=== PATIENT | female | born 1950 | race Two or more races ===

== ENCOUNTER 2024-07-28 08:17 | Outpatient (RCR) | payer OTHER, MEDICAID, SELFPAY ==
[2024-07-06 11:56] LABS: Basophils % (Auto) 0 % (0-2.5); Eosinophils # (Auto) 0.4 Thou/mm3 (0.0-0.5); Eosinophils % (Auto) 5 % (0-10); Hematocrit 36.3 % (36.0-46.0); Hemoglobin 11.9 g/dL (12.0-16.0); Immature Granulocytes % (Auto) 0 % (0-0); Immature Granulocytes Auto 0.03 Thou/mm3 (0.00-0.00); Lymphocytes % (Auto) 35 % (10-50); Mean Corpuscular HGB Conc 32.8 g/dl (31.0-37.0); Mean Corpuscular Hemoglobin 28.3 pg (25.0-35.0); Mean Corpuscular Volume 86 fL (80-100); Monocytes # (Auto) 0.6 Thou/mm3 (0.0-0.8); Monocytes % (Auto) 7 % (0-12); Neutrophils # (Auto) 4.4 Thou/mm3 (1.8-7.7); Neutrophils % (Auto) 52 % (37-80); Nucleated Red Blood Cell % 0 /100 WBC (0); Platelet Count 355 Thou/mm3 (140-440); RDW Standard Deviation 47.1 fL (36.4-46.3); White Blood Count 8.5 Thou/mm3 (3.6-11.0)
[2024-07-06 12:14] LABS: Alanine Aminotransferase 38 U/L (10-49); Albumin, Serum 3.9 gm/dL (3.4-4.8); Albumin/Globulin Ratio 1.3 (1.2-2.2); Alkaline Phosphatase 106 U/L (46-116); Anion Gap 9 (7-16); Aspartate Amino Transferase 11 U/L (0-34); BUN/Creatinine Ratio 12 Ratio (12-20); Bilirubin,Total 0.4 mg/dL (0.3-1.2); Blood Urea Nitrogen 7 mg/dL (9-23); Calcium (Corrected) 9.1 mg/dL (8.5-10.1); Carbon Dioxide 21.3 mMol/L (20.0-31.0); Chloride 107 mMol/L (98-107); Creatinine (Component) 0.6 mg/dL (0.6-1.3); Globulin 2.9 gm/dL (2.3-3.5); Glucose 188 mg/dL (74-106); Osmolality,Calculated 276 (275-295); Potassium 3.5 mMol/L (3.4-5.1); Sodium 137 mMol/L (136-145); Total Protein 6.8 gm/dL (5.7-8.2); eGFR > 60 See Note
[2024-07-11 09:28] LABS: Basophils # (Auto) 0.1 Thou/mm3 (0.0-0.2); Basophils % (Auto) 1 % (0-2.5); Eosinophils # (Auto) 0.4 Thou/mm3 (0.0-0.5); Eosinophils % (Auto) 4 % (0-10); Hematocrit 36.7 % (36.0-46.0); Hemoglobin 12.3 g/dL (12.0-16.0); Immature Granulocytes % (Auto) 0 % (0-0); Immature Granulocytes Auto 0.04 Thou/mm3 (0.00-0.00); Lymphocytes # (Auto) 2.8 Thou/mm3 (1.0-4.8); Lymphocytes % (Auto) 30 % (10-50); Mean Corpuscular HGB Conc 33.5 g/dl (31.0-37.0); Mean Corpuscular Hemoglobin 29.1 pg (25.0-35.0); Mean Corpuscular Volume 87 fL (80-100); Monocytes # (Auto) 0.7 Thou/mm3 (0.0-0.8); Monocytes % (Auto) 8 % (0-12); Neutrophils # (Auto) 5.4 Thou/mm3 (1.8-7.7); Neutrophils % (Auto) 57 % (37-80); Nucleated Red Blood Cell % 0 /100 WBC (0); Platelet Count 341 Thou/mm3 (140-440); RDW Standard Deviation 46.4 fL (36.4-46.3); Red Blood Count 4.23 Miln/mm3 (4.00-5.20); White Blood Count 9.5 Thou/mm3 (3.6-11.0)
[2024-07-11 09:46] LABS: Alanine Aminotransferase 20 U/L (10-49); Albumin, Serum 3.9 gm/dL (3.4-4.8); Albumin/Globulin Ratio 1.4 (1.2-2.2); Alkaline Phosphatase 113 U/L (46-116); Anion Gap 8 (7-16); Aspartate Amino Transferase 18 U/L (0-34); BUN/Creatinine Ratio 11 Ratio (12-20); Bilirubin,Total 0.4 mg/dL (0.3-1.2); Blood Urea Nitrogen 8 mg/dL (9-23); Calcium (Corrected) 9.1 mg/dL (8.5-10.1); Carbon Dioxide 22.1 mMol/L (20.0-31.0); Chloride 108 mMol/L (98-107); Creatinine (Component) 0.7 mg/dL (0.6-1.3); Globulin 2.8 gm/dL (2.3-3.5); Glucose 112 mg/dL (74-106); Osmolality,Calculated 274 (275-295); Potassium 3.8 mMol/L (3.4-5.1); Sodium 138 mMol/L (136-145); Thyroid Stimulating Hormone 2.33 uIU/mL (0.55-4.78); Total Protein 6.7 gm/dL (5.7-8.2); eGFR > 60 See Note
[2024-07-11 09:58] LABS: Folate > 24.00 ng/mL (>5.38); Vitamin B12 899 pg/mL (211-911)
[2024-07-11 09:59] LABS: Ferritin 92 ng/mL (7.3-270.7); Total Iron Binding Capacity 277 mcg/dL (250-425)
[2024-07-11 10:10] LABS: Iron 40 mcg/dL (50-170); Percent Iron Saturation 14 % (20-55); Unsaturated Iron Binding 237 (225-295)
[2024-07-12 06:44] LABS: CA 19-9 Antigen* 451 U/mL (<34)
[2024-07-18 10:26] LABS: Basophils % (Auto) 0 % (0-2.5); Eosinophils # (Auto) 0.3 Thou/mm3 (0.0-0.5); Eosinophils % (Auto) 3 % (0-10); Hematocrit 34.8 % (36.0-46.0); Hemoglobin 11.5 g/dL (12.0-16.0); Immature Granulocytes % (Auto) 0 % (0-0); Immature Granulocytes Auto 0.03 Thou/mm3 (0.00-0.00); Lymphocytes # (Auto) 2.1 Thou/mm3 (1.0-4.8); Lymphocytes % (Auto) 24 % (10-50); Mean Corpuscular Volume 88 fL (80-100); Monocytes # (Auto) 0.7 Thou/mm3 (0.0-0.8); Monocytes % (Auto) 8 % (0-12); Neutrophils # (Auto) 5.7 Thou/mm3 (1.8-7.7); Neutrophils % (Auto) 65 % (37-80); Nucleated Red Blood Cell % 0 /100 WBC (0); Platelet Count 337 Thou/mm3 (140-440); RDW Standard Deviation 45.6 fL (36.4-46.3); Red Blood Count 3.97 Miln/mm3 (4.00-5.20); White Blood Count 8.8 Thou/mm3 (3.6-11.0)
[2024-07-18 10:58] LABS: Alanine Aminotransferase 24 U/L (10-49); Albumin, Serum 4.1 gm/dL (3.4-4.8); Albumin/Globulin Ratio 1.5 (1.2-2.2); Alkaline Phosphatase 103 U/L (46-116); Anion Gap 8 (7-16); Aspartate Amino Transferase 23 U/L (0-34); BUN/Creatinine Ratio 13 Ratio (12-20); Bilirubin,Total 0.4 mg/dL (0.3-1.2); Blood Urea Nitrogen 8 mg/dL (9-23); Calcium 8.9 mg/dL (8.3-10.6); Calcium (Corrected) 8.9 mg/dL (8.5-10.1); Carbon Dioxide 21.9 mMol/L (20.0-31.0); Chloride 108 mMol/L (98-107); Creatinine (Component) 0.6 mg/dL (0.6-1.3); Globulin 2.8 gm/dL (2.3-3.5); Glucose 96 mg/dL (74-106); Osmolality,Calculated 273 (275-295); Potassium 3.6 mMol/L (3.4-5.1); Sodium 138 mMol/L (136-145); Total Protein 6.9 gm/dL (5.7-8.2); eGFR > 60 See Note
[2024-07-21 06:49] LABS: CA 19-9 Antigen* 397 U/mL (<34)
[2024-07-25 09:17] LABS: Basophils % (Auto) 0 % (0-2.5); Eosinophils # (Auto) 0.4 Thou/mm3 (0.0-0.5); Eosinophils % (Auto) 5 % (0-10); Hemoglobin 11.2 g/dL (12.0-16.0); Immature Granulocytes % (Auto) 0 % (0-0); Immature Granulocytes Auto 0.02 Thou/mm3 (0.00-0.00); Lymphocytes # (Auto) 1.9 Thou/mm3 (1.0-4.8); Lymphocytes % (Auto) 26 % (10-50); Mean Corpuscular HGB Conc 32.9 g/dl (31.0-37.0); Mean Corpuscular Hemoglobin 28.9 pg (25.0-35.0); Mean Corpuscular Volume 88 fL (80-100); Monocytes # (Auto) 0.6 Thou/mm3 (0.0-0.8); Monocytes % (Auto) 8 % (0-12); Neutrophils # (Auto) 4.4 Thou/mm3 (1.8-7.7); Neutrophils % (Auto) 61 % (37-80); Nucleated Red Blood Cell % 0 /100 WBC (0); Platelet Count 361 Thou/mm3 (140-440); RDW Standard Deviation 46.4 fL (36.4-46.3); Red Blood Count 3.88 Miln/mm3 (4.00-5.20); White Blood Count 7.3 Thou/mm3 (3.6-11.0)
[2024-07-25 09:43] LABS: Alanine Aminotransferase 30 U/L (10-49); Albumin/Globulin Ratio 1.3 (1.2-2.2); Alkaline Phosphatase 106 U/L (46-116); Anion Gap 6 (7-16); Aspartate Amino Transferase 29 U/L (0-34); BUN/Creatinine Ratio 13 Ratio (12-20); Bilirubin,Total 0.5 mg/dL (0.3-1.2); Blood Urea Nitrogen 9 mg/dL (9-23); Calcium 9.4 mg/dL (8.3-10.6); Calcium (Corrected) 9.4 mg/dL (8.5-10.1); Carbon Dioxide 19.6 mMol/L (20.0-31.0); Chloride 112 mMol/L (98-107); Creatinine (Component) 0.7 mg/dL (0.6-1.3); Glucose 99 mg/dL (74-106); Osmolality,Calculated 274 (275-295); Potassium 3.6 mMol/L (3.4-5.1); Sodium 138 mMol/L (136-145); eGFR > 60 See Note
[2024-08-03 06:27] LABS: CA 19-9 Antigen* 230 U/mL (<34)
== END 2024-07-28 23:59 | disposition home or self-care (01) ==
LOC: SCTC 08:17
PROVIDERS: PCP Family Medicine; Referring Provider Family Medicine; Visit Provider Internal Medicine Hematology & Oncology
DX: Z51.11 Encounter for antineoplastic chemotherapy (principal); Z51.0 Encounter for antineoplastic radiation therapy; C25.0 Malignant neoplasm of head of pancreas
CPT/HCPCS: 36591; 77300; 77301; 77336; 77338; 77385; 80053; 82607; 82728; 82746; 83540; 83550; 84443; 85025; 86301; 96374; 96416; 96521; 99212; A4216; J1642; J2997; J9190; G0463

== ENCOUNTER 2024-08-22 08:26 | Outpatient (RCR) | payer OTHER, MEDICAID, SELFPAY ==
[2024-08-01 08:54] LABS: Basophils % (Auto) 0 % (0-2.5); Eosinophils # (Auto) 0.2 Thou/mm3 (0.0-0.5); Eosinophils % (Auto) 3 % (0-10); Hematocrit 32.6 % (36.0-46.0); Immature Granulocytes % (Auto) 0 % (0-0); Immature Granulocytes Auto 0.03 Thou/mm3 (0.00-0.00); Lymphocytes # (Auto) 1.7 Thou/mm3 (1.0-4.8); Lymphocytes % (Auto) 22 % (10-50); Mean Corpuscular HGB Conc 33.7 g/dl (31.0-37.0); Mean Corpuscular Hemoglobin 29.7 pg (25.0-35.0); Mean Corpuscular Volume 88 fL (80-100); Monocytes # (Auto) 0.8 Thou/mm3 (0.0-0.8); Monocytes % (Auto) 10 % (0-12); Neutrophils # (Auto) 4.9 Thou/mm3 (1.8-7.7); Neutrophils % (Auto) 65 % (37-80); Nucleated Red Blood Cell % 0 /100 WBC (0); Platelet Count 342 Thou/mm3 (140-440); RDW Standard Deviation 48.8 fL (36.4-46.3); White Blood Count 7.6 Thou/mm3 (3.6-11.0)
[2024-08-01 09:14] LABS: Alanine Aminotransferase 26 U/L (10-49); Albumin, Serum 3.9 gm/dL (3.4-4.8); Albumin/Globulin Ratio 1.4 (1.2-2.2); Alkaline Phosphatase 109 U/L (46-116); Anion Gap 8 (7-16); Aspartate Amino Transferase 23 U/L (0-34); BUN/Creatinine Ratio 15 Ratio (12-20); Bilirubin,Total 0.5 mg/dL (0.3-1.2); Blood Urea Nitrogen 9 mg/dL (9-23); Calcium 9.2 mg/dL (8.3-10.6); Calcium (Corrected) 9.3 mg/dL (8.5-10.1); Carbon Dioxide 22.4 mMol/L (20.0-31.0); Chloride 109 mMol/L (98-107); Creatinine (Component) 0.6 mg/dL (0.6-1.3); Globulin 2.8 gm/dL (2.3-3.5); Glucose 95 mg/dL (74-106); Osmolality,Calculated 276 (275-295); Potassium 3.6 mMol/L (3.4-5.1); Sodium 139 mMol/L (136-145); Total Protein 6.7 gm/dL (5.7-8.2); eGFR > 60 See Note
[2024-08-09 06:32] LABS: CA 19-9 Antigen* 176 U/mL (<34)
[2024-08-09 10:51] LABS: Basophils % (Auto) 1 % (0-2.5); Eosinophils # (Auto) 0.3 Thou/mm3 (0.0-0.5); Eosinophils % (Auto) 4 % (0-10); Hematocrit 31.9 % (36.0-46.0); Hemoglobin 10.9 g/dL (12.0-16.0); Immature Granulocytes % (Auto) 0 % (0-0); Immature Granulocytes Auto 0.02 Thou/mm3 (0.00-0.00); Lymphocytes # (Auto) 1.2 Thou/mm3 (1.0-4.8); Lymphocytes % (Auto) 17 % (10-50); Mean Corpuscular HGB Conc 34.2 g/dl (31.0-37.0); Mean Corpuscular Hemoglobin 30.2 pg (25.0-35.0); Mean Corpuscular Volume 88 fL (80-100); Monocytes # (Auto) 0.7 Thou/mm3 (0.0-0.8); Monocytes % (Auto) 11 % (0-12); Neutrophils # (Auto) 4.5 Thou/mm3 (1.8-7.7); Neutrophils % (Auto) 68 % (37-80); Nucleated Red Blood Cell % 0 /100 WBC (0); Platelet Count 375 Thou/mm3 (140-440); RDW Standard Deviation 52.3 fL (36.4-46.3); Red Blood Count 3.61 Miln/mm3 (4.00-5.20); White Blood Count 6.7 Thou/mm3 (3.6-11.0)
[2024-08-09 11:11] LABS: Alanine Aminotransferase 30 U/L (10-49); Albumin, Serum 3.9 gm/dL (3.4-4.8); Albumin/Globulin Ratio 1.4 (1.2-2.2); Alkaline Phosphatase 125 U/L (46-116); Anion Gap 6 (7-16); Aspartate Amino Transferase 27 U/L (0-34); BUN/Creatinine Ratio 13 Ratio (12-20); Bilirubin,Total 0.4 mg/dL (0.3-1.2); Blood Urea Nitrogen 9 mg/dL (9-23); Calcium (Corrected) 9.1 mg/dL (8.5-10.1); Carbon Dioxide 22.2 mMol/L (20.0-31.0); Chloride 108 mMol/L (98-107); Creatinine (Component) 0.7 mg/dL (0.6-1.3); Globulin 2.7 gm/dL (2.3-3.5); Glucose 176 mg/dL (74-106); Osmolality,Calculated 274 (275-295); Potassium 3.7 mMol/L (3.4-5.1); Sodium 136 mMol/L (136-145); Total Protein 6.6 gm/dL (5.7-8.2); eGFR > 60 See Note
[2024-08-15 06:40] LABS: CA 19-9 Antigen* 192 U/mL (<34)
[2024-08-15 09:06] LABS: Basophils % (Auto) 0 % (0-2.5); Eosinophils # (Auto) 0.3 Thou/mm3 (0.0-0.5); Eosinophils % (Auto) 4 % (0-10); Hematocrit 32.5 % (36.0-46.0); Hemoglobin 10.8 g/dL (12.0-16.0); Immature Granulocytes % (Auto) 0 % (0-0); Immature Granulocytes Auto 0.02 Thou/mm3 (0.00-0.00); Lymphocytes # (Auto) 1.2 Thou/mm3 (1.0-4.8); Lymphocytes % (Auto) 18 % (10-50); Mean Corpuscular HGB Conc 33.2 g/dl (31.0-37.0); Mean Corpuscular Hemoglobin 29.8 pg (25.0-35.0); Mean Corpuscular Volume 90 fL (80-100); Monocytes # (Auto) 0.7 Thou/mm3 (0.0-0.8); Monocytes % (Auto) 10 % (0-12); Neutrophils # (Auto) 4.5 Thou/mm3 (1.8-7.7); Neutrophils % (Auto) 68 % (37-80); Nucleated Red Blood Cell % 0 /100 WBC (0); Platelet Count 381 Thou/mm3 (140-440); Red Blood Count 3.63 Miln/mm3 (4.00-5.20); White Blood Count 6.6 Thou/mm3 (3.6-11.0)
[2024-08-15 09:26] LABS: Alanine Aminotransferase 22 U/L (10-49); Albumin/Globulin Ratio 1.4 (1.2-2.2); Alkaline Phosphatase 135 U/L (46-116); Anion Gap 7 (7-16); Aspartate Amino Transferase 26 U/L (0-34); BUN/Creatinine Ratio 13 Ratio (12-20); Bilirubin,Total 0.5 mg/dL (0.3-1.2); Blood Urea Nitrogen 8 mg/dL (9-23); Calcium 8.9 mg/dL (8.3-10.6); Calcium (Corrected) 8.9 mg/dL (8.5-10.1); Chloride 109 mMol/L (98-107); Creatinine (Component) 0.6 mg/dL (0.6-1.3); Globulin 2.8 gm/dL (2.3-3.5); Glucose 97 mg/dL (74-106); Osmolality,Calculated 272 (275-295); Potassium 3.7 mMol/L (3.4-5.1); Sodium 137 mMol/L (136-145); Total Protein 6.8 gm/dL (5.7-8.2); eGFR > 60 See Note
[2024-08-18 06:43] LABS: CA 19-9 Antigen* 226 U/mL (<34)
== END 2024-08-27 23:59 | disposition home or self-care (01) ==
LOC: SCTC 08:26
PROVIDERS: PCP Family Medicine; Referring Provider Family Medicine; Visit Provider Internal Medicine Hematology & Oncology
DX: Z51.0 Encounter for antineoplastic radiation therapy (principal); Z51.11 Encounter for antineoplastic chemotherapy; C25.0 Malignant neoplasm of head of pancreas; K83.1 Obstruction of bile duct; Z97.8 Presence of other specified devices
CPT/HCPCS: 77336; 77385; 80053; 85025; 86301; 96416; 96521; A4216; J1642; J9190

== ENCOUNTER 2024-09-06 08:54 | Outpatient (RCR) | payer OTHER, MEDICAID, SELFPAY ==
[2024-08-31 14:24] LABS: Basophils % (Auto) 1 % (0-2.5); Eosinophils # (Auto) 0.2 Thou/mm3 (0.0-0.5); Eosinophils % (Auto) 3 % (0-10); Hematocrit 30.9 % (36.0-46.0); Hemoglobin 10.4 g/dL (12.0-16.0); Immature Granulocytes % (Auto) 1 % (0-0); Immature Granulocytes Auto 0.03 Thou/mm3 (0.00-0.00); Lymphocytes # (Auto) 1.2 Thou/mm3 (1.0-4.8); Lymphocytes % (Auto) 19 % (10-50); Mean Corpuscular HGB Conc 33.7 g/dl (31.0-37.0); Mean Corpuscular Hemoglobin 31.3 pg (25.0-35.0); Mean Corpuscular Volume 93 fL (80-100); Monocytes # (Auto) 0.8 Thou/mm3 (0.0-0.8); Monocytes % (Auto) 13 % (0-12); Neutrophils % (Auto) 64 % (37-80); Nucleated Red Blood Cell % 0 /100 WBC (0); Platelet Count 341 Thou/mm3 (140-440); RDW Standard Deviation 58.9 fL (36.4-46.3); Red Blood Count 3.32 Miln/mm3 (4.00-5.20); White Blood Count 6.3 Thou/mm3 (3.6-11.0)
[2024-08-31 14:50] LABS: Alanine Aminotransferase 12 U/L (10-49); Albumin/Globulin Ratio 1.6 (1.2-2.2); Alkaline Phosphatase 147 U/L (46-116); Anion Gap 10 (7-16); Aspartate Amino Transferase 25 U/L (0-34); BUN/Creatinine Ratio 13 Ratio (12-20); Bilirubin,Total 0.4 mg/dL (0.3-1.2); Blood Urea Nitrogen 8 mg/dL (9-23); Calcium 8.7 mg/dL (8.3-10.6); Calcium (Corrected) 8.7 mg/dL (8.5-10.1); Carbon Dioxide 21.1 mMol/L (20.0-31.0); Chloride 105 mMol/L (98-107); Creatinine (Component) 0.6 mg/dL (0.6-1.3); Globulin 2.5 gm/dL (2.3-3.5); Glucose 129 mg/dL (74-106); Osmolality,Calculated 272 (275-295); Potassium 3.4 mMol/L (3.4-5.1); Sodium 136 mMol/L (136-145); Total Protein 6.5 gm/dL (5.7-8.2); eGFR > 60 See Note
[2024-09-06 06:25] LABS: CA 19-9 Antigen* 602 U/mL (<34)
--- NOTE | 2024-09-12 04:54 | CTCFLWUP_ITS ---
Patient: ELIZABETH JUAREZ : 1950 Page 2 of 2 FOLLOW UP NOTE DATE OF SERVICE: 09/01/2024 NAME: ELIZABETH JUAREZ ACCOUNT: [id number] : 1950 AGE: 74 REASON FOR VISIT: Follow-up on pancreatic cancer INTERVAL HISTORY: Have completed chemoradiation and here for follow-up. Patient's CA 19-9 is rising up. Patient for feels fatigued and tired and have poor appetite. Elizabeth Juarez is a 74-year-old SPA speaking female is referred to medical oncology clinic for recently diagnosed pancreatic adenocarcinoma. Ms. Juarez is a poor historian. S he is accompanied by her granddaughter who also does not know the history of Ms. Jaurez's il lness. Early part of June 2023: Ms. Juarez was found to have jaundice. She was admitted to [facility] and subsequently transferred to [facility] in [place]. On sc ans she was found to have a mass in the pancreas. According to the granddaughter patient had CT-guid ed biopsy of the pancreatic mass and external biliary drain was placed. Patient has subsequently imp roved. She stayed at [facility] for about 2 weeks. Discharged on 07 August 2023. I do not have any rec ords from [facility]. According to the granddaughter the pancreatic cancer is localized to the pancreas. 08/24/2023: T. bili 4.8, AST 118, ALT 147, alkaline phosphatase 264, CA 19?9 is 66. 08/31/2023: T. bili 3.3, AST 81, ALT 102, alk phos 297 09/03/2023: PET/CT scan? 10/20/2023 - 12/02/2023: Ms. Juarez received 2 cycles of gemcitabine and Abraxane in the neoadj uvant setting. CA 19?9 trend: 10/19/2023: 59 10/26/2023: 49 11/03/2023: 32 11/17/2023: 39 11/24/2023: 35 12/01/2023: 34. 12/28/2023: PET/CT scan? 01/11/2024: CT scan of the chest without IV contrast done 02/03/2024: CA 19?9 is 107. 02/10/2024: CA 19?9 is 126. 02/11/2024: Ms. Juarez had cycle 3-day 8 of gemcitabine and Abraxane. 04/21/2024: Ms. Juarez had 5 cycles of gemcitabine and Abraxane 05/17/2024: CT scan of the chest abdomen and pelvis with IV contrast 05/23/2024: MRI of the abdomen with and without IV contrast DIAGNOSIS: Localized pancreatic adenocarcinoma. S/p 5 cycles of neoadjuvant gemcitabine and Abraxane (10/20/2023 - 04/21/2024) Repeat MRI (05/23/2024). Showed progression and patient was started on radiation DATE OF DIAGNOSIS: STAGE/TNM: TREATMENT HISTORY: Care?Plan Start?Date Cycle Day Intent GemAbrax 10/20/2023 1 28 Curative?(primary) 5fu?chemoradiation 07/11/2024 1 7 Definitive OTHER MEDICAL HISTORY/CONDITIONS: PANCRATIC CA ASTHMA HIGH BLOOD PRESSURE BILAT?TUBAL?LIGATION FAMILY HISTORY: Children:?BREAST??DAUGHTER Cancer History:?UNCLE PROSATE/ UNCLE STOMACH SOCIAL HISTORY: Occupational?History:?RETIRED Education?Level:?Completed something less than 8th grade Marital?Status:? 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 Centrum Silver Women - 8 mg iron-400 mcg-50 mcg 30 tab Daily 2. cephALEXin - 500 mg Capsule As directed 3. K-Tab - 20 mEq 1 tab Daily 4. eecnkh-nftekluy-rtcwcjx - 60,000-189,600- 252,600 unit 1 Capsule 1 capsule three times daily with food 5. megestrol - 40 mg 1 tab Daily 6. methimazole - 5 mg Daily 7. ondansetron - 8 mg 1 tab Daily 8. pantoprazole - 40 mg Twice a Day 9. Protonix - 20 mg 1 tab Daily 10. traMADol - 50 mg 1 tab three times a day Medications Last Reconciled by Nkechi Lutz MA on 09/01/2024 ALLERGIES: hydrocodone-acetaminophen; hydrocodone-acetaminophen REVIEW OF SYSTEMS: A complete 14-point review of systems was performed and is negative except as noted in interval histo ry. PHYSICAL EXAMINATION: VITAL SIGNS: Temperature?97.8, B/P?134/76, Oxygen?Saturation?100% Weight?95?lbs (Change?since?08/31/24 :?-1?lbs) PAIN: 5 - Between moderate and severe pain ECOG Performance Status: 2 - Symptomatic; ambulatory; capable of self-care; >50% of waking hrs. not i n bed EYE: Conjunctivae is white MOUTH: Oral cavity is dry. CHEST: Clear to auscultation. No wheezes or rales audible. CARDIAC: Rhythm regular, no murmurs or gallops present. ABDOMEN: Soft. No hepatomegaly. No splenomegaly. Ms. Juarez has external biliary drain whic h seems to be functioning well. EXTREMITIES: No pedal edema or cyanosis. LABORATORY DATA: I have personally reviewed and interpreted each of the patient?s relevant lab tests, abnormal finding s are below: Date 08/31/24 ??WHITE?BLOOD?COUNT?(Thou/mm3) 6.3 ??RED?BLOOD?COUNT?(Miln/mm3) 3.32?L ??HEMOGLOBIN?(gm/dl) 10.4?L ??HEMATOCRIT?(%) 30.9?L ??PLATELET?COUNT?(Thou/mm3) 341 ??NEUTROPHILS?%,?AUTO?(%) 64 ??LYMPH?%,?AUTO?(%) 19 ??NEUTROPHILS,?AUTO?(Thou/mm3) 4.0 IMPRESSION/PLAN: Adenocarcinoma pancreas Initially treated with 5 cycles of neoadjuvant Abraxane gem Cytovene with a plan to do surgery Patient was found to have progression and no surgery was offered and radiation was started Patient started on 5-FU plus radiation and complete last treatment was given on 08/17/2024 Patient's CA 19 9 is now more than 600 Patient is likely progressing I will get CT scan to evaluate the disease Advised to follow-up with surgeon as patient have appointment Patient likely have very poor prognosis at this time I will treat with FOLFIRI if patient have progression CBC CMP ca19-[address] scan chest abdomen pelvis ordered with IV contrast RETURN TO CLINIC: 4 weeks BILLING AND COMPLIANCE: I reviewed external records from providers outside my specialty as summarized above. I spent a total of 50 minutes on this patient?s care on the day of their visit excluding time spent related to any bi lled procedures. This time includes time spent with the patient as well as time spent documenting in the medical record, reviewing patients records and tests, obtaining history, placing orders, communi cating with other healthcare professionals, counseling the patient, family or caregiver, and/or care coordination for the diagnoses above. Electronically Signed by: Desmond Odell MD T: 4:52 AM CC: PCP: Neena Bermeo Referring: Neena Bermeo This document was completed utilizing speech recognition software. Grammatical errors, random word in sertions, pronoun errors, and incomplete sentences are an occasional consequence of this system due t o software limitations, ambient noise, and hardware issues. Any formal questions or concerns about th e content, text or information contained within the body of this dictation should be directly address ed to the provider for clarification.
== END 2024-09-27 23:59 | disposition home or self-care (01) ==
LOC: SCTC 08:54
PROVIDERS: Internal Medicine Hematology & Oncology; PCP Family Medicine; Referring Provider Family Medicine; Visit Provider Radiology Therapeutic Radiology
DX: C25.0 Malignant neoplasm of head of pancreas (principal)
CPT/HCPCS: 36591; 80053; 85025; 86301; 96374; 96376; 99212; A4216; J1642; J2997; G0463

== ENCOUNTER → 2024-09-29 | Outpatient (CLI) | payer MEDICARE, MEDICAID, SELFPAY ==
--- NOTE | 2024-09-29 13:00 | XR_ITS ---
Examination: CT chest with intravenous contrast CT chest without intravenous contrast 2-D reconstructions Date and time of exam:September 29, 2024 1420 hours Comparison May 17, 2024 INDICATIONS: Diagnosis malignant neoplasm head of the pancreas CTDI:vol (mGy) : 8 DLP: (mGycm) 417.32 Technique: Multiple axial sections of the thorax have been obtained. 3 mm slice thickness, from the hemidiaphragms to above the apices of the lungs. Mediastinal and lung density settings have been obtained. Intravenous contrast administered 60 cc Isovue-370. Noncontrast images have also been obtained. 2-D sagittal coronal images obtained. Low dose protocols were performed. One or more of the following dose reduction techniques were used; automated exposure control, adjustment of the mA and/or KV according to patient size, use of iterative reconstruction technique. Findings: Mildly prominent right thyroid lobe with 11 mm right thyroid nodule Thoracic aorta calcification no aneurysmal dilatation AP dimension ascending thoracic aorta 3 cm No paratracheal tracheobronchial or bronchopulmonary adenopathy Interval 5 mm pleural-based pulmonary nodule right lower lobe axial image 188 No pneumonia or pulmonary edema Pneumobilia Extrahepatic biliary drainage tube extends partly visualized into the common bile duct Mass in the pancreatic head exhibits AP dimension 33 mm now compared to 29 mm on May 17, 2024 IMPRESSION: Interval 5 mm pleural-based pulmonary nodule right lower lobe Enlarging mass pancreatic head
== END | disposition home or self-care (01) ==
PROVIDERS: PCP Family Medicine; Referring Provider Internal Medicine Hematology & Oncology; Visit Provider Internal Medicine Hematology & Oncology
DX: R91.1 Solitary pulmonary nodule (principal); K86.89 Other specified diseases of pancreas; C25.0 Malignant neoplasm of head of pancreas
CPT/HCPCS: 71270; A4649; Q9967

== ENCOUNTER 2024-10-14 08:29 | Outpatient (RCR) | payer MEDICARE, MEDICAID, SELFPAY ==
[2024-10-14 09:53] LABS: Basophils # (Auto) 0.1 Thou/mm3 (0.0-0.2); Basophils % (Auto) 1 % (0-2.5); Eosinophils # (Auto) 0.4 Thou/mm3 (0.0-0.5); Eosinophils % (Auto) 7 % (0-10); Hematocrit 33.9 % (36.0-46.0); Hemoglobin 11.5 g/dL (12.0-16.0); Immature Granulocytes % (Auto) 0 % (0-0); Immature Granulocytes Auto 0.02 Thou/mm3 (0.00-0.00); Lymphocytes # (Auto) 1.8 Thou/mm3 (1.0-4.8); Lymphocytes % (Auto) 28 % (10-50); Mean Corpuscular HGB Conc 33.9 g/dl (31.0-37.0); Mean Corpuscular Hemoglobin 30.6 pg (25.0-35.0); Mean Corpuscular Volume 90 fL (80-100); Monocytes # (Auto) 0.6 Thou/mm3 (0.0-0.8); Monocytes % (Auto) 10 % (0-12); Neutrophils # (Auto) 3.7 Thou/mm3 (1.8-7.7); Neutrophils % (Auto) 55 % (37-80); Nucleated Red Blood Cell % 0 /100 WBC (0); Platelet Count 363 Thou/mm3 (140-440); RDW Standard Deviation 44.7 fL (36.4-46.3); Red Blood Count 3.76 Miln/mm3 (4.00-5.20); White Blood Count 6.6 Thou/mm3 (3.6-11.0)
[2024-10-14 10:11] LABS: Alanine Aminotransferase 16 U/L (10-49); Albumin, Serum 4.1 gm/dL (3.4-4.8); Albumin/Globulin Ratio 1.6 (1.2-2.2); Alkaline Phosphatase 135 U/L (46-116); Anion Gap 11 (7-16); Aspartate Amino Transferase 24 U/L (0-34); BUN/Creatinine Ratio 22 Ratio (12-20); Bilirubin,Total 0.5 mg/dL (0.3-1.2); Blood Urea Nitrogen 13 mg/dL (9-23); Carbon Dioxide 24.3 mMol/L (20.0-31.0); Chloride 107 mMol/L (98-107); Creatinine (Component) 0.6 mg/dL (0.6-1.3); Globulin 2.5 gm/dL (2.3-3.5); Glucose 85 mg/dL (74-106); Osmolality,Calculated 282 (275-295); Sodium 142 mMol/L (136-145); Total Protein 6.6 gm/dL (5.7-8.2); eGFR > 60 See Note
--- NOTE | 2024-10-17 23:28 | CTCFLWUP_ITS ---
Patient: BANDAR JUAREZ : 1950 Page 5 of 6 FOLLOW UP NOTE DATE OF SERVICE: 10/13/2024 NAME: BANDAR JUAREZ ACCOUNT: [id number] : 1950 AGE: 74 INTERVAL HISTORY: Have completed chemoradiation and here for follow-up. Patient's CA 19-9 was 602 . no new labs . Patient have gained 5 pounds since last visit . Bandar Juarez is a 74-year-old SPA speaking for female with diagnosed pancreatic a denocarcinoma. Ms. Juarez is a poor historian. She is accompanied by her granddaughter who also does not know the history of Ms. Juarez's illness. Early part of June 2023: Ms. Juarez was found to have jaundice. She was admitted to [facility] and subsequently transferred to [facility] in [place]. On sc ans she was found to have a mass in the pancreas. According to the granddaughter patient had CT-guid ed biopsy of the pancreatic mass and external biliary drain was placed. Patient has subsequently imp roved. She stayed at [facility] for about 2 weeks. Discharged on 07 August 2023. I do not have any rec ords from [facility]. According to the granddaughter the pancreatic cancer is localized to the pancreas. 08/24/2023: T. bili 4.8, AST 118, ALT 147, alkaline phosphatase 264, CA 19?9 is 66. 08/31/2023: T. bili 3.3, AST 81, ALT 102, alk phos 297 09/03/2023: PET/CT scan? 10/20/2023 - 12/02/2023: Ms. Juarez received 2 cycles of gemcitabine and Abraxane in the neoadj uvant setting. CA 19?9 trend: 10/19/2023: 59 10/26/2023: 49 11/03/2023: 32 11/17/2023: 39 11/24/2023: 35 12/01/2023: 34. 12/28/2023: PET/CT scan? 01/11/2024: CT scan of the chest without IV contrast done 02/03/2024: CA 19?9 is 107. 02/10/2024: CA 19?9 is 126. 02/11/2024: Ms. Juarez had cycle 3-day 8 of gemcitabine and Abraxane. 04/21/2024: Ms. Juarez had 5 cycles of gemcitabine and Abraxane 05/17/2024: CT scan of the chest abdomen and pelvis with IV contrast 05/23/2024: MRI of the abdomen with and without IV contrast ONCOLOGY HISTORY: DIAGNOSIS: Malignant neoplasm of head of pancreas [ICD10] C25.0 DATE OF DIAGNOSIS: STAGE/TNM: TREATMENT HISTORY: Care?Plan Start?Date Cycle Day Intent GemAbrax 10/20/2023 1 28 Curative?(primary) 5fu?chemoradiation 07/11/2024 1 7 Definitive HISTORY OF PRESENT ILLNESS: OTHER MEDICAL HISTORY/CONDITIONS: PANCRATIC CA ASTHMA HIGH BLOOD PRESSURE BILAT?TUBAL?LIGATION FAMILY HISTORY: Children:?BREAST??DAUGHTER Cancer History:?UNCLE PROSATE/ UNCLE STOMACH SOCIAL HISTORY: Occupational?History:?RETIRED Education?Level:?Completed something less than 8th grade Marital?Status:? 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 Centrum Silver Women - 8 mg iron-400 mcg-50 mcg 30 tab Daily 2. cephALEXin - 500 mg Capsule As directed 3. K-Tab - 20 mEq 1 tab Daily 4. waljme-erqdubvf-tnkrktm - 60,000-189,600- 252,600 unit 1 Capsule 1 capsule three times daily with food 5. megestrol - 40 mg 1 tab Daily 6. methimazole - 5 mg Daily 7. mirtazapine - 15 mg 1 tab Daily 8. ondansetron - 8 mg 1 tab Daily 9. pantoprazole - 40 mg Twice a Day 10. Protonix - 20 mg 1 tab Daily 11. traMADol - 50 mg 1 tab three times a day 12. Zenpep - 60,000-189,600- 252,600 unit 1 Capsule Three times a day Medications Last Reconciled by Nkechi Lutz MA on 10/13/2024 ALLERGIES: hydrocodone-acetaminophen; hydrocodone-acetaminophen REVIEW OF SYSTEMS: A complete 14-point review of systems was performed and is negative except as noted in interval histo ry. PHYSICAL EXAMINATION: VITAL SIGNS: PAIN: 2 - Mild pain ECOG Performance Status: 2 - Symptomatic; ambulatory; capable of self-care; >50% of waking hrs. not i n bed EYE: Conjunctivae is white MOUTH: Oral cavity is dry. CHEST: Clear to auscultation. No wheezes or rales audible. CARDIAC: Rhythm regular, no murmurs or gallops present. ABDOMEN: Soft. No hepatomegaly. No splenomegaly. Ms. Juarez has external biliary drain whic h seems to be functioning well. EXTREMITIES: No pedal edema or cyanosis. LABORATORY DATA: I have personally reviewed and interpreted each of the patient?s relevant lab tests, abnormal finding s are below: Date 08/31/24 ??WHITE?BLOOD?COUNT?(Thou/mm3) 6.3 ??RED?BLOOD?COUNT?(Miln/mm3) 3.32?L ??HEMOGLOBIN?(gm/dl) 10.4?L ??HEMATOCRIT?(%) 30.9?L ??PLATELET?COUNT?(Thou/mm3) 341 ??NEUTROPHILS?%,?AUTO?(%) 64 ??LYMPH?%,?AUTO?(%) 19 ??NEUTROPHILS,?AUTO?(Thou/mm3) 4.0 ASSESSMENT/PLAN: Adenocarcinoma pancreas Initially treated with 5 cycles of neoadjuvant Abraxane gem Cytovene with a plan to do surgery Patient was found to have progression and no surgery was offered and radiation was started Patient started on 5-FU plus radiation and complete last treatment was given on 08/17/2024 Patient's CA 19 9 is now more than 602 Ct chest shows lung nodule Patient is likely progressing I will get CT scan to evaluate the disease Advised to follow-up with surgeon as patient have appointment Patient likely have very poor prognosis at this time I will treat with FOLFIRI if patient have progression CBC CMP ca19-[address] scan chest abdomen pelvis ordered with IV contrast ORDERS: I will see her back in the clinic in 3 weeks. Tumor markers RETURN TO CLINIC: BILLING AND COMPLIANCE: I reviewed external records from providers outside my specialty as summarized above. I spent a total of 50 minutes on this patient?s care on the day of their visit excluding time spent related to any bi lled procedures. This time includes time spent with the patient as well as time spent documenting in the medical record, reviewing patients records and tests, obtaining history, placing orders, communi cating with other healthcare professionals, counseling the patient, family or caregiver, and/or care coordination for the diagnoses above. Electronically Signed by: {Object.Sanct_ID*[email or web address]@M}, {Object.Sanct_ID*PnP.Suffix@U} D: {Object.Sanct_Date} T: {Object.Sanct_Time} CC: PCP: Neena Bermeo Referring: Neena Bermeo This document was completed utilizing speech recognition software. Grammatical errors, random word in sertions, pronoun errors, and incomplete sentences are an occasional consequence of this system due t o software limitations, ambient noise, and hardware issues. Any formal questions or concerns about th e content, text or information contained within the body of this dictation should be directly address ed to the provider for clarification.
[2024-10-19 06:26] LABS: CA 19-9 Antigen* 442 U/mL (<34)
== END 2024-10-28 23:59 | disposition home or self-care (01) ==
LOC: SCTC 08:29
PROVIDERS: PCP Family Medicine; Referring Provider Family Medicine; Visit Provider Internal Medicine Hematology & Oncology
DX: C25.0 Malignant neoplasm of head of pancreas (principal); R91.1 Solitary pulmonary nodule
CPT/HCPCS: 36591; 80053; 85025; 86301; 99212; A4216; J1642; G0463

== ENCOUNTER → 2024-10-31 | Outpatient (CLI) | payer OTHER, MEDICAID, SELFPAY ==
[2024-10-31 10:33] LABS: Basophils # (Auto) 0.1 Thou/mm3 (0.0-0.2); Basophils % (Auto) 1 % (0-2.5); Eosinophils # (Auto) 0.4 Thou/mm3 (0.0-0.5); Eosinophils % (Auto) 6 % (0-10); Hematocrit 37.1 % (36.0-46.0); Hemoglobin 12.2 g/dL (12.0-16.0); Immature Granulocytes % (Auto) 0 % (0-0); Immature Granulocytes Auto 0.03 Thou/mm3 (0.00-0.00); Lymphocytes # (Auto) 1.7 Thou/mm3 (1.0-4.8); Lymphocytes % (Auto) 24 % (10-50); Mean Corpuscular HGB Conc 32.9 g/dl (31.0-37.0); Mean Corpuscular Hemoglobin 29.8 pg (25.0-35.0); Mean Corpuscular Volume 91 fL (80-100); Monocytes # (Auto) 0.8 Thou/mm3 (0.0-0.8); Monocytes % (Auto) 11 % (0-12); Neutrophils # (Auto) 4.2 Thou/mm3 (1.8-7.7); Neutrophils % (Auto) 58 % (37-80); Nucleated Red Blood Cell % 0 /100 WBC (0); Platelet Count 366 Thou/mm3 (140-440); RDW Standard Deviation 45.7 fL (36.4-46.3); White Blood Count 7.2 Thou/mm3 (3.6-11.0)
[2024-10-31 11:05] LABS: Alanine Aminotransferase 21 U/L (10-49); Albumin, Serum 4.1 gm/dL (3.4-4.8); Albumin/Globulin Ratio 1.4 (1.2-2.2); Alkaline Phosphatase 163 U/L (46-116); Anion Gap 10 (7-16); Aspartate Amino Transferase 29 U/L (0-34); BUN/Creatinine Ratio 22 Ratio (12-20); Bilirubin,Total 0.5 mg/dL (0.3-1.2); Blood Urea Nitrogen 13 mg/dL (9-23); Calcium 9.2 mg/dL (8.3-10.6); Calcium (Corrected) 9.2 mg/dL (8.5-10.1); Chloride 109 mMol/L (98-107); Creatinine (Component) 0.6 mg/dL (0.6-1.3); Globulin 2.9 gm/dL (2.3-3.5); Glucose 92 mg/dL (74-106); Osmolality,Calculated 286 (275-295); Potassium 4.9 mMol/L (3.4-5.1); Sodium 144 mMol/L (136-145); eGFR > 60 See Note
== END | disposition home or self-care (01) ==
LOC: COPL 09:33
PROVIDERS: PCP Family Medicine; Referring Provider Family Medicine; Visit Provider Family Medicine
DX: C25.9 Malignant neoplasm of pancreas, unspecified (principal); E05.80 Other thyrotoxicosis without thyrotoxic crisis or storm
CPT/HCPCS: 36415; 80053; 84439; 84443; 85025

== ENCOUNTER → 2024-11-03 | Outpatient (CLI) | payer OTHER, MEDICAID, SELFPAY ==
--- NOTE | 2024-11-03 13:15 | XR_ITS ---
EXAMINATION: PET/CT FUSION SKULL TO THIGH EXAM DATE AND TIME: November 03, [address] chest abdomen pelvis May 17, 2024 INDICATIONS: Diagnosis pancreatic cancer, post treatment restaging CTDI:vol (mGy) 2.39 DLP: (mGycm) 188.99 PROCEDURE: 16.14 mCi FDG was administered intravenously To allow for distribution and uptake of radiotracer, the patient was allowed to rest quietly in a shielded room. Imaging was performed on an integrated 16-slice PET/CT scanner, with scanning from the skull base to the mid thigh. Serum blood glucose at the time of the injection was measured 70 mg/dL. CT scanning was performed without oral or intravenous contrast material. FINDINGS: Head and Neck: There is no checo hypermetabolism in the neck. The visualized portions of the brain are normal in appearance on CT. Chest: There is no checo hypermetabolism in the chest. There are no pulmonary nodules. Abdomen and Pelvis: 21 mm hypermetabolic mass in the ary hepatis region Weakly hypermetabolic pancreatic head mass, at least 4.6 x 3.6 cm with biliary stent Musculoskeletal: Hypermetabolic L4, L5, S1 ary hepatis hypermetabolic left iliac bone 10 mm image 166 IMPRESSION: Hypermetabolic mass in the ary hepatis, likely metastatic lymphadenopathy, 21 mm Hypermetabolic pancreatic head mass 4.6 x 3.6 cm Osseous metastatic disease, recommend nuclear medicine whole body bone scan follow-up Please see the CT chest report September 29, 2024
== END | disposition home or self-care (01) ==
PROVIDERS: PCP Internal Medicine Hematology & Oncology; Referring Provider Internal Medicine Hematology & Oncology; Visit Provider Internal Medicine Hematology & Oncology
DX: K86.89 Other specified diseases of pancreas (principal); K76.89 Other specified diseases of liver; R93.7 Abnormal findings on diagnostic imaging of other parts of musculoskeletal system; C25.0 Malignant neoplasm of head of pancreas
CPT/HCPCS: 78815; A9552

== ENCOUNTER 2024-12-16 07:59 | Outpatient (RCR) | payer OTHER, MEDICAID, SELFPAY ==
[2024-11-28 09:42] LABS: Basophils % (Auto) 1 % (0-2.5); Eosinophils # (Auto) 0.7 Thou/mm3 (0.0-0.5); Eosinophils % (Auto) 8 % (0-10); Hematocrit 32.1 % (36.0-46.0); Hemoglobin 10.5 g/dL (12.0-16.0); Immature Granulocytes % (Auto) 1 % (0-0); Immature Granulocytes Auto 0.04 Thou/mm3 (0.00-0.00); Lymphocytes # (Auto) 1.6 Thou/mm3 (1.0-4.8); Lymphocytes % (Auto) 20 % (10-50); Mean Corpuscular HGB Conc 32.7 g/dl (31.0-37.0); Mean Corpuscular Hemoglobin 29.2 pg (25.0-35.0); Mean Corpuscular Volume 89 fL (80-100); Monocytes # (Auto) 0.8 Thou/mm3 (0.0-0.8); Monocytes % (Auto) 10 % (0-12); Neutrophils % (Auto) 61 % (37-80); Nucleated Red Blood Cell % 0 /100 WBC (0); Platelet Count 342 Thou/mm3 (140-440); RDW Standard Deviation 48.1 fL (36.4-46.3); White Blood Count 8.1 Thou/mm3 (3.6-11.0)
[2024-11-28 10:10] LABS: Alanine Aminotransferase 25 U/L (10-49); Albumin, Serum 4.4 gm/dL (3.4-4.8); Albumin/Globulin Ratio 1.4 (1.2-2.2); Alkaline Phosphatase 186 U/L (46-116); Anion Gap 12 (7-16); Aspartate Amino Transferase 40 U/L (0-34); BUN/Creatinine Ratio 18 Ratio (12-20); Bilirubin,Total 0.9 mg/dL (0.3-1.2); Blood Urea Nitrogen 11 mg/dL (9-23); Calcium 9.3 mg/dL (8.3-10.6); Calcium (Corrected) 9.3 mg/dL (8.5-10.1); Carbon Dioxide 21.1 mMol/L (20.0-31.0); Chloride 110 mMol/L (98-107); Creatinine (Component) 0.6 mg/dL (0.6-1.3); Globulin 3.1 gm/dL (2.3-3.5); Glucose 96 mg/dL (74-106); Osmolality,Calculated 284 (275-295); Potassium 3.5 mMol/L (3.4-5.1); Sodium 143 mMol/L (136-145); Total Protein 7.5 gm/dL (5.7-8.2); eGFR > 60 See Note
--- NOTE | 2024-11-30 04:42 | CTCFLWUP_ITS ---
Patient: ELIZABETH JUAREZ : 1950 Page 5 of 6 FOLLOW UP NOTE DATE OF SERVICE: 11/29/2024 NAME: ELIZABETH JUAREZ ACCOUNT: [id number] : 1950 AGE: 74 INTERVAL HISTORY: Patient is 74-year-old woman who was diagnosed with a localized pancreatic cancer initially in July 2023. Patient received neoadjuvant gemcitabine and Abraxane and after 5 cycles imaging showed progression and was followed by concurrent chemoradiation. Patient was not offered surgery. Since then patient's tumor marker have been uptrending. Patient wanted to follow-up with surgery and did not wanted to start Of chemotherapy. Also patient requested PET CT scan which was completed and showed progression of disease. Symptomatically patient is doing better and do not have any pain per her. She also not losing any weight and have good appetite. Patient have a port catheter. Patient is upset and asking why she cannot have surgery which can cure her. She is very reluctant to have further chemotherapy. She wants to have chemotherapy if it is the only kind of therapy case she can receive. ONCOLOGY HISTORY: DIAGNOSIS: Malignant neoplasm of head of pancreas [ICD10] C25.0 DATE OF DIAGNOSIS: July 2023 STAGE/TNM: Pancreatic adenocarcinoma advanced TREATMENT HISTORY: Care?Plan Start?Date Cycle Day Intent GemAbrax 10/20/2023 1 28 Curative?(primary) 5fu?chemoradiation 07/11/2024 1 7 Definitive modified?FOLFIRINOX?manjit?3?pancreas 11/29/2024 1 14 Palliative HISTORY OF PRESENT ILLNESS: Elizabeth Juarez is a 74-year-old SPA speaking for female with diagnosed pancreatic adenocarcinoma. Ms. Juarez is a poor historian. She is accompanied by her granddaughter who also does not know the history of Ms. Juarez's illness. Early part of June 2023: Ms. Juarez was found to have jaundice. She was admitted to [facility] and subsequently transferred to [facility] in [place]. On scans she was found to have a mass in the pancreas. According to the granddaughter patient had CT-guided biopsy of the pancreatic mass and external biliary drain was placed. Patient has subsequently improved. She stayed at [facility] for about 2 weeks. Discharged on 07 August 2023. I do not have any records from [facility]. According to the granddaughter the pancreatic cancer is localized to the pancreas. 08/24/2023: T. bili 4.8, AST 118, ALT 147, alkaline phosphatase 264, CA 19?9 is 66. 08/31/2023: T. bili 3.3, AST 81, ALT 102, alk phos 297 09/03/2023: PET/CT scan? 10/20/2023 - 12/02/2023: Ms. Juarez received 2 cycles of gemcitabine and Abraxane in the neoadjuvant setting. CA 19?9 trend: 10/19/2023: 59 10/26/2023: 49 11/03/2023: 32 11/17/2023: 39 11/24/2023: 35 12/01/2023: 34. 12/28/2023: PET/CT scan? 01/11/2024: CT scan of the chest without IV contrast done 02/03/2024: CA 19?9 is 107. 02/10/2024: CA 19?9 is 126. 02/11/2024: Ms. Juarez had cycle 3-day 8 of gemcitabine and Abraxane. 04/21/2024: Ms. Juarez had 5 cycles of gemcitabine and Abraxane 05/17/2024: CT scan of the chest abdomen and pelvis with IV contrast 05/23/2024: MRI of the abdomen with and without IV contrast OTHER MEDICAL HISTORY/CONDITIONS: PANCRATIC CA ASTHMA HIGH BLOOD PRESSURE BILAT?TUBAL?LIGATION FAMILY HISTORY: Children:?BREAST??DAUGHTER Cancer History:?UNCLE PROSATE/ UNCLE STOMACH SOCIAL HISTORY: Occupational?History:?RETIRED Education?Level:?Completed something less than 8th grade Marital?Status:? 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 Centrum Silver Women - 8 mg iron-400 mcg-50 mcg 30 tab Daily 2. cephALEXin - 500 mg Capsule As directed 3. Compazine - 10 mg 10 mg three times a day prn nausea 4. K-Tab - 20 mEq 1 tab Daily 5. oqjwfw-rsroiuyi-lpjovqb - 60,000-189,600- 252,600 unit 1 Capsule 1 capsule three times daily with food 6. megestrol - 40 mg 1 tab Daily 7. methimazole - 5 mg Daily 8. mirtazapine - 15 mg 1 tab Daily 9. ondansetron - 8 mg 1 tab Daily 10. pantoprazole - 40 mg Twice a Day 11. Protonix - 20 mg 1 tab Daily 12. traMADol - 50 mg 1 tab three times a day 13. Zenpep - 60,000-189,600- 252,600 unit 1 Capsule Three times a day 14. Zenpep - 60,000-189,600- 252,600 unit 1 Capsule three times daily with meals 15. Zofran - 8 mg 8 mg three times a day prn nausea Medications Last Reconciled by Nkechi Lutz MA on 11/29/2024 ALLERGIES: hydrocodone-acetaminophen; hydrocodone-acetaminophen REVIEW OF SYSTEMS: A complete 14-point review of systems was performed and is negative except as noted in interval history. PHYSICAL EXAMINATION: VITAL SIGNS: Temperature?99, B/P?153/86, Oxygen?Saturation?86% Weight?102?lbs (Change?since?11/28/24:?1.8?lbs) PAIN: 2 - Mild pain ECOG Performance Status: 0 - Asymptomatic and fully active EYE: Conjunctivae is white MOUTH: Oral cavity is dry. CHEST: Clear to auscultation. No wheezes or rales audible. CARDIAC: Rhythm regular, no murmurs or gallops present. ABDOMEN: Soft. No hepatomegaly. No splenomegaly. Ms. Juarez has external biliary drain which seems to be functioning well. EXTREMITIES: No pedal edema or cyanosis. LABORATORY DATA: I have personally reviewed and interpreted each of the patient?s relevant lab tests, abnormal findings are below: Date 11/28/24 ??WHITE?BLOOD?COUNT?(Thou/mm3) 8.1 ??RED?BLOOD?COUNT?(Miln/mm3) 3.60?L ??HEMOGLOBIN?(gm/dl) 10.5?L ??HEMATOCRIT?(%) 32.1?L ??PLATELET?COUNT?(Thou/mm3) 342 ??NEUTROPHILS?%,?AUTO?(%) 61 ??LYMPH?%,?AUTO?(%) 20 ??NEUTROPHILS,?AUTO?(Thou/mm3) 5.0 ASSESSMENT/PLAN: Adenocarcinoma pancreas Initially treated with 5 cycles of neoadjuvant Abraxane gem Cytovene with a plan to do surgery Patient was found to have progression and no surgery was offered and radiation was started Patient started on 5-FU plus radiation and complete last treatment was given on 08/17/2024 Patient's CA 19 9 is now more than 400 Ct chest shows lung nodule Patient is likely progressing PET CT scan reviewed with them and shows progression Discussed with Ms. 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 I spent a total of 50 minutes on this patient?s care on the day of their visit excluding time spent related to any billed procedures. This time includes time spent with the patient as well as time spent documenting in the medical record, reviewing patients records and tests, obtaining history, placing orders, communicating with other healthcare professionals, counseling the patient, family or caregiver, and/or care coordination for the diagnoses above. Electronically Signed by: Desmond Odell MD T: 4:40 AM CC: PCP: Neena Bermeo Referring: Neena Bermeo This document was completed utilizing speech recognition software. Grammatical errors, random word insertions, pronoun errors, and incomplete sentences are an occasional consequence of this system due to software limitations, ambient noise, and hardware issues. Any formal questions or concerns about the content, text or information contained within the body of this dictation should be directly addressed to the provider for clarification.
[2024-12-01 07:08] LABS: CA 19-9 Antigen* 10598 U/mL (<34)
--- NOTE | 2024-12-13 23:38 | CTCFLWUP_ITS ---
Patient: ELIZABETH JUAREZ : 1950 Page 5 of 7 FOLLOW UP NOTE DATE OF SERVICE: 12/13/2024 NAME: ELIZABETH JUAREZ ACCOUNT: [id number] : 1950 AGE: 74 INTERVAL HISTORY: Patient is 74-year-old woman who was diagnosed with a localized pancreatic cancer initially in July 2023. Patient received neoadjuvant gemcitabine and Abraxane and after 5 cycles imaging showed progression and was followed by concurrent chemoradiation. Patient was not offered surgery. Since then patient's tumor marker have been uptrending. Patient wanted to follow-up with surgery and did not wanted to start Of chemotherapy. Also patient requested PET CT scan which was completed and showed progression of disease. Patient was advised to start on FOLFIRINOX. Patient was admitted to the [facility] and found to have disease involving spinal cord with edema. Patient was started on steroids and was advised to follow-up with radiation outpatient. ONCOLOGY HISTORY: DIAGNOSIS: Malignant neoplasm of head of pancreas [ICD10] C25.0 DATE OF DIAGNOSIS: July 2023 STAGE/TNM: Pancreatic adenocarcinoma advanced TREATMENT HISTORY: Care?Plan Start?Date Cycle Day Intent GemAbrax 10/20/2023 1 28 Curative?(primary) 5fu?chemoradiation 07/11/2024 1 7 Definitive modified?FOLFIRINOX?manjit?3?pancreas 12/14/2024 1 14 Palliative HISTORY OF PRESENT ILLNESS: Elizabeth Juarez is a 74-year-old SPA speaking for female with diagnosed pancreatic adenocarcinoma. Ms. Juarez is a poor historian. She is accompanied by her granddaughter who also does not know the history of Ms. Juarez's illness. Early part of June 2023: Ms. Juarez was found to have jaundice. She was admitted to [facility] and subsequently transferred to [facility] in [place]. On scans she was found to have a mass in the pancreas. According to the granddaughter patient had CT-guided biopsy of the pancreatic mass and external biliary drain was placed. Patient has subsequently improved. She stayed at [facility] for about 2 weeks. Discharged on 07 August 2023. I do not have any records from [facility]. According to the granddaughter the pancreatic cancer is localized to the pancreas. 08/24/2023: T. bili 4.8, AST 118, ALT 147, alkaline phosphatase 264, CA 19?9 is 66. 08/31/2023: T. bili 3.3, AST 81, ALT 102, alk phos 297 09/03/2023: PET/CT scan? 10/20/2023 - 12/02/2023: Ms. Juarez received 2 cycles of gemcitabine and Abraxane in the neoadjuvant setting. CA 19?9 trend: 10/19/2023: 59 10/26/2023: 49 11/03/2023: 32 11/17/2023: 39 11/24/2023: 35 12/01/2023: 34. 12/28/2023: PET/CT scan? 01/11/2024: CT scan of the chest without IV contrast done 02/03/2024: CA 19?9 is 107. 02/10/2024: CA 19?9 is 126. 02/11/2024: Ms. Juarez had cycle 3-day 8 of gemcitabine and Abraxane. 04/21/2024: Ms. Juarez had 5 cycles of gemcitabine and Abraxane 05/17/2024: CT scan of the chest abdomen and pelvis with IV contrast 05/23/2024: MRI of the abdomen with and without IV contrast OTHER MEDICAL HISTORY/CONDITIONS: PANCRATIC CA ASTHMA HIGH BLOOD PRESSURE BILAT?TUBAL?LIGATION FAMILY HISTORY: Children:?BREAST??DAUGHTER Cancer History:?UNCLE PROSATE/ UNCLE STOMACH SOCIAL HISTORY: Occupational?History:?RETIRED Education?Level:?Completed something less than 8th grade Marital?Status:? 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 Centrum Silver Women - 8 mg iron-400 mcg-50 mcg 30 tab Daily 2. Compazine - 10 mg 10 mg three times a day prn nausea 3. dexamethasone - 4 mg 1 tab twice Daily 4. dexamethasone - 4 mg 1 tab Twice a Day 5. K-Tab - 20 mEq 1 tab Daily 6. megestrol - 40 mg 1 tab Daily 7. methimazole - 5 mg Daily 8. pantoprazole - 40 mg Twice a Day 9. propranolol - 20 mg 1 tab Twice a Day 10. Zofran - 8 mg 8 mg three times a day prn nausea Medications Last Reconciled by Neena Clemente MA on 12/13/2024 ALLERGIES: hydrocodone-acetaminophen; hydrocodone-acetaminophen REVIEW OF SYSTEMS: A complete 14-point review of systems was performed and is negative except as noted in interval history. PHYSICAL EXAMINATION: VITAL SIGNS: Temperature?99, B/P?131/65, Oxygen?Saturation?99% Weight?97?lbs (Change?since?11/29/24:?-5?lbs) PAIN: 4 - Moderate pain ECOG Performance Status: 1 - Symptomatic; ambulatory; restricted in strenuous activity EYE: Conjunctivae is white MOUTH: Oral cavity is dry. CHEST: Clear to auscultation. No wheezes or rales audible. CARDIAC: Rhythm regular, no murmurs or gallops present. ABDOMEN: Soft. No hepatomegaly. No splenomegaly. Ms. Juarez has external biliary drain which seems to be functioning well. EXTREMITIES: No pedal edema or cyanosis. LABORATORY DATA: I have personally reviewed and interpreted each of the patient?s relevant lab tests, abnormal findings are below: Date 10/31/24 11/28/24 ??WHITE?BLOOD?COUNT?(Thou/mm3) 7.2 8.1 ??RED?BLOOD?COUNT?(Miln/mm3) 4.10 3.60?L ??HEMOGLOBIN?(gm/dl) 12.2 10.5?L ??HEMATOCRIT?(%) 37.1 32.1?L ??PLATELET?COUNT?(Thou/mm3) 366 342 ??NEUTROPHILS?%,?AUTO?(%) 58 61 ??LYMPH?%,?AUTO?(%) 24 20 ??NEUTROPHILS,?AUTO?(Thou/mm3) 4.2 5.0 ??GLUCOSE,RANDOM?(mg/dL) ? 96 ??BLOOD?UREA?NITROGEN?(mg/dL) ? 11 ??CREATININE?(mg/dL) ? 0.60 ??SODIUM?(mmol/L) ? 143 ??POTASSIUM?(mmol/L) ? 3.5 ??CHLORIDE?(mmol/L) ? 110?H ??CrCl?(CandG)?(ml/min) ? 57.23 ??AST/SGOT?(Unit/L) ? 40?H ??ALT/SGPT?(Unit/L) ? 25 ??ALKALINE?PHOSPHATASE?(Unit/L) ? 186?H ??BILIRUBIN,?TOTAL?(mg/dL) ? 0.9 ??PROTEIN?TOTAL?(gm/dl) ? 7.5 ??ALBUMIN,?SERUM?(gm/dl) ? 4.4 ??GLOBULIN?(gm/dl) ? 3.1 ??ALBUMIN/GLOBULIN?RATIO ? 1.4 ??CALCIUM,?SERUM?(mg/dL) ? 9.3 ??CALCIUM?SERUM?(CORRECTED)?(mg/dL) ? 9.3 ??CA?19-9?(Unit/mL) ? 10,598.00?A ASSESSMENT/PLAN: Adenocarcinoma pancreas Initially treated with 5 cycles of neoadjuvant Abraxane gem Cytovene with a plan to do surgery Patient was found to have progression and no surgery was offered and radiation was started Patient started on 5-FU plus radiation and complete last treatment was given on 08/17/2024 Patient's CA 19 9 is now is about 10,000 Patient has been very reluctant to do chemotherapy I will dose dose reduction by 20 to make it more tolerable for patient Patient and son had discussion about chemotherapy discussed benefits and adverse effects Will support with Neulasta for anticipated neutropenia Will start chemotherapy tomorrow continue dexamethasone Discussed with Dr. Sotelo and advised to the spinal area only CBC CMP CA 19-9 and chemotherapy orders ORDERS: Order # Description [id number] CBC with Auto Diff + Comprehensive Metabolic Panel + CA 19-9 [id number] CBC with Auto Diff + Comprehensive Metabolic Panel + CA 19-9 [id number] CBC with Auto Diff + Comprehensive Metabolic Panel + CA 19-9 [id number] CBC with Auto Diff + Comprehensive Metabolic Panel + CA 19-9 [id number] CBC with Auto Diff + Comprehensive Metabolic Panel + CA 19-9 [id number] CBC with Auto Diff + Comprehensive Metabolic Panel + CA 19-9 [id number] CBC with Auto Diff + Comprehensive Metabolic Panel + CA 19-9 [id number] CBC with Auto Diff + Comprehensive Metabolic Panel + CA 19-9 [id number] CBC with Auto Diff + Comprehensive Metabolic Panel + CA 19-9 [id number] CBC with Auto Diff + Comprehensive Metabolic Panel + CA 19-9 [id number] CBC with Auto Diff + Comprehensive Metabolic Panel + CA 19-9 [id number] CBC with Auto Diff + Comprehensive Metabolic Panel + CA 19-9 RETURN TO CLINIC: 3 weeks BILLING AND COMPLIANCE: I reviewed external records from providers outside my specialty as summarized above. I spent a total of 50 minutes on this patient?s care on the day of their visit excluding time spent related to any billed procedures. This time includes time spent with the patient as well as time spent documenting in the medical record, reviewing patients records and tests, obtaining history, placing orders, communicating with other healthcare professionals, counseling the patient, family or caregiver, and/or care coordination for the diagnoses above. Electronically Signed by: Desmond Odell MD T: 11:35 PM CC: PCP: Neena Bermeo Referring: Neena Bermeo This document was completed utilizing speech recognition software. Grammatical errors, random word insertions, pronoun errors, and incomplete sentences are an occasional consequence of this system due to software limitations, ambient noise, and hardware issues. Any formal questions or concerns about the content, text or information contained within the body of this dictation should be directly addressed to the provider for clarification.
[2024-12-14 08:43] LABS: Basophils % (Auto) 0 % (0-2.5); Eosinophils % (Auto) 0 % (0-10); Hematocrit 31.6 % (36.0-46.0); Hemoglobin 10.7 g/dL (12.0-16.0); Immature Granulocytes % (Auto) 2 % (0-0); Immature Granulocytes Auto 0.24 Thou/mm3 (0.00-0.00); Lymphocytes # (Auto) 0.8 Thou/mm3 (1.0-4.8); Lymphocytes % (Auto) 5 % (10-50); Mean Corpuscular HGB Conc 33.9 g/dl (31.0-37.0); Mean Corpuscular Hemoglobin 31.1 pg (25.0-35.0); Mean Corpuscular Volume 92 fL (80-100); Monocytes # (Auto) 1.4 Thou/mm3 (0.0-0.8); Monocytes % (Auto) 9 % (0-12); Neutrophils # (Auto) 13.3 Thou/mm3 (1.8-7.7); Neutrophils % (Auto) 85 % (37-80); Nucleated Red Blood Cell % 0 /100 WBC (0); Platelet Count 347 Thou/mm3 (140-440); RDW Standard Deviation 54.8 fL (36.4-46.3); Red Blood Count 3.44 Miln/mm3 (4.00-5.20); White Blood Count 15.7 Thou/mm3 (3.6-11.0)
[2024-12-14 09:00] LABS: Alanine Aminotransferase 140 U/L (10-49); Albumin, Serum 3.7 gm/dL (3.4-4.8); Albumin/Globulin Ratio 1.3 (1.2-2.2); Alkaline Phosphatase 598 U/L (46-116); Anion Gap 10 (7-16); Aspartate Amino Transferase 62 U/L (0-34); BUN/Creatinine Ratio 26 Ratio (12-20); Bilirubin,Total 2.1 mg/dL (0.3-1.2); Blood Urea Nitrogen 18 mg/dL (9-23); Calcium 8.8 mg/dL (8.3-10.6); Carbon Dioxide 25.8 mMol/L (20.0-31.0); Chloride 103 mMol/L (98-107); Creatinine (Component) 0.7 mg/dL (0.6-1.3); Globulin 2.9 gm/dL (2.3-3.5); Glucose 128 mg/dL (74-106); Osmolality,Calculated 281 (275-295); Sodium 139 mMol/L (136-145); Total Protein 6.6 gm/dL (5.7-8.2); eGFR > 60 See Note
[2024-12-19 06:56] LABS: CA 19-9 Antigen* 30937 U/mL (<34)
== END 2024-12-26 23:59 | disposition home or self-care (01) ==
LOC: SCTC 07:59
PROVIDERS: PCP Family Medicine; Referring Provider Family Medicine; Visit Provider Internal Medicine Hematology & Oncology
DX: Z51.11 Encounter for antineoplastic chemotherapy (principal); C25.0 Malignant neoplasm of head of pancreas
CPT/HCPCS: 36591; 80053; 85025; 86301; 96360; 96361; 96366; 96367; 96368; 96372; 96375; 96413; 96415; 96416; 96417; 99213; A4216; J0461; J0640; J1100; J1200; J1453; J1642; J2405; J7030; J7050; J7060; J9190; J9206; J9263; Q5101; G0463

== ENCOUNTER 2025-01-20 08:02 | Outpatient (RCR) | payer OTHER, MEDICAID, SELFPAY ==
[2024-12-29 10:22] LABS: Basophils % (Auto) 0 % (0-2.5); Eosinophils % (Auto) 0 % (0-10); Hematocrit 27.2 % (36.0-46.0); Hemoglobin 9.1 g/dL (12.0-16.0); Immature Granulocytes % (Auto) 6 % (0-0); Immature Granulocytes Auto 0.23 Thou/mm3 (0.00-0.00); Lymphocytes # (Auto) 1.2 Thou/mm3 (1.0-4.8); Lymphocytes % (Auto) 31 % (10-50); Mean Corpuscular HGB Conc 33.5 g/dl (31.0-37.0); Mean Corpuscular Volume 93 fL (80-100); Monocytes # (Auto) 1.1 Thou/mm3 (0.0-0.8); Monocytes % (Auto) 26 % (0-12); Neutrophils # (Auto) 1.5 Thou/mm3 (1.8-7.7); Neutrophils % (Auto) 37 % (37-80); Nucleated Red Blood Cell # 0.04 Thou/mm3 (0.00-0.00); Nucleated Red Blood Cell % 1 /100 WBC (0); Platelet Count 506 Thou/mm3 (140-440); RDW Standard Deviation 54.1 fL (36.4-46.3); Red Blood Count 2.94 Miln/mm3 (4.00-5.20)
[2024-12-29 10:42] LABS: Alanine Aminotransferase 136 U/L (10-49); Albumin, Serum 3.4 gm/dL (3.4-4.8); Albumin/Globulin Ratio 1.5 (1.2-2.2); Alkaline Phosphatase 462 U/L (46-116); Anion Gap 9 (7-16); Aspartate Amino Transferase 53 U/L (0-34); BUN/Creatinine Ratio 18 Ratio (12-20); Bilirubin,Total 0.5 mg/dL (0.3-1.2); Blood Urea Nitrogen 9 mg/dL (9-23); Calcium 8.4 mg/dL (8.3-10.6); Calcium (Corrected) 8.9 mg/dL (8.5-10.1); Carbon Dioxide 25.9 mMol/L (20.0-31.0); Chloride 108 mMol/L (98-107); Creatinine (Component) 0.5 mg/dL (0.6-1.3); Globulin 2.2 gm/dL (2.3-3.5); Glucose 110 mg/dL (74-106); Osmolality,Calculated 284 (275-295); Potassium 4.1 mMol/L (3.4-5.1); Sodium 143 mMol/L (136-145); Total Protein 5.6 gm/dL (5.7-8.2); eGFR > 60 See Note
[2025-01-03 06:46] LABS: CA 19-9 Antigen* 7450 U/mL (<34)
[2025-01-09 12:09] LABS: Basophils # (Auto) 0.1 Thou/mm3 (0.0-0.2); Basophils % (Auto) 1 % (0-2.5); Eosinophils % (Auto) 0 % (0-10); Hematocrit 34.7 % (36.0-46.0); Hemoglobin 11.1 g/dL (12.0-16.0); Immature Granulocytes % (Auto) 7 % (0-0); Immature Granulocytes Auto 1.29 Thou/mm3 (0.00-0.00); Lymphocytes # (Auto) 1.5 Thou/mm3 (1.0-4.8); Lymphocytes % (Auto) 8 % (10-50); Mean Corpuscular Hemoglobin 31.4 pg (25.0-35.0); Mean Corpuscular Volume 98 fL (80-100); Monocytes # (Auto) 2.4 Thou/mm3 (0.0-0.8); Monocytes % (Auto) 12 % (0-12); Neutrophils # (Auto) 14.5 Thou/mm3 (1.8-7.7); Neutrophils % (Auto) 74 % (37-80); Nucleated Red Blood Cell % 0 /100 WBC (0); Platelet Count 376 Thou/mm3 (140-440); RDW Standard Deviation 58.9 fL (36.4-46.3); Red Blood Count 3.54 Miln/mm3 (4.00-5.20); White Blood Count 19.7 Thou/mm3 (3.6-11.0)
[2025-01-09 12:22] LABS: Alanine Aminotransferase 35 U/L (10-49); Albumin, Serum 3.4 gm/dL (3.4-4.8); Albumin/Globulin Ratio 1.7 (1.2-2.2); Alkaline Phosphatase 634 U/L (46-116); Anion Gap 9 (7-16); Aspartate Amino Transferase 25 U/L (0-34); BUN/Creatinine Ratio 27 Ratio (12-20); Bilirubin,Total 0.5 mg/dL (0.3-1.2); Blood Urea Nitrogen 19 mg/dL (9-23); Calcium 8.2 mg/dL (8.3-10.6); Calcium (Corrected) 8.7 mg/dL (8.5-10.1); Carbon Dioxide 23.6 mMol/L (20.0-31.0); Chloride 107 mMol/L (98-107); Creatinine (Component) 0.7 mg/dL (0.6-1.3); Glucose 325 mg/dL (74-106); Osmolality,Calculated 294 (275-295); Potassium 3.8 mMol/L (3.4-5.1); Sodium 140 mMol/L (136-145); Total Protein 5.4 gm/dL (5.7-8.2); eGFR > 60 See Note
[2025-01-12 07:27] LABS: CA 19-9 Antigen* 11731 U/mL (<34)
[2025-01-17 14:27] LABS: Basophils # (Auto) 0.1 Thou/mm3 (0.0-0.2); Basophils % (Auto) 1 % (0-2.5); Eosinophils # (Auto) 0.2 Thou/mm3 (0.0-0.5); Eosinophils % (Auto) 1 % (0-10); Hematocrit 31.5 % (36.0-46.0); Hemoglobin 10.7 g/dL (12.0-16.0); Immature Granulocytes % (Auto) 7 % (0-0); Immature Granulocytes Auto 1.05 Thou/mm3 (0.00-0.00); Lymphocytes # (Auto) 0.5 Thou/mm3 (1.0-4.8); Lymphocytes % (Auto) 3 % (10-50); Mean Corpuscular Hemoglobin 31.4 pg (25.0-35.0); Mean Corpuscular Volume 92 fL (80-100); Monocytes # (Auto) 0.3 Thou/mm3 (0.0-0.8); Monocytes % (Auto) 2 % (0-12); Neutrophils # (Auto) 13.1 Thou/mm3 (1.8-7.7); Neutrophils % (Auto) 87 % (37-80); Nucleated Red Blood Cell % 0 /100 WBC (0); Platelet Count 152 Thou/mm3 (140-440); RDW Standard Deviation 52.2 fL (36.4-46.3); Red Blood Count 3.41 Miln/mm3 (4.00-5.20); White Blood Count 15.1 Thou/mm3 (3.6-11.0)
[2025-01-17 14:45] LABS: Anion Gap 8 (7-16); BUN/Creatinine Ratio 27 Ratio (12-20); Blood Urea Nitrogen 16 mg/dL (9-23); Carbon Dioxide 20.3 mMol/L (20.0-31.0); Chloride 108 mMol/L (98-107); Creatinine (Component) 0.6 mg/dL (0.6-1.3); Glucose 317 mg/dL (74-106); Potassium 4.6 mMol/L (3.4-5.1); Sodium 136 mMol/L (136-145); eGFR > 60 See Note
[2025-01-17 14:46] LABS: Alanine Aminotransferase 48 U/L (10-49); Albumin, Serum 3.5 gm/dL (3.4-4.8); Albumin/Globulin Ratio 1.8 (1.2-2.2); Alkaline Phosphatase 337 U/L (46-116); Aspartate Amino Transferase 25 U/L (0-34); Bilirubin,Total 0.4 mg/dL (0.3-1.2); Calcium (Corrected) 8.4 mg/dL (8.5-10.1); Globulin 1.9 gm/dL (2.3-3.5); Osmolality,Calculated 285 (275-295); Total Protein 5.4 gm/dL (5.7-8.2)
--- NOTE | 2025-01-18 23:40 | CTCFLWUP_ITS ---
Patient: ELIZABETH JUAREZ : 1950 Page 6 of 9 FOLLOW UP NOTE DATE OF SERVICE: 01/18/2025 NAME: ELIZABETH JUAREZ ACCOUNT: [id number] : 1950 AGE: 75 INTERVAL HISTORY: Chief Complaint Sadness, fatigue, shakiness, swelling and pain in right leg History of Present Illness The patient is a female with pancreatic cancer who presents for follow-up after a recent hospitalization for a blood infection. She restarted chemotherapy last week following a break due to the infection. The patient reports feeling sad, tired, and a little bit shaky. She denies significant pain, except for discomfort in her right leg, which is slightly swollen. There is concern about a possible blood clot in the leg. The patient has experienced weight fluctuations, with her weight ranging between 93-95 pounds, down from nearly 100 pounds previously. The weight loss is attributed to poor nutritional intake during her recent hospitalization and the effects of cancer. The patient's daughter reports that her mother feels miserable and scared about receiving chemotherapy. The patient has been receiving radiation therapy, though it was noted that radiation is not particularly effective for this type of cancer. She completed intravenous antibiotics on Thursday for the blood infection. Regarding treatment adherence, the patient had a significant break in her chemotherapy regimen due to the infection, which may have impacted the effectiveness of her cancer treatment. The oncologist emphasized the importance of avoiding such long breaks in chemotherapy to maintain its efficacy. Medical History - Pancreatic cancer - Blood infection requiring hospitalization and IV antibiotics - Possible blood clot in right leg (unconfirmed) Medications and Supplements - Chemotherapy - Restarted last week after a break due to blood infection - Administered every 2 weeks - Antibiotics - Finished on Thursday for blood infection - Radiation therapy - Received today - Previously received Social History - Living Situation: Lives with family (daughter mentioned) - Social Support: Has family support (daughter involved in care) Review of Systems General: Positive for fatigue, weakness, and weight loss. Musculoskeletal: Positive for right leg pain and swelling. Neurological: Positive for feeling shaky. Psychiatric: Positive for feeling sad.Of chemotherapy. Also patient requested PET CT scan which was completed and showed progression of disease. Patient was advised to start on FOLFIRINOX. Patient was admitted to the [facility] and found to have disease involving spinal cord with edema. Patient was started on steroids and was advised to follow-up with radiation outpatient. ONCOLOGY HISTORY:?[facility] Hx? DIAGNOSIS: Malignant neoplasm of head of pancreas [ICD10] C25.0 DATE OF DIAGNOSIS: July 2023 STAGE/TNM: Pancreatic adenocarcinoma advanced TREATMENT HISTORY: Care?Plan Start?Date Cycle Day Intent GemAbrax 10/20/2023 1 28 Curative?(primary) 5fu?chemoradiation 07/11/2024 1 7 Definitive modified?FOLFIRINOX?manjit?3?pancreas 12/14/2024 1 14 Palliative HISTORY OF PRESENT ILLNESS: Elizabeth Juarez is a 75-year-old SPA speaking for female with diagnosed pancreatic adenocarcinoma. Ms. Juarez is a poor historian. She is accompanied by her granddaughter who also does not know the history of Ms. Juarez's illness. Early part of June 2023: Ms. Juarez was found to have jaundice. She was admitted to [facility] and subsequently transferred to [facility] in [place]. On scans she was found to have a mass in the pancreas. According to the granddaughter patient had CT-guided biopsy of the pancreatic mass and external biliary drain was placed. Patient has subsequently improved. She stayed at [facility] for about 2 weeks. Discharged on 07 August 2023. I do not have any records from [facility]. According to the granddaughter the pancreatic cancer is localized to the pancreas. 08/24/2023: T. bili 4.8, AST 118, ALT 147, alkaline phosphatase 264, CA 19?9 is 66. 08/31/2023: T. bili 3.3, AST 81, ALT 102, alk phos 297 09/03/2023: PET/CT scan? 10/20/2023 - 12/02/2023: Ms. Juarez received 2 cycles of gemcitabine and Abraxane in the neoadjuvant setting. CA 19?9 trend: 10/19/2023: 59 10/26/2023: 49 11/03/2023: 32 11/17/2023: 39 11/24/2023: 35 12/01/2023: 34. 12/28/2023: PET/CT scan? 01/11/2024: CT scan of the chest without IV contrast done 02/03/2024: CA 19?9 is 107. 02/10/2024: CA 19?9 is 126. 02/11/2024: Ms. Juarez had cycle 3-day 8 of gemcitabine and Abraxane. 04/21/2024: Ms. Juarez had 5 cycles of gemcitabine and Abraxane 05/17/2024: CT scan of the chest abdomen and pelvis with IV contrast 05/23/2024: MRI of the abdomen with and without IV contrast OTHER MEDICAL HISTORY/CONDITIONS: PANCRATIC CA ASTHMA HIGH BLOOD PRESSURE BILAT?TUBAL?LIGATION FAMILY HISTORY: Children:?BREAST??DAUGHTER Cancer History:?UNCLE PROSATE/ UNCLE STOMACH SOCIAL HISTORY: Occupational?History:?RETIRED Education?Level:?Completed something less than 8th grade Marital?Status:? 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 ampicillin sodium/sulbactam sodium - 3 gm As directed 2. Centrum Silver Women - 8 mg iron-400 mcg-50 mcg 30 tab Daily 3. Compazine - 10 mg 10 mg three times a day prn nausea 4. dexamethasone - 4 mg 1 tab twice Daily 5. dexamethasone - 4 mg 1 tab Twice a Day 6. K-Tab - 20 mEq 1 tab Daily 7. megestrol - 40 mg 1 tab Daily 8. methimazole - 5 mg Daily 9. pantoprazole - 40 mg Twice a Day 10. propranolol - 20 mg 1 tab Twice a Day 11. Zofran - 8 mg 8 mg three times a day prn nausea?Palabra Meds? Medications Last Reconciled by Nkechi Lutz MA on 01/18/2025 ALLERGIES: hydrocodone-acetaminophen; hydrocodone-acetaminophen REVIEW OF SYSTEMS: A complete 14-point review of systems was performed and is negative except as noted in interval history. PHYSICAL EXAMINATION:?CloneBlock PE? VITAL SIGNS: Temperature?98.2, B/P?125/82, Oxygen?Saturation?98% PAIN: 3 - Between mild and moderate pain ECOG Performance Status: 0 - Asymptomatic and fully active EYE: Conjunctivae is white MOUTH: Oral cavity is dry. CHEST: Clear to auscultation. No wheezes or rales audible. CARDIAC: Rhythm regular, no murmurs or gallops present. ABDOMEN: Soft. No hepatomegaly. No splenomegaly. Ms. Juarez has external biliary drain which seems to be functioning well. EXTREMITIES: No pedal edema or cyanosis. LABORATORY DATA: I have personally reviewed and interpreted each of the patient?s relevant lab tests, abnormal findings are below: Date 01/09/25 01/17/25 ??WHITE?BLOOD?COUNT?(Thou/mm3) 19.7?H 15.1?H ??RED?BLOOD?COUNT?(Miln/mm3) 3.54?L 3.41?L ??HEMOGLOBIN?(gm/dl) 11.1?L 10.7?L ??HEMATOCRIT?(%) 34.7?L 31.5?L ??PLATELET?COUNT?(Thou/mm3) 376 152 ??NEUTROPHILS?%,?AUTO?(%) 74 87?H ??LYMPH?%,?AUTO?(%) 8?L 3?L ??NEUTROPHILS,?AUTO?(Thou/mm3) 14.5?H 13.1?H ??GLUCOSE,RANDOM?(mg/dL) 325?H 317?H ??BLOOD?UREA?NITROGEN?(mg/dL) 19 16 ??CREATININE?(mg/dL) 0.70 0.60 ??SODIUM?(mmol/L) 140 136 ??POTASSIUM?(mmol/L) 3.8 4.6 ??CHLORIDE?(mmol/L) 107 108?H ??CrCl?(CandG)?(ml/min) 45.01 53.64 ??AST/SGOT?(Unit/L) 25 25 ??ALT/SGPT?(Unit/L) 35 48 ??ALKALINE?PHOSPHATASE?(Unit/L) 634?H 337?H ??BILIRUBIN,?TOTAL?(mg/dL) 0.5 0.4 ??PROTEIN?TOTAL?(gm/dl) 5.4?L 5.4?L ??ALBUMIN,?SERUM?(gm/dl) 3.4 3.5 ??GLOBULIN?(gm/dl) 2.0?L 1.9?L ??ALBUMIN/GLOBULIN?RATIO 1.7 1.8 ??CALCIUM,?SERUM?(mg/dL) 8.2?L 8.0?L ??CALCIUM?SERUM?(CORRECTED)?(mg/dL) 8.7 8.4?L Physical Examination Musculoskeletal: Right leg is swollen. Laboratory, Imaging, and Diagnostic Test Results - CA 19-9: - 01/18/2025: 11,730 - 01/09/2025: 7,400 - 11/2024: 451,397 - 09/2024: 440 - CBC: - 01/18/2025: WBC recovering, Hemoglobin okay - LFTs: - 01/18/2025: Improved ASSESSMENT/PLAN:?Isabel Odell Assessment/Plan? Adenocarcinoma pancreas Initially treated with 5 cycles of neoadjuvant Abraxane gem Cytovene with a plan to do surgery Patient was found to have progression and no surgery was offered and radiation was started Patient started on 5-FU plus radiation and complete last treatment was given on 08/17/2024 Patient's CA 19 9 is now is about 10,000 Patient has been very reluctant to do chemotherapy I will dose dose reduction by 20 to make it more tolerable for patient Pancreatic cancer patient with recent hospitalization for blood infection, currently undergoing chemotherapy and radiation therapy, presenting with fatigue, sadness, and right leg swelling. Pancreatic Cancer Assessment: Patient has pancreatic cancer and is currently undergoing chemotherapy. Recent chemotherapy was interrupted due to a blood infection requiring hospitalization. The patient restarted chemotherapy last week. CA 19-9 levels have been fluctuatin in September, 7400 in December, and most recently 86892. The increase in CA 19-9 levels suggests disease progression during the treatment break. The current chemotherapy regimen is described as very strong and was showing efficacy before the interruption, with the potential to achieve remission if continued. Radiation therapy has been administered, but its efficacy in this type of cancer is limited. Plan: - Resume chemotherapy treatment - Schedule chemotherapy sessions every 2 weeks - Monitor CA 19-9 levels closely - Avoid prolonged breaks in chemotherapy treatment - Consider hospice care if patient's condition deteriorates - Educate patient and family about the importance of consistent chemotherapy for disease control Right Leg Swelling Assessment: Patient reports swelling in the right leg with associated pain. Given the patient's pancreatic cancer diagnosis, there is a high risk of deep vein thrombosis (DVT). Previous examinations in the hospital did not provide conclusive results regarding the presence of a blood clot. Plan: - Urgent ultrasound of the right leg to rule out DVT - Advise against massaging the affected leg until DVT is ruled out - If ultrasound is negative for DVT, can consider gentle massage for symptom relief - Recommend elevation of the affected leg as tolerated Fatigue and Weakness Assessment: Patient reports feeling tired and shaky, which may be attributed to the recent blood infection, ongoing cancer treatments, and the disease process itself. Recent laboratory results show improving white blood cell count and liver function tests (LFTs). Plan: - Continue to monitor complete blood count and LFTs - Assess nutritional status and encourage adequate intake as tolerated - Consider referral to supportive care services for management of cancer-related fatigue Weight Loss Assessment: Patient has experienced significant weight loss, with recent weight fluctuating between 93-100 pounds. Weight loss is likely multifactorial, related to cancer cachexia, treatment side effects, and reduced oral intake during hospitalization. Plan: - Monitor weight at each visit - Consider referral to a registered dietitian for nutritional assessment and recommendations - Discuss appetite stimulants if clinically appropriate CBC CMP CA 19-9 and chemotherapy orders ORDERS: Order # Description [id number] Comprehensive Metabolic Panel - 12 + CBC with Auto Diff [id number] CA 19-9 [id number] CBC with Auto Diff + Comprehensive Metabolic Panel + CA 19-9 [id number] CBC with Auto Diff + Comprehensive Metabolic Panel + CA 19-9 [id number] CBC with Auto Diff + Comprehensive Metabolic Panel + CA 19-9 [id number] CBC with Auto Diff + Comprehensive Metabolic Panel + CA 19-9 [id number] CBC with Auto Diff + Comprehensive Metabolic Panel + CA 19-9 [id number] CBC with Auto Diff + Comprehensive Metabolic Panel + CA 19-9 [id number] CBC with Auto Diff + Comprehensive Metabolic Panel + CA 19-9 [id number] CBC with Auto Diff + Comprehensive Metabolic Panel + CA 19-9 [id number] CBC with Auto Diff + Comprehensive Metabolic Panel + CA 19-9 [id number] CBC with Auto Diff + Comprehensive Metabolic Panel + CA 19-9 RETURN TO CLINIC: BILLING AND COMPLIANCE: I reviewed external records from providers outside my specialty as summarized above. I spent a total of 50 minutes on this patient?s care on the day of their visit excluding time spent related to any billed procedures. This time includes time spent with the patient as well as time spent documenting in the medical record, reviewing patients records and tests, obtaining history, placing orders, communicating with other healthcare professionals, counseling the patient, family or caregiver, and/or care coordination for the diagnoses above. Electronically Signed by: Desmond Odell MD T: 11:37 PM CC: PCP: Neena Bermeo Referring: Neena Bermeo This document was completed utilizing speech recognition software. Grammatical errors, random word insertions, pronoun errors, and incomplete sentences are an occasional consequence of this system due to software limitations, ambient noise, and hardware issues. Any formal questions or concerns about the content, text or information contained within the body of this dictation should be directly addressed to the provider for clarification.
== END 2025-01-25 23:59 | disposition home or self-care (01) ==
LOC: SCTC 08:02
PROVIDERS: PCP Family Medicine; Referring Provider Family Medicine; Visit Provider Internal Medicine Hematology & Oncology
DX: Z51.11 Encounter for antineoplastic chemotherapy (principal); Z51.0 Encounter for antineoplastic radiation therapy; C25.0 Malignant neoplasm of head of pancreas; R60.0 Localized edema; M79.604 Pain in right leg; R53.83 Other fatigue; R53.1 Weakness; R63.4 Abnormal weight loss; Z68.1 Body mass index [BMI] 19.9 or less, adult
CPT/HCPCS: 36591; 77014; 77290; 77300; 77301; 77334; 77338; 77385; 80053; 85025; 86301; 96360; 96367; 96368; 96372; 96375; 96413; 96415; 96416; 96417; 99213; A4216; J0461; J0640; J1100; J1200; J1453; J1642; J2405; J7030; J7050; J7060; J9190; J9206; J9263; Q5101; G0463

== ENCOUNTER 2025-01-20 13:09 | Emergency (ER) | payer OTHER, MEDICAID, SELFPAY ==
[2025-01-20 13:11] VITALS: BMI 18.5
[2025-01-20 13:41] VITALS: BP 122/78; PULSE 107; RESP 18; TEMP 37.2; O2SAT 99
--- NOTE | 2025-01-20 13:43 | PD.EDRME ---
Rapid Medical Screening Exam RME Arrival date/time: 01/20/25 13:09 75-year-old female presents emergency dept today for complaints of right lower extremity swelling and pain Chief Complaint: Recheck/Abnormal Lab/Rx
[2025-01-20 14:33] LABS: INR 1.1 (0.9-1.3); Partial Thromboplastin Time 21.9 Seconds (22.0-36.0); Prothrombin Time 11.9 Seconds (9.0-12.2)
--- NOTE | 2025-01-20 14:46 | XR_ITS ---
Examination: Foot, right, 3 views Technique: AP, oblique, lateral views foot, 3 views Date and time of exam: January 20, 2025 at 1356 hours INDICATIONS: Right foot swelling beginning one month ago. FINDINGS: Severe osteopenia Advanced osteoarthritis first metatarsophalangeal joint No fracture 5 mm plantar 5 mm posterior bony calcaneal spurs Soft tissue swelling dorsum of the foot IMPRESSION: Advanced osteoarthritis first metatarsophalangeal joint 5 mm plantar 5 mm posterior bony calcaneal spurs No fractures No joy cortical bone destruction
--- NOTE | 2025-01-20 15:01 | EDNOTE_ITS ---
<Statement entered by Rachana Yen MD - 01/21/25 14:28> As co-signing physician, I was present and available for consult prn. I concur with the plan and care as documented by the midlevel provider. ED Recheck Abnl Lab Rx-RME/HPI General Chief Complaint: Recheck/Abnormal Lab/Rx Stated Complaint: SENT BY CLIN FOR US OF R FOOT Time Seen by Provider: 01/20/25 14:49 Arrival date/time: 01/20/25 13:09 RME / HPI RME / HPI narrative: 75-year-old female presents emergency dept today for complaints of right lower extremity swelling and pain. This been ongoing for several days. Patient was seen by cancer center and was referred to us for ultrasound. Denies any fever denies any other complaints . Patient has significant history of pancreatic cancer. Patient is not taking any blood thinner. Related Data Previous Rx's ?Medication ?Instructions ?Recorded lorazepam 1 mg tablet 1 mg PO BID Anxiety #12 tabs 11/02/15 acetaminophen 500 mg capsule 500 mg PO Q6H PRN pain (s adry 08/11/19 score 4-6) #30 caps ibuprofen 600 mg tablet 600 mg PO Q6H #30 tabs 08/11 apixaban 5 mg (74 tabs) tablets in 5 mg PO BID #74 tab s 01/20/25 a dose pack (Eliquis DVT-PE Treat 30D Start) Allergies Allergy/AdvReac Type Severity Reaction Status Date / Time acetaminophen (From [place]) Allergy Severe Abdominal Verified 01/20/25 13:20 Pain hydrocodone (From [place]) Allergy Severe Abdominal Verified 01/20/25 13:20 Pain Review of Systems Review of Systems Narrative Review of Systems: Review of system reviewed and within normal limits except mentioned in HPI ED Exam Narrative Physical exam: VITAL SIGNS: Reviewed. GENERAL APPEARANCE: Alert and interactive, follows commands, no acute distress, HEAD AND FACE: Non-traumatic. ENT: PERRL, pink conjunctivitis, eyelid no trauma, Mucous membrane moist. NECK: Supple, nontender, no nuchal rigidity. CHEST: No tenderness, no crepitus, no paradoxical movement, no retractions. LUNGS: Clear, well ventilated, symmetric, no rales, no wheezing, no ronchi, no stridor, good breath sounds bilaterally. HEART: Regular rate, regular rhythm, no murmur, no gallops. ABDOMEN: Soft, positive bowel sounds, nondistended, no guarding, nontender, no rebound, no masses, RECTAL: Deferred. GENITAL: Deferred. NEUROLOGICAL: Gross motor function intact sensory function intact, Appropriate for age. MUSCULOSKELETAL: low back nontender, full range of motion. EXTREMITIES: Right lower leg swelling, no cyanosis noted warm to touch nontender, full range of motion. Distal neurovascular status intact bilateral lower extremity SKIN: Color pink, dry, no rash, no lacerations, no abrasions, no contusions. LYMPHATICS: Deferred. Course Quality Measures none Orders Category Date Time Status XR foot comp RT min 3V Stat Exams 01/20/25 14:46 Completed PT [Prothrombin Time with INR] Stat Lab 01/20/25 13:53 Completed PTT [Partial Thromboplastin Time] Stat Lab 01/20/25 13:53 Completed Vital Signs Vital signs: Vital Signs Temperature 98.9 F 01/20/25 13:41 Pulse Rate 107 H 01/20/25 13:41 Respiratory Rate 18 01/20/25 13:41 Blood Pressure 122/78 01/20/25 13:41 Pulse Oximetry (%) 99 01/20/25 13:41 Oxygen Delivery Method Room Air 01/20/25 13:41 Recheck / Abnormal Lab / Rx MDM Narrative MDM Narrative:: 75-year-old female presents emergency dept today for complaints of right lower extremity swelling and pain. This been ongoing for several days. Patient was seen by cancer center and was referred to us for ultrasound. Denies any fever denies any other complaints . Patient has significant history of pancreatic cancer. Patient is not taking any blood thinner. I reviewed patient's ultrasound that was done outpatient, and showed Positive for occlusive acute deep vein thrombus right popliteal right peroneal veins X-ray of the foot came back unremarkable. She will be sent home on [place] Patient data External records reviewed:: None Clinical information provided by:: patient Social determinants that could affect healthcare access:: none Patient has the following chronic illnesses:: History of pancreatic cancer, hypertension How is presenting disease/condition affected by chronic disease/condition?: exa cerbated by Evaluation data The following diagnostics were reviewed and interpreted by me:: lab results and radiology exam(s) Lab and/or radiology exams considered but not ordered:: None Interpretation Summary: See results in MDM Medications / Prescriptions Medications or Prescriptions considered but not ordered:: None Medication administrations:: None Consultations Consultation(s) initiated? (list below): No Diagnosis Recheck Differential Diagnosis: other (Leg swelling cellulitis DVT) Most likely diagnosis given after review of the tests above:: DVT Admission Indicated Admission indicated?: not indicated Admission Request Was there a request for admission?: No Disposition Plan Disposition Plan: Discharge Discharge Attestation Discharge Attestation: The patient and all family members were given an opportunity to ask questions and understood the discharge instructions. Discharge instructions specifically effects, indications for sooner follow up or return to the emergency department, and the expected course of current diagnosis. Patient condition: Stable Discharge Plan Plan Patient Disposition: HOME (Self Care) Disposition Comment: Stable Prescriptions/Referrals Prescriptions/Med Rec: [place] DVT-PE Treat 30D Start 5 mg (74 tabs) tablets,dose pack 5 mg PO BID Qty: 74 0RF No Action lorazepam 1 MG tablet 1 mg PO BID Qty: 12 0RF ibuprofen 600 mg tablet 600 mg PO Q6H Qty: 30 0RF acetaminophen 500 mg capsule 500 mg PO Q6H PRN (Reason: pain (scale score 4-6)) Qty: 30 0RF Referrals: Neena Reilly MD [Primary Care Provider] - In 1 week Problem List Clinical Impression: DVT (deep venous thrombosis) Patient/Caregiver Discharge Instructions Discharge Activity: activity as tolerated Education Materials: DVT Dc Additional Instructions: Thank you for the opportunity for serving you today. You are stable for discharged . You are advised to: Follow-up with your PCP in 1 to 2 days Return to ED for worsening of symptoms Increase oral fluids Take medication as prescribed Do not massage your leg elevate your leg as needed .Wear compression stocking as needed Print Language: Beninese Stand Alone Forms: Lakeisha Award Info., Patient Portal Info Letter RAFAEL/VERNON Supervising Physician RAFAEL/VERNON Supervising Physician: MD Yovana
== END 2025-01-20 16:22 | disposition home or self-care (01) ==
PROVIDERS: Nurse Practitioner Primary Care; Emergency Provider Emergency Medicine; PCP Family Medicine
DX: I82.401 Acute embolism and thrombosis of unspecified deep veins of right lower extremity (principal)
CPT/HCPCS: 36415; 73630; 85610; 85730; 99283

== ENCOUNTER → 2025-01-20 | Outpatient (CLI) | payer OTHER, MEDICAID, SELFPAY ==
--- NOTE | 2025-01-20 | XR_ITS ---
Examination: Duplex scan of the lower extremity, unilateral right Date and time of exam: January 20, 2025 1207 hours INDICATIONS: Right lower leg filling and pain beginning one month ago Technique: Duplex scan of the extremity veins using B-mode/grayscale imaging and Doppler spectral analysis and color flow Attention is directed to internal echogenicity, compression and augmentation involving these veins, color flow assessment, spectral analysis Findings: Positive for occlusive acute deep vein thrombus right popliteal right peroneal veins IMPRESSION: Positive for occlusive acute deep vein thrombus right popliteal right peroneal veins
== END | disposition home or self-care (01) ==
PROVIDERS: PCP Family Medicine; Referring Provider Internal Medicine Hematology & Oncology; Visit Provider Internal Medicine Hematology & Oncology
DX: I82.431 Acute embolism and thrombosis of right popliteal vein (principal); I82.890 Acute embolism and thrombosis of other specified veins; C79.51 Secondary malignant neoplasm of bone; C25.0 Malignant neoplasm of head of pancreas
CPT/HCPCS: 93971

== ENCOUNTER 2025-01-22 06:40 | Inpatient (IN) | payer OTHER, MEDICAID, MEDICARE, SELFPAY ==
[2025-01-22] VITALS (14 sets, daily range): BP systolic 91–124; BP diastolic 46–81; PULSE 90–150; RESP 15–24; TEMP 36.3–38.2; O2SAT 90–100; BMI 20.2
--- NOTE | 2025-01-22 06:52 | EKG_ITS ---
[facility] Test Date: 2025-01-22 Pat Name: BANDAR JUAREZ Department: Room: - Gender: Female Change Number Operator: : [id number] Requested By: Rachana Dumont Order Number: [id number] Reading MD: Rachana Dumont Measurements Intervals [place] Rate: 138 P: 68 WY: 119 QRS: 5 QRSD: 69 T: 37 QT: 275 QTc: 417 Interpretive Statements SINUS TACHYCARDIA WITH SHORT WY INTERVAL ABNORMAL RHYTHM ECG Compared to ECG 09/12/2023 02:55:42 Short WY interval now present /store/S0/[id number]/ecg/[id number].pdf
--- NOTE | 2025-01-22 06:53 | EDNOTE_ITS ---
ED SOB =RME/HPI General Chief Complaint: Shortness of Breath/Dyspnea Stated Complaint: DIFFICULTY BREATHING Time Seen by Provider: 01/22/25 07:03 Arrival date/time: 01/22/25 06:40 RME / HPI RME / HPI Narrative: 75 year old female with history of pancreatic cancer is presented to the ER accompanied by a family member with a chief complaint of SOB. Per patient, she started to experience SOB at 2100 last night on 01/21/25. Patient also states she has a ileostomy due to the ongoing pancreatic cancer. Patient states no other complaints. Related Data Previous Rx's ?Medication ?Instructions ?Recorded lorazepam 1 mg tablet 1 mg PO BID Anxiety #12 tabs 11/02/15 acetaminophen 500 mg capsule 500 mg PO Q6H PRN pain (s adry 08/11/19 score 4-6) #30 caps ibuprofen 600 mg tablet 600 mg PO Q6H #30 tabs 08/11 apixaban 5 mg (74 tabs) tablets in 5 mg PO BID #74 tab s 01/20/25 a dose pack ([employer] DVT-PE Treat 30D Start) Allergies Allergy/AdvReac Type Severity Reaction Status Date / Time acetaminophen (From [place]) Allergy Severe Abdominal Verified 01/22/25 06:44 Pain hydrocodone (From [place]) Allergy Severe Abdominal Verified 01/22/25 06:44 Pain Review of Systems Review of Systems Systems Reviewed: All systems reviewed, normal except as documented Narrative Review of Systems: Gen: No fever, no chills, no weight loss EYES: No discharge, no visual changes, no pain HEENT: No ear pain, no congestion, no sore throat PULM: +shortness of breath, no cough, no congestion CV: No chest pain, no dyspnea on exertion, no palpitations GI: No nausea, no vomiting, no diarrhea, no pain, no constipation : No frequency, no urgency, no dysuria Musc/skel: No joint pain, no back pain Skin: No rash Psyc: No hallucinations, no depression Heme/Lymph: No easy bleeding or bruising tendencies Neuro: No weakness, no headache Past Medical History Past Medical History CARDIAC: Positive Hypertension OTHER HISTORY: Positive Cancer (PANCREATIC) Social History SMOKING STATUS: Never smoker ED Exam Narrative Physical exam: GENERAL APPEARANCE: alert and oriented x 4, weak, frail, no acute distress HEENT: Normocephalic, atraumatic; pupils equal, round, reactive to light; EOMI; mucous membranes pink, moist; oropharynx clear NECK: Supple LUNGS: CTABL; no wheezes, no rales, no rhonchi. typenic HEART: Regular rate, regular rhythm; normal S1, S2; no murmurs ABDOMEN: non distended; normal BS; soft, no tenderness, no guarding, no rebound; no masses, no organomegaly, no hernia BACK: no CVA tenderness EXTREMITIES: atraumatic; no edema NEUROLOGIC: awake; alert and oriented x4; cranial nerves II-XII grossly intact; no focal sensory or motor deficits PSYCHIATRIC: appropriate mood and affect SKIN: warm, dry, pale; no rashes Course Course Course Narrative: Chest x-ray has been ordered due to determining etiology of shortness of breath. Quality Measures none Orders Category Date Time Status Bedside COVID-19 Antigen Test NOW Care 01/22/25 07:04 Active Bedside Influenza A&B Antigen Test NOW Care 01/22/25 07:[address] Screening NOW Care 01/22/25 06:[address] Screening NOW Care 01/22/25 07:05 Active Web Developer NOW Care 01/22/25 06:52 Active EKG (ED ONLY) *Do not use* NOW Care 01/22/25 06:52 Completed Miscellaneous Nursing Order NOW Care 01/22/25 09:[address] abd pel w con SEPSIS ASMITA Stat Exams 01/22/25 07:[address] angio chest Stat Exams 01/22/25 06:52 Completed EKG (ED Only) Stat Exams 01/22/25 06:52 Draft XR chest 1V portable Stat Exams 01/22/25 06:52 Completed B-Type Natriuretic Peptide Stat Lab 01/22/25 07:25 Completed Blood Culture (Lab) Stat Lab 01/22/25 07:10 Received CBC Stat Lab 01/22/25 07:25 Completed CBC Stat Lab 01/22/25 11:53 Completed CMP [Comprehensive Metabolic Panel] Stat Lab 01/22/25 11:53 Completed Comprehensive Metabolic Panel Stat Lab 01/22/25 07:25 Completed Lactate (Lactic Acid) Stat Lab 01/22/25 07:25 Completed Lactic Acid [Lactate (Lactic Acid)] Stat Lab 01/22/25 11:53 Results Lipase Stat Lab 01/22/25 07:25 Completed Magnesium Stat Lab 01/22/25 07:25 Completed Partial Thromboplastin Time Stat Lab 01/22/25 07:25 Completed Path Review Blood Smear Stat Lab 01/22/25 07:25 Completed Procalcitonin Stat Lab 01/22/25 07:25 Completed Prothrombin Time with INR Stat Lab 01/22/25 07:25 Completed Troponin I Stat Lab 01/22/25 07:25 Completed Urinalysis Stat Lab 01/22/25 11:00 Completed Urine Culture Stat Lab 01/22/25 11:00 Received Acetaminophen Tab [Tylenol Tab] Med 01/22/25 07:06 Discontinued 650 mg PO X1 ONE Piper/Tazo 3.375 gm Premix [Zosyn] Med 01/22/25 08:25 Discontinued 3.375 gm in 50 ml IV X1 Ringers Lactated 1000 ml [Lactated Ringers] 1,000 ml Med 01/22/25 09:54 Discontinued IV 999 mls/hr Sodium Chloride 0.9% 1000 ml [Ns] 1,000 ml Med 01/22/25 07:05 Discontinued IV 999 mls/hr Vancomycin Inj 1,000 mg Med 01/22/25 08:25 Discontinued Sodium Chloride 0.9% 250 ml [Ns] 250 ml IV X1 Vancomycin/Ns 1 gm Ivpb 200 ml Med 01/22/25 08:30 Discontinued IV X1 Vital Signs Vital signs: Vital Signs Temperature 100.7 F H 01/22/25 06:59 Pulse Rate 150 H 01/22/25 06:59 Respiratory Rate 24 H 01/22/25 06:59 Blood Pressure 105/60 01/22/25 06:59 Pulse Oximetry (%) 90 L 01/22/25 06:59 Oxygen Delivery Method Room Air 01/22/25 06:59 Shortness of Breath / Dyspnea MDM Narrative MDM Narrative:: Shante Perry am scribing for and in the presence of Dr. Yen. Patient data External records reviewed:: [facility] previous records Clinical information provided by:: patient Social determinants that could affect healthcare access:: none Patient has the following chronic illnesses:: pancreatic cancer How is presenting disease/condition affected by chronic disease/condition?: exacerbated by Evaluation data The following diagnostics were reviewed and interpreted by me:: lab results, radiology exam(s) and EKG tracing(s) (EKG#1: EKG at 0731 hours. Interpreted by me: sinus tachycardia, rate 138, Q wave in lead 3, slight depression in V4-V5) Lab and/or radiology exams considered but not ordered:: nonE Interpretation Summary: Ordering Physician: Rachana Yen MD Date of Service: 01/22/25 Procedure(s): CT abd pel w con SEPSIS ASMITA Accession Number(s): [id number] cc: Samir Brown MD; Neena Prieto MD; Rachana Yen MD~ Examination: CT abdomen with intravenous contrast CT pelvis with intravenous contrast 2-D coronal reconstructions 2-D sagittal reconstructions Date and time of exam:January 22, 2025 0821 hours Comparison May 17, 2024 INDICATIONS: Sepsis alert, hypotension, shortness of breath, abdominal pain today, diagnosis pancreatic cancer undergoing chemotherapy. CTDI: vol (mGy) 4.92 DLP: (mGycm) 224 Technique: Multiple axial sections of the abdomen and pelvis have been obtained. 64 slice high-resolution scanner used. 3 mm axial sections have been obtained, post intravenous injection of 85 cc [id number] 2-D sagittal, coronal reconstructions obtained. Low dose protocols were performed. One or more of the following dose reduction techniques were used; automated exposure control, adjustment of the mA and/or KV according to patient size, use of iterative reconstruction technique. Findings: Pneumobilia Biliary stent satisfactory position Mass in the pancreatic head currently measures 4.2 x 3.1 cm compared to 4.0 x 2.9 cm on May 17, 2024 No bowel obstruction Liver is mildly irregular in contour Gallbladder is contracted, gallbladder wall appears thickened No hydronephrosis No abdominal or pelvic mass Small bowel loops show thickened saunders No bowel obstruction Normal appendix Atrophic uterus Interval osseous metastatic disease involving T9, T11, L4, L5, first second and third sacral segments There is protrusion of the posterior margin L4 into the spinal canal IMPRESSION: Biliary stent satisfactory position Mass pancreatic head measures 4.2 x 3.1 cm compared to 4.0 x 2.9 cm on May 17, 2024 Contracted gallbladder, gallbladder wall is thickened, recommend hepatobiliary sonography follow-up No abdominal or pelvic lymphadenopathy Abnormal small bowel loops thickened saunders, consider enteritis No bowel obstruction. Interval significant osseous metastatic disease, as clinically warranted, consider MRI thoracic lumbar spine post contrast follow-up to exclude epidural tumor impinging upon the thoracic cord or cauda equina Dictated By: Samir Brown MD Signed By: <Electronically signed by Saimr Brown MD in [place]> 01/22/25 0852 Ordering Physician: Rachana Yen MD Date of Service: 01/22/25 Procedure(s): XR chest 1V portable Accession Number(s): [id number] cc: Samir Brown MD; Neena Prieto MD; Rachana Yen MD~ Examination: AP chest single view TECHNIQUE: AP portable upright chest single view. Examination time: January 22, 2025 0708 hours Comparison September 11, 2023 INDICATIONS: Shortness of breath today. FINDINGS: Significant pneumonia left mid and lower lung zone Blunting of left lateral costophrenic angle Right internal jugular Port-A-Cath tip SVC No significant cardiac enlargement IMPRESSION: Significant pneumonia left mid and lower lung zone, consider aspiration pneumonia Dictated By: Samir Brown MD Signed By: <Electronically signed by Samir Brown MD in [place]> 01/22/25 0926 Ordering Physician: Rachana Yen MD Date of Service: 01/22/25 Procedure(s): CT angio chest Accession Number(s): [id number] cc: Samir Brown MD; Neena Prieto MD; Rachana Yen MD~ Examination: CTA chest with intravenous contrast 2-D reconstructions 3-D reconstructions, vascular Date and time of exam: January 22, 2025 at 0821 hours INDICATIONS: Onset shortness of breath chest pain today, diagnosis pancreatic carcinoma undergoing chemotherapy , Enlarging mass pancreatic head, 5 mm pleural-based pulmonary nodule right lower lobe on CT abdomen chest September 29, 2024 CTDI: vol (mGy) 7.78 DLP: (mGycm) 240 Technique: Multiple axial sections of the thorax have been obtained. 3 mm slice thickness, from below the hemidiaphragms to above the apices of the lungs. Mediastinal and lung density settings have been obtained. 2-D sagittal and coronal reconstructions. 3-D angiographic renderings, 3-D volume renderings, 3D post processing, vascular maximum intensity projections obtained. Contrast administered is 85 cc Isovue 370. Low dose protocols were performed. One or more of the following dose reduction techniques were used; automated exposure control, adjustment of the mA and/or KV according to patient size, use of iterative reconstruction technique. Findings: 18 mm right thyroid nodule No thoracic aortic aneurysm dilatation or dissection Pulmonary artery segments are not enlarged. No pulmonary artery filling defects Significant pneumonia diffusely in the left lung, severe in the lingular segment Multiple pulmonary nodules, 6 mm left upper lobe image 124, 4 mm right midlung image 126, 6 mm left upper lobe image 132, 18 mm left lower lobe image 159, 10 mm right lower lobe image 172, 16 mm spiculated margins right lower lobe image 183, 8 mm right lower lobe image 196 Liver is irregular in contour Biliary stent is noted with partial visualization mass head of the pancreas at least 28 mm No hydronephrosis Severe osteopenia IMPRESSION: Negative for pulmonary artery emboli 18 mm right thyroid nodule Significant pneumonia diffusely in the left lung, severe in the lingular segment left upper lobe Multiple metastatic pulmonary nodules. Primary hepatocellular disease Biliary stent satisfactory position Dictated By: Samir Brown MD Signed By: <Electronically signed by Samir Brown MD in [place]> 01/22/25 0847 Medications / Prescriptions Medications or Prescriptions considered but not ordered:: none Medication administrations:: Medication Administration History Apixaban (Apixaban 2.5 Mg Tablet) 5 mg PO BID CAROL Stop: 02/12/25 14:29 Piperacillin/Tazobactam/Dextrose (Zosyn) 3.375 gm in 50 mls @ 12.5 mls/hr IV Q8HR CAROL Stop: 01/29/25 21:59 Albumin Human (Albuminar-25 Ivpb) 12.5 gm in 50 mls @ 50 mls/hr IV X1 ONE Stop: 01/22/25 15:20 Piperacillin/Tazobactam/Dextrose (Zosyn) 3.375 gm in 50 mls @ 100 mls/hr IV X1 ONE Stop: 01/22/25 14:59 Pharmacy Consult (Vancomycin Pharmacy To Dose 1 Each Each) 1 each IV QDAY CAROL Stop: 02/22/25 08:59 Discontinued Medications Acetaminophen (Acetaminophen 325 Mg Tablet) 650 mg PO X1 ONE Stop: 01/22/25 07:07 Last Admin: 01/22/25 07:42 Dose: 650 mg Documented By: LUISA Sodium Chloride (Ns) 1,000 mls @ 999 mls/hr IV .Q1H1M ONE Stop: 01/22/25 08:05 Last Infusion: 01/22/25 08:46 Dose: Infused Documented By: Admin: 01/22/25 07:45 Dose: 999 mls/hr Documented By: LUISA Vancomycin HCl 1,000 mg/ (Sodium Chloride) 250 mls @ 150 mls/hr IV X1 ONE Stop: 01/22/25 10:04 Last Admin: 01/22/25 09:26 Dose: Not Given Documented By: LUISA Non-Admin Reason: Discontinued Piperacillin/Tazobactam/Dextrose (Zosyn) 3.375 gm in 50 mls @ 100 mls/hr IV X1 ONE Stop: 01/22/25 08:54 Last Infusion: 01/22/25 09:41 Dose: Infused Documented By: Admin: 01/22/25 09:11 Dose: 100 mls/hr Documented By: TM Vancomycin/Sodium Chloride (Vancomycin/Ns 1 Gm Ivpb) 200 mls @ 120 mls/hr IV X1 ONE Stop: 01/22/25 10:09 Last Infusion: 01/22/25 10:55 Dose: Infused Documented By: Admin: 01/22/25 09:14 Dose: 120 mls/hr Documented By: LUISA Lactated Ringer's (Lactated Ringers) 1,000 mls @ 999 mls/hr IV .Q1H1M ONE Stop: 01/22/25 10:54 Last Infusion: 01/22/25 11:26 Dose: Infused Documented By: Admin: 01/22/25 10:25 Dose: 999 mls/hr Documented By: TM Midodrine (Midodrine 5 Mg Tablet) 5 mg PO X1 ONE Stop: 01/22/25 14:22 Potassium Chloride (Potassium Chloride 10% 20 Meq/15 Ml Udc) 40 meq PO X1 ONE Stop: 01/22/25 12:27 Potassium Chloride (Potassium Chloride 10% 20 Meq/15 Ml Udc) 40 meq PO X1 ONE Stop: 01/22/25 14:18 Sodium Chloride (Sodium Chloride Rt 10% 15 Ml Nebu) 5 ml INH X1 ONE Stop: 01/22/25 12:23 see abover. Consultations Consultation(s) initiated? (list below): Yes Consultation #1 (Physician, Specialty, Details): I spoke with Dr. Kim, Promotions Coordinator from ICU made aware of the patient?s HPI, PMHx, lab and/or radiology results. Dr. Kim to see patient at bed-side and will determine if ICU admission is needed. Time: 11:02 Consultation #2 (Physician, Specialty, Details): Dr. Kim, Promotions Coordinator from ICU discussed treatment plan and decided ICU admission was not needed. Time: 11:10 Consultation #3 (Physician, Specialty, Details): I spoke with Admission Resident working with Dr. Barney and was made aware of the patient?s HPI, PMHx, lab and/or radiology results. Treatment plan was discussed. Will admit for further evaluation and management. Accepts patient for admission. Time: 12:20 Diagnosis Shortness of Breath Differential Diagnosis: acute exacerbation of chronic obstructive airways disease, community acquired pneumonia and asthma with exacerbation Most likely diagnosis given after review of the tests above:: pneumonia, neutropenic fever, sepsis Admission Indicated Admission indicated?: indicated Admission Request Was there a request for admission?: Yes Admission Attestation Admission request attestation: Discussed case with [] from Hospitalist service regarding admission. Discussed patients ED course, exam findings, labs, and radiology results. The Hospitalist [agrees,declines] to accept the patient for admission. Disposition Plan Disposition Plan: Admit Discharge Plan Plan Patient Disposition: Admit Acute Care w/in Hospital Problem List Clinical Impression: Pneumonia, Sepsis, Neutropenic fever
--- NOTE | 2025-01-22 07:05 | XR_ITS ---
Examination: CT abdomen with intravenous contrast CT pelvis with intravenous contrast 2-D coronal reconstructions 2-D sagittal reconstructions Date and time of exam:January 22, 2025 0821 hours Comparison May 17, 2024 INDICATIONS: Sepsis alert, hypotension, shortness of breath, abdominal pain today, diagnosis pancreatic cancer undergoing chemotherapy. CTDI: vol (mGy) 4.92 DLP: (mGycm) 224 Technique: Multiple axial sections of the abdomen and pelvis have been obtained. 64 slice high-resolution scanner used. 3 mm axial sections have been obtained, post intravenous injection of 85 cc [id number] 2-D sagittal, coronal reconstructions obtained. Low dose protocols were performed. One or more of the following dose reduction techniques were used; automated exposure control, adjustment of the mA and/or KV according to patient size, use of iterative reconstruction technique. Findings: Pneumobilia Biliary stent satisfactory position Mass in the pancreatic head currently measures 4.2 x 3.1 cm compared to 4.0 x 2.9 cm on May 17, 2024 No bowel obstruction Liver is mildly irregular in contour Gallbladder is contracted, gallbladder wall appears thickened No hydronephrosis No abdominal or pelvic mass Small bowel loops show thickened saunders No bowel obstruction Normal appendix Atrophic uterus Interval osseous metastatic disease involving T9, T11, L4, L5, first second and third sacral segments There is protrusion of the posterior margin L4 into the spinal canal IMPRESSION: Biliary stent satisfactory position Mass pancreatic head measures 4.2 x 3.1 cm compared to 4.0 x 2.9 cm on May 17, 2024 Contracted gallbladder, gallbladder wall is thickened, recommend hepatobiliary sonography follow-up No abdominal or pelvic lymphadenopathy Abnormal small bowel loops thickened saunders, consider enteritis No bowel obstruction. Interval significant osseous metastatic disease, as clinically warranted, consider MRI thoracic lumbar spine post contrast follow-up to exclude epidural tumor impinging upon the thoracic cord or cauda equina
[2025-01-22 07:34] LABS: Lactate (Lactic Acid) 2.4 mMol/L (0.4-2.0)
[2025-01-22 07:41] LABS: Basophils % (Auto) 1 % (0-2.5); Eosinophils % (Auto) 1 % (0-10); Hematocrit 31.6 % (36.0-46.0); Hemoglobin 10.9 g/dL (12.0-16.0); Immature Granulocytes % (Auto) 2 % (0-0); Immature Granulocytes Auto 0.04 Thou/mm3 (0.00-0.00); Lymphocytes # (Auto) 0.7 Thou/mm3 (1.0-4.8); Lymphocytes % (Auto) 39 % (10-50); Mean Corpuscular HGB Conc 34.5 g/dl (31.0-37.0); Mean Corpuscular Hemoglobin 31.7 pg (25.0-35.0); Mean Corpuscular Volume 92 fL (80-100); Monocytes # (Auto) 0.1 Thou/mm3 (0.0-0.8); Monocytes % (Auto) 7 % (0-12); Neutrophils # (Auto) 0.9 Thou/mm3 (1.8-7.7); Neutrophils % (Auto) 50 % (37-80); Nucleated Red Blood Cell # 0.04 Thou/mm3 (0.00-0.00); Nucleated Red Blood Cell % 2 /100 WBC (0); Platelet Count 188 Thou/mm3 (140-440); RDW Standard Deviation 53.1 fL (36.4-46.3); Red Blood Count 3.44 Miln/mm3 (4.00-5.20)
[2025-01-22] MEDS: ACETAMINOPHEN 325 MG TABLET 650 MG PO ×2 (07:42→21:05)
[2025-01-22] MEDS: SODIUM CHLORIDE 0.9% 1000 ML 1,000 ML 999 ML IV (07:45)
[2025-01-22 07:50] LABS: INR 1.2 (0.9-1.3); Partial Thromboplastin Time 23.1 Seconds (22.0-36.0); Prothrombin Time 13.4 Seconds (9.0-12.2)
[2025-01-22 07:51] LABS: White Blood Count 1.8 Thou/mm3 (3.6-11.0)
[2025-01-22 08:01] LABS: Alanine Aminotransferase 43 U/L (10-49); Albumin, Serum 3.6 gm/dL (3.4-4.8); Albumin/Globulin Ratio 1.7 (1.2-2.2); Alkaline Phosphatase 317 U/L (46-116); Anion Gap 12 (7-16); Aspartate Amino Transferase 27 U/L (0-34); BUN/Creatinine Ratio 26 Ratio (12-20); Bilirubin,Total 0.9 mg/dL (0.3-1.2); Blood Urea Nitrogen 13 mg/dL (9-23); Calcium 8.5 mg/dL (8.3-10.6); Calcium (Corrected) 8.8 mg/dL (8.5-10.1); Carbon Dioxide 21.5 mMol/L (20.0-31.0); Chloride 105 mMol/L (98-107); Creatinine (Component) 0.5 mg/dL (0.6-1.3); Globulin 2.1 gm/dL (2.3-3.5); Glucose 156 mg/dL (74-106); Lipase 19 U/L (12-53); Magnesium 1.6 mg/dL (1.6-2.6); Osmolality,Calculated 278 (275-295); Potassium 3.1 mMol/L (3.4-5.1); Procalcitonin 2.36 ng/ml (0.0-0.49); Sodium 138 mMol/L (136-145); Total Protein 5.7 gm/dL (5.7-8.2); Troponin I < 0.020 ng/mL (0.0-0.045); eGFR > 60 See Note
[2025-01-22 08:25] LABS: B-Type Natriuretic Peptide 119 pg/mL (0-100)
[2025-01-22] MEDS: PIPER/TAZO 3.375 GM PREMIX 3.375 GM/50 ML BAG IV ×3 (09:11→22:27)
[2025-01-22] MEDS: VANCOMYCIN/NS 1 GM IVPB 200 ML IV (09:14)
--- NOTE | 2025-01-22 10:16 | PC.NURSE ---
DAUGHTER AT BEDSIDE, THIS RN PROVIDED HER W/BLANKET FOR COMFORT. PT REMAINS RESTING W/EYES CLOSED, EVEN RISE AND FALL OF CHEST. VSS AT THIS TIME ON TELE. CALL [facility] REMAINS IN REACH.
[2025-01-22] MEDS: RINGERS LACTATED 1000 ML 1,000 ML 999 ML IV (10:25)
[2025-01-22 10:31] LABS: Reflex Lactate? Y
[2025-01-22 11:14] LABS: Collection Type, Urine Clean Catch; Squamous Epithelial Cell,Urine 0 /hpf (0-5)
[2025-01-22 11:20] LABS: Bilirubin,Urine Negative (Negative); Blood,Urine Negative (Negative); Clarity,Urine Clear (Clear/Hazy); Color,Urine Lt-Yellow (Lt Yel-Yel); Glucose, Urine Trace (Negative); Ketones,Urine Negative (Negative); Leukocyte Esterase,Urine Negative (Negative); Nitrite,Urine Negative (Negative); PH,Urine 6.5 (5.0-7.0); Protein,Urine Negative (Neg - Trace); RBC,Urine < 1 /hpf (0-3); Specific Gravity,Urine 1.031 (1.001-1.035); Urobilinogen,Urine Negative mg/dL (0.0-1.0); WBC,Urine 1 /hpf (0-5)
--- NOTE | 2025-01-22 11:32 | PC.NURSE ---
UPDATED PROVIDER CHE ON PTS BP POST LR BOLUS
--- NOTE | 2025-01-22 11:43 | PC.CC ---
Patient is a 75 year-old female who presents to the hospital for difficulty breathing. Shasta FIELDS made [id number] contact with patient. ASW introduced self, role, and reason for visit. Patient appeared alert and oriented to self, location, and situation. At bedside was patient's daughter, Marlen Fields whom patient provided consent to remain in the room during assessment. Patient and daughter completed initial assessment with this editorial writer. Patient lives at home with her , Von Fields . Patient stated that her medical decision maker in the event that something happen to her is her Von. Patient reports she has a lot of children and they would all help make the decision with her . Patient lives at home with her but her children come over every day to assist with their care. At home patient has not been able to ambulate for the past 3 weeks as she has had generalized weakness. Prior to this the patient was using a rollator walker for ambulation. Patient is max assist with her ADLs. Patient does not use Oxygen at home. Patient receives primary care with Neena Reilly and uses [facility] pharmacy for prescription medications. Upon discharge patient plans on going home with the support of all of her children. The family is not open to a SNF placement. emergency services dispatcher to follow up with any discharge needs.
[2025-01-22 11:58] LABS: Lactate (Lactic Acid) 2.8 mMol/L (0.4-2.0)
[2025-01-22 12:04] LABS: Basophils % (Auto) 1 % (0-2.5); Eosinophils % (Auto) 0 % (0-10); Hemoglobin 10.6 g/dL (12.0-16.0); Immature Granulocytes % (Auto) 2 % (0-0); Immature Granulocytes Auto 0.04 Thou/mm3 (0.00-0.00); Lymphocytes # (Auto) 0.9 Thou/mm3 (1.0-4.8); Lymphocytes % (Auto) 38 % (10-50); Mean Corpuscular HGB Conc 34.2 g/dl (31.0-37.0); Mean Corpuscular Hemoglobin 31.7 pg (25.0-35.0); Mean Corpuscular Volume 93 fL (80-100); Monocytes # (Auto) 0.2 Thou/mm3 (0.0-0.8); Monocytes % (Auto) 7 % (0-12); Neutrophils # (Auto) 1.2 Thou/mm3 (1.8-7.7); Neutrophils % (Auto) 52 % (37-80); Nucleated Red Blood Cell % 0 /100 WBC (0); Platelet Count 136 Thou/mm3 (140-440); RDW Standard Deviation 53.1 fL (36.4-46.3); Red Blood Count 3.34 Miln/mm3 (4.00-5.20)
[2025-01-22 12:05] LABS: White Blood Count 2.4 Thou/mm3 (3.6-11.0)
[2025-01-22 12:26] LABS: Alanine Aminotransferase 34 U/L (10-49); Albumin/Globulin Ratio 1.8 (1.2-2.2); Alkaline Phosphatase 262 U/L (46-116); Anion Gap 12 (7-16); Aspartate Amino Transferase 24 U/L (0-34); BUN/Creatinine Ratio 20 Ratio (12-20); Bilirubin,Total 0.8 mg/dL (0.3-1.2); Blood Urea Nitrogen 10 mg/dL (9-23); Calcium 7.8 mg/dL (8.3-10.6); Calcium (Corrected) 8.6 mg/dL (8.5-10.1); Carbon Dioxide 19.5 mMol/L (20.0-31.0); Chloride 112 mMol/L (98-107); Creatinine (Component) 0.5 mg/dL (0.6-1.3); Globulin 1.7 gm/dL (2.3-3.5); Glucose 110 mg/dL (74-106); Osmolality,Calculated 284 (275-295); Potassium 2.8 mMol/L (3.4-5.1); Sodium 143 mMol/L (136-145); Total Protein 4.7 gm/dL (5.7-8.2); eGFR > 60 See Note
--- NOTE | 2025-01-22 13:08 | PC.NURSE ---
DAUGHTER AT BEDSIDE FEEDING PT HER LUNCH.
[2025-01-22 14:03] LABS: Path Review Blood Smear Sent to Pathologist
--- NOTE | 2025-01-22 14:37 | ESCONSULT_ITS ---
<Statement entered by Jaya Kim MD - 01/23/25 09:16> TOTAL CC TIME: 45 MIN I saw and evaluated the patient. I reviewed the resident?s note and agree with findings and plan as documented in the resident?s note. Upon my evaluation, this patient had a high probability of imminent or life- threatening deterioration due to severe sepsis due to pna, which required my direct attention, intervention, and personal management. This time is exclusive of time spent on procedures, which are documented separately if performed. LA 2.4 hypotensive but fluid responsive Seen at bedside after 2l ivf bolus and IVC US exam CI of 27% - therefore, appropriately fluid resuscitated if hypotensive again - recheck IVC and consider additional IVF if CI > 40% Pancreatic drain was changed out 1mo ago - daughter at bedside says the color and consistency of output is no different than baseline no erythema or abd pain f/u LA agree w/ IV abx reconsult ICU if she is not responding favorably HPI Data of Consult Requesting Physician: Anabella Rey MD Admitting Provider: Anabella Rey MD Attending Provider: Anabella Rey MD Primary Care Provider: Neena Reilly MD Consult Narrative History of present illness: Patient is a 75-year-old Sami-speaking female with past medical history of metastatic pancreatic adenocarcinoma on chemotherapy s/p external biliary drain, history of DVT, asthma, and anxiety who presented to the ED on 01/22/2025 with worsening shortness of breath since yesterday. Patient also had cough and chills. Patient denied nausea, vomiting, abdominal pain, urinary symptoms, or change in bowel output. Patient has an extrabiliary drain which was recently replaced 1 month ago. Daughter at bedside reported that drain has green-brown drainage and the output has not changed. There was no notable redness or purulent drainage at the output site. Last chemotherapy was 1 week ago. Patient underwent radiation therapy completed 07/2024. Chart review reveals metastatic disease into the L4-S1 area and throughout the pelvic bones. ED Course: -Initial vitals were HR 150, RR 24, Temp 100.7, O2 90% on room air -Labs significant for neutropenia with WBC 1.8, Hgb 10.9, platelet 188k, potassium 3.1, BUN 13, creatinine 0.5, lactic acid 2.4, BNP 119, troponin negative, procalcitonin 2.36. -UA was negative -EKG showed sinus tachycardia with rate 138 -CTA chest was negative for PE but showed significant pneumonia diffusely in the left lung with multiple metastatic pulmonary nodules -CT abd/pelv with contrast showed biliary stent in proper positioning, pancreatic head mass 4.2 x 3.1, contracted gallbladder with wall thickening, thickened small bowel loops, and significant osseous metastatic disease -In the ED, patient was given acetaminophen 650 mg PO x1, 1L NS IV fluid, Zosyn 3.375 g x1, vancomycin 200 ml x1 -Patient was admitted for community acquired pneumonia. Due to hypotension to MAP of low 60s ICU was consulted for possible need of pressor support should patient not be fluid responsive. Review of Systems Review of systems otherwise negative except what is mentioned above. cc:: cc: Anabella Rey MD Past Medical History Past Medical History Comments PMH COMMENT: Past Medical History: As above Family History: Unknown Surgical History: Tubal ligation, biliary drain Social History: Denies history of smoking, denies current alcohol use, denies recreational drug use Current Medications: See med rec Allergies: [place] - abdominal pain Exam Vital Signs Temp Pulse Resp BP Pulse Ox O2 Del Method O2 Flow Rate 97.4 F 111 H 18 96/46 L 96 Room Air 1 01/22/25 12:08 01/22/25 13:34 01/22/25 13:34 01/22/25 12:08 01/22/25 13:34 01/22/25 12:08 01/22/25 13:34 Narrative Exam Physical Exam General: Thin, frail, elderly woman chronically ill-appearing. Sami-speaking. Awake and in no acute distress. HEENT: Normocephalic, atraumatic, mucous membranes dry. Heart: Regular rate and rhythm, normal S1 and S2, no murmurs. Lungs: Left-sided lower lobe rhonchi. Abdomen: Soft, nondistended, nontender, positive bowel sounds. ?No guarding or rebound tenderness. Biliary drain bag on right side of abdomen draining liquid brown-green output. Neurologic: Alert and oriented x3, no gross neurological deficit, and patient able to move all 4 extremities. Extremities: Trace bilateral lower extremity edema. Skin: No rash or ecchymoses. Results Labs 01/23/25 02:15 01/23/25 02:15 Labs: Short CBC 01/22/25 01/22/25 Range/Units 07:25 11:53 WBC 1.8 L D 2.4 L (3.6-11.0) Thou/mm3 Hgb 10.9 L 10.6 L (12.0-16.0) g/dL Hct 31.6 L 31.0 L (36.0-46.0) % Plt Count 188 D 136 L D (140-440) Thou/mm3 BMP 01/22/25 01/22/25 07:25 11:53 Sodium 138 143 Potassium 3.1 L 2.8 L Chloride 105 112 H Carbon Dioxide 21.5 19.5 L BUN 13 10 Creatinine 0.5 L 0.5 L Glucose 156 H 110 H Calcium 8.5 7.8 L Cardiac Enzymes 01/22/25 Range/Units 07:25 Troponin I < 0.020 (0.0-0.045) ng/mL Liver Function 01/22/25 01/22/25 Range/Units 07:25 11:53 Total Bilirubin 0.9 0.8 (0.3-1.2) mg/dL AST 27 24 (0-34) U/L ALT 43 34 (10-49) U/L Alkaline Phosphatase 317 H 262 H D (46-116) U/L Albumin 3.6 3.0 L D (3.4-4.8) gm/dL Urine 01/22/25 Range/Units 11:00 Urine Color Lt-Yellow (Lt Yel-Yel) Urine Clarity Clear (Clear/Hazy) Urine pH 6.5 (5.0-7.0) Ur Specific [place] 1.031 (1.001-1.035) Urine Protein Negative (Neg - Trace) Urine Glucose (UA) Trace (Negative) Quality Measures Quality Measures none Advance care planning discussed with:: patient and child Medications Home Medications and Allergies Home Medications ?Medication ?Instructions ?Recorded ?Confirmed ?Type apixaban 5 mg (74 tabs) tablets in 10 mg PO BID 01/22/25 History a dose pack (Eliquis DVT-PE Treat 30D Start) lipase 60,000-protease 1 cap PO TIDWM 01/22/2512/28 History 189,600-amylase 252,600 unit capsule, delay rel (Zenpep) megestrol 40 mg tablet 40 mg PO DAILY 01/22/2512/28 History methimazole 5 mg tablet 5 mg PO DAILY 01/22/2501/22 History mirtazapine 15 mg tablet 15 mg PO .QHS 01/22/2501/22 History ekmxewph-bynm-iqis 8 mg-folic 400 1 tab PO QDAY 01/22/25 History mcg-K 50 mcg-lutein 300 mcg tablet ([facility] Women 50 Plus) omeprazole 20 mg capsule,delayed 20 mg PO DAILY 01/22/25 History release ondansetron HCl 8 mg tablet 8 mg PO TID PRN nausea and vomiting 01/22/25 01/22/25 History pantoprazole 20 mg tablet,delayed 20 mg PO DAILY 01/2201/22/25 History release potassium chloride 20 mEq 20 meq PO DAILY 01/22/25 History tablet,extended release prednisone 10 mg tablet 10 mg PO DAILY 01/22/2512/28 History propranolol 20 mg tablet 20 mg PO BID 01/22/25 History Allergies Allergy/AdvReac Type Severity Reaction Status Date / Time acetaminophen (From [facility]) Allergy Severe Abdominal Verified 01/22/25 06:44 Pain hydrocodone (From [place]) Allergy Severe Abdominal Verified 01/22/25 06:44 Pain Visit Medications Apixaban (Apixaban 2.5 Mg Tablet) 5 mg PO BID CAROL Stop: 02/12/25 14:29 Piperacillin/Tazobactam/Dextrose (Zosyn) 3.375 gm in 50 mls @ 12.5 mls/hr IV Q8HR CAROL Stop: 01/29/25 21:59 Albumin Human (Albuminar-25 Ivpb) 12.5 gm in 50 mls @ 50 mls/hr IV X1 ONE Stop: 01/22/25 15:20 Piperacillin/Tazobactam/Dextrose (Zosyn) 3.375 gm in 50 mls @ 100 mls/hr IV X1 ONE Stop: 01/22/25 14:59 Pharmacy Consult (Vancomycin Pharmacy To Dose 1 Each Each) 1 each IV QDAY CAROL Stop: 02/22/25 08:59 Discontinued Medications Acetaminophen (Acetaminophen 325 Mg Tablet) 650 mg PO X1 ONE Stop: 01/22/25 07:07 Last Admin: 01/22/25 07:42 Dose: 650 mg Sodium Chloride (Ns) 1,000 mls @ 999 mls/hr IV .Q1H1M ONE Stop: 01/22/25 08:05 Last Infusion: 01/22/25 08:46 Dose: Infused Vancomycin HCl 1,000 mg/ (Sodium Chloride) 250 mls @ 150 mls/hr IV X1 ONE Stop: 01/22/25 10:04 Last Admin: 01/22/25 09:26 Dose: Not Given Piperacillin/Tazobactam/Dextrose (Zosyn) 3.375 gm in 50 mls @ 100 mls/hr IV X1 ONE Stop: 01/22/25 08:54 Last Infusion: 01/22/25 09:41 Dose: Infused Vancomycin/Sodium Chloride (Vancomycin/Ns 1 Gm Ivpb) 200 mls @ 120 mls/hr IV X1 ONE Stop: 01/22/25 10:09 Last Infusion: 01/22/25 10:55 Dose: Infused Lactated Ringer's (Lactated Ringers) 1,000 mls @ 999 mls/hr IV .Q1H1M ONE Stop: 01/22/25 10:54 Last Infusion: 01/22/25 11:26 Dose: Infused Midodrine (Midodrine 5 Mg Tablet) 5 mg PO X1 ONE Stop: 01/22/25 14:22 Potassium Chloride (Potassium Chloride 10% 20 Meq/15 Ml Udc) 40 meq PO X1 ONE Stop: 01/22/25 12:27 Potassium Chloride (Potassium Chloride 10% 20 Meq/15 Ml Udc) 40 meq PO X1 ONE Stop: 01/22/25 14:18 Sodium Chloride (Sodium Chloride Rt 10% 15 Ml Nebu) 5 ml INH X1 ONE Stop: 01/22/25 12:23 Assessment & Plan Plan 75-year-old Sami-speaking female with past medical history of metastatic pancreatic adenocarcinoma on chemotherapy s/p external biliary drain, history of DVT, asthma, and anxiety who presented to the ED on 01/22/2025 with 1 day of shortness of breath, cough, and chills. She was evaluated for admission and ICU was consulted for possible need of pressor support in the setting of sepsis. #Sepsis, secondary to #Community acquired pneumonia #Hypotension Bedside US around approximately 11:30 am showed compressible IVC measuring 1.13 cm inspiratory on 0.83 cm expiratory, a 27% change indicating the patient is volume responsive and adequately resuscitated. Distensibility index is calculated as ((IVC max - IVC min)/IVC min) x 100 = 36% Collapsibility index is calculated as ((IVC max - IVC min)/IVC max) x 100 = 27% Higher index (>18% for DI or >38.5% for CI) suggests the patient may be fluid responsive. At this time patient has received an additional 1L LR for a total of 2L IV fluids and MAP has improved to >65. -IVC measurements indicate that patient is fluid responsive per DI -Recommend continuing to monitor MAP, if decreases again can try additional fluid bolus -Can try midodrine for additional BP support -Continue broad spectrum antibiotics for sepsis Will be more than happy to re-evaluate the patient at any time, please do not hesitate to call ICU team for further management. Patient plan of care was discussed with the attending physician, Dr. Kim. Anjelica Magaña, PGY-2
[2025-01-22] MEDS: POTASSIUM CHLORIDE 10% 20 MEQ/15 ML UDC 40 MEQ PO ×3 (14:42→18:27)
[2025-01-22] MEDS: MIDODRINE 5 MG TABLET PO (14:46)
[2025-01-22] MEDS: ALBUMIN HUMAN 25% IVPB 12.5 GM/50 ML BTL IV (14:47)
[2025-01-22 14:56] LABS: Reflex Lactate? Y
[2025-01-22] MEDS: APIXABAN 2.5 MG TABLET 5 MG PO (15:03)
[2025-01-22 15:37] LABS: Lactic Acid, 3 HR 4.2 mMol/L (0.4-2.0)
[2025-01-22 16:40] LABS: Phosphorous 3.2 mg/dL (2.4-5.1); Potassium 3.3 mMol/L (3.4-5.1)
[2025-01-22] MEDS: RINGERS LACTATED 1000 ML 1,000 ML 100 ML IV (16:56)
[2025-01-22] MEDS: Magnesium Sulfate 4 GM Ivpb 4 GM/50 ML BAG IV (16:57)
--- NOTE | 2025-01-22 17:00 | ESHP_ITS ---
<Statement entered by Anabella Rey MD - 01/25/25 14:54> I reviewed above note and agree with findings and plans. I have also personally examined the patient with medicine team and went over assessment and plan with medical team including winter intern and resident physician. Documentation for date of: 01/22/25 HPI History of Present Illness Chief complaint: SOB History of present illness: Patient is 75 years old female with past medical history of pancreatic cancer on chemotherapy, history of DVT, anxiety presented to the ED due to worsening shortness of breath since yesterday. Daughter is at the bedside. She reported that patient was at her baseline until yesterday evening when she started developing nonproductive cough and shortness of breath. Patient also reported chills. Patient denied nausea, vomiting, chest pain, abdominal pain. Patient has drain in her right side which was placed more than 1 year ago due to pancreatic cancer, never been replaced, draining dark brown/green fluid. Patient underwent chemotherapy last week after the break for a week. On arrival her blood pressure 105/60, pulse 150, respirations 24, temperature 100.7 ?F, oxygen saturation 90% on room air. Labs showed WBCs 1.8, neutrophil count 0.9, potassium 2.8, lactic acid 2.4, BNP 119, alk phos 317, procalcitonin 2.36. Urinalysis was unremarkable. Chest x-ray showed pneumonia over left lower and middle lobes. Chest CTA did not show PE but showed pneumonia over the left lung and metastatic disease. CTAP showed biliary stent satisfactory position, mass pancreatic head measures 4.2 x 3.1 cm compared to 4.0 x 2.9 cm on May 17, 2024, contracted gallbladder, gallbladder wall is thickened, abnormal small bowel loops thickened saunders, consider enteritis, interval significant osseous metastatic disease. Sepsis alert was called in the ED, patient received 1 L of IVF bolus, IV vancomycin and Zosyn. During evaluation patient's blood pressure was noticed to be 80/50 and ICU team was consulted. Patient was admitted for further management. PMH: pancreatic cancer on chemotherapy, history of DVT, anxiety. PSH: None. SH: Denies smoking tobacco, drinking alcohol or using illicit drugs. FH: None. Allergies: [place]. Medications: Eliquis, lorazepam, ibuprofen, acetaminophen. Med rec is pending. Review of Systems Review of Systems Systems Reviewed: All systems reviewed, normal except as documented Exam Vital Signs Temp Pulse Resp BP Pulse Ox O2 Del Method O2 Flow Rate 98.3 F 110 H 18 124/58 L 97 Nasal Cannula 1 01/22/25 16:12 01/22/25 16:12 01/22/25 16:12 01/22/25 16:12 01/22/25 16:12 01/22/25 16:12 01/22/25 16:12 Narrative Exam Gen: Well-developed and well-nourished elderly female, not in distress. HEENT: NCAT, PERRLA, EOMI, MMM, anicteric conjunctivae. CVS: normal S1 and S2. Regular tachycardia. No M/R/G. Resp: Decreased breath sounds B/L bases and rhonchi over left lung. No rales, crackles or wheezing. Abd: soft, non-tender, non-distended. BS+ in all 4 quadrants. Drain is noticed in her right side right below ribs with active leakage of yellowish fluid, draining dark brown/green fluid to the bag, area around it is tender to palpation. MSK: Good ROM in BUE & BLE. No rash. 1+ edema BLE. Neuro: CN II-XII grossly intact. Strength 5/5 in BUE & BLE. Alert and oriented x3. Psych: appropriate mood and affect. Results: Labs 01/22/25 11:53 01/22/25 15:14 Labs: Short CBC 01/22/25 01/22/25 Range/Units 07:25 11:53 WBC 1.8 L D 2.4 L (3.6-11.0) Thou/mm3 Hgb 10.9 L 10.6 L (12.0-16.0) g/dL Hct 31.6 L 31.0 L (36.0-46.0) % Plt Count 188 D 136 L D (140-440) Thou/mm3 BMP 01/22/25 01/22/25 01/22/25 07:25 11:53 15:14 Sodium 138 143 Potassium 3.1 L 2.8 L 3.3 L D Chloride 105 112 H Carbon Dioxide 21.5 19.5 L BUN 13 10 Creatinine 0.5 L 0.5 L Glucose 156 H 110 H Calcium 8.5 7.8 L Cardiac Enzymes 01/22/25 Range/Units 07:25 Troponin I < 0.020 (0.0-0.045) ng/mL Liver Function 01/22/25 01/22/25 Range/Units 07:25 11:53 Total Bilirubin 0.9 0.8 (0.3-1.2) mg/dL AST 27 24 (0-34) U/L ALT 43 34 (10-49) U/L Alkaline Phosphatase 317 H 262 H D (46-116) U/L Albumin 3.6 3.0 L D (3.4-4.8) gm/dL Urine 01/22/25 Range/Units 11:00 Urine Color Lt-Yellow (Lt Yel-Yel) Urine Clarity Clear (Clear/Hazy) Urine pH 6.5 (5.0-7.0) Ur Specific [place] 1.031 (1.001-1.035) Urine Protein Negative (Neg - Trace) Urine Glucose (UA) Trace (Negative) Quality Measures Quality Measures VTE prophylaxis Advance care planning discussed with:: patient and child Medications Home Medications and Allergies Allergies Allergy/AdvReac Type Severity Reaction Status Date / Time acetaminophen (From [facility]) Allergy Severe Abdominal Verified 01/22/25 06:44 Pain hydrocodone (From [place]) Allergy Severe Abdominal Verified 01/22/25 06:44 Pain Visit Medications Acetaminophen (Acetaminophen 325 Mg Tablet) 650 mg PO Q6HR PRN; Protocol PRN Reason: Fever >101, or pain 1-3 Stop: 02/21/25 16:00 Apixaban (Apixaban 2.5 Mg Tablet) 5 mg PO BID CAROL Stop: 02/12/25 14:29 Last Admin: 01/22/25 15:03 Dose: 5 mg Piperacillin/Tazobactam/Dextrose (Zosyn) 3.375 gm in 50 mls @ 12.5 mls/hr IV Q8HR CAROL Stop: 01/29/25 21:59 Lactated Ringer's (Lactated Ringers) 1,000 mls @ 100 mls/hr IV .Q10H ONE Stop: 01/23/25 02:02 Last Admin: 01/22/25 16:56 Dose: 100 mls/hr Magnesium Sulfate (Magnesium Sulfate Ivpb) 4 gm in 50 mls @ 12.5 mls/hr IV X1 ONE Stop: 01/22/25 20:04 Last Admin: 01/22/25 16:57 Dose: 12.5 mls/hr Vancomycin/Sodium Chloride (Vancomycin/Ns 750 Mg Ivpb) 750 mg in 150 mls @ 120 mls/hr IV BID@1000,2200 CAROL Stop: 01/29/25 21:59 Ondansetron HCl (Ondansetron Inj 2 Mg/Ml Inj 2 Ml) 4 mg IV Q6HR PRN; Protocol PRN Reason: NAUSEA OR VOMITING Stop: 02/21/25 16:00 Pharmacy Consult (Vancomycin Pharmacy To Dose 1 Each Each) 1 each IV QDAY PRN PRN Reason: PROTOCOL Stop: 02/22/25 08:59 Discontinued Medications Acetaminophen (Acetaminophen 325 Mg Tablet) 650 mg PO X1 ONE Stop: 01/22/25 07:07 Last Admin: 01/22/25 07:42 Dose: 650 mg Sodium Chloride (Ns) 1,000 mls @ 999 mls/hr IV .Q1H1M ONE Stop: 01/22/25 08:05 Last Infusion: 01/22/25 08:46 Dose: Infused Vancomycin HCl 1,000 mg/ (Sodium Chloride) 250 mls @ 150 mls/hr IV X1 ONE Stop: 01/22/25 10:04 Last Admin: 01/22/25 09:26 Dose: Not Given Piperacillin/Tazobactam/Dextrose (Zosyn) 3.375 gm in 50 mls @ 100 mls/hr IV X1 ONE Stop: 01/22/25 08:54 Last Infusion: 01/22/25 09:41 Dose: Infused Vancomycin/Sodium Chloride (Vancomycin/Ns 1 Gm Ivpb) 200 mls @ 120 mls/hr IV X1 ONE Stop: 01/22/25 10:09 Last Infusion: 01/22/25 10:55 Dose: Infused Lactated Ringer's (Lactated Ringers) 1,000 mls @ 999 mls/hr IV .Q1H1M ONE Stop: 01/22/25 10:54 Last Infusion: 01/22/25 11:26 Dose: Infused Albumin Human (Albuminar-25 Ivpb) 12.5 gm in 50 mls @ 50 mls/hr IV X1 ONE Stop: 01/22/25 15:20 Last Infusion: 01/22/25 15:47 Dose: Infused Piperacillin/Tazobactam/Dextrose (Zosyn) 3.375 gm in 50 mls @ 100 mls/hr IV X1 ONE Stop: 01/22/25 14:59 Last Infusion: 01/22/25 15:27 Dose: Infused Midodrine (Midodrine 5 Mg Tablet) 5 mg PO X1 ONE Stop: 01/22/25 14:22 Last Admin: 01/22/25 14:46 Dose: 5 mg Potassium Chloride (Potassium Chloride 10% 20 Meq/15 Ml Udc) 40 meq PO X1 ONE Stop: 01/22/25 12:27 Last Admin: 01/22/25 14:42 Dose: 40 meq Potassium Chloride (Potassium Chloride 10% 20 Meq/15 Ml Udc) 40 meq PO X1 ONE Stop: 01/22/25 14:18 Last Admin: 01/22/25 14:42 Dose: 40 meq Sodium Chloride (Sodium Chloride Rt 10% 15 Ml Nebu) 5 ml INH X1 ONE Stop: 01/22/25 12:23 Assessment & Plan Plan Patient is 75 years old female with past medical history of pancreatic cancer on chemotherapy, history of DVT, anxiety presented to the ED due to worsening shortness of breath and chills since yesterday and was admitted for further management of sepsis secondary to pneumonia. #Sepsis. #Community-acquired pneumonia. #Neutropenia. #Hypotension. #Lactic acidosis. - qSOFA 2 points, high risk. Mental status is intact. Respiratory rate 24, temperature 100.7 ?F, tachycardia at 150, blood pressure 105/60 which later decreased to 80/50. Procalcitonin 2.36. Lactic acid is uptrending, 2.4-4.2. - Chest x-ray and CTA showed pneumonia over the left lung. - Patient is on chemotherapy, last treatment last week, presented with WBCs 1.8, neutrophil count 0.9. - In the ED, patient received 1 L of IVF bolus, IV vancomycin and Zosyn. - During evaluation patient's blood pressure was noticed to be 80/50 and ICU team was consulted. Plan: - Given 1 L of LR bolus, albumin and midodrine 5 mg x 1 due to hypotension. - Cultures were taken. - Started on IV Zosyn and vancomycin pharmacy to dose. - Oxygen as needed. - Reverse isolation. #History of pancreatic cancer on chemotherapy. - Diagnosed with pancreatic cancer approximately 2 years ago and was on multiple chemotherapy regimens, drain was placed in the right side more than 1 year ago, unknown reason. - Chest CTA did not show PE but showed pneumonia over the left lung and metastatic disease. CTAP showed biliary stent satisfactory position, mass pancreatic head measures 4.2 x 3.1 cm compared to 4.0 x 2.9 cm on May 17, 2024. Plan: - Med rec is pending. - Continue management as per oncology outpatient. #History of DVT. - US Doppler was positive for occlusive acute deep vein thrombus right popliteal right peroneal veins on 01/20/2025. - Patient was started on Eliquis starter pack on 01/20/2025. Plan: - Patient was started on Eliquis 10 mg twice daily to complete for 7 days dosage and will transition to 5 mg twice daily. #Hypokalemia. - On admission potassium 2.8, given 40 mEq, repeat potassium 3.3, given another 40 mEq of potassium. #Normocytic anemia. #Thrombocytopenia. - Hgb 10.9, PLT 136, likely chronic in setting of cancer and chemotherapy. - will monitor with daily labs. FEN: Regular diet. DVT prophylaxis: Eliquis for DVT treatment. GI prophylaxis: None. Dispo: Telemetry. CODE STATUS: full code. Plan of care discussed with attending Dr. Rey. Oumar Rivas MD, PGY 2. Disclaimer: This note was dictated by speech recognition. Minor errors in social science teacher may be present due to voice recognition software.
--- NOTE | 2025-01-22 18:09 | PC.NURSE ---
PT TAKEN UPSTAIRS CONNECTED TO TELE, W/O INCIDENT. STAFF AT BEDSIDE TO ASSUME CARE
[2025-01-22] MEDS: LOPERAMIDE 2 MG CAPSULE 4 MG PO (18:43)
[2025-01-22 19:12] LABS: Lactate (Lactic Acid) 7.1 mMol/L (0.4-2.0)
[2025-01-22] MEDS: RINGERS LACTATED 500 ML 500 ML 999 ML IV (20:54)
--- NOTE | 2025-01-22 21:00 | PC.NURSE ---
+GREEN DRAINAGE TO ILEOSTOMY TUBE SITE. MOISTURE DERMATITIS NOTICED WHEN DRESSING REMOVED TO SKIN AROUND INSERTION SITE. SITE CLEANSED WITH WOUND CLEANSER. PATTED DRY. SPLIT FOAM DRESSING AND SPLIT GAUZE PLACED TO SITE. COVERED WITH ABD PAD AND SECURED WITH TAPE.
[2025-01-22] MEDS: VANCOMYCIN/NS 750 MG IVPB 750 MG/150 ML BAG 120 MG IV (21:04)
[2025-01-22] MEDS: APIXABAN 2.5 MG TABLET 10 MG PO (21:04)
[2025-01-22] MEDS: LOPERAMIDE 2 MG CAPSULE PO (21:05)
[2025-01-22 22:05] LABS: Reflex Lactate? Y
--- NOTE | 2025-01-22 23:30 | PC.NURSE ---
ELECTRICAL ENGINEERING INTERN NOTIFIED THAT PT HAS ORDERS FOR LACTIC ACID AND K LEVEL THAT WERE DUE AT 2300. TECH STATES THAT TUBE WINDER HAND SHOULD BE THERE SOON.
[2025-01-22 23:51] LABS: Lactate (Lactic Acid) 4.3 mMol/L (0.4-2.0)
[2025-01-23] VITALS (13 sets, daily range): BP systolic 96–114; BP diastolic 49–66; PULSE 92–159; RESP 14–99; TEMP 36.1–37.5; O2SAT 94–100
[2025-01-23 00:10] LABS: Potassium 4.8 mMol/L (3.4-5.1)
[2025-01-23] MEDS: LOPERAMIDE 2 MG CAPSULE PO ×2 (01:32→05:56)
[2025-01-23 02:22] LABS: Lactate (Lactic Acid) 3.3 mMol/L (0.4-2.0)
[2025-01-23 02:46] LABS: Reflex Lactate? Y
[2025-01-23 02:56] LABS: Basophils # (Auto) 0.1 Thou/mm3 (0.0-0.2); Basophils % (Auto) 2 % (0-2.5); Eosinophils % (Auto) 1 % (0-10); Hematocrit 23.7 % (36.0-46.0); Immature Granulocytes % (Auto) 2 % (0-0); Immature Granulocytes Auto 0.04 Thou/mm3 (0.00-0.00); Lymphocytes # (Auto) 0.5 Thou/mm3 (1.0-4.8); Lymphocytes % (Auto) 21 % (10-50); Mean Corpuscular HGB Conc 33.8 g/dl (31.0-37.0); Mean Corpuscular Hemoglobin 31.4 pg (25.0-35.0); Mean Corpuscular Volume 93 fL (80-100); Monocytes # (Auto) 0.2 Thou/mm3 (0.0-0.8); Monocytes % (Auto) 7 % (0-12); Neutrophils # (Auto) 1.6 Thou/mm3 (1.8-7.7); Neutrophils % (Auto) 67 % (37-80); Nucleated Red Blood Cell # 0.03 Thou/mm3 (0.00-0.00); Nucleated Red Blood Cell % 1 /100 WBC (0); Platelet Count 159 Thou/mm3 (140-440); RDW Standard Deviation 54.3 fL (36.4-46.3); Red Blood Count 2.55 Miln/mm3 (4.00-5.20)
[2025-01-23 02:58] LABS: White Blood Count 2.4 Thou/mm3 (3.6-11.0)
[2025-01-23 03:20] LABS: Alanine Aminotransferase 26 U/L (10-49); Albumin, Serum 2.8 gm/dL (3.4-4.8); Albumin/Globulin Ratio 1.9 (1.2-2.2); Alkaline Phosphatase 194 U/L (46-116); Anion Gap 7 (7-16); Aspartate Amino Transferase 16 U/L (0-34); BUN/Creatinine Ratio 14 Ratio (12-20); Bilirubin,Total 0.5 mg/dL (0.3-1.2); Blood Urea Nitrogen 7 mg/dL (9-23); Calcium 8.1 mg/dL (8.3-10.6); Calcium (Corrected) 9.1 mg/dL (8.5-10.1); Carbon Dioxide 22.4 mMol/L (20.0-31.0); Cardiac Risk Estimate 2.2 RATIO (3.7-5.6); Chloride 114 mMol/L (98-107); Cholesterol 83 mg/dL (132-200); Creatinine (Component) 0.5 mg/dL (0.6-1.3); Estimated Creatinine Clearance 60.8 mL/min (>60); Globulin 1.5 gm/dL (2.3-3.5); Glucose 175 mg/dL (74-106); HDL Cholesterol 38 mg/dL (40-60); LDL Cholesterol,Calculated 29 mg/dL (0-130); Magnesium 2.1 mg/dL (1.6-2.6); Osmolality,Calculated 286 (275-295); Phosphorous 1.5 mg/dL (2.4-5.1); Potassium 4.4 mMol/L (3.4-5.1); Sodium 143 mMol/L (136-145); Thyroid Stimulating Hormone 0.26 uIU/mL (0.55-4.78); Total Protein 4.3 gm/dL (5.7-8.2); Triglycerides 81 mg/dL (30-150); eGFR > 60 See Note
[2025-01-23 05:21] LABS: Reflex Lactate? Y
[2025-01-23] MEDS: PIPER/TAZO 3.375 GM PREMIX 3.375 GM/50 ML BAG IV ×3 (05:56→21:07)
[2025-01-23 08:32] LABS: Lactic Acid, 3 HR 2.6 mMol/L (0.4-2.0)
[2025-01-23 09:04] LABS: Free T4 (Free Thyroxine) 1.44 ng/dL (0.89-1.76)
[2025-01-23] MEDS: VANCOMYCIN/NS 750 MG IVPB 750 MG/150 ML BAG 120 MG IV ×2 (09:47→21:07)
[2025-01-23] MEDS: APIXABAN 2.5 MG TABLET 10 MG PO (09:47)
--- NOTE | 2025-01-23 12:27 | ECHO_ITS ---
Transthoracic Echo Report Ht (in): 58 Wt (lb): 99 Exam Location: Echo Lab Status: Inpatient Diploma Pharmacy Technician: ELEONORA Disla^^^^ Indications: Procedure Performed: BP: / HR: 112 Technical Quality: Fair MEASUREMENTS (Male / Female) Normal Values 2D ECHO LV Diastolic Diameter PLAX 3.3 cm 4.2 - 5.9 / 3.9 - 5.3 cm LV Systolic Diameter PLAX 2.2 cm IVS Diastolic Thickness 0.9 cm 0.6 - 1.0 / 0.6 - 0.9 cm LVPW Diastolic Thickness 0.7 cm 0.6 - 1.0 / 0.6 - 0.9 cm LV Relative Wall Thickness 0.5 LVOT Diameter 1.2 cm Aortic Root Diameter 2.8 cm LA Systolic Diameter LX 3.1 cm 3.0 - 4.0 / 2.7 - 3.8 cm LA Volume Index 33.9 cm?/m? 16 - 28 cm?/m? Ascending Aorta Diameter 2.5 cm DOPPLER AV Peak Velocity 184.3 cm/s AV Peak Gradient 13.6 mmHg AV Mean Gradient 7.0 mmHg AV Velocity Time Integral 28.0 cm AI Peak Velocity 402.5 cm/s AI Peak Gradient 64.8 mmHg AI Pressure Half Time 415.0 ms LVOT Peak Velocity 141.0 cm/s LVOT Peak Gradient 8.0 mmHg LVOT Velocity Time Integral 27.7 cm LVOT Cardiac Index 2582.7 cm?/min?m? AV Area Cont Eq vti 1.1 cm? AV Area Cont Eq pk 0.9 cm? MV Area PHT 4.3 cm? MR Peak Velocity 467.0 cm/s MR Peak Gradient 87.2 mmHg Mitral E Point Velocity 65.6 cm/s Mitral A Point Velocity 108.0 cm/s Mitral E to A Ratio 0.6 LV E' Lateral Velocity 10.2 cm/s Mitral E to LV E' Lateral Ratio 6.4 LV E' Septal Velocity 7.1 cm/s Mitral E to LV E' Septal Ratio 9.2 TR Peak Velocity 300.3 cm/s TR Peak Gradient 36.1 mmHg PV Peak Velocity 118.0 cm/s PV Peak Gradient 5.6 mmHg RVOT Peak Velocity 88.7 cm/s FINDINGS Left Ventricle Normal left ventricular size, wall thickness, systolic function with no obvious regional wall motion abnormalities. There is grade I diastolic dysfunction of the left ventricle (impaired relaxation pattern). The left ventricular ejection fraction is normal, estimated at 55-60%. Right Ventricle The right ventricle is normal in size and systolic function. The estimated right ventricular systolic pressure, 50 mmHg. Left Atrium The left atrium is normal by two-dimensional, color flow and Doppler imaging with no structural abnormalities, no thrombus formation present. Right Atrium The right atrium is normal by two-dimensional imaging, color flow and Doppler imaging with no structural abnormalities, no thrombus formation present. Atrial Septum The interatrial septum appears normal with no evidence of a shunt. Aorta The aorta is normal by two-dimensional, color flow and Doppler interrogation. Mitral Valve [id number] mitral regurgitation. Mild mitral annular calcification. Aortic Valve Aortic valve sclerosis. Diffuse calcification of the aortic valve. Mild aortic valve regurgitation. Tricuspid Valve There is mild to moderate tricuspid valve regurgitation. Pulmonic Valve Trivial pulmonic valve regurgitation. Vessels The pulmonary artery appears normal. The inferior vena cava pulmonary and hepatic veins appear normal. Pericardium The pericardium is normal by two-dimensional imaging. There is no significant pericardial effusion. CONCLUSIONS indication: Swelling LV appears normal with EF 55-60%. Diastolic Dysfunction I. RV appears normal with RVSP moderately elevated 50 mmHg. Mild-Moderate MR & MAC AOV sclerosis Mild AI Mild-Moderate TR Castillo Rosenthal (Electronically Signed) Final Date: 23 January 2025 09:43
--- NOTE | 2025-01-23 15:11 | PC.SS ---
Rounding: on IV ABX, dc plan home
--- NOTE | 2025-01-23 16:12 | ESPR_ITS ---
<Statement entered by Anabella Rey MD - 01/27/25 08:12> I reviewed above note and agree with findings and plans. I have also personally examined the patient with medicine team and went over assessment and plan with medical team including kinesiology internship and resident physician. <Statement entered by Jonathan Blackburn MD - 01/24/25 09:48> Patient seen and assessed at bedside. Patient slightly improving but complaining of cough. Will continue with antibiotics. Pending blood cultures. Case discussed with team. Jonathan Blackburn MD PGY3. Documentation for date of: 01/23/25 Subjective Subjective Interval history: Patient is seen and examined at bedside No acute overnight events. Complaining of mild pain at the site of draining catheter in the abdomen No further febrile episodes or diarrheal episode noted Vitals are stable. On physical examination, noted pain at the site of draining catheter in the abdomen Labs show WBC 2.4, Hb 8. Blood cultures showed no growth after 24 hours Resume her home medications. Will continue vancomycin and Zosyn for now Exam Vital Signs Temp Pulse Resp BP Pulse Ox O2 Del Method O2 Flow Rate 97.3 F 112 H 17 101/54 L 97 Nasal Cannula 2 01/23/25 15:58 01/23/25 15:58 01/23/25 15:58 01/23/25 15:58 01/23/25 15:58 01/23/25 15:58 01/23/25 15:58 Narrative Exam General: Awake. appears fragile HEENT: Normocephalic, atraumatic, mucous membranes moist. Heart: Regular rate and rhythm, no murmurs. Lungs: Clear to auscultation with no wheezing or crackles. Abdomen: Soft, nondistended, nontender, positive bowel sounds. ?No guarding or rebound tenderness. tenderness noted at the site of drain Neurologic: Alert and oriented x3, no gross neurological deficit, and patient able to move all 4 extremities. Extremities: No edema. Skin: No rash or ecchymoses. Objective Labs 01/23/25 02:15 01/23/25 02:15 Labs: Laboratory Results - last 24 hr 01/22/25 01/22/25 01/22/25 15:14 19:00 23:24 WBC RBC Hgb Hct MCV MCH MCHC RDW Std Deviation Plt Count Neut % (Auto) Lymph % (Auto) [place] % (Auto) Eos % (Auto) Baso % (Auto) Neut # (Auto) Lymph # (Auto) [place] # (Auto) Eos # (Auto) Baso # (Auto) Immature Gran # (Auto) Absolute Nucleated RBC Immature Gran % Nucleated RBC % Sodium Potassium 3.3 L D 4.8 D Chloride Carbon Dioxide Anion Gap BUN Creatinine Estim Creat Clear Calc eGFR BUN/Creatinine Ratio Glucose Calculated Osmolality Lactic Acid 7.1 H* 4.3 H* Calcium Corrected Calcium Phosphorus 3.2 Magnesium Total Bilirubin AST ALT Alkaline Phosphatase Total Protein Albumin Globulin Albumin/Globulin Ratio Triglycerides Cholesterol LDL Cholesterol, Calc HDL Cholesterol Cholesterol/HDL Ratio TSH Free T4 01/23/25 01/23/25 02:15 08:14 WBC 2.4 L RBC 2.55 L Hgb 8.0 L D Hct 23.7 L MCV 93 MCH 31.4 MCHC 33.8 RDW Std Deviation 54.3 H Plt Count 159 Neut % (Auto) 67 Lymph % (Auto) 21 [place] % (Auto) 7 Eos % (Auto) 1 Baso % (Auto) 2 Neut # (Auto) 1.6 L Lymph # (Auto) 0.5 L [place] # (Auto) 0.2 Eos # (Auto) 0.0 Baso # (Auto) 0.1 Immature Gran # (Auto) 0.04 H Absolute Nucleated RBC 0.03 H Immature Gran % 2 H Nucleated RBC % 1 H Sodium 143 Potassium 4.4 Chloride 114 H Carbon Dioxide 22.4 Anion Gap 7 BUN 7 L Creatinine 0.5 L Estim Creat Clear Calc 60.8 L eGFR > 60 BUN/Creatinine Ratio 14 Glucose 175 H D Calculated Osmolality 286 Lactic Acid 3.3 H 2.6 H Calcium 8.1 L Corrected Calcium 9.1 Phosphorus 1.5 L Magnesium 2.1 Total Bilirubin 0.5 AST 16 ALT 26 Alkaline Phosphatase 194 H D Total Protein 4.3 L Albumin 2.8 L Globulin 1.5 L Albumin/Globulin Ratio 1.9 Triglycerides 81 Cholesterol 83 L LDL Cholesterol, Calc 29 HDL Cholesterol 38 L Cholesterol/HDL Ratio 2.2 L TSH 0.26 L Free T4 1.44 Quality Measures Quality Measures VTE prophylaxis Advance care planning discussed with:: patient Assessment & Plan Assessment Current Active Medications: Generic Name Dose Route Start Last Admin Trade Name Freq PRN Reason Stop Dose Admin Acetaminophen 650 mg 01/22/25 16:01 01/22/25 21:05 Acetaminophen 325 Mg Tablet PO 02/21/25 16:00 650 mg Q6HR PRN Administration Fever >101, or pain 1-3 Protocol Enoxaparin Sodium 40 mg 01/23/25 21:00 Enoxaparin Sod Inj 40 Mg/0.4 Ml Syringe SC 02/06/25 20:59 BID CAROL Piperacillin/Tazobactam/Dextrose 3.375 gm in 50 mls @ 12.5 mls/hr 01/22/25 22:00 01/23/25 13:04 Zosyn IV 01/29/25 21:59 12.5 mls/hr Q8HR CAROL Administration Vancomycin/Sodium Chloride 750 mg in 150 mls @ 120 mls/hr 01/22/25 22:00 01/23/25 09:47 Vancomycin/Ns 750 Mg Ivpb IV 01/29/25 21:59 120 mls/hr BID@1000,2200 CAROL Administration Ondansetron HCl 4 mg 01/22/25 16:01 Ondansetron Inj 2 Mg/Ml Inj 2 Ml IV 02/21/25 16:00 Q6HR PRN NAUSEA OR VOMITING Protocol Pharmacy Consult 1 each 01/23/25 09:00 Vancomycin Pharmacy To Dose 1 Each Each IV 02/22/25 08:59 QDAY PRN PROTOCOL Plan Patient is 75 years old female with past medical history of pancreatic cancer on chemotherapy, history of DVT, anxiety presented to the ED due to worsening shortness of breath and chills since yesterday and was admitted for further management of sepsis secondary to pneumonia. #Sepsis. #Community-acquired pneumonia. #Neutropenia. #Hypotension. #Lactic acidosis. - qSOFA 2 points, high risk. Mental status is intact. Respiratory rate 24, temperature 100.7 ?F, tachycardia at 150, blood pressure 105/60 which later decreased to 80/50. Procalcitonin 2.36. Lactic acid is uptrending, 2.4-4.2. - Chest x-ray and CTA showed pneumonia over the left lung. - Patient is on chemotherapy, last treatment last week, presented with WBCs 1.8, neutrophil count 0.9. - In the ED, patient received 1 L of IVF bolus, IV vancomycin and Zosyn. - During evaluation patient's blood pressure was noticed to be 80/50 and ICU team was consulted. Later blood pressures improved after bolus and midodrine - Blood cultures came back negative after 24 hours Plan: - Started on IV Zosyn and vancomycin pharmacy to dose. - Oxygen as needed. - Reverse isolation. #History of pancreatic cancer on chemotherapy. - Diagnosed with pancreatic cancer approximately 2 years ago and was on multiple chemotherapy regimens, drain was placed in the right side more than 1 year ago, unknown reason. - Chest CTA did not show PE but showed pneumonia over the left lung and metastatic disease. CTAP showed biliary stent satisfactory position, mass pancreatic head measures 4.2 x 3.1 cm compared to 4.0 x 2.9 cm on May 17, 2024. Plan: - Continue management as per oncology outpatient. #History of DVT. - US Doppler was positive for occlusive acute deep vein thrombus right popliteal right peroneal veins on 01/20/2025. - Patient was started on Eliquis starter pack on 01/20/2025. Plan: - Patient was started on Lovenox 40 Mg subcutaneous twice daily and will change to Eliquis 5 Mg twice daily on discharge #Hypokalemia, Resolved - On admission potassium 2.8, given 40 mEq, repeat potassium 3.3, given another 40 mEq of potassium. - Repeat potassium done on 01/23/2025 is within normal limits #Normocytic anemia. #Thrombocytopenia. - Hgb 10.9, PLT 136, likely chronic in setting of cancer and chemotherapy. - will monitor with daily labs. FEN: Regular diet. DVT prophylaxis: Lovenox GI prophylaxis: None. Dispo: Telemetry. CODE STATUS: full code. Patient plan of care was discussed with the attending physician, Dr. Rey and senior resident Dr. Dr. Alexey Carrera, PGY1
--- NOTE | 2025-01-23 16:34 | EKG_ITS ---
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
[2025-01-23] MEDS: RINGERS LACTATED 1000 ML 1,000 ML 999 ML IV (16:36)
[2025-01-23] MEDS: PROPRANOLOL 10 MG TABLET 20 MG PO (16:44)
--- NOTE | 2025-01-23 17:07 | PD.RESEVENT ---
Documentation for date of: 01/23/25 Event Note Event Note: Rapid response was called around 4:30 PM in view of tachycardia with heart rate around 200 Patient is seen and examined at bedside. Denies chest pain, palpitations, shortness of breath, abdominal pain Vital signs showed heart rate of 150 to 160 bpm with MAP 69 mmHg Physical examination remains unchanged 1 L LR bolus and propranolol 20 Mg x 1 is given EKG is ordered. Will follow-up with the results Patient plan of care was discussed with the attending physician, Dr. Candido Carrera, PGY1
[2025-01-23 19:23] LABS: Basophils % (Auto) 1 % (0-2.5); Eosinophils % (Auto) 1 % (0-10); Hematocrit 24.8 % (36.0-46.0); Immature Granulocytes % (Auto) 2 % (0-0); Immature Granulocytes Auto 0.08 Thou/mm3 (0.00-0.00); Lymphocytes # (Auto) 0.6 Thou/mm3 (1.0-4.8); Lymphocytes % (Auto) 15 % (10-50); Mean Corpuscular HGB Conc 33.9 g/dl (31.0-37.0); Mean Corpuscular Hemoglobin 31.9 pg (25.0-35.0); Mean Corpuscular Volume 94 fL (80-100); Monocytes # (Auto) 0.2 Thou/mm3 (0.0-0.8); Monocytes % (Auto) 4 % (0-12); Neutrophils # (Auto) 2.8 Thou/mm3 (1.8-7.7); Neutrophils % (Auto) 76 % (37-80); Nucleated Red Blood Cell % 0 /100 WBC (0); Platelet Count 236 Thou/mm3 (140-440); RDW Standard Deviation 54.5 fL (36.4-46.3); Red Blood Count 2.63 Miln/mm3 (4.00-5.20); White Blood Count 3.6 Thou/mm3 (3.6-11.0)
[2025-01-23 19:35] LABS: Hemoglobin 8.4 g/dL (12.0-16.0)
[2025-01-23 19:43] LABS: Alanine Aminotransferase 31 U/L (10-49); Albumin, Serum 2.9 gm/dL (3.4-4.8); Albumin/Globulin Ratio 1.6 (1.2-2.2); Alkaline Phosphatase 208 U/L (46-116); Anion Gap 6 (7-16); Aspartate Amino Transferase 23 U/L (0-34); BUN/Creatinine Ratio 15 Ratio (12-20); Bilirubin,Total 0.4 mg/dL (0.3-1.2); Blood Urea Nitrogen 6 mg/dL (9-23); Calcium (Corrected) 8.9 mg/dL (8.5-10.1); Carbon Dioxide 24.7 mMol/L (20.0-31.0); Chloride 105 mMol/L (98-107); Creatinine (Component) 0.4 mg/dL (0.6-1.3); Globulin 1.8 gm/dL (2.3-3.5); Glucose 163 mg/dL (74-106); Osmolality,Calculated 273 (275-295); Potassium 3.4 mMol/L (3.4-5.1); Sodium 136 mMol/L (136-145); Total Protein 4.7 gm/dL (5.7-8.2); eGFR > 60 See Note
[2025-01-23] MEDS: MIRTAZAPINE 15 MG TABLET PO (21:06)
[2025-01-23] MEDS: PANCRELIPASE PO (21:06)
[2025-01-23] MEDS: ENOXAPARIN SOD INJ 40 MG/0.4 ML SYRINGE SC (21:07)
[2025-01-23 21:44] LABS: Vancomycin,Trough 11.3 mcg/mL (5.0-10.0)
[2025-01-24] VITALS (15 sets, daily range): BP systolic 80–117; BP diastolic 46–56; PULSE 86–157; RESP 16–99; TEMP 36.1–37.5; O2SAT 96–98; BMI 20.2
--- NOTE | 2025-01-24 03:45 | PC.NURSE ---
pt's HR elevated >150bpm md crawford in room assessing pt will put in orders as needed BP 96/58 temp 98 O2 Sat 95% room air RR18 denies anxiety, pain, or discomfort
[2025-01-24] MEDS: AMIODARONE 150 MG IVPB 150 MG/100 ML BAG 600 MG IV (04:14)
[2025-01-24] MEDS: RINGERS LACTATED 500 ML 500 ML 999 ML IV (04:30)
[2025-01-24] MEDS: AMIODARONE 360 MG IVPB 360 MG/200 ML BAG 33.333 MG IV (04:44)
[2025-01-24] MEDS: MIDODRINE 5 MG TABLET 10 MG PO ×4 (05:11→21:13)
[2025-01-24] MEDS: PIPER/TAZO 3.375 GM PREMIX 3.375 GM/50 ML BAG IV ×3 (05:22→21:13)
[2025-01-24 05:50] LABS: Basophils % (Auto) 1 % (0-2.5); Eosinophils % (Auto) 1 % (0-10); Hematocrit 24.5 % (36.0-46.0); Immature Granulocytes % (Auto) 3 % (0-0); Immature Granulocytes Auto 0.12 Thou/mm3 (0.00-0.00); Lymphocytes # (Auto) 0.7 Thou/mm3 (1.0-4.8); Lymphocytes % (Auto) 19 % (10-50); Mean Corpuscular HGB Conc 33.5 g/dl (31.0-37.0); Mean Corpuscular Hemoglobin 31.5 pg (25.0-35.0); Mean Corpuscular Volume 94 fL (80-100); Monocytes # (Auto) 0.2 Thou/mm3 (0.0-0.8); Monocytes % (Auto) 7 % (0-12); Neutrophils # (Auto) 2.5 Thou/mm3 (1.8-7.7); Neutrophils % (Auto) 70 % (37-80); Nucleated Red Blood Cell % 0 /100 WBC (0); Platelet Count 185 Thou/mm3 (140-440); RDW Standard Deviation 53.7 fL (36.4-46.3); White Blood Count 3.6 Thou/mm3 (3.6-11.0)
[2025-01-24 05:53] LABS: Hemoglobin 8.2 g/dL (12.0-16.0)
[2025-01-24 06:25] LABS: Alanine Aminotransferase 24 U/L (10-49); Albumin, Serum 2.6 gm/dL (3.4-4.8); Albumin/Globulin Ratio 1.6 (1.2-2.2); Alkaline Phosphatase 195 U/L (46-116); Anion Gap 11 (7-16); Aspartate Amino Transferase 22 U/L (0-34); BUN/Creatinine Ratio 20 Ratio (12-20); Bilirubin,Total 0.5 mg/dL (0.3-1.2); Blood Urea Nitrogen 8 mg/dL (9-23); Calcium 7.6 mg/dL (8.3-10.6); Calcium (Corrected) 8.7 mg/dL (8.5-10.1); Carbon Dioxide 24.3 mMol/L (20.0-31.0); Chloride 105 mMol/L (98-107); Creatinine (Component) 0.4 mg/dL (0.6-1.3); Globulin 1.6 gm/dL (2.3-3.5); Glucose 156 mg/dL (74-106); Magnesium 1.4 mg/dL (1.6-2.6); Osmolality,Calculated 280 (275-295); Phosphorous 2.3 mg/dL (2.4-5.1); Potassium 2.9 mMol/L (3.4-5.1); Sodium 140 mMol/L (136-145); Total Protein 4.2 gm/dL (5.7-8.2); eGFR > 60 See Note
--- NOTE | 2025-01-24 06:31 | PC.NURSE ---
MD Coyne updated on pt's BP MAP >60, HR 92, O2 Sats 95% room air, temp 98.3 L arm 92/47 MAP 62 R Arm 100/51 MAP 67 ok with vitals, no new orders at this time, will continue POC
[2025-01-24] MEDS: METHIMAZOLE 5 MG TABLET PO (08:50)
[2025-01-24] MEDS: PANCRELIPASE PO ×3 (08:50→18:04)
[2025-01-24] MEDS: ENOXAPARIN SOD INJ 40 MG/0.4 ML SYRINGE SC ×2 (08:50→20:44)
[2025-01-24] MEDS: MEGESTROL ACET 20 MG TABLET 40 MG PO (08:50)
[2025-01-24] MEDS: POTASSIUM CHLORIDE 20 mEq TABCR 40 MEQ PO (08:52)
[2025-01-24] MEDS: POT PHOS 15 mMol in NS 250 ML 15 MMOL/250 ML BAG 62.5 MMOL IV ×2 (09:12→13:09)
[2025-01-24] MEDS: Magnesium Sulfate 4 GM Ivpb 4 GM/50 ML BAG IV (09:13)
[2025-01-24] MEDS: ALBUMIN HUMAN 25% IVPB 12.5 GM/50 ML BTL IV (09:27)
[2025-01-24] MEDS: VANCOMYCIN/NS 750 MG IVPB 750 MG/150 ML BAG 120 MG IV ×2 (10:09→21:13)
--- NOTE | 2025-01-24 14:49 | ESPR_ITS ---
<Statement entered by Anabella Rey MD - 01/27/25 08:13> I reviewed above note and agree with findings and plans. I have also personally examined the patient with medicine team and went over assessment and plan with medical team including creative intern and resident physician. <Statement entered by Oumar Rivas MD - 01/24/25 17:21> Senior Resident Attestation: I supervised/discussed management plan with creative intern physician Dr. Carrera, and was involved in the care of this patient. I personally saw and examined the patient and discussed the assessment and plan with the entire medicine team, including my attending. I agree with the assessment and plan as documented. Patient's care was discussed with attending physician, Dr. Rey. Oumar Rivas MD PGY-2. Documentation for date of: 01/24/25 Subjective Subjective Interval history: Patient is seen and examined at bedside Overnight patient received 1 L of LR bolus and was started on amiodarone drip Patient denies any other complaints Vitals are stable except for mild hypotension On physical examination, noted tenderness in the lower extremity Amiodarone drip is stopped. Will continue to monitor blood pressures and heart rate for today Repleted potassium, magnesium and phosphorus in view of low values on the labs Patient was given one-time dose of hydrocortisone 100 Mg IV, in view of suspected adrenal insufficiency Will continue to monitor electrolytes, replete them accordingly and planning to discharge tomorrow if patient vitals are stable Exam Vital Signs Temp Pulse Resp BP Pulse Ox O2 Del Method O2 Flow Rate 97.6 F 87 20 90/48 L 97 Room Air 2 01/24/25 12:00 01/24/25 13:18 01/24/25 12:00 01/24/25 13:18 01/24/25 12:00 01/24/25 12:00 01/23/25 15:58 Narrative Exam General: Awake. appears fragile HEENT: Normocephalic, atraumatic, mucous membranes moist. Heart: Regular rate and rhythm, no murmurs. Lungs: Clear to auscultation with no wheezing or crackles. Abdomen: Soft, nondistended, nontender, positive bowel sounds. ?No guarding or rebound tenderness. tenderness noted at the site of drain Neurologic: Alert and oriented x3, no gross neurological deficit, and patient able to move all 4 extremities. Extremities: No edema. Skin: No rash or ecchymoses. Objective Labs 01/24/25 04:20 01/24/25 04:20 Labs: Laboratory Results - last 24 hr 01/23/25 01/23/25 01/24/25 19:05 20:55 04:20 WBC 3.6 D 3.6 RBC 2.63 L 2.60 L Hgb 8.4 L 8.2 L Hct 24.8 L 24.5 L MCV 94 94 MCH 31.9 31.5 MCHC 33.9 33.5 RDW Std Deviation 54.5 H 53.7 H Plt Count 236 D 185 D Neut % (Auto) 76 70 Lymph % (Auto) 15 19 [place] % (Auto) 4 7 Eos % (Auto) 1 1 Baso % (Auto) 1 1 Neut # (Auto) 2.8 2.5 Lymph # (Auto) 0.6 L 0.7 L [place] # (Auto) 0.2 0.2 Eos # (Auto) 0.0 0.0 Baso # (Auto) 0.0 0.0 Immature Gran # (Auto) 0.08 H 0.12 H Absolute Nucleated RBC 0.00 0.00 Immature Gran % 2 H 3 H Nucleated RBC % 0 0 Sodium 136 140 Potassium 3.4 D 2.9 L D Chloride 105 105 Carbon Dioxide 24.7 24.3 Anion Gap 6 L 11 BUN 6 L 8 L Creatinine 0.4 L 0.4 L Estim Creat Clear Calc 76.0 76.0 eGFR > 60 > 60 BUN/Creatinine Ratio 15 20 Glucose 163 H 156 H Calculated Osmolality 273 L 280 Calcium 8.0 L 7.6 L Corrected Calcium 8.9 8.7 Phosphorus 2.3 L Magnesium 1.4 L Total Bilirubin 0.4 0.5 AST 23 22 ALT 31 24 Alkaline Phosphatase 208 H 195 H Total Protein 4.7 L 4.2 L Albumin 2.9 L 2.6 L Globulin 1.8 L 1.6 L Albumin/Globulin Ratio 1.6 1.6 Vancomycin Trough 11.3 H Quality Measures Quality Measures VTE prophylaxis Advance care planning discussed with:: patient Assessment & Plan Assessment Current Active Medications: Generic Name Dose Route Start Last Admin Trade Name Freq PRN Reason Stop Dose Admin Acetaminophen 650 mg 01/22/25 16:01 01/22/25 21:05 Acetaminophen 325 Mg Tablet PO 02/21/25 16:00 650 mg Q6HR PRN Administration Fever >101, or pain 1-3 Protocol Zenpep [id number] Unit 0 ea 01/23/25 18:45 01/24/25 11:58 Capsules PO 02/22/25 18:44 1 capsule TIDWM CAROL Administration Enoxaparin Sodium 40 mg 01/23/25 21:00 01/24/25 08:50 Enoxaparin Sod Inj 40 Mg/0.4 Ml Syringe SC 02/06/25 20:59 40 mg BID CAROL Administration Piperacillin/Tazobactam/Dextrose 3.375 gm in 50 mls @ 12.5 mls/hr 01/22/25 22:00 01/24/25 13:15 Zosyn IV 01/29/25 21:59 12.5 mls/hr Q8HR CAROL Administration Vancomycin/Sodium Chloride 750 mg in 150 mls @ 120 mls/hr 01/22/25 22:00 01/24/25 10:09 Vancomycin/Ns 750 Mg Ivpb IV 01/29/25 21:59 120 mls/hr BID@1000,2200 CAROL Administration Potassium Phosphate 15 mmol in 250 mls @ 62.5 mls/hr 01/24/25 08:07 01/24/25 13:09 Pot Phos 15 Mmol In Ns 250 Ml IV 01/24/25 16:06 62.5 mls/hr Q4H CAROL Administration Megestrol Acetate 40 mg 01/24/25 09:00 01/24/25 08:50 Megestrol Acet 20 Mg Tablet PO 02/23/25 08:59 40 mg DAILY CAROL Administration Methimazole 5 mg 01/24/25 09:00 01/24/25 08:50 Methimazole 5 Mg Tablet PO 02/23/25 08:59 5 mg DAILY CAROL Administration Midodrine 10 mg 01/24/25 04:55 01/24/25 13:18 Midodrine 5 Mg Tablet PO 02/23/25 04:54 10 mg TID CAROL Administration Mirtazapine 15 mg 01/23/25 21:00 01/23/25 21:06 Mirtazapine 15 Mg Tablet PO 02/22/25 20:59 15 mg HS CAROL Administration Ondansetron HCl 4 mg 01/22/25 16:01 Ondansetron Inj 2 Mg/Ml Inj 2 Ml IV 02/21/25 16:00 Q6HR PRN NAUSEA OR VOMITING Protocol Pharmacy Consult 1 each 01/23/25 09:00 Vancomycin Pharmacy To Dose 1 Each Each IV 02/22/25 08:59 QDAY PRN PROTOCOL Plan Patient is 75 years old female with past medical history of pancreatic cancer on chemotherapy, history of DVT, anxiety presented to the ED due to worsening shortness of breath and chills since yesterday and was admitted for further management of sepsis secondary to pneumonia. # Hypotension # Likely from adrenal insufficiency in the setting of long-term steroid usage and sepsis - Patient is found to be hypotensive since the day of admission - Initial hypotension could be due to sepsis from pneumonia but even after receiving the antibiotics patient still remained hypotensive - Patient is using prednisone 10 Mg every day at home which was stopped during the hospitalization Plan - Despite resuscitating with adequate amounts of fluids and antibiotics, patient still remained hypotensive - Patient was given hydrocortisone 100 Mg IV X1 and if patient is responsive to steroids, will start hydrocortisone 50 Mg IV 3 times daily - Will continue to monitor blood pressures #Sepsis, resolved #Community-acquired pneumonia, resolving #Neutropenia, resolved #Lactic acidosis, Resolved - qSOFA 2 points, high risk. Mental status is intact. Respiratory rate 24, temperature 100.7 ?F, tachycardia at 150, blood pressure 105/60 which later decreased to 80/50. Procalcitonin 2.36. Lactic acid is uptrending, 2.4-4.2. - Chest x-ray and CTA showed pneumonia over the left lung. - In the ED, patient received 1 L of IVF bolus, IV vancomycin and Zosyn. - During evaluation patient's blood pressure was noticed to be 80/50 and ICU team was consulted. Later blood pressures improved after bolus and midodrine - Patient is on chemotherapy, last treatment last week, presented with WBCs 1.8, neutrophil count 0.9 ---> 01/24/2025, WBC 3.6 - Blood cultures came back negative after 48 hours Plan: - Started on IV Zosyn and vancomycin pharmacy to dose. - Oxygen as needed. #History of DVT. - US Doppler was positive for occlusive acute deep vein thrombus right popliteal right peroneal veins on 01/20/2025. - Patient was started on Eliquis starter pack on 01/20/2025. Plan: - Patient was started on Lovenox 40 Mg subcutaneous twice daily and will change to Eliquis 5 Mg twice daily on discharge #Hypokalemia #Hypomagnesemia - On admission potassium 2.8, given 40 mEq, repeat potassium 3.3, given another 40 mEq of potassium. - Repeat potassium done on 01/23/2025 is within normal limits - Routine labs done on 01/24/2025, potassium is 2.9, magnesium is 1.4 Plan - 40 mEq of oral potassium and 30 mEq of potassium phosphate is given - 4 g of magnesium sulfate IV is given - Will continue to monitor electrolytes and replete accordingly. #History of pancreatic cancer on chemotherapy. - Diagnosed with pancreatic cancer approximately 2 years ago and was on multiple chemotherapy regimens, drain was placed in the right side more than 1 year ago, unknown reason. - Chest CTA did not show PE but showed pneumonia over the left lung and metastatic disease. CTAP showed biliary stent satisfactory position, mass pancreatic head measures 4.2 x 3.1 cm compared to 4.0 x 2.9 cm on May 17, 2024. Plan: - Continue management as per oncology outpatient. #Normocytic anemia. #Thrombocytopenia. - Hgb 10.9, PLT 136, likely chronic in setting of cancer and chemotherapy. - will monitor with daily labs. FEN: Regular diet. DVT prophylaxis: Lovenox GI prophylaxis: None. Dispo: Telemetry. CODE STATUS: full code. Patient plan of care was discussed with the attending physician, Dr. Rey and senior resident Dr. Evelyn Carrera, PGY1
--- NOTE | 2025-01-24 15:06 | PC.SS ---
Rounding Note: Patient still possessing hypotension. Plan is to d/c patient home tomorrow.
[2025-01-24] MEDS: HYDROCORTISONE SOD SUCC INJ 100 MG VIAL IV (16:08)
[2025-01-24] MEDS: MIRTAZAPINE 15 MG TABLET PO (20:45)
[2025-01-25] VITALS (15 sets, daily range): BP systolic 95–130; BP diastolic 44–74; PULSE 63–115; RESP 1–98; TEMP 35.9–36.6; O2SAT 97–98
[2025-01-25] MEDS: PIPER/TAZO 3.375 GM PREMIX 3.375 GM/50 ML BAG IV (05:07)
[2025-01-25] MEDS: MIDODRINE 5 MG TABLET 10 MG PO (05:07)
[2025-01-25 05:40] LABS: Basophils % (Auto) 1 % (0-2.5); Eosinophils % (Auto) 0 % (0-10); Hematocrit 25.1 % (36.0-46.0); Immature Granulocytes % (Auto) 4 % (0-0); Immature Granulocytes Auto 0.12 Thou/mm3 (0.00-0.00); Lymphocytes # (Auto) 0.5 Thou/mm3 (1.0-4.8); Lymphocytes % (Auto) 18 % (10-50); Mean Corpuscular HGB Conc 33.1 g/dl (31.0-37.0); Mean Corpuscular Hemoglobin 30.9 pg (25.0-35.0); Mean Corpuscular Volume 93 fL (80-100); Monocytes # (Auto) 0.4 Thou/mm3 (0.0-0.8); Monocytes % (Auto) 14 % (0-12); Neutrophils # (Auto) 1.9 Thou/mm3 (1.8-7.7); Neutrophils % (Auto) 63 % (37-80); Nucleated Red Blood Cell % 0 /100 WBC (0); Platelet Count 247 Thou/mm3 (140-440); RDW Standard Deviation 53.7 fL (36.4-46.3); Red Blood Count 2.69 Miln/mm3 (4.00-5.20)
[2025-01-25 05:51] LABS: Hemoglobin 8.3 g/dL (12.0-16.0)
[2025-01-25 05:52] LABS: Alanine Aminotransferase 25 U/L (10-49); Albumin, Serum 2.9 gm/dL (3.4-4.8); Albumin/Globulin Ratio 1.7 (1.2-2.2); Alkaline Phosphatase 192 U/L (46-116); Anion Gap 8 (7-16); Aspartate Amino Transferase 19 U/L (0-34); BUN/Creatinine Ratio 23 Ratio (12-20); Bilirubin,Total 0.3 mg/dL (0.3-1.2); Blood Urea Nitrogen 9 mg/dL (9-23); Calcium 7.3 mg/dL (8.3-10.6); Calcium (Corrected) 8.2 mg/dL (8.5-10.1); Carbon Dioxide 25.8 mMol/L (20.0-31.0); Chloride 111 mMol/L (98-107); Creatinine (Component) 0.4 mg/dL (0.6-1.3); Globulin 1.7 gm/dL (2.3-3.5); Glucose 177 mg/dL (74-106); Osmolality,Calculated 291 (275-295); Phosphorous 2.6 mg/dL (2.4-5.1); Sodium 145 mMol/L (136-145); Total Protein 4.6 gm/dL (5.7-8.2); eGFR > 60 See Note
[2025-01-25] MEDS: PANCRELIPASE PO ×3 (07:44→17:37)
--- NOTE | 2025-01-25 07:53 | CHAP ---
Patient was visited by a Spiritual Care Volunteer on 01/24/2025 between 0900 and 1100 and received comfort, encouragement and/or prayer.
[2025-01-25] MEDS: POTASSIUM CHLORIDE 20 mEq TABCR 40 MEQ PO (08:32)
[2025-01-25] MEDS: MEGESTROL ACET 20 MG TABLET 40 MG PO (08:32)
[2025-01-25] MEDS: ENOXAPARIN SOD INJ 40 MG/0.4 ML SYRINGE SC ×2 (08:32→21:16)
[2025-01-25] MEDS: METHIMAZOLE 5 MG TABLET PO (08:32)
[2025-01-25] MEDS: VANCOMYCIN/NS 750 MG IVPB 750 MG/150 ML BAG 120 MG IV (11:12)
[2025-01-25] MEDS: MEROPENEM INJ 1,000 MG in SODIUM CHLORIDE 0.9% (Popper) 50 ML 100 MG IV (13:27)
--- NOTE | 2025-01-25 14:29 | PC.SS ---
Rounding note: pending Dr. Castaneda consult.
--- NOTE | 2025-01-25 14:37 | ESPR_ITS ---
Subjective Subjective Interval history: ok to use levaquin in this setting. it has some anaerobic activity too, so likely a good choice over bactrim. suggest rx thru thursday pm. repeat cxr in 4-6 weeks sooner if worse clinically Exam Vital Signs Temp Pulse Resp BP Pulse Ox O2 Del Method O2 Flow Rate 97.1 F 97 1 L 130/68 98 Room Air 2 01/25/25 12:00 01/25/25 13:26 01/25/25 12:46 01/25/25 13:26 01/25/25 12:00 01/25/25 12:00 01/23/25 15:58 Narrative Exam no distress. takes po meds ok. has lived for 2 yrs from dx. so has exceeded expectations. Objective - Internal Medicine Labs 01/25/25 04:37 01/25/25 04:37 Labs: Laboratory Results - last 24 hr 01/25/25 04:37 WBC 3.0 L RBC 2.69 L Hgb 8.3 L Hct 25.1 L MCV 93 MCH 30.9 MCHC 33.1 RDW Std Deviation 53.7 H Plt Count 247 D Neut % (Auto) 63 Lymph % (Auto) 18 [place] % (Auto) 14 H Eos % (Auto) 0 Baso % (Auto) 1 Neut # (Auto) 1.9 Lymph # (Auto) 0.5 L [place] # (Auto) 0.4 Eos # (Auto) 0.0 Baso # (Auto) 0.0 Immature Gran # (Auto) 0.12 H Absolute Nucleated RBC 0.00 Immature Gran % 4 H Nucleated RBC % 0 Sodium 145 Potassium 3.0 L Chloride 111 H Carbon Dioxide 25.8 Anion Gap 8 BUN 9 Creatinine 0.4 L Estim Creat Clear Calc 76.0 eGFR > 60 BUN/Creatinine Ratio 23 H Glucose 177 H Calculated Osmolality 291 Calcium 7.3 L Corrected Calcium 8.2 L Phosphorus 2.6 Magnesium 2.0 Total Bilirubin 0.3 AST 19 ALT 25 Alkaline Phosphatase 192 H Total Protein 4.6 L Albumin 2.9 L Globulin 1.7 L Albumin/Globulin Ratio 1.7 Assessment & Plan A&P Narrative pneumonia cancer asthenia R organism from sputum on admit with neg bc and some low grade temp noted. po levaquin ok. can use 500/day with her size but see that primary team likes the 750. its only for a few more days so may be ok. seemed to respond to prior gauravsyn, ok to give rx for total of 7d including the merrem time. a goals of care discussion would be prudent for her as she is a full code . Time Spent With Patient Time: Total time spent is greater than 50% in coordination of care (as documented) at patient's floor/unit and/or counseling patient:
--- NOTE | 2025-01-25 14:45 | ESPR_ITS ---
<Statement entered by Anabella Rey MD - 01/27/25 08:14> I reviewed above note and agree with findings and plans. I have also personally examined the patient with medicine team and went over assessment and plan with medical team including financial internship and resident physician. <Statement entered by Jonathan Blackburn MD - 01/25/25 15:44> Patient improving, blood cultures show ESBL sensitive to levofloxacin. Per ID we started levo and stopped faina. If patient stable tomorrow ok to dc on levoquin. Case discussed with team. Jonathan Blackburn MD PGY3. Documentation for date of: 01/25/25 Subjective Subjective Interval history: Patient is seen and examined at bedside No acute overnight events. Reported that she is doing good and no other complaints. On physical examination, sutures came off the skin spontaneously for both general surgery is consulted. Still noted good drainage in the bag. Consulted Dr. Agudelo and recommended to place the suture Labs showed potassium 3 and supplemented with 40+20meq of potassium chloride Started on levofloxacin as recommended by Dr Castaneda Exam Vital Signs Temp Pulse Resp BP Pulse Ox O2 Del Method O2 Flow Rate 97.1 F 97 1 L 130/68 98 Room Air 2 01/25/25 12:00 01/25/25 13:26 01/25/25 12:46 01/25/25 13:26 01/25/25 12:00 01/25/25 12:00 01/23/25 15:58 Narrative Exam General: Awake. appears fragile HEENT: Normocephalic, atraumatic, mucous membranes moist. Heart: Regular rate and rhythm, no murmurs. Lungs: Clear to auscultation with no wheezing or crackles. Abdomen: Soft, nondistended, nontender, positive bowel sounds. ?No guarding or rebound tenderness. tenderness noted at the site of drain Neurologic: Alert and oriented x3, no gross neurological deficit, and patient able to move all 4 extremities. Extremities: No edema. Skin: No rash or ecchymoses. Objective Labs 01/25/25 04:37 01/25/25 04:37 Labs: Laboratory Results - last 24 hr 01/25/25 04:37 WBC 3.0 L RBC 2.69 L Hgb 8.3 L Hct 25.1 L MCV 93 MCH 30.9 MCHC 33.1 RDW Std Deviation 53.7 H Plt Count 247 D Neut % (Auto) 63 Lymph % (Auto) 18 [place] % (Auto) 14 H Eos % (Auto) 0 Baso % (Auto) 1 Neut # (Auto) 1.9 Lymph # (Auto) 0.5 L [place] # (Auto) 0.4 Eos # (Auto) 0.0 Baso # (Auto) 0.0 Immature Gran # (Auto) 0.12 H Absolute Nucleated RBC 0.00 Immature Gran % 4 H Nucleated RBC % 0 Sodium 145 Potassium 3.0 L Chloride 111 H Carbon Dioxide 25.8 Anion Gap 8 BUN 9 Creatinine 0.4 L Estim Creat Clear Calc 76.0 eGFR > 60 BUN/Creatinine Ratio 23 H Glucose 177 H Calculated Osmolality 291 Calcium 7.3 L Corrected Calcium 8.2 L Phosphorus 2.6 Magnesium 2.0 Total Bilirubin 0.3 AST 19 ALT 25 Alkaline Phosphatase 192 H Total Protein 4.6 L Albumin 2.9 L Globulin 1.7 L Albumin/Globulin Ratio 1.7 Quality Measures Quality Measures VTE prophylaxis Advance care planning discussed with:: patient and child Assessment & Plan Assessment Current Active Medications: Generic Name Dose Route Start Last Admin Trade Name Freq PRN Reason Stop Dose Admin Acetaminophen 650 mg 01/22/25 16:01 01/22/25 21:05 Acetaminophen 325 Mg Tablet PO 02/21/25 16:00 650 mg Q6HR PRN Administration Fever >101, or pain 1-3 Protocol Zenpep 21759 Unit 0 ea 01/23/25 18:45 01/25/25 12:34 Capsules PO 02/22/25 18:44 1 capsule TIDWM CAROL Administration Enoxaparin Sodium 40 mg 01/23/25 21:00 01/25/25 08:32 Enoxaparin Sod Inj 40 Mg/0.4 Ml Syringe SC 02/06/25 20:59 40 mg BID CRAOL Administration Vancomycin/Sodium Chloride 750 mg in 150 mls @ 120 mls/hr 01/22/25 22:00 01/25/25 11:12 Vancomycin/Ns 750 Mg Ivpb IV 01/29/25 21:59 120 mls/hr BID@1000,2200 CAROL Administration Protocol Meropenem 1,000 mg/ Sodium 50 mls @ 100 mls/hr 01/25/25 14:00 01/25/25 13:27 Chloride IV 02/01/25 13:59 100 mls/hr Q8HR CAROL Administration Megestrol Acetate 40 mg 01/24/25 09:00 01/25/25 08:32 Megestrol Acet 20 Mg Tablet PO 02/23/25 08:59 40 mg DAILY CAROL Administration Methimazole 5 mg 01/24/25 09:00 01/25/25 08:32 Methimazole 5 Mg Tablet PO 02/23/25 08:59 5 mg DAILY CAROL Administration Midodrine 10 mg 01/24/25 22:00 01/25/25 13:26 Midodrine 5 Mg Tablet PO 02/23/25 21:59 Not Given TID CAROL Mirtazapine 15 mg 01/23/25 21:00 01/24/25 20:45 Mirtazapine 15 Mg Tablet PO 02/22/25 20:59 15 mg HS CAROL Administration Ondansetron HCl 4 mg 01/22/25 16:01 Ondansetron Inj 2 Mg/Ml Inj 2 Ml IV 02/21/25 16:00 Q6HR PRN NAUSEA OR VOMITING Protocol Pharmacy Consult 1 each 01/23/25 09:00 Vancomycin Pharmacy To Dose 1 Each Each IV 02/22/25 08:59 QDAY PRN PROTOCOL Plan Patient is 75 years old female with past medical history of pancreatic cancer on chemotherapy, history of DVT, anxiety presented to the ED due to worsening shortness of breath and chills since yesterday and was admitted for further management of sepsis secondary to pneumonia. 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 Mental status is intact. Respiratory rate 24, temperature 100.7 ?F, tachycardia at 150, blood pressure 105/60 which later decreased to 80/50. Procalcitonin 2.36. Lactic acid is uptrending, 2.4-4.2. - Chest x-ray and CTA showed pneumonia over the left lung. - In the ED, patient received 1 L of IVF bolus, IV vancomycin and Zosyn. - During evaluation patient's blood pressure was noticed to be 80/50 and ICU team was consulted. Later blood pressures improved after bolus and midodrine - Patient is on chemotherapy, last treatment last week, presented with WBCs 1.8, neutrophil count 0.9 ---> 01/24/2025, WBC 3.6 - Blood cultures came back negative after 48 hours - Sputum cultures came back positive for Klebsiella oxytoca resistant for Zosyn Plan: - Started on levofloxacin 750 Mg IV qday [01/25-01/27] as recommended by Dr Castaneda - Dr Castaneda recommended to repeat chest x-ray in 4 to 6 weeks - Oxygen as needed. #History of DVT. - US Doppler was positive for occlusive acute deep vein thrombus right popliteal right peroneal veins on 01/20/2025. - Patient was started on Eliquis starter pack on 01/20/2025. Plan: - Patient was started on Lovenox 40 Mg subcutaneous twice daily and will change to Eliquis 5 Mg twice daily on discharge #Hypokalemia #Hypomagnesemia, resolved - On admission potassium 2.8, given 40 mEq, repeat potassium 3.3, given another 40 mEq of potassium. - Repeat potassium done on 01/23/2025 is within normal limits - Routine labs done on 01/25/2025, potassium is 3, magnesium is 2 Plan - 40 mEq and 20 meq of oral potassium is given - Will continue to monitor electrolytes and replete accordingly. #History of pancreatic cancer on chemotherapy. - Diagnosed with pancreatic cancer approximately 2 years ago and was on multiple chemotherapy regimens, drain was placed in the right side more than 1 year ago, unknown reason. - Chest CTA did not show PE but showed pneumonia over the left lung and metastatic disease. CTAP showed biliary stent satisfactory position, mass pancreatic head measures 4.2 x 3.1 cm compared to 4.0 x 2.9 cm on May 17, 2024. Plan: - Continue management as per oncology outpatient. #Normocytic anemia. #Thrombocytopenia. - Hgb 10.9, PLT 136, likely chronic in setting of cancer and chemotherapy. - will monitor with daily labs. FEN: Regular diet. DVT prophylaxis: Lovenox GI prophylaxis: None. Dispo: Telemetry. CODE STATUS: full code. Patient plan of care was discussed with the attending physician, Dr. Rey and senior resident Dr. Alexey Carrera, PGY1
[2025-01-25] MEDS: POTASSIUM CHLORIDE 20 mEq TABCR PO (15:48)
--- NOTE | 2025-01-25 18:38 | ESCONSULT_ITS ---
RE: BANDAR JUAREZ : 1950 DATE OF CONSULTATION: 01/25/2025 REFERRING PHYSICIAN: Dr. Dupree. REASON FOR CONSULTATION: ESBL E. coli in sputum in a patient who has survived 2 years after initial diagnosis of pancreatic cancer. She now has metastatic disease and seems like she is not destined to live much longer but we want to go ahead treat her for the respiratory infection with p.o. Levaquin 500 mg daily which should be fine and if you prefer 750 mg that is fine too. You should probably reevaluate her in a couple of weeks with chest x-ray. There is usually no reason to repeat x-ray before 4-6 weeks as a precaution but if you wish her to see us sooner if she is worse, that is fine. DT: 16:37:24 TT: 17:44:00 Ref: [id number] - TID: [id number] MTDD
[2025-01-25] MEDS: MIRTAZAPINE 15 MG TABLET PO (21:16)
[2025-01-25] MEDS: BALSAM PERU/CASTOR OIL (Venelex) 60 GM TUBE TOP (21:16)
--- NOTE | 2025-01-25 21:24 | ESCONSULT_ITS ---
<Statement entered by Ba Castaneda MD - 01/27/25 09:24> pt seen with resident. all findings confirmed HPI Data of Consult Patient: new to practice Consult date: 01/25/25 Requesting Physician: Anabella Rey MD Admitting Provider: Anabella Rey MD Attending Provider: Anabella Rey MD Primary Care Provider: Neena Reilly MD Consult Narrative Reason for consult: Klebsiella pneumonia History of present illness: Patient is a 75-year-old female with past medical history of pancreatic cancer diagnosed 2 years prior, past medical history of DVT, anxiety who came to [facility] with a chief complaint of shortness of breath. Patient was experiencing a nonproductive cough associated with shortness of breath and chills but denied any nausea, vomiting, chest pain, or abdominal pain. Patient had a drain placed in her right side more than 1 year prior due to the pancreatic cancer draining dark brown/green fluid. Upon initial presentation patient did not meet criteria for sepsis and she was started on vancomycin and Zosyn. Infectious disease was consulted due to patient growing Klebsiella in her sputum secretions. PMH: pancreatic cancer on chemotherapy, history of DVT, anxiety. PSH: None. SH: Denies smoking tobacco, drinking alcohol or using illicit drugs. FH: None. Allergies: [place]. Medications: Eliquis, lorazepam, ibuprofen, acetaminophen. cc:: cc: Anabella Rey MD Review of Systems Review of Systems Systems Reviewed: All systems reviewed, normal except as documented Exam Vital Signs Temp Pulse Resp BP Pulse Ox O2 Del Method O2 Flow Rate 96.9 F 110 H 19 118/74 98 Room Air 2 01/25/25 20:00 01/25/25 21:09 01/25/25 20:26 01/25/25 21:09 01/25/25 20:00 01/25/25 20:00 01/23/25 15:58 Narrative Exam General: Awake. appears fragile HEENT: Normocephalic, atraumatic, mucous membranes moist. Heart: Regular rate and rhythm, no murmurs. Lungs: Clear to auscultation with no wheezing or crackles. Abdomen: Soft, nondistended, nontender, positive bowel sounds. ?No guarding or rebound tenderness. tenderness noted at the site of drain Neurologic: Alert and oriented x3, no gross neurological deficit, and patient able to move all 4 extremities. Extremities: No edema. Skin: No rash or ecchymoses. Results Labs 01/25/25 04:37 01/25/25 04:37 Labs: Short CBC 01/25/25 Range/Units 04:37 WBC 3.0 L (3.6-11.0) Thou/mm3 Hgb 8.3 L (12.0-16.0) g/dL Hct 25.1 L (36.0-46.0) % Plt Count 247 D (140-440) Thou/mm3 BMP 01/25/25 04:37 Sodium 145 Potassium 3.0 L Chloride 111 H Carbon Dioxide 25.8 BUN 9 Creatinine 0.4 L Glucose 177 H Calcium 7.3 L Liver Function 01/25/25 Range/Units 04:37 Total Bilirubin 0.3 (0.3-1.2) mg/dL AST 19 (0-34) U/L ALT 25 (10-49) U/L Alkaline Phosphatase 192 H (46-116) U/L Albumin 2.9 L (3.4-4.8) gm/dL Quality Measures Quality Measures VTE prophylaxis Advance care planning discussed with:: other Medications Home Medications and Allergies Home Medications ?Medication ?Instructions ?Recorded ?Confirmed ?Type apixaban 5 mg (74 tabs) tablets in 10 mg PO BID 01/22/25 History a dose pack (AmulytequKwikpik DVT-PE Treat 30D Start) lipase 60,000-protease 1 cap PO TIDWM 01/22/2512/28 History 189,600-amylase 252,600 unit capsule, delay rel (Zenpep) megestrol 40 mg tablet 40 mg PO DAILY 01/22/2512/28 History methimazole 5 mg tablet 5 mg PO DAILY 01/22/2501/22 History mirtazapine 15 mg tablet 15 mg PO .QHS 01/22/2501/22 History mygeevaq-wclu-wdof 8 mg-folic 400 1 tab PO QDAY 01/22/25 History mcg-K 50 mcg-lutein 300 mcg tablet ([place] Women 50 Plus) omeprazole 20 mg capsule,delayed 20 mg PO DAILY 01/22/25 History release ondansetron HCl 8 mg tablet 8 mg PO TID PRN nausea and vomiting 01/22/25 01/22/25 History pantoprazole 20 mg tablet,delayed 20 mg PO DAILY 01/2201/22/25 History release potassium chloride 20 mEq 20 meq PO DAILY 01/22/25 History tablet,extended release prednisone 10 mg tablet 10 mg PO DAILY 01/22/25/04/21 History propranolol 20 mg tablet 20 mg PO BID 01/22/25 History Allergies Allergy/AdvReac Type Severity Reaction Status Date / Time acetaminophen (From [facility]) Allergy Severe Abdominal Verified 01/22/25 06:44 Pain hydrocodone (From [facility]) Allergy Severe Abdominal Verified 01/22/25 06:44 Pain Visit Medications Acetaminophen (Acetaminophen 325 Mg Tablet) 650 mg PO Q6HR PRN; Protocol PRN Reason: Fever >101, or pain 1-3 Stop: 02/21/25 16:00 Last Admin: 01/22/25 21:05 Dose: 650 mg Balsam Marta/[place] Oil (Balsam [place] Oil (Venelex) 60 Gm Tube) 0 gm TOP BID [facility] Stop: 02/24/25 20:59 Last Admin: 01/25/25 21:16 Dose: 1 appln Zenpep 87835 Unit (Capsules) 0 ea PO TIDWM [facility] Stop: 02/22/25 18:44 Last Admin: 01/25/25 17:37 Dose: 1 capsule Enoxaparin Sodium (Enoxaparin Sod Inj 40 Mg/0.4 Ml Syringe) 40 mg SC BID [facility] Stop: 02/06/25 20:59 Last Admin: 01/25/25 21:16 Dose: 40 mg Levofloxacin/Dextrose (Levaquin Ivpb) 750 mg in 150 mls @ 100 mls/hr IV QDAY [facility] Stop: 02/02/25 08:59 Megestrol Acetate (Megestrol Acet 20 Mg Tablet) 40 mg PO DAILY [facility] Stop: 02/23/25 08:59 Last Admin: 01/25/25 08:32 Dose: 40 mg Methimazole (Methimazole 5 Mg Tablet) 5 mg PO DAILY CAROL Stop: 02/23/25 08:59 Last Admin: 01/25/25 08:32 Dose: 5 mg Midodrine (Midodrine 5 Mg Tablet) 10 mg PO TID CAROL Stop: 02/23/25 21:59 Last Admin: 01/25/25 21:09 Dose: Not Given Mirtazapine (Mirtazapine 15 Mg Tablet) 15 mg PO HS CRAOL Stop: 02/22/25 20:59 Last Admin: 01/25/25 21:16 Dose: 15 mg Ondansetron HCl (Ondansetron Inj 2 Mg/Ml Inj 2 Ml) 4 mg IV Q6HR PRN; Protocol PRN Reason: NAUSEA OR VOMITING Stop: 02/21/25 16:00 Discontinued Medications Acetaminophen (Acetaminophen 325 Mg Tablet) 650 mg PO X1 ONE Stop: 01/22/25 07:07 Last Admin: 01/22/25 07:42 Dose: 650 mg Apixaban (Apixaban 2.5 Mg Tablet) 5 mg PO BID CAROL Stop: 02/12/25 14:29 Last Admin: 01/22/25 15:03 Dose: 5 mg Apixaban (Apixaban 2.5 Mg Tablet) 10 mg PO BID CAROL Stop: 01/29/25 09:01 Last Admin: 01/23/25 09:47 Dose: 10 mg Hydrocortisone Sodium Succinate (Hydrocortisone Sod Succ Inj 100 Mg Vial) 100 mg IV X1 ONE Stop: 01/24/25 14:59 Last Admin: 01/24/25 16:08 Dose: 100 mg Sodium Chloride (Ns) 1,000 mls @ 999 mls/hr IV .Q1H1M ONE Stop: 01/22/25 08:05 Last Infusion: 01/22/25 08:46 Dose: Infused Vancomycin HCl 1,000 mg/ (Sodium Chloride) 250 mls @ 150 mls/hr IV X1 ONE Stop: 01/22/25 10:04 Last Admin: 01/22/25 09:26 Dose: Not Given Piperacillin/Tazobactam/Dextrose (Zosyn) 3.375 gm in 50 mls @ 100 mls/hr IV X1 ONE Stop: 01/22/25 08:54 Last Infusion: 01/22/25 09:41 Dose: Infused Vancomycin/Sodium Chloride (Vancomycin/Ns 1 Gm Ivpb) 200 mls @ 120 mls/hr IV X1 ONE Stop: 01/22/25 10:09 Last Infusion: 01/22/25 10:55 Dose: Infused Lactated Ringer's (Lactated Ringers) 1,000 mls @ 999 mls/hr IV .Q1H1M ONE Stop: 01/22/25 10:54 Last Infusion: 01/22/25 11:26 Dose: Infused Piperacillin/Tazobactam/Dextrose (Zosyn) 3.375 gm in 50 mls @ 12.5 mls/hr IV Q8HR CAROL Stop: 01/29/25 21:59 Last Admin: 01/25/25 05:07 Dose: 12.5 mls/hr Albumin Human (Albuminar-25 Ivpb) 12.5 gm in 50 mls @ 50 mls/hr IV X1 ONE Stop: 01/22/25 15:20 Last Infusion: 01/22/25 15:47 Dose: Infused Piperacillin/Tazobactam/Dextrose (Zosyn) 3.375 gm in 50 mls @ 100 mls/hr IV X1 ONE Stop: 01/22/25 14:59 Last Infusion: 01/22/25 15:27 Dose: Infused Lactated Ringer's (Lactated Ringers) 1,000 mls @ 100 mls/hr IV .Q10H ONE Stop: 01/23/25 02:02 Last Admin: 01/22/25 16:56 Dose: 100 mls/hr Magnesium Sulfate (Magnesium Sulfate Ivpb) 4 gm in 50 mls @ 12.5 mls/hr IV X1 ONE Stop: 01/22/25 20:04 Last Admin: 01/22/25 16:57 Dose: 12.5 mls/hr Vancomycin/Sodium Chloride (Vancomycin/Ns 750 Mg Ivpb) 750 mg in 150 mls @ 120 mls/hr IV BID@1000,2200 CAROL; Protocol Stop: 01/29/25 21:59 Last Admin: 01/25/25 11:12 Dose: 120 mls/hr Lactated Ringer's (Lactated Ringers) 500 mls @ 999 mls/hr IV .Q31M ONE Stop: 01/22/25 19:55 Last Admin: 01/22/25 20:54 Dose: 999 mls/hr Lactated Ringer's (Lactated Ringers) 1,000 mls @ 999 mls/hr IV .Q1H1M CAROL Stop: 01/22/25 20:31 Last Admin: 01/22/25 20:56 Dose: Not Given Lactated Ringer's (Lactated Ringers) 1,000 mls @ 999 mls/hr IV .Q1H1M ONE Stop: 01/23/25 17:34 Last Admin: 01/23/25 16:36 Dose: 999 mls/hr Amiodarone HCl/Dextrose (Nexterone Ivpb) 150 mg in 100 mls @ 600 mls/hr IV .Q10M ONE Stop: 01/24/25 04:00 Last Admin: 01/24/25 04:14 Dose: 600 mls/hr Amiodarone HCl/Dextrose (Nexterone Ivpb) 360 mg in 200 mls @ 33.333 mls/hr IV .Q6H ONE Stop: 01/24/25 09:50 Last Admin: 01/24/25 04:44 Dose: 33.333 mls/hr Amiodarone HCl/Dextrose (Nexterone Ivpb) 360 mg in 200 mls @ 16.667 mls/hr IV .Q12H CAROL Stop: 01/25/25 03:50 Lactated Ringer's (Lactated Ringers) 500 mls @ 999 mls/hr IV .Q31M ONE Stop: 01/24/25 04:47 Last Admin: 01/24/25 04:30 Dose: 999 mls/hr Potassium Phosphate (Pot Phos 15 Mmol In Ns 250 Ml) 15 mmol in 250 mls @ 62.5 mls/hr IV Q4H CAROL Stop: 01/24/25 16:06 Last Admin: 01/24/25 13:09 Dose: 62.5 mls/hr Magnesium Sulfate (Magnesium Sulfate Ivpb) 4 gm in 50 mls @ 12.5 mls/hr IV X1 ONE Stop: 01/24/25 12:06 Magnesium Sulfate (Magnesium Sulfate Ivpb) 4 gm in 50 mls @ 12.5 mls/hr IV X1 ONE Stop: 01/24/25 12:06 Last Admin: 01/24/25 09:13 Dose: 12.5 mls/hr Albumin Human (Albuminar-25 Ivpb) 12.5 gm in 50 mls @ 50 mls/hr IV X1 ONE Stop: 01/24/25 09:09 Last Admin: 01/24/25 09:27 Dose: 50 mls/hr Meropenem 1,000 mg/ Sodium (Chloride) 50 mls @ 100 mls/hr IV Q8HR [facility] Stop: 02/01/25 13:59 Last Admin: 01/25/25 13:27 Dose: 100 mls/hr Lidocaine HCl (Lidocaine Hcl 1% 20 Ml Vial) 20 ml INFL X1 ONE Stop: 01/25/25 19:01 Loperamide HCl (Loperamide 2 Mg Capsule) 4 mg PO X1 ONE Stop: 01/22/25 18:33 Last Admin: 01/22/25 18:43 Dose: 4 mg Loperamide HCl (Loperamide 2 Mg Capsule) 2 mg PO Q4HR [facility] Stop: 01/24/25 21:59 Last Admin: 01/23/25 05:56 Dose: 2 mg Midodrine (Midodrine 5 Mg Tablet) 5 mg PO X1 ONE Stop: 01/22/25 14:22 Last Admin: 01/22/25 14:46 Dose: 5 mg Midodrine (Midodrine 5 Mg Tablet) 10 mg PO TID [facility] Stop: 02/23/25 05:59 Midodrine (Midodrine 5 Mg Tablet) 10 mg PO TID [facility] Stop: 02/23/25 04:54 Last Admin: 01/24/25 13:18 Dose: 10 mg Midodrine (Midodrine 5 Mg Tablet) 10 mg PO X1 ONE Stop: 01/24/25 11:48 Last Admin: 01/24/25 11:56 Dose: 10 mg Home Medication- Please Speak With Patient Caregiver To Have Rx Brought To [facility] 1 cap PO TIDWM [facility] Stop: 02/22/25 17:29 Last Admin: 01/23/25 17:36 Dose: Not Given Pharmacy Consult (Vancomycin Pharmacy To Dose 1 Each Each) 1 each IV QDAY PRN PRN Reason: PROTOCOL Stop: 02/22/25 08:59 Potassium Chloride (Potassium Chloride 10% 20 Meq/15 Ml Udc) 40 meq PO X1 ONE Stop: 01/22/25 12:27 Last Admin: 01/22/25 14:42 Dose: 40 meq Potassium Chloride (Potassium Chloride 10% 20 Meq/15 Ml Udc) 40 meq PO X1 ONE Stop: 01/22/25 14:18 Last Admin: 01/22/25 14:42 Dose: 40 meq Potassium Chloride (Potassium Chloride 10% 20 Meq/15 Ml Udc) 40 meq PO X1 ONE Stop: 01/22/25 18:16 Last Admin: 01/22/25 18:27 Dose: 40 meq Potassium Chloride (Potassium Chloride 20 Meq Tabcr) 40 meq PO X1 ONE Stop: 01/24/25 08:07 Last Admin: 01/24/25 08:52 Dose: 40 meq Potassium Chloride (Potassium Chloride 20 Meq Tabcr) 40 meq PO X1 ONE Stop: 01/25/25 07:37 Last Admin: 01/25/25 08:32 Dose: 40 meq Potassium Chloride (Potassium Chloride 20 Meq Tabcr) 20 meq PO X1 ONE Stop: 01/25/25 15:16 Last Admin: 01/25/25 15:48 Dose: 20 meq Propranolol HCl (Propranolol 10 Mg Tablet) 20 mg PO X1 ONE Stop: 01/23/25 16:39 Last Admin: 01/23/25 16:44 Dose: 20 mg Sodium Chloride (Sodium Chloride Rt 10% 15 Ml Nebu) 5 ml INH X1 ONE Stop: 01/22/25 12:23 Last Admin: 01/22/25 22:28 Dose: Not Given Assessment & Plan Plan #Community-acquired pneumonia #Klebsiella Oxyctica pneumonia #ESBL pneumonia Patient has improved even though she was initially resistant to Zosyn Hypoxia has improved Can continue with Levaquin 500 mg p.o. daily to complete antibiotic therapy #History of DVT #Hypokalemia #Hypomagnesemia #History of pancreatic cancer on chemotherapy #Normocytic anemia #Thrombocytopenia - Rest of management as per primary team Plan of care discussed with supervising attending Dr Tonya Cedillo M.D. PGY-3
[2025-01-26] VITALS (10 sets, daily range): BP systolic 108–139; BP diastolic 55–87; PULSE 83–119; RESP 16–23; TEMP 36.3–36.9; O2SAT 93–98; BMI 19.9
[2025-01-26 05:57] LABS: Basophils % (Auto) 1 % (0-2.5); Eosinophils % (Auto) 1 % (0-10); Hematocrit 25.9 % (36.0-46.0); Immature Granulocytes % (Auto) 8 % (0-0); Immature Granulocytes Auto 0.26 Thou/mm3 (0.00-0.00); Lymphocytes # (Auto) 0.9 Thou/mm3 (1.0-4.8); Lymphocytes % (Auto) 26 % (10-50); Mean Corpuscular HGB Conc 32.8 g/dl (31.0-37.0); Mean Corpuscular Hemoglobin 30.8 pg (25.0-35.0); Mean Corpuscular Volume 94 fL (80-100); Monocytes # (Auto) 0.5 Thou/mm3 (0.0-0.8); Monocytes % (Auto) 14 % (0-12); Neutrophils # (Auto) 1.7 Thou/mm3 (1.8-7.7); Neutrophils % (Auto) 51 % (37-80); Nucleated Red Blood Cell % 0 /100 WBC (0); Platelet Count 269 Thou/mm3 (140-440); Red Blood Count 2.76 Miln/mm3 (4.00-5.20); White Blood Count 3.4 Thou/mm3 (3.6-11.0)
[2025-01-26 06:04] LABS: Hemoglobin 8.5 g/dL (12.0-16.0)
[2025-01-26 06:24] LABS: Alanine Aminotransferase 25 U/L (10-49); Albumin, Serum 2.9 gm/dL (3.4-4.8); Albumin/Globulin Ratio 1.5 (1.2-2.2); Alkaline Phosphatase 215 U/L (46-116); Anion Gap 9 (7-16); Aspartate Amino Transferase 24 U/L (0-34); BUN/Creatinine Ratio 18 Ratio (12-20); Bilirubin,Total 0.3 mg/dL (0.3-1.2); Blood Urea Nitrogen 7 mg/dL (9-23); Calcium 7.8 mg/dL (8.3-10.6); Calcium (Corrected) 8.7 mg/dL (8.5-10.1); Carbon Dioxide 25.6 mMol/L (20.0-31.0); Chloride 109 mMol/L (98-107); Creatinine (Component) 0.4 mg/dL (0.6-1.3); Globulin 1.9 gm/dL (2.3-3.5); Glucose 76 mg/dL (74-106); Magnesium 1.8 mg/dL (1.6-2.6); Osmolality,Calculated 283 (275-295); Phosphorous 1.7 mg/dL (2.4-5.1); Potassium 3.5 mMol/L (3.4-5.1); Sodium 144 mMol/L (136-145); Total Protein 4.8 gm/dL (5.7-8.2); eGFR > 60 See Note
--- NOTE | 2025-01-26 06:40 | ESCONSULT_ITS ---
Meds Home Medications and Allergies Home Medications ?Medication ?Instructions ?Recorded ?Confirmed ?Type apixaban 5 mg (74 tabs) tablets in 10 mg PO BID 01/22/25 History a dose pack (Eliquis DVT-PE Treat 30D Start) lipase 60,000-protease 1 cap PO TIDWM 01/22/2512/28 History 189,600-amylase 252,600 unit capsule, delay rel (Zenpep) megestrol 40 mg tablet 40 mg PO DAILY 01/22/2512/28 History methimazole 5 mg tablet 5 mg PO DAILY 01/22/2501/22 History mirtazapine 15 mg tablet 15 mg PO .QHS 01/22/2501/22 History ekhgxhkt-meni-rakd 8 mg-folic 400 1 tab PO QDAY 01/22/25 History mcg-K 50 mcg-lutein 300 mcg tablet ([facility] 50 Plus) omeprazole 20 mg capsule,delayed 20 mg PO DAILY 01/22/25 History release ondansetron HCl 8 mg tablet 8 mg PO TID PRN nausea and vomiting 01/22/25 01/22/25 History pantoprazole 20 mg tablet,delayed 20 mg PO DAILY 01/2201/22/25 History release potassium chloride 20 mEq 20 meq PO DAILY 01/22/25 History tablet,extended release prednisone 10 mg tablet 10 mg PO DAILY 01/22/2512/28 History propranolol 20 mg tablet 20 mg PO BID 01/22/25 History Allergies Allergy/AdvReac Type Severity Reaction Status Date / Time acetaminophen (From [place]) Allergy Severe Abdominal Verified 01/22/25 06:44 Pain hydrocodone (From [place]) Allergy Severe Abdominal Verified 01/22/25 06:44 Pain Exam Vital Signs Temp Pulse Resp BP Pulse Ox O2 Del Method O2 Flow Rate 98.1 F 106 H 17 108/55 L 97 Room Air 2 01/26/25 04:00 01/26/25 05:36 01/26/25 04:00 01/26/25 05:36 01/26/25 04:00 01/26/25 04:00 01/23/25 15:58 Assessment & Plan Additional Assessment Additional comments: Impression: Patient was seen for anchoring drain to the skin Plan Plan: The drain has been anchored to the skin satisfactorily.
--- NOTE | 2025-01-26 06:40 | PD.SURCONS ---
Meds Home Medications and Allergies Home Medications ?Medication ?Instructions ?Recorded ?Confirmed ?Type apixaban 5 mg (74 tabs) tablets in 10 mg PO BID 01/22/25 01/22/25 History a dose pack (Eliquis DVT-PE Treat 30D Start) lipase 60,000-protease 1 cap PO TIDWM 01/22/25 01/22/25 History 189,600-amylase 252,600 unit capsule, delay rel (Zenpep) megestrol 40 mg tablet 40 mg PO DAILY 01/22/25 01/22/25 History methimazole 5 mg tablet 5 mg PO DAILY 01/22/25 01/22/25 History mirtazapine 15 mg tablet 15 mg PO .QHS 01/22/25 01/22/25 History xbykgxwy-bxep-rdxc 8 mg-folic 400 1 tab PO QDAY 01/22/25 01/22/25 History mcg-K 50 mcg-lutein 300 mcg tablet ([facility] 50 Plus) omeprazole 20 mg capsule,delayed 20 mg PO DAILY 01/22/25 01/22/25 History release ondansetron HCl 8 mg tablet 8 mg PO TID PRN nausea and vomiting 01/22/25 01/22/25 History pantoprazole 20 mg tablet,delayed 20 mg PO DAILY 01/22/25 01/22/25 History release potassium chloride 20 mEq 20 meq PO DAILY 01/22/25 01/22/25 History tablet,extended release prednisone 10 mg tablet 10 mg PO DAILY 01/22/25 01/22/25 History propranolol 20 mg tablet 20 mg PO BID 01/22/25 01/22/25 History Allergies Allergy/AdvReac Type Severity Reaction Status Date / Time acetaminophen (From [place]) Allergy Severe Abdominal Verified 01/22/25 06:44 Pain hydrocodone (From [place]) Allergy Severe Abdominal Verified 01/22/25 06:44 Pain Exam Vital Signs Temp Pulse Resp BP Pulse Ox O2 Del Method O2 Flow Rate 98.1 F 106 H 17 108/55 L 97 Room Air 2 01/26/25 04:00 01/26/25 05:36 01/26/25 04:00 01/26/25 05:36 01/26/25 04:00 01/26/25 04:00 01/23/25 15:58 Assessment & Plan Additional Assessment Additional comments: Impression: Patient was seen for anchoring drain to the skin Plan Plan: The drain has been anchored to the skin satisfactorily.
--- NOTE | 2025-01-26 06:46 | PC.NURSE ---
Dr. Barnes at bedside and removed drsg on right lateral biliary drain, assessed suture site. With small amount of greenish drain. rn cleansed site with ns, pat dry, covered with several 2x2 gauzes, 2 large tegaderm. secured drain tube with tape.
[2025-01-26] MEDS: LEVOFLOXACIN/D5W 750MG IVPB 750 MG/150 ML BAG 100 MG IV (08:58)
[2025-01-26] MEDS: MEGESTROL ACET 20 MG TABLET 40 MG PO (08:58)
[2025-01-26] MEDS: ENOXAPARIN SOD INJ 40 MG/0.4 ML SYRINGE SC ×2 (08:58→20:42)
[2025-01-26] MEDS: Magnesium Sulfate 2 GM Ivpb 2 GM/50 ML BAG IV (08:58)
[2025-01-26] MEDS: POTASSIUM PHOS 22.5 MMOL in SODIUM CHLORIDE 0.9% 500 ML 500 ML 82.778 MMOL IV (08:58)
[2025-01-26] MEDS: BALSAM PERU/CASTOR OIL (Venelex) 60 GM TUBE TOP ×2 (08:59→20:44)
[2025-01-26] MEDS: PANCRELIPASE PO ×3 (08:59→17:41)
[2025-01-26] MEDS: METHIMAZOLE 5 MG TABLET PO (08:59)
--- NOTE | 2025-01-26 11:41 | ESPR_ITS ---
Documentation for date of: 01/26/25 Subjective Subjective Interval history: No acute overnight events noted. Seen and examined at bedside and patient states that she is overall doing well, denies shortness of breath, chest pain, fever, chills but does endorse palpitations. Heart rate noted to be in the 130s and to the box at bedside appeared to show sinus tachycardia. Will give 1 L IVF at 50 cc/h given weight/cachexia and monitor for improvement/changes in heart rate. Phosphorus low at 1.7, mag 1.8, K 3.5 and all repleted. Pending ID recs, anticipate discharge within next 24 to 48 hours. Exam Vital Signs Temp Pulse Resp BP Pulse Ox O2 Del Method O2 Flow Rate 97.8 F 114 H 16 123/72 93 L Room Air 2 01/26/25 08:00 01/26/25 08:00 01/26/25 08:00 01/26/25 08:00 01/26/25 08:00 01/26/25 08:00 01/23/25 15:58 Narrative Exam General: AOx3, no acute distress, able to speak full sentences HEENT: NC/AT, mucous membranes moist Cardiovascular: tachycardic, regular rhythm, S1/S2 present, no murmurs appreciated Pulmonary: clear to auscultation bilaterally, no rales/rhonchi/wheezes Abdominal: drain noted on right-side of abdomen, soft, non-tender, non- distended, no rebound/guarding, normal bowel sounds present Musculoskeletal: normal ROM, no peripheral edema Skin: warm and dry, intact, no rashes Neuro: CN II-XII intact, no focal deficits Objective Labs 01/27/25 05:36 01/27/25 05:36 Labs: Laboratory Results - last 24 hr 01/25/25 01/26/25 21:18 04:25 WBC 3.4 L RBC 2.76 L Hgb 8.5 L Hct 25.9 L MCV 94 MCH 30.8 MCHC 32.8 RDW Std Deviation 55.0 H Plt Count 269 Neut % (Auto) 51 Lymph % (Auto) 26 [place] % (Auto) 14 H Eos % (Auto) 1 Baso % (Auto) 1 Neut # (Auto) 1.7 L Lymph # (Auto) 0.9 L [place] # (Auto) 0.5 Eos # (Auto) 0.0 Baso # (Auto) 0.0 Immature Gran # (Auto) 0.26 H Absolute Nucleated RBC 0.00 Immature Gran % 8 H Nucleated RBC % 0 Sodium 144 Potassium 3.5 D Chloride 109 H Carbon Dioxide 25.6 Anion Gap 9 BUN 7 L Creatinine 0.4 L Estim Creat Clear Calc 76.0 eGFR > 60 BUN/Creatinine Ratio 18 Glucose 76 D Calculated Osmolality 283 Calcium 7.8 L Corrected Calcium 8.7 Phosphorus 1.7 L Magnesium 1.8 Total Bilirubin 0.3 AST 24 ALT 25 Alkaline Phosphatase 215 H D Total Protein 4.8 L Albumin 2.9 L Globulin 1.9 L Albumin/Globulin Ratio 1.5 Vancomycin Trough 16.0 H Quality Measures Quality Measures VTE prophylaxis Advance care planning discussed with:: patient Assessment & Plan Assessment Current Active Medications: Generic Name Dose Route Start Last Admin Trade Name Freq PRN Reason Stop Dose Admin Acetaminophen 650 mg 01/22/25 16:01 01/22/25 21:05 Acetaminophen 325 Mg Tablet PO 02/21/25 16:00 650 mg Q6HR PRN Administration Fever >101, or pain 1-3 Protocol Balsam [place] Oil 0 gm 01/25/25 21:00 01/26/25 08:59 Balsam [place] Oil (Venelex) 60 Gm Tube TOP 02/24/25 20:59 1 appln BID CAROL Administration Zenpep [id number] Unit 0 ea 01/23/25 18:45 01/26/25 08:59 Capsules PO 02/22/25 18:44 1 capsule TIDWM CAROL Administration Enoxaparin Sodium 40 mg 01/23/25 21:00 01/26/25 08:58 Enoxaparin Sod Inj 40 Mg/0.4 Ml Syringe SC 02/06/25 20:59 40 mg BID CAROL Administration Levofloxacin/Dextrose 750 mg in 150 mls @ 100 mls/hr 01/26/25 09:00 01/26/25 08:58 Levaquin Ivpb IV 02/02/25 08:59 100 mls/hr QDAY CAROL Administration Potassium Phosphate 22.5 mmol/ 507.5 mls @ 82.778 mls/hr 01/26/25 08:00 01/26/25 08:58 Sodium Chloride IV 01/26/25 14:07 82.778 mls/hr X1 ONE Administration Lactated Ringer's 1,000 mls @ 50 mls/hr 01/26/25 10:48 Lactated Ringers IV 01/27/25 06:47 .Q20H ONE Megestrol Acetate 40 mg 01/24/25 09:00 01/26/25 08:58 Megestrol Acet 20 Mg Tablet PO 02/23/25 08:59 40 mg DAILY CAROL Administration Methimazole 5 mg 01/24/25 09:00 01/26/25 08:59 Methimazole 5 Mg Tablet PO 02/23/25 08:59 5 mg DAILY CAROL Administration Midodrine 10 mg 01/24/25 22:00 01/26/25 05:36 Midodrine 5 Mg Tablet PO 02/23/25 21:59 Not Given TID CAROL Mirtazapine 15 mg 01/23/25 21:00 01/25/25 21:16 Mirtazapine 15 Mg Tablet PO 02/22/25 20:59 15 mg HS CAROL Administration Ondansetron HCl 4 mg 01/22/25 16:01 Ondansetron Inj 2 Mg/Ml Inj 2 Ml IV 02/21/25 16:00 Q6HR PRN NAUSEA OR VOMITING Protocol Plan Elizabeth Ch is a 75-year-old female with a past medical history of pancreatic cancer on chemotherapy, history of DVT, and anxiety who presented to the ED due to worsening shortness of breath and chills x1 day prior to presentation and was admitted for further management of sepsis secondary to pneumonia. #Community-acquired pneumonia secondary to Klebsiella oxytoca #Sepsis secondary to Klebsiella oxytoca pneumonia, resolved #Lactic acidosis, resolved qSOFA score of 2, high risk. Presented with temp of 100.7 ?F, HR 150, RR 24, BP 105/60 -> 80/50. Pro-[place] 2.36, lactate peaked at 7.1. CXR and CTA chest showed pneumonia of left lung. ? ID following, recommended treatment through and reevaluate on Thursday with repeat CXR within 2 weeks ? Levofloxacin 750 mg IV daily (01/25-01/27) ? Blood cultures 01/22: Negative after 48 hours ? Sputum cultures 01/22: Positive for Klebsiella oxytoca #Sinus tachycardia At bedside, heart rate up to 130s and appears to be sinus tachycardia on telemetry box. Suspect to be due to pneumonia versus pancreatic cancer versus chemotherapy. Will give IVF and monitor to see if heart rate improves. ? 1 L IVF at 50 cc/h ? If heart rate does not improve can give propranolol given patient has history of hyperthyroidism as she is on methimazole at home #Hypotension, resolved Likely secondary to sepsis cachexia secondary to pancreatic cancer. ? Midodrine 10 mg p.o. TID #History of DVT Doppler ultrasound on 01/20 positive for acute, occlusive DVT of right popliteal peroneal veins ? Lovenox 40 mg SC twice daily and will discharge on Eliquis 5 mg twice daily #Hypokalemia, resolved #Hypomagnesemia, resolved #Hypophosphatemia ? 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 Drain placed in the right side more than 1 year ago, unknown reason. Chest CTA did not show PE but showed pneumonia over the left lung and metastatic disease. CTAP showed biliary stent in satisfactory position, mass in pancreatic head measures 4.2 x 3.1 cm compared to 4.0 x 2.9 cm on May 17, 2024. ? Zenpep 60,000 units 3 times daily with meals ? Megestrol acetate 40 mg daily ? Mirtazapine 50 mg p.o. at bedtime ? Continue management as per oncology outpatient #Hyperthyroidism ? Methimazole 5 mg p.o. daily Hospital management: Disposition: Med telemetry, receiving IVF for sinus tachycardia Fluids: 1 L IVF at 50 cc/h Diet: Regular with Ensure plus protein Lines: PIV, drainage catheter DVT prophylaxis: Enoxaparin 40 mg SC BID GI prophylaxis: Not indicated CODE STATUS: full code ----- Plan discussed with attending physician Dr. Lynne Antony MD PGY-1 Internal Medicine Attending Provider Attestation/Addendum I reviewed labs, imaging, EKG, home medications and prior available records. Face to face evaluation was performed by me. I have personally examined the patient and discussed assessment and plan with the IM team. I reviewed the resident note and agree with the plan with exceptions as below. Pancreatic cancer on chemotherapy Sepsis secondary to pneumonia, Klebsiella pneumonia Sinus tachycardia Hypokalemia Gave IV fluids. Monitor HR Repeat potassium as needed and monitor BMP Continue levofloxacin Outpatient follow-up with oncology
[2025-01-26] MEDS: RINGERS LACTATED 1000 ML 1,000 ML 50 ML IV (11:50)
--- NOTE | 2025-01-26 15:14 | PC.SS ---
Rounding note: patient on IV abx, patient receiving fluids.
[2025-01-26] MEDS: MIRTAZAPINE 15 MG TABLET PO (20:42)
[2025-01-27] VITALS (11 sets, daily range): BP systolic 121–134; BP diastolic 63–73; PULSE 105–133; RESP 19–25; TEMP 36.3–37.2; O2SAT 9–98; BMI 18.8
[2025-01-27 05:57] LABS: Basophils % (Auto) 0 % (0-2.5); Eosinophils % (Auto) 0 % (0-10); Hematocrit 24.3 % (36.0-46.0); Immature Granulocytes % (Auto) 13 % (0-0); Immature Granulocytes Auto 0.63 Thou/mm3 (0.00-0.00); Lymphocytes # (Auto) 1.2 Thou/mm3 (1.0-4.8); Lymphocytes % (Auto) 24 % (10-50); Mean Corpuscular HGB Conc 33.7 g/dl (31.0-37.0); Mean Corpuscular Hemoglobin 31.3 pg (25.0-35.0); Mean Corpuscular Volume 93 fL (80-100); Monocytes # (Auto) 0.4 Thou/mm3 (0.0-0.8); Monocytes % (Auto) 8 % (0-12); Neutrophils # (Auto) 2.7 Thou/mm3 (1.8-7.7); Neutrophils % (Auto) 55 % (37-80); Nucleated Red Blood Cell # 0.03 Thou/mm3 (0.00-0.00); Nucleated Red Blood Cell % 1 /100 WBC (0); Platelet Count 253 Thou/mm3 (140-440); RDW Standard Deviation 55.2 fL (36.4-46.3); Red Blood Count 2.62 Miln/mm3 (4.00-5.20)
[2025-01-27 06:05] LABS: Hemoglobin 8.2 g/dL (12.0-16.0)
[2025-01-27 06:17] LABS: Path Review Blood Smear Sent to Pathologist
[2025-01-27 06:39] LABS: Alanine Aminotransferase 25 U/L (10-49); Albumin, Serum 2.9 gm/dL (3.4-4.8); Albumin/Globulin Ratio 1.5 (1.2-2.2); Alkaline Phosphatase 238 U/L (46-116); Anion Gap 10 (7-16); Aspartate Amino Transferase 28 U/L (0-34); BUN/Creatinine Ratio 20 Ratio (12-20); Bilirubin,Total 0.2 mg/dL (0.3-1.2); Blood Urea Nitrogen 6 mg/dL (9-23); Calcium 7.6 mg/dL (8.3-10.6); Calcium (Corrected) 8.5 mg/dL (8.5-10.1); Carbon Dioxide 26.2 mMol/L (20.0-31.0); Chloride 106 mMol/L (98-107); Creatinine (Component) 0.3 mg/dL (0.6-1.3); Estimated Creatinine Clearance 95.7 mL/min (>60); Globulin 1.9 gm/dL (2.3-3.5); Glucose 99 mg/dL (74-106); Magnesium 1.8 mg/dL (1.6-2.6); Osmolality,Calculated 280 (275-295); Potassium 3.4 mMol/L (3.4-5.1); Sodium 142 mMol/L (136-145); Total Protein 4.8 gm/dL (5.7-8.2); eGFR > 60 See Note
[2025-01-27] MEDS: METHIMAZOLE 5 MG TABLET PO (08:12)
[2025-01-27] MEDS: MEGESTROL ACET 20 MG TABLET 40 MG PO (08:12)
[2025-01-27] MEDS: ENOXAPARIN SOD INJ 40 MG/0.4 ML SYRINGE SC ×2 (08:13→21:14)
[2025-01-27] MEDS: PANCRELIPASE PO ×3 (08:13→18:11)
[2025-01-27] MEDS: BALSAM PERU/CASTOR OIL (Venelex) 60 GM TUBE TOP ×2 (08:13→21:18)
[2025-01-27] MEDS: LEVOFLOXACIN/D5W 750MG IVPB 750 MG/150 ML BAG 100 MG IV (08:14)
[2025-01-27] MEDS: POTASSIUM CHLORIDE 20 mEq TABCR 40 MEQ PO (09:21)
[2025-01-27] MEDS: Magnesium Sulfate 1 gm Ivpb 1 GM/100 ML BAG IV (09:21)
--- NOTE | 2025-01-27 09:56 | PC.SS ---
Update: Possible d/c home today. Monitoring heart rate.
--- NOTE | 2025-01-27 09:59 | PD.IDPROG ---
Subjective Subjective Interval history: continues on high dose levaquin despite her small size. no change in recs Exam Vital Signs Temp Pulse Resp BP Pulse Ox O2 Del Method O2 Flow Rate 98.0 F 114 H 22 H 122/63 94 L Room Air 2 01/27/25 08:00 01/27/25 08:00 01/27/25 08:00 01/27/25 08:00 01/27/25 08:00 01/27/25 08:00 01/23/25 15:58 Narrative Exam limited eval Objective - Internal Medicine Labs 01/27/25 05:36 01/27/25 05:36 Labs: Laboratory Results - last 24 hr 01/27/25 05:36 WBC 5.0 D RBC 2.62 L Hgb 8.2 L Hct 24.3 L MCV 93 MCH 31.3 MCHC 33.7 RDW Std Deviation 55.2 H Plt Count 253 Neut % (Auto) 55 Lymph % (Auto) 24 [place] % (Auto) 8 Eos % (Auto) 0 Baso % (Auto) 0 Neut # (Auto) 2.7 Lymph # (Auto) 1.2 [place] # (Auto) 0.4 Eos # (Auto) 0.0 Baso # (Auto) 0.0 Immature Gran # (Auto) 0.63 H Absolute Nucleated RBC 0.03 H Immature Gran % 13 H Nucleated RBC % 1 H Smear Path Review Sent to Pathologist Sodium 142 Potassium 3.4 Chloride 106 Carbon Dioxide 26.2 Anion Gap 10 BUN 6 L Creatinine 0.3 L Estim Creat Clear Calc 95.7 eGFR > 60 BUN/Creatinine Ratio 20 Glucose 99 Calculated Osmolality 280 Calcium 7.6 L Corrected Calcium 8.5 Phosphorus 3.0 Magnesium 1.8 Total Bilirubin 0.2 L AST 28 ALT 25 Alkaline Phosphatase 238 H D Total Protein 4.8 L Albumin 2.9 L Globulin 1.9 L Albumin/Globulin Ratio 1.5 Assessment & Plan A&P Narrative pneumonia cancer asthenia R organism from sputum on admit with neg bc and some low grade temp noted. po levaquin ok. can use 500/day with her size but see that primary team likes the 750. its only for a few more days so may be ok. seemed to respond to prior zosyn, ok to give rx for total of 7d including the merrem time. a goals of care discussion would be prudent for her as she is a full code . will see again prn Time Spent With Patient Time: Total time spent is greater than 50% in coordination of care (as documented) at patient's floor/unit and/or counseling patient:
[2025-01-27] MEDS: Magnesium Sulfate 2 GM Ivpb 2 GM/50 ML BAG IV (10:37)
--- NOTE | 2025-01-27 11:13 | PD.RESPRO ---
Documentation for date of: 01/27/25 Subjective Subjective Interval history: No acute overnight events noted. Seen and examined at bedside in telemetry and patient continues to endorse some anxiety, lightheadedness, but no palpitations today. Noted that she is on propranolol 20 mg p.o. twice daily at home, likely for her hyperthyroidism, so we will restart at 10 mg p.o. TID here in house as her heart remains elevated and 130s. Today is her last day of antibiotics. Endorses some neuropathic pain so will give 1x dose of gabapentin 300 mg and see how she responds. Exam Vital Signs Temp Pulse Resp BP Pulse Ox O2 Del Method O2 Flow Rate 98.0 F 114 H 22 H 122/63 94 L Room Air 2 01/27/25 08:00 01/27/25 08:00 01/27/25 08:00 01/27/25 08:00 01/27/25 08:00 01/27/25 08:00 01/23/25 15:58 Narrative Exam General: cachectic, AOx3, no acute distress, able to speak full sentences HEENT: NC/AT, mucous membranes moist Cardiovascular: tachycardic, regular rhythm, S1/S2 present, no murmurs appreciated Pulmonary: clear to auscultation bilaterally, no rales/rhonchi/wheezes Abdominal: drain noted on right-side of abdomen, soft, non-tender, non-distended, no rebound/guarding, normal bowel sounds present Musculoskeletal: normal ROM, no peripheral edema Skin: warm and dry, intact, no rashes Neuro: CN II-XII intact, no focal deficits Objective Labs 01/28/25 05:36 01/28/25 05:36 Labs: Laboratory Results - last 24 hr 01/27/25 05:36 WBC 5.0 D RBC 2.62 L Hgb 8.2 L Hct 24.3 L MCV 93 MCH 31.3 MCHC 33.7 RDW Std Deviation 55.2 H Plt Count 253 Neut % (Auto) 55 Lymph % (Auto) 24 [place] % (Auto) 8 Eos % (Auto) 0 Baso % (Auto) 0 Neut # (Auto) 2.7 Lymph # (Auto) 1.2 [place] # (Auto) 0.4 Eos # (Auto) 0.0 Baso # (Auto) 0.0 Immature Gran # (Auto) 0.63 H Absolute Nucleated RBC 0.03 H Immature Gran % 13 H Nucleated RBC % 1 H Smear Path Review Sent to Pathologist Sodium 142 Potassium 3.4 Chloride 106 Carbon Dioxide 26.2 Anion Gap 10 BUN 6 L Creatinine 0.3 L Estim Creat Clear Calc 95.7 eGFR > 60 BUN/Creatinine Ratio 20 Glucose 99 Calculated Osmolality 280 Calcium 7.6 L Corrected Calcium 8.5 Phosphorus 3.0 Magnesium 1.8 Total Bilirubin 0.2 L AST 28 ALT 25 Alkaline Phosphatase 238 H D Total Protein 4.8 L Albumin 2.9 L Globulin 1.9 L Albumin/Globulin Ratio 1.5 Quality Measures Quality Measures VTE prophylaxis Advance care planning discussed with:: patient Assessment & Plan Assessment Current Active Medications: Generic Name Dose Route Start Last Admin Trade Name Freq PRN Reason Stop Dose Admin Acetaminophen 650 mg 01/22/25 16:01 01/22/25 21:05 Acetaminophen 325 Mg Tablet PO 02/21/25 16:00 650 mg Q6HR PRN Administration Fever >101, or pain 1-3 Protocol Balsam [place] Oil 0 gm 01/25/25 21:00 01/27/25 08:13 Balsam [place] Oil (Venelex) 60 Gm Tube TOP 02/24/25 20:59 1 appln BID CAROL Administration Zenpep [id number] Unit 0 ea 01/23/25 18:45 01/27/25 08:13 Capsules PO 02/22/25 18:44 1 capsule TIDWM CAROL Administration Enoxaparin Sodium 40 mg 01/23/25 21:00 01/27/25 08:13 Enoxaparin Sod Inj 40 Mg/0.4 Ml Syringe SC 02/06/25 20:59 40 mg BID CAROL Administration Levofloxacin/Dextrose 750 mg in 150 mls @ 100 mls/hr 01/26/25 09:00 01/27/25 08:14 Levaquin Ivpb IV 02/02/25 08:59 100 mls/hr QDAY CAROL Administration Magnesium Sulfate 2 gm in 50 mls @ 25 mls/hr 01/27/25 10:00 01/27/25 10:37 Magnesium Sulfate Ivpb IV 01/27/25 11:59 25 mls/hr X1 ONE Administration Megestrol Acetate 40 mg 01/24/25 09:00 01/27/25 08:12 Megestrol Acet 20 Mg Tablet PO 02/23/25 08:59 40 mg DAILY CAROL Administration Methimazole 5 mg 01/24/25 09:00 01/27/25 08:12 Methimazole 5 Mg Tablet PO 02/23/25 08:59 5 mg DAILY CAROL Administration Midodrine 10 mg 01/24/25 22:00 01/27/25 05:02 Midodrine 5 Mg Tablet PO 02/23/25 21:59 Not Given TID CAROL Mirtazapine 15 mg 01/23/25 21:00 01/26/25 20:42 Mirtazapine 15 Mg Tablet PO 02/22/25 20:59 15 mg HS CAROL Administration Ondansetron HCl 4 mg 01/22/25 16:01 Ondansetron Inj 2 Mg/Ml Inj 2 Ml IV 02/21/25 16:00 Q6HR PRN NAUSEA OR VOMITING Protocol Propranolol HCl 10 mg 01/27/25 14:00 Propranolol 10 Mg Tablet PO 02/26/25 13:59 TID CAROL Plan Elizabeth Ch is a 75-year-old female with a past medical history of pancreatic cancer on chemotherapy, history of DVT, and anxiety who presented to the ED due to worsening shortness of breath and chills x1 day prior to presentation and was admitted for further management of sepsis secondary to pneumonia. #Community-acquired pneumonia secondary to Klebsiella oxytoca #Sepsis secondary to Klebsiella oxytoca pneumonia, resolved #Lactic acidosis, resolved qSOFA score of 2, high risk. Presented with temp of 100.7 ?F, HR 150, RR 24, BP 105/60 -> 80/50. Pro-[place] 2.36, lactate peaked at 7.1. CXR and CTA chest showed pneumonia of left lung. ? ID following, recommended treatment through and reevaluate on Thursday with repeat CXR within 2 weeks ? Levofloxacin 750 mg IV daily (01/25-01/27) ? Blood cultures 01/22: Negative after 48 hours ? Sputum cultures 01/22: Positive for Klebsiella oxytoca #Sinus tachycardia At bedside, heart rate up to 130s and appears to be sinus tachycardia on telemetry box. Suspect to be due to pneumonia versus pancreatic cancer versus chemotherapy. Will give IVF and monitor to see if heart rate improves. ? Propranolol 10 mg PO TID #Hypotension, resolved Likely secondary to sepsis cachexia secondary to pancreatic cancer. ? Midodrine 10 mg p.o. TID #History of DVT Doppler ultrasound on 01/20 positive for acute, occlusive DVT of right popliteal peroneal veins ? Lovenox 40 mg SC twice daily and will discharge on Eliquis 5 mg twice daily #Hypokalemia, resolved #Hypomagnesemia, resolved #Hypophosphatemia ? 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 Drain placed in the right side more than 1 year ago, unknown reason. Chest CTA did not show PE but showed pneumonia over the left lung and metastatic disease. CTAP showed biliary stent in satisfactory position, mass in pancreatic head measures 4.2 x 3.1 cm compared to 4.0 x 2.9 cm on May 17, 2024. ? Zenpep 60,000 units 3 times daily with meals ? Megestrol acetate 40 mg daily ? Mirtazapine 50 mg p.o. at bedtime ? Continue management as per oncology outpatient #Hyperthyroidism ? Methimazole 5 mg p.o. daily ? Propranolol as above Hospital management: Disposition: Med telemetry, receiving IVF for sinus tachycardia Fluids: 1 L IVF at 50 cc/h Diet: Regular with Ensure plus protein Lines: PIV, drainage catheter DVT prophylaxis: Enoxaparin 40 mg SC BID GI prophylaxis: Not indicated CODE STATUS: full code ----- Plan discussed with attending physician Dr. Lynne Antony MD PGY-1 Internal Medicine Attending Provider Attestation/Addendum I reviewed labs, imaging, EKG, home medications and prior available records. Face to face evaluation was performed by me. I have personally examined the patient and discussed assessment and plan with the IM team. I reviewed the resident note and agree with the plan with exceptions as below. Pancreatic cancer on chemotherapy Sepsis secondary to pneumonia, Klebsiella pneumonia Sinus tachycardia Hypokalemia Gave IV fluids. Monitor HR. Remained tachycardic. Started propranolol Repeat potassium as needed and monitor BMP Continue levofloxacin for ESBL Klebsiella Outpatient follow-up with oncology PT evaluation
[2025-01-27] MEDS: PROPRANOLOL 10 MG TABLET PO ×2 (14:11→21:14)
[2025-01-27] MEDS: GABAPENTIN 300 MG CAPSULE PO (16:11)
--- NOTE | 2025-01-27 16:48 | PC.SS ---
Rounding Note: Heart rate elevated. PT evaluation is pending. Plan is to d/c patient tomorrow.
--- NOTE | 2025-01-27 16:58 | PC.SS ---
PT recommending home health. Family at bedside in favor of home health. Could not recall home health agency that patient was previously aligned with.
[2025-01-27] MEDS: ACETAMINOPHEN 325 MG TABLET 650 MG PO (21:14)
[2025-01-27] MEDS: MIRTAZAPINE 15 MG TABLET PO (21:14)
[2025-01-28] VITALS (10 sets, daily range): BP systolic 109–124; BP diastolic 56–67; PULSE 83–105; RESP 17–22; TEMP 36.1–36.7; O2SAT 96–97; BMI 18.8
[2025-01-28] MEDS: PROPRANOLOL 10 MG TABLET PO ×2 (05:18→13:39)
[2025-01-28 05:57] LABS: Basophils # (Auto) 0.1 Thou/mm3 (0.0-0.2); Basophils % (Auto) 1 % (0-2.5); Eosinophils % (Auto) 0 % (0-10); Hematocrit 27.9 % (36.0-46.0); Hemoglobin 9.1 g/dL (12.0-16.0); Immature Granulocytes % (Auto) 21 % (0-0); Immature Granulocytes Auto 1.43 Thou/mm3 (0.00-0.00); Lymphocytes # (Auto) 1.7 Thou/mm3 (1.0-4.8); Lymphocytes % (Auto) 25 % (10-50); Mean Corpuscular HGB Conc 32.6 g/dl (31.0-37.0); Mean Corpuscular Hemoglobin 31.2 pg (25.0-35.0); Mean Corpuscular Volume 96 fL (80-100); Monocytes # (Auto) 0.4 Thou/mm3 (0.0-0.8); Monocytes % (Auto) 7 % (0-12); Neutrophils # (Auto) 3.1 Thou/mm3 (1.8-7.7); Neutrophils % (Auto) 46 % (37-80); Nucleated Red Blood Cell # 0.02 Thou/mm3 (0.00-0.00); Nucleated Red Blood Cell % 0 /100 WBC (0); Platelet Count 311 Thou/mm3 (140-440); RDW Standard Deviation 57.7 fL (36.4-46.3); Red Blood Count 2.92 Miln/mm3 (4.00-5.20); White Blood Count 6.7 Thou/mm3 (3.6-11.0)
[2025-01-28 06:43] LABS: Alanine Aminotransferase 25 U/L (10-49); Albumin, Serum 3.1 gm/dL (3.4-4.8); Albumin/Globulin Ratio 1.5 (1.2-2.2); Alkaline Phosphatase 265 U/L (46-116); Anion Gap 9 (7-16); Aspartate Amino Transferase 28 U/L (0-34); BUN/Creatinine Ratio 20 Ratio (12-20); Bilirubin,Total 0.2 mg/dL (0.3-1.2); Blood Urea Nitrogen 8 mg/dL (9-23); Calcium 7.7 mg/dL (8.3-10.6); Calcium (Corrected) 8.4 mg/dL (8.5-10.1); Carbon Dioxide 22.9 mMol/L (20.0-31.0); Chloride 109 mMol/L (98-107); Creatinine (Component) 0.4 mg/dL (0.6-1.3); Estimated Creatinine Clearance 71.8 mL/min (>60); Globulin 2.1 gm/dL (2.3-3.5); Glucose 93 mg/dL (74-106); Magnesium 1.9 mg/dL (1.6-2.6); Osmolality,Calculated 279 (275-295); Potassium 3.8 mMol/L (3.4-5.1); Sodium 141 mMol/L (136-145); Total Protein 5.2 gm/dL (5.7-8.2); eGFR > 60 See Note
[2025-01-28] MEDS: PANCRELIPASE PO ×2 (07:49→13:30)
[2025-01-28] MEDS: ENOXAPARIN SOD INJ 40 MG/0.4 ML SYRINGE SC (08:55)
[2025-01-28] MEDS: MEGESTROL ACET 20 MG TABLET 40 MG PO (08:56)
[2025-01-28] MEDS: METHIMAZOLE 5 MG TABLET PO (08:56)
[2025-01-28] MEDS: BALSAM PERU/CASTOR OIL (Venelex) 60 GM TUBE TOP (08:58)
[2025-01-28] MEDS: LEVOFLOXACIN/D5W 750MG IVPB 750 MG/150 ML BAG 100 MG IV (08:58)
--- NOTE | 2025-01-28 11:37 | PD.RESDS ---
Planned Discharge Date 01/28/25 DS: Providers Provider Date of admission: 01/22/25 12:22 Primary care physician: Neena Reilly MD Admitting Provider: Anabella Rey MD Attending Provider on Admission: Cordell Batista MD Consults: 01/23/25 10:36 Consult to Hematology Stat Comment: pancreatic cancer Consulting Provider: Desmond Odell 01/25/25 11:11 Consult to General Surgery Routine Comment: For suture dislodgement at External biliary drain Consulting Provider: Awais Barnes 01/25/25 14:06 Consult to Infectious Diseases Stat Comment: Consulting Provider: Ba Castaneda 01/27/25 10:33 Referral Physical Therapy Routine Comment: Physician Instructions: Instructions: History of pancreatic cancer, cachectic Attending Provider on DC: Jorge Antony MD Discharging Provider: Jorge Antony MD DS: Diagnosis Problem List Completed Was Problem List Reviewed/Reconciled?: Yes Hospital Course Hospital Course Hospital course: Elizabeth Ch is a 75-year-old female with a past medical history of pancreatic cancer on chemotherapy, history of DVT, and anxiety who presented to the ED due to worsening shortness of breath and chills x1 day prior to presentation and was admitted for further management of sepsis secondary to pneumonia. Sputum cultures grew positive for ESBL Klebsiella oxytoca sensitive to levofloxacin for which patient finished her course of antibiotics while in the hospital. She remained on room air and did not spike any fevers since admission. 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 Blood pressure was stable with MAP 69 and given 1 L LR and propranolol 20 mg IV. Following days her heart rate remained elevated from 110s-130s and she is noted to have hyperthyroidism for which methimazole was already on but also started on propranolol 10 mg TID (home dose of 20 mg BID) and heart rate improved. Thus, given her pneumonia was treated, heart rate now improved, vitals and labs were stable then patient was deemed stable for discharge home. 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 Your eliquis dosage has been decreased from 10 mg twice daily to 5 mg twice daily for your DVT ? You were started on gabapentin 100 mg and you can take up to three pills per day as needed for neuropathic pain ? Continue taking all other home medications as prescribed ? Follow-up with PCP within 1-2 weeks of discharge ? Return to ED if symptoms worsen or recur ----- Plan discussed with attending physician Dr. Lynne Antony MD PGY-1 Internal Medicine Time Spent with Patient Time attestation: Total time spent providing and/or coordinating discharge services: Time spent: Greater than 30 minutes Home Health Home Health Referral Orders: 01/28/25 10:15 Home Health Referral Routine Reason For Exam: Home PT Home-Bound The patient must either because of illness or injury, need the aid of supportive devices such as crutches, canes, wheelchairs, and walkers; the use of special transportation; or the assistance of another person in order to leave their place of residence; OR have a condition such that leaving his or her home is medically contraindicated. In addition, the patient also meets the following criteria: patient is normally unable to leave the home and leaving home requires considerable taxing effort. Addendum to Home Health Certification Practitioner's Certification: I certify that the patient has been under my care in the hospital and the care of attending physician (see below). We had a hmuw-uq-ozyu encounter on (see date below). My clinical findings indicate that the patient is home bound per the above criteria and the Home Health Services noted in these orders are medically necessary. The primary reason for the judm-gw-mvoy encounter is related to the fact that the patient requires home health services. 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 Wound Care: No IV Therapy: No RN Safety Evaluation: Yes RN to evaluate and create a plan of care that will produce positive outcomes. Palliative Treatment: No Palliative treatment and evaluate the need for hospice. Home Health Aide - Personal Care: Yes Home Health Aide to assist with any ADL's. Exam Vital Signs Temp Pulse Resp BP Pulse Ox O2 Del Method O2 Flow Rate 97.8 F 103 H 20 112/67 97 Room Air 2 01/28/25 08:00 01/28/25 08:00 01/28/25 08:00 01/28/25 08:00 01/28/25 08:00 01/28/25 08:00 01/23/25 15:58 Narrative Exam General: cachectic, AOx3, no acute distress, able to speak full sentences HEENT: NC/AT, mucous membranes moist Cardiovascular: tachycardic, regular rhythm, S1/S2 present, no murmurs appreciated Pulmonary: clear to auscultation bilaterally, no rales/rhonchi/wheezes Abdominal: drain noted on right-side of abdomen, soft, non-tender, non-distended, no rebound/guarding, normal bowel sounds present Musculoskeletal: normal ROM, no peripheral edema Skin: warm and dry, intact, no rashes Neuro: CN II-XII intact, no focal deficits Discharge Plan Plan Patient Disposition: Home w/HOME HEALTH Care Plan Goals: ? Your eliquis dosage has been decreased from 10 mg twice daily to 5 mg twice daily for your DVT ? You were started on gabapentin 100 mg and you can take up to three pills per day as needed for neuropathic pain ? Continue taking all other home medications as prescribed ? Follow-up with PCP within 1-2 weeks of discharge ? Return to ED if symptoms worsen or recur Prescriptions/Referrals Prescriptions/Med Rec: New Eliquis 5 mg tablet 5 mg PO BID 30 Days Qty: 60 0RF gabapentin 100 mg capsule 100 mg PO TID PRN (Reason: Neuropathic pain) 5 Days Qty: 15 0RF Continued acetaminophen 500 mg capsule 500 mg PO Q6H PRN (Reason: pain (scale score 4-6)) Qty: 30 0RF megestrol 40 mg tablet 40 mg PO DAILY potassium chloride 20 mEq tablet extended release 20 meq PO DAILY Patient Comments: TAKE 2 TABLETS BY MOUTH TWICE DAILY FOR 2 DAYS THEN 1 ONCE DAILY AFTER Century Women 50 Plus 8 mg iron-400 mcg-50 mcg tablet 1 tab PO QDAY mirtazapine 15 mg tablet 15 mg PO .QHS prednisone 10 mg tablet 10 mg PO DAILY omeprazole 20 mg capsule,delayed release(DR/EC) 20 mg PO DAILY methimazole 5 mg tablet 5 mg PO DAILY Patient Comments: TAKE 1 TABLET BY MOUTH ONCE DAILY ondansetron HCl 8 mg tablet 8 mg PO TID PRN (Reason: nausea and vomiting) Patient Comments: TAKE 1 TABLET BY MOUTH THREE TIMES DAILY NEEDED FOR NAUSEA propranolol 20 mg tablet 20 mg PO BID Zenpep 60,000-189,600- 252,600 unit capsule,delayed release(DR/EC) 1 cap PO TIDWM Discontinued lorazepam 1 MG tablet 1 mg PO BID Qty: 12 0RF ibuprofen 600 mg tablet 600 mg PO Q6H Qty: 30 0RF pantoprazole 20 mg tablet,delayed release (DR/EC) 20 mg PO DAILY Patient Comments: TAKE 1 TABLET BY MOUTH ONCE DAILY Eliqudestiny DVT-PE Treat 30D Start 5 mg (74 tabs) tablets,dose pack 10 mg PO BID Patient Comments: STARTED 01/20/25 Rx Instructions: TAKE 2 TABLETS BY MOUTH FOR 7 DAYS THEN 1 TABLET TWICE DAILY Referrals: Neena Reilly MD [Primary Care Provider] - Patient/Caregiver Discharge Instructions Education Materials: What Is Pneumonia?, Sepsis, Understanding Sepsis Print Language: Nigerian Stand Alone Forms: Lakeisha Award Info., Patient Portal Info Letter Discharge Order Discharge Orders: Discharge (Routine); Ordered 01/28/25 Ordered By: Jroge Antony Quality Discharge Quality Measures VTE prophylaxis Attestestation Attestation I reviewed labs, imaging, EKG, home medications and prior available records. Face to face evaluation was performed by me. I have personally examined the patient and discussed assessment and plan with the IM team. I reviewed the resident note and agree with the plan with exceptions as below. Pancreatic cancer on chemotherapy Sepsis secondary to pneumonia, Klebsiella pneumonia Sinus tachycardia Hypokalemia Heart rate is now WNL. Continue metoprolol and methimazole Finished a course of levofloxacin for ESBL Klebsiella Outpatient follow-up with oncology PT evaluation: Ordered home health and wheelchair Time spent is 40 minutes. More than 50% of the time was spent on patient education and coordination of care.
--- NOTE | 2025-01-29 08:02 | PC.CC ---
pt [facility] [employer] [facility] [employer] [facility]. HH referral sent on [employer]. Awaiting responses. Pending start of care date.
--- NOTE | 2025-01-30 18:41 | PC.CM ---
Patient accepted by [facility], pending start of care date.
--- NOTE | 2025-01-31 08:58 | PC.CC ---
[facility] provided SOC date 02/01/25.
== END 2025-01-28 14:50 | disposition home health service (06) | DRG 871 ==
LOC: SERX 07:39 → SERHOLD 12:36 → S2NX 17:29 → S3NX 01-25 23:01 → S2NX 01-26 18:34
PROVIDERS: Student in an Organized Health Care Education/Training Program; Admitting Provider Internal Medicine; Emergency Provider Emergency Medicine; PCP Family Medicine; Visit Provider Student in an Organized Health Care Education/Training Program
DX: A41.59 Other Gram-negative sepsis (principal); J15.0 Pneumonia due to Klebsiella pneumoniae; C25.9 Malignant neoplasm of pancreas, unspecified; C79.51 Secondary malignant neoplasm of bone; C78.00 Secondary malignant neoplasm of unspecified lung; E87.20 Acidosis, unspecified; I82.451 Acute embolism and thrombosis of right peroneal vein; I82.431 Acute embolism and thrombosis of right popliteal vein; E27.40 Unspecified adrenocortical insufficiency; D70.9 Neutropenia, unspecified; I95.9 Hypotension, unspecified; E87.6 Hypokalemia; D69.6 Thrombocytopenia, unspecified; E83.39 Other disorders of phosphorus metabolism; E83.42 Hypomagnesemia; F41.9 Anxiety disorder, unspecified; J45.909 Unspecified asthma, uncomplicated; E05.90 Thyrotoxicosis, unspecified without thyrotoxic crisis or storm; D63.0 Anemia in neoplastic disease; Z86.718 Personal history of other venous thrombosis and embolism; Z93.2 Ileostomy status; Z79.01 Long term (current) use of anticoagulants; Z79.52 Long term (current) use of systemic steroids; Z79.899 Other long term (current) drug therapy
CPT/HCPCS: 36415; 71045; 71275; 74177; 80053; 80061; 80202; 81001; 83605; 83690; 83735; 83880; 84100; 84132; 84145; 84439; 84443; 84484; 85025; 85610; 85730; 87040; 87077; 87081; 87086; 87186; 87205; 87400; 87811; 93005; 93306; 96361; 96365; 96366; 96367; 96368; 97161; 99285; A4649; J0283; J1650; J1720; J1956; J2185; J2543; J3370; J3475; J7030; J7040; J7120; J7999; P9047; Q9967; A9270

== ENCOUNTER 2025-02-23 14:26 | Outpatient (RCR) | payer OTHER, MEDICAID, SELFPAY ==
--- NOTE | 2025-01-26 12:20 | CHAP ---
Patient was visited by the Spiritual Care Volunteer from whom they also received communion. (Volunteer was in the hospital from 09:55-12:20).
--- NOTE | 2025-01-26 12:20 | CHAP ---
Addendum entered by Sim Austin 01/27/25 10:21: I forgot to include that the patient was prayed for and also received communion from the Spiritual care Voluinteer. Original Note: Patient was visited by the Spiritual Care Volunteer who prayed silently for them. (Volunteer was in the hospital from 09:55-12:20).
--- NOTE | 2025-01-31 15:15 | CTCTRTNOTE_ITS ---
[facility] [address] [place], [place] [address] Weekly Management Date: 01/31/2025 ?? Name: BANDAR GARCIADULCE PepperB.: 1950 A. Patient is currently at 1200 cGy. Labs 6.7 WBC hemoglobin 9.1 platelets 311 B. Patient is tolerating treatment well. C. Resume radiation therapy. Completes XRT next week. Electronically signed by: Vic Sotelo M.D. 01/31/2025 3:12 PM
[2025-01-31 15:27] LABS: Basophils # (Auto) 0.1 Thou/mm3 (0.0-0.2); Basophils % (Auto) 1 % (0-2.5); Eosinophils % (Auto) 0 % (0-10); Hematocrit 24.5 % (36.0-46.0); Immature Granulocytes % (Auto) 7 % (0-0); Immature Granulocytes Auto 0.67 Thou/mm3 (0.00-0.00); Lymphocytes # (Auto) 2.4 Thou/mm3 (1.0-4.8); Lymphocytes % (Auto) 24 % (10-50); Mean Corpuscular HGB Conc 32.7 g/dl (31.0-37.0); Mean Corpuscular Hemoglobin 30.7 pg (25.0-35.0); Mean Corpuscular Volume 94 fL (80-100); Monocytes # (Auto) 0.9 Thou/mm3 (0.0-0.8); Monocytes % (Auto) 9 % (0-12); Neutrophils % (Auto) 60 % (37-80); Nucleated Red Blood Cell # 0.04 Thou/mm3 (0.00-0.00); Nucleated Red Blood Cell % 0 /100 WBC (0); Platelet Count 435 Thou/mm3 (140-440); RDW Standard Deviation 57.5 fL (36.4-46.3); Red Blood Count 2.61 Miln/mm3 (4.00-5.20); White Blood Count 10.1 Thou/mm3 (3.6-11.0)
[2025-01-31 15:57] LABS: Alanine Aminotransferase 36 U/L (10-49); Albumin, Serum 3.5 gm/dL (3.4-4.8); Albumin/Globulin Ratio 1.5 (1.2-2.2); Alkaline Phosphatase 486 U/L (46-116); Anion Gap 8 (7-16); Aspartate Amino Transferase 41 U/L (0-34); BUN/Creatinine Ratio 18 Ratio (12-20); Bilirubin,Total 0.3 mg/dL (0.3-1.2); Blood Urea Nitrogen 7 mg/dL (9-23); Calcium 8.1 mg/dL (8.3-10.6); Calcium (Corrected) 8.5 mg/dL (8.5-10.1); Carbon Dioxide 22.5 mMol/L (20.0-31.0); Chloride 105 mMol/L (98-107); Creatinine (Component) 0.4 mg/dL (0.6-1.3); Globulin 2.3 gm/dL (2.3-3.5); Glucose 182 mg/dL (74-106); Osmolality,Calculated 273 (275-295); Potassium 3.6 mMol/L (3.4-5.1); Sodium 135 mMol/L (136-145); Total Protein 5.8 gm/dL (5.7-8.2); eGFR > 60 See Note
[2025-02-06 07:03] LABS: CA 19-9 Antigen* 5549 U/mL (<34)
[2025-02-06 11:37] LABS: Hematocrit 23.5 % (36.0-46.0)
[2025-02-06 11:49] LABS: Free T4 (Free Thyroxine) 1.31 ng/dL (0.89-1.76); Thyroid Stimulating Hormone 0.89 uIU/mL (0.55-4.78)
[2025-02-06 12:29] LABS: Hemoglobin 8.1 g/dL (12.0-16.0)
[2025-02-14 11:17] LABS: Basophils % (Auto) 1 % (0-2.5); Eosinophils # (Auto) 0.1 Thou/mm3 (0.0-0.5); Eosinophils % (Auto) 2 % (0-10); Hematocrit 26.2 % (36.0-46.0); Immature Granulocytes % (Auto) 3 % (0-0); Immature Granulocytes Auto 0.08 Thou/mm3 (0.00-0.00); Lymphocytes % (Auto) 39 % (10-50); Mean Corpuscular HGB Conc 33.2 g/dl (31.0-37.0); Mean Corpuscular Hemoglobin 30.7 pg (25.0-35.0); Mean Corpuscular Volume 93 fL (80-100); Monocytes # (Auto) 0.4 Thou/mm3 (0.0-0.8); Monocytes % (Auto) 15 % (0-12); Neutrophils # (Auto) 1.1 Thou/mm3 (1.8-7.7); Neutrophils % (Auto) 40 % (37-80); Nucleated Red Blood Cell % 0 /100 WBC (0); Platelet Count 331 Thou/mm3 (140-440); RDW Standard Deviation 62.3 fL (36.4-46.3); Red Blood Count 2.83 Miln/mm3 (4.00-5.20)
[2025-02-14 11:23] LABS: Alanine Aminotransferase 28 U/L (10-49); Albumin, Serum 3.7 gm/dL (3.4-4.8); Albumin/Globulin Ratio 1.8 (1.2-2.2); Alkaline Phosphatase 570 U/L (46-116); Anion Gap 6 (7-16); Aspartate Amino Transferase 31 U/L (0-34); BUN/Creatinine Ratio 20 Ratio (12-20); Bilirubin,Total 0.4 mg/dL (0.3-1.2); Blood Urea Nitrogen 8 mg/dL (9-23); Calcium (Corrected) 8.2 mg/dL (8.5-10.1); Carbon Dioxide 25.9 mMol/L (20.0-31.0); Chloride 109 mMol/L (98-107); Creatinine (Component) 0.4 mg/dL (0.6-1.3); Globulin 2.1 gm/dL (2.3-3.5); Glucose 192 mg/dL (74-106); Osmolality,Calculated 284 (275-295); Potassium 3.4 mMol/L (3.4-5.1); Sodium 141 mMol/L (136-145); Total Protein 5.8 gm/dL (5.7-8.2); eGFR > 60 See Note
[2025-02-14 11:37] LABS: Hemoglobin 8.7 g/dL (12.0-16.0); White Blood Count 2.7 Thou/mm3 (3.6-11.0)
[2025-02-15 09:41] LABS: Basophils # (Auto) 0.2 Thou/mm3 (0.0-0.2); Basophils % (Auto) 1 % (0-2.5); Eosinophils # (Auto) 0.1 Thou/mm3 (0.0-0.5); Eosinophils % (Auto) 0 % (0-10); Hematocrit 27.3 % (36.0-46.0); Immature Granulocytes % (Auto) 4 % (0-0); Immature Granulocytes Auto 0.75 Thou/mm3 (0.00-0.00); Lymphocytes # (Auto) 1.7 Thou/mm3 (1.0-4.8); Lymphocytes % (Auto) 8 % (10-50); Mean Corpuscular HGB Conc 32.2 g/dl (31.0-37.0); Mean Corpuscular Hemoglobin 30.7 pg (25.0-35.0); Mean Corpuscular Volume 95 fL (80-100); Monocytes # (Auto) 1.1 Thou/mm3 (0.0-0.8); Monocytes % (Auto) 5 % (0-12); Neutrophils # (Auto) 17.2 Thou/mm3 (1.8-7.7); Neutrophils % (Auto) 82 % (37-80); Nucleated Red Blood Cell % 0 /100 WBC (0); Platelet Count 386 Thou/mm3 (140-440); Red Blood Count 2.87 Miln/mm3 (4.00-5.20)
[2025-02-15 09:43] LABS: Hemoglobin 8.9 g/dL (12.0-16.0)
[2025-02-15 10:01] LABS: Alanine Aminotransferase 34 U/L (10-49); Albumin, Serum 3.7 gm/dL (3.4-4.8); Albumin/Globulin Ratio 1.7 (1.2-2.2); Alkaline Phosphatase 581 U/L (46-116); Anion Gap 10 (7-16); Aspartate Amino Transferase 40 U/L (0-34); BUN/Creatinine Ratio 15 Ratio (12-20); Bilirubin,Total 0.3 mg/dL (0.3-1.2); Blood Urea Nitrogen 6 mg/dL (9-23); Calcium 8.2 mg/dL (8.3-10.6); Calcium (Corrected) 8.4 mg/dL (8.5-10.1); Carbon Dioxide 23.3 mMol/L (20.0-31.0); Chloride 108 mMol/L (98-107); Creatinine (Component) 0.4 mg/dL (0.6-1.3); Globulin 2.2 gm/dL (2.3-3.5); Glucose 153 mg/dL (74-106); Osmolality,Calculated 281 (275-295); Potassium 4.1 mMol/L (3.4-5.1); Sodium 141 mMol/L (136-145); Total Protein 5.9 gm/dL (5.7-8.2); eGFR > 60 See Note
--- NOTE | 2025-02-16 14:18 | CTCFLWUP_ITS ---
Patient: ELIZABETH JUAREZ : 1950 Page 2 of 2 FOLLOW UP NOTE DATE OF SERVICE: 02/13/2025 NAME: ELIZABETH JURAEZ ACCOUNT: [id number] : 1950 AGE: 75 INTERVAL HISTORY: Subjective: Chief Complaint Pain in feet due to neuropathy, weakness, vision problems, abdominal pain, loss of appetite History of Present Illness Elizabeth is a female patient with pancreatic cancer presenting for follow-up. She reports feeling generally weak with pain in her feet, decreased appetite, and vision changes. The patient describes feeling weak overall. She is experiencing pain in her feet, which is attributed to neuropathy from chemotherapy. The pain is characterized as a constant burning sensation. Elizabeth also reports a decrease in appetite and is not feeling hungry. She mentions changes in her vision, stating it is not that good. Elizabeth notes some improvement in her abdominal pain, which is likely related to her pancreatic cancer. She previously experienced severe pain in this area, but it has improved, possibly due to the cancer responding to treatment. The patient also mentions having very bad spinal stenosis, which causes pain in her leg. Regarding treatment adherence, Elizabeth continues to take her prescribed blood thinner, Eliquis, twice daily. She is currently undergoing chemotherapy and reports feeling weak as a side effect. The patient denies receiving radiation therapy. The patient's weight changes are unclear, as she is unsure if she has gained or lost weight. Her sister assists with medication management. Elizabeth's overall functioning appears to be limited due to weakness and pain, but specific impacts on daily activities are not detailed. Medications and Supplements - Eliquis (blood thinner) - 10 mg twice daily for first 20 days - 5 mg twice daily after 20 days - Administered by patient's sister - Chemotherapy - Causing neuropathy, numbness, tingling, and burning sensation in feet - Causing weakness - Affecting vision Review of Systems General: Positive for weakness and decreased appetite. HEENT: Positive for vision changes. Gastrointestinal: Positive for abdominal pain and feeling of emptiness in stomach. Musculoskeletal: Positive for foot pain. Neurological: Positive for neuropathy with numbness, tingling, and burning sensation in feet. Objective: Laboratory, Imaging, and Diagnostic Test Results - Date: November 2024 (treatment start) - Tumor marker (CA 19-9): 30,000 - Date: January 2025 (current) - Tumor marker (CA 19-9): 5,000 ONCOLOGY HISTORY: DIAGNOSIS: Malignant neoplasm of head of pancreas [ICD10] C25.0 DATE OF DIAGNOSIS: July 2023 STAGE/TNM: Pancreatic adenocarcinoma advanced TREATMENT HISTORY: Care?Plan Start?Date Cycle Day Intent GemAbrax 10/20/2023 1 28 Curative?(primary) 5fu?chemoradiation 07/11/2024 1 7 Definitive modified?FOLFIRINOX?manjit?3?pancreas 12/14/2024 1 14 Palliative HISTORY OF PRESENT ILLNESS: Elizabeth Juarez is a 75-year-old SPA speaking for female with diagnosed pancreatic adenocarcinoma. Ms. Juarez is a poor historian. She is accompanied by her granddaughter who also does not know the history of Ms. Juarez's illness. Early part of June 2023: Ms. Juarez was found to have jaundice. She was admitted to [facility] and subsequently transferred to [facility] in [place]. On scans she was found to have a mass in the pancreas. According to the granddaughter patient had CT-guided biopsy of the pancreatic mass and external biliary drain was placed. Patient has subsequently improved. She stayed at [facility] for about 2 weeks. Discharged on 07 August 2023. I do not have any records from [facility]. According to the granddaughter the pancreatic cancer is localized to the pancreas. 08/24/2023: T. bili 4.8, AST 118, ALT 147, alkaline phosphatase 264, CA 19?9 is 66. 08/31/2023: T. bili 3.3, AST 81, ALT 102, alk phos 297 09/03/2023: PET/CT scan? 10/20/2023 - 12/02/2023: Ms. Juarez received 2 cycles of gemcitabine and Abraxane in the neoadjuvant setting. CA 19?9 trend: 10/19/2023: 59 10/26/2023: 49 11/03/2023: 32 11/17/2023: 39 11/24/2023: 35 12/01/2023: 34. 12/28/2023: PET/CT scan? 01/11/2024: CT scan of the chest without IV contrast done 02/03/2024: CA 19?9 is 107. 02/10/2024: CA 19?9 is 126. 02/11/2024: Ms. Juarez had cycle 3-day 8 of gemcitabine and Abraxane. 04/21/2024: Ms. Juarez had 5 cycles of gemcitabine and Abraxane 05/17/2024: CT scan of the chest abdomen and pelvis with IV contrast 05/23/2024: MRI of the abdomen with and without IV contrast OTHER MEDICAL HISTORY/CONDITIONS: PANCRATIC CA ASTHMA HIGH BLOOD PRESSURE BILAT?TUBAL?LIGATION FAMILY HISTORY: Children:?BREAST??DAUGHTER Cancer History:?UNCLE PROSATE/ UNCLE STOMACH SOCIAL HISTORY: Occupational?History:?RETIRED Education?Level:?Completed something less than 8th grade Marital?Status:? Tobacco?Pack?per?Day:?0 Social History Note:?LIVES WITH AND SON BRAZER CONTROLLED ATMOSPHERIC FURNACE HISTORY: Menarche?-?Age:?13 Menopause:?43 Hormone?Use:?DENIES :?9 Live?Births:?6 Age?1st?:?20 Gynecological?Note?2:?MISCARRIAGE MEDICATIONS: 1. Centrum Silver Women - 8 mg iron-400 mcg-50 mcg 30 tab Daily 2. Compazine - 10 mg 10 mg three times a day prn nausea 3. dexamethasone - 4 mg 1 tab twice Daily 4. dexamethasone - 4 mg 1 tab Twice a Day 5. Imodium A-D - 2 mg 1 tab as needed 6. K-Tab - 20 mEq 1 tab Daily 7. megestrol - 40 mg 1 tab Daily 8. methimazole - 5 mg Daily 9. pantoprazole - 40 mg Twice a Day 10. prednisone - 10 mg 1 tab Daily 11. propranolol - 20 mg 1 tab Twice a Day 12. Protonix - 20 mg 1 tab Daily 13. Remeron - 15 mg 1 tab Daily 14. Zofran - 8 mg 8 mg three times a day prn nausea Medications Last Reconciled by Nkechi Lutz MA on 02/13/2025 ALLERGIES: hydrocodone-acetaminophen; hydrocodone-acetaminophen REVIEW OF SYSTEMS: A complete 14-point review of systems was performed and is negative except as noted in interval history. PHYSICAL EXAMINATION: VITAL SIGNS: Temperature?99.9, B/P?110/65, Oxygen?Saturation?99% PAIN: 2 - Mild pain ECOG Performance Status: 0 - Asymptomatic and fully active EYE: Conjunctivae is white MOUTH: Oral cavity is dry. CHEST: Clear to auscultation. No wheezes or rales audible. CARDIAC: Rhythm regular, no murmurs or gallops present. ABDOMEN: Soft. No hepatomegaly. No splenomegaly. Ms. Juarez has external biliary drain which seems to be functioning well. EXTREMITIES: No pedal edema or cyanosis. LABORATORY DATA: I have personally reviewed and interpreted each of the patient?s relevant lab tests, abnormal findings are below: Date 02/14/25 02/15/25 ??WHITE?BLOOD?COUNT?(Thou/mm3) 2.7?L 21.0?H ??RED?BLOOD?COUNT?(Miln/mm3) 2.83?L 2.87?L ??HEMOGLOBIN?(gm/dl) 8.7?L 8.9?L ??HEMATOCRIT?(%) 26.2?L 27.3?L ??PLATELET?COUNT?(Thou/mm3) 331 386 ??NEUTROPHILS?%,?AUTO?(%) 40 82?H ??LYMPH?%,?AUTO?(%) 39 8?L ??NEUTROPHILS,?AUTO?(Thou/mm3) 1.1?L 17.2?H ??GLUCOSE,RANDOM?(mg/dL) 192?H 153?H ??BLOOD?UREA?NITROGEN?(mg/dL) 8?L 6?L ??CREATININE?(mg/dL) 0.40?L 0.40?L ??SODIUM?(mmol/L) 141 141 ??POTASSIUM?(mmol/L) 3.4 4.1 ??CHLORIDE?(mmol/L) 109?H 108?H ??CrCl?(CandG)?(ml/min) 78.10 77.09 ??AST/SGOT?(Unit/L) 31 40?H ??ALT/SGPT?(Unit/L) 28 34 ??ALKALINE?PHOSPHATASE?(Unit/L) 570?H 581?H ??BILIRUBIN,?TOTAL?(mg/dL) 0.4 0.3 ??PROTEIN?TOTAL?(gm/dl) 5.8 5.9 ??ALBUMIN,?SERUM?(gm/dl) 3.7 3.7 ??GLOBULIN?(gm/dl) 2.1?L 2.2?L ??ALBUMIN/GLOBULIN?RATIO 1.8 1.7 ??CALCIUM,?SERUM?(mg/dL) 8.0?L 8.2?L ??CALCIUM?SERUM?(CORRECTED)?(mg/dL) 8.2?L 8.4?L ASSESSMENT/PLAN: Adenocarcinoma pancreas Initially treated with 5 cycles of neoadjuvant Abraxane gem Cytovene with a plan to do surgery Patient was found to have progression and no surgery was offered and radiation was started Patient started on 5-FU plus radiation and complete last treatment was given on 08/17/2024 Patient's CA 19 9 is now is about 10,000 Patient has been very reluctant to do chemotherapy I will dose dose reduction by 20 to make it more tolerable for patient Pancreatic cancer patient with recent hospitalization for blood infection, currently undergoing chemotherapy and radiation therapy, presenting with fatigue, sadness, and right leg swelling. Pancreatic Cancer Assessment: Patient has pancreatic cancer and is currently undergoing chemotherapy. Recent chemotherapy was interrupted due to a blood infection requiring hospitalization. The patient restarted chemotherapy last week. CA 19-9 levels have been fluctuatin in September, 7400 in December, and most recently 10158. The increase in CA 19-9 levels suggests disease progression during the treatment break. The current chemotherapy regimen is described as very strong and was showing efficacy before the interruption, with the potential to achieve remission if continued. Radiation therapy has been administered, but its efficacy in this type of cancer is limited. Plan: - Resume chemotherapy treatment - Schedule chemotherapy sessions every 2 weeks - Monitor CA 19-9 levels closely - Avoid prolonged breaks in chemotherapy treatment - Consider hospice care if patient's condition deteriorates - Educate patient and family about the importance of consistent chemotherapy for disease control Right Leg Swelling Assessment: Patient reports swelling in the right leg with associated pain. Given the patient's pancreatic cancer diagnosis, there is a high risk of deep vein thrombosis (DVT). Previous examinations in the hospital did not provide conclusive results regarding the presence of a blood clot. Plan: - Urgent ultrasound of the right leg to rule out DVT - Advise against massaging the affected leg until DVT is ruled out - If ultrasound is negative for DVT, can consider gentle massage for symptom relief - Recommend elevation of the affected leg as tolerated Assessment and Plan: Elizabeth, a female patient with pancreatic cancer, presents with neuropathy, weakness, and decreased appetite while undergoing chemotherapy treatment. Pancreatic Cancer Assessment: Patient is currently undergoing chemotherapy for pancreatic cancer. Treatment initiated in November with initial tumor marker (CA 19-9) of 30,000, which has now decreased to 5,000 after 3 treatments. This significant reduction indicates a positive response to the current chemotherapy regimen. The patient reports feeling weak, experiencing vision changes, and having decreased appetite. Pain levels have improved, likely due to tumor shrinkage. Plan: - Continue current chemotherapy regimen - Monitor CA 19-9 levels - Once CA 19-9 reaches 0, perform imaging studies to assess for residual cancer - Consider referral to Dr. Peng for further management if imaging shows no evidence of disease - Encourage small, frequent meals (6-7 times per day) to combat weakness and maintain nutrition - Reassess at next chemotherapy session Chemotherapy-induced Peripheral Neuropathy Assessment: Patient is experiencing neuropathy as a side effect of chemotherapy, manifesting as numbness, tingling, and burning sensation in the feet. This is consistent with chemotherapy-induced peripheral neuropathy, a common adverse effect of certain chemotherapeutic agents. Plan: - Continue to monitor neuropathy symptoms - Educate patient on neuropathy management strategies Venous Thromboembolism Prophylaxis Assessment: Patient is currently on anticoagulation therapy with Eliquis (apixaban) for thromboembolism prophylaxis, which is common in cancer patients due to their increased risk of venous thromboembolism. Plan: - Continue Eliquis (apixaban) 10 mg PO BID for the first 20 days, then 5 mg PO BID thereafter - Ensure patient's sister continues to assist with medication administration Spinal Stenosis Assessment: Patient has a history of severe spinal stenosis, contributing to leg pain. This condition is separate from the cancer-related symptoms but may compound overall discomfort. Plan: - Continue current management for spinal stenosis (specific interventions not discussed) - Monitor for changes in leg pain and functionality ORDERS: Order # Description [id number] CBC with Auto Diff + Comprehensive Metabolic Panel + CA 19-9 [id number] CBC with Auto Diff + Comprehensive Metabolic Panel + CA 19-9 [id number] CBC with Auto Diff + Comprehensive Metabolic Panel + CA 19-9 [id number] CBC with Auto Diff + Comprehensive Metabolic Panel + CA 19-9 [id number] CBC with Auto Diff + Comprehensive Metabolic Panel + CA 19-9 [id number] CBC with Auto Diff + Comprehensive Metabolic Panel + CA 19-9 [id number] CBC with Auto Diff + Comprehensive Metabolic Panel + CA 19-9 [id number] CBC with Auto Diff + Comprehensive Metabolic Panel + CA 19-9 [id number] CBC with Auto Diff + Comprehensive Metabolic Panel + CA 19-9 RETURN TO CLINIC: BILLING AND COMPLIANCE: I reviewed external records from providers outside my specialty as summarized above. I spent a total of 50 minutes on this patient?s care on the day of their visit excluding time spent related to any billed procedures. This time includes time spent with the patient as well as time spent documenting in the medical record, reviewing patients records and tests, obtaining history, placing orders, communicating with other healthcare professionals, counseling the patient, family or caregiver, and/or care coordination for the diagnoses above. Electronically Signed by: Desmond Odell MD T: 1:08 PM CC: PCP: Neena Bermeo Referring: Neena Bermeo This document was completed utilizing speech recognition software. Grammatical errors, random word insertions, pronoun errors, and incomplete sentences are an occasional consequence of this system due to software limitations, ambient noise, and hardware issues. Any formal questions or concerns about the content, text or information contained within the body of this dictation should be directly addressed to the provider for clarification.
[2025-02-21 06:58] LABS: CA 19-9 Antigen* 5190 U/mL (<34)
[2025-02-21 13:39] LABS: Hematocrit 27.7 % (36.0-46.0); Hemoglobin 9.2 g/dL (12.0-16.0)
== END 2025-02-25 23:59 | disposition home or self-care (01) ==
LOC: SCTC 14:26
PROVIDERS: PCP Family Medicine; Referring Provider Family Medicine; Visit Provider Internal Medicine Hematology & Oncology
DX: Z51.0 Encounter for antineoplastic radiation therapy (principal); Z51.11 Encounter for antineoplastic chemotherapy; C25.0 Malignant neoplasm of head of pancreas; R22.41 Localized swelling, mass and lump, right lower limb; G62.0 Drug-induced polyneuropathy; T45.1X5D Adverse effect of antineoplastic and immunosuppressive drugs, subsequent encounter; M48.00 Spinal stenosis, site unspecified; R53.1 Weakness
CPT/HCPCS: 36591; 77336; 77385; 80053; 84439; 84443; 85014; 85018; 85025; 86301; 96360; 96367; 96368; 96372; 96375; 96413; 96415; 96416; 96417; 99213; A4216; J0461; J0640; J1100; J1453; J1642; J2405; J2997; J7030; J7040; J7050; J7060; J9190; J9206; J9263; Q5101; A9270; G0463

== ENCOUNTER 2025-03-05 11:37 | Emergency (ER) | payer OTHER, MEDICAID, SELFPAY ==
[2025-03-05 11:37] VITALS: BMI 20.4
[2025-03-05 11:48] VITALS: BP 108/66; PULSE 108; RESP 16; TEMP 37.1; O2SAT 99
--- NOTE | 2025-03-05 12:13 | PD.EDABDPN ---
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 Currently with external biliary drain, normal output at this time. Only taking tramadol 50 for pain. States is afraid to take stronger medication. Has nausea medicine at home. No fever no shortness of breath. Family worries about placement of drain or worsening progression of the cancer to the abdomen. Patient complains of back pain and abdominal pain along where the drain is. Of note patient is aware of metastasis to L-spine. Related Data Home Medications ?Medication ?Instructions ?Recorded ?Confirmed lipase 60,000-protease 1 cap PO TIDWM 01/22/25 01/22/25 189,600-amylase 252,600 unit capsule, delay rel (Zenpep) megestrol 40 mg tablet 40 mg PO DAILY 01/22/25 01/22/25 methimazole 5 mg tablet 5 mg PO DAILY 01/22/25 01/22/25 mirtazapine 15 mg tablet 15 mg PO .QHS 01/22/25 01/22/25 todhhtys-fict-zbjf 8 mg-folic 400 1 tab PO QDAY 01/22/25 01/22/25 mcg-K 50 mcg-lutein 300 mcg tablet ([facility] 50 Plus) omeprazole 20 mg capsule,delayed 20 mg PO DAILY 01/22/25 01/22/25 release ondansetron HCl 8 mg tablet 8 mg PO TID PRN nausea and vomiting 01/22/25 01/22/25 potassium chloride 20 mEq 20 meq PO DAILY 01/22/25 01/22/25 tablet,extended release prednisone 10 mg tablet 10 mg PO DAILY 01/22/25 01/22/25 propranolol 20 mg tablet 20 mg PO BID 01/22/25 01/22/25 Previous Rx's ?Medication ?Instructions ?Recorded acetaminophen 500 mg capsule 500 mg PO Q6H PRN pain (scale 08/11/19 score 4-6) #30 caps docusate sodium 100 mg capsule 100 mg PO BID #30 caps 03/05/25 (Colace) morphine 15 mg tablet,extended 15 mg PO .24h #10 tabs 03/05/25 release (MS Contin) morphine 30 mg capsule,extended 30 mg PO Q24H pain #7 caps 03/05/25 release 24 hr multiphase Allergies Allergy/AdvReac Type Severity Reaction Status Date / Time acetaminophen (From [place]) Allergy Severe Abdominal Verified 03/05/25 11:40 Pain hydrocodone (From [place]) Allergy Severe Abdominal Verified 03/05/25 11:40 Pain Review of Systems Review of Systems Systems Reviewed: All systems reviewed, normal except as documented Gastrointestinal Gastrointestinal: Reports abdominal pain Genitourinary Genitourinary: Denies urinary frequency Musculoskeletal Musculoskeletal: Denies atrophy ED Exam General Limitations: Present no limitations General appearance: Present alert and in no apparent distress Eye Eye exam: Present normal appearance, PERRL and EOMI Respiratory Respiratory exam: Present normal lung sounds bilaterally Cardiovascular Cardiovascular exam: Present regular rate, normal rhythm and normal heart sounds Abdominal Exam Abdominal exam: Present tenderness (Right upper quadrant tenderness along where extrabiliary drain is. With adequate output. Also right CVAT.) and normal bowel sounds Extremities Exam Extremities exam: Present normal inspection and full ROM Back Exam Back exam: Present normal inspection, full ROM and tenderness (Lumbar TTP slow range of motion) Psychiatric Psychiatric exam: Present normal affect and normal mood Skin Skin exam: Present warm, dry, intact and normal color Course Quality Measures none Orders Category Date Time Status CT Screening NOW Care 03/05/25 12:26 Completed IV [Insert IV] NOW Care 03/05/25 12:[address] abdomen pelvis w con Stat Exams 03/05/25 12:24 Completed CBC Stat Lab 03/05/25 12:38 Completed CMP [Comprehensive Metabolic Panel] Stat Lab 03/05/25 12:38 Completed Lipase Stat Lab 03/05/25 12:38 Completed Morphine Inj Med 03/05/25 12:31 Discontinued 4 mg IVP Q1H PRN Morphine Inj Med 03/05/25 15:54 Discontinued 5 mg IVP X1 ONE Ringers Lactated 1000 ml [Lactated Ringers] 1,000 ml Med 03/05/25 13:18 Discontinued IV 999 mls/hr Ringers Lactated 500 ml [Lactated Ringers] 500 ml Med 03/05/25 12:24 Discontinued IV 999 mls/hr Reevaluation(s) Reevaluation #1: 1553, bedside evaluation patient is having some breakthrough pain requesting another dose of medication prior to discharge. Long conversation with patient, and 2 family members at bedside regarding increasing the medication for metastatic pancreatic cancer. Agrees to home morphine along with tramadol for breakthrough pain. Gave copy of CT scan for her to show PCP and oncologist. Reevaluation #2: . Vital Signs Vital signs: Vital Signs Temperature 98.8 F 03/05/25 11:48 Pulse Rate 108 H 03/05/25 11:48 Respiratory Rate 16 03/05/25 11:48 Blood Pressure 108/66 03/05/25 11:48 Pulse Oximetry (%) 99 03/05/25 11:48 Oxygen Delivery Method Room Air 03/05/25 11:48 Abdominal Pain MDM MDM Narrative MDM Narrative:: 75-year-old female evaluated for worsening prognosis of her metastatic pancreatic cancer. Labs are stable given her diagnosis. No new findings of concern. Discussed with family and patient should increase pain control given metastatic cancer. Shared decision with family and patient to increase to morphine sulfate. Along with tramadol for home. Advised follow-up with oncologist and PCP return to ER if symptoms worsen. Patient data External records reviewed:: [facility] previous records Clinical information provided by:: patient and family Social determinants that could affect healthcare access:: other (specify) ([place] speaker encounter performed in [place], poor comprehension of prognosis with pancreatic cancer making it difficult for her to make decisions. ) Patient has the following chronic illnesses:: Pancreatic cancer with mets How is presenting disease/condition affected by chronic disease/condition?: caused by Evaluation data The following diagnostics were reviewed and interpreted by me:: lab results and radiology exam(s) Lab and/or radiology exams considered but not ordered:: Chest x-ray unlikely to change the prognosis or course of treatment today Interpretation Summary: No new findings other than small ileus but no bowel obstruction or appearance of surgical abdomen Medications / Prescriptions Medications or Prescriptions considered but not ordered:: Antibiotics were initially considered however no infectious process at this time noted Medication administrations:: Medication Administration History Discontinued Medications Lactated Ringer's (Lactated Ringers) 500 mls @ 999 mls/hr IV .Q31M ONE Stop: 03/05/25 12:54 Last Admin: 03/05/25 13:19 Dose: Not Given Documented By: SAMANTHA Non-Admin Reason: Discontinued Lactated Ringer's (Lactated Ringers) 1,000 mls @ 999 mls/hr IV .Q1H1M ONE Stop: 03/05/25 14:18 Last Infusion: 03/05/25 14:45 Dose: Infused Documented By: Admin: 03/05/25 13:20 Dose: 999 mls/hr Documented By: SAMANTHA Morphine Sulfate (Morphine Sulf Inj 10 Mg/Ml Vial) 4 mg IVP Q1H PRN PRN Reason: cancer related pain Stop: 03/06/25 12:30 Last Admin: 03/05/25 13:19 Dose: 4 mg Documented By: SAMANTHA Morphine Sulfate (Morphine Sulf Inj 10 Mg/Ml Vial) 5 mg IVP X1 ONE Stop: 03/05/25 15:55 Last Admin: 03/05/25 16:22 Dose: 5 mg Documented By: SAMANTHA Patient tolerated 2 rounds of morphine and discussed morphine oral for home for breakthrough pain along with her tramadol. Consultations Consultation(s) initiated? (list below): Yes Consultation #1 (Physician, Specialty, Details): Case was discussed with supervising physician Dr. Higgins, agrees with plan for disposition reviewed CT findings none of which are acute or require admission today Diagnosis Differential diagnosis abdominal pain: abdominal pain, acute appendicitis, calculus of kidney, constipation, diverticulitis, gastroenteritis, pancreatitis and other (No metastasis of abdomen, small bowel obstruction) Most likely diagnosis given after review of the tests above:: Acute on chronic cancer related pain Admission Indicated Admission indicated?: not indicated Admission Request Was there a request for admission?: No Disposition Plan Disposition Plan: Discharge Discharge Attestation Discharge Attestation: The patient and all family members were given an opportunity to ask questions and understood the discharge instructions. Discharge instructions specifically effects, indications for sooner follow up or return to the emergency department, and the expected course of current diagnosis. Patient condition: Stable Discharge Plan Plan Patient Disposition: HOME (Self Care) Discharge Disposition comment: f.u with pcp in 2-3days Prescriptions/Referrals Prescriptions/Med Rec: New morphine 30 mg capsule, ER multiphase 24 hr 30 mg PO Q24H MDD 1 Qty: 7 0RF Rx Instructions: already tolerated morphine while in ER 03/05/25 morphine [MS Contin] 15 mg tablet extended release 15 mg PO .24h MDD 1 Qty: 10 0RF docusate sodium [Colace] 100 mg capsule 100 mg PO BID Qty: 30 0RF No Action acetaminophen 500 mg capsule 500 mg PO Q6H PRN (Reason: pain (scale score 4-6)) Qty: 30 0RF megestrol 40 mg tablet 40 mg PO DAILY potassium chloride 20 mEq tablet extended release 20 meq PO DAILY Patient Comments: TAKE 2 TABLETS BY MOUTH TWICE DAILY FOR 2 DAYS THEN 1 ONCE DAILY AFTER [facility] Plus 8 mg iron-400 mcg-50 mcg tablet 1 tab PO QDAY mirtazapine 15 mg tablet 15 mg PO .QHS prednisone 10 mg tablet 10 mg PO DAILY omeprazole 20 mg capsule,delayed release(DR/EC) 20 mg PO DAILY methimazole 5 mg tablet 5 mg PO DAILY Patient Comments: TAKE 1 TABLET BY MOUTH ONCE DAILY ondansetron HCl 8 mg tablet 8 mg PO TID PRN (Reason: nausea and vomiting) Patient Comments: TAKE 1 TABLET BY MOUTH THREE TIMES DAILY NEEDED FOR NAUSEA propranolol 20 mg tablet 20 mg PO BID Zenpep 60,000-189,600- 252,600 unit capsule,delayed release(DR/EC) 1 cap PO TIDWM Problem List Clinical Impression: Primary pancreatic cancer with metastasis to other site, Abdominal pain, Metastatic cancer Patient/Caregiver Discharge Instructions Education Materials: Pancreatic Cancer Tx Dc, ED Pain, Acute, Uncertain Cause, ED Tumor, Uncertain Cause Print Language: [place] Stand Alone Forms: [place] Award Info., Patient Portal Info Letter PA/[employer] Supervising Physician PA/[employer] Supervising Physician: dr. Higgins
--- NOTE | 2025-03-05 12:24 | XR_ITS ---
Examination: CT abdomen with intravenous contrast CT pelvis with intravenous contrast 2-D coronal reconstructions 2-D sagittal reconstructions Date and time of exam:March 05, 2025 1356 hrs. Indications: Onset right-sided flank pain today, history pancreatic cancer, mass pancreatic head 4.[address] abdomen January 22, 2025. CTDI: vol (mGy) 4.99 DLP: (mGycm) 208 Technique: Multiple axial sections of the abdomen and pelvis have been obtained. 64 slice high-resolution scanner used. 3 mm axial sections have been obtained, post intravenous injection 60 cc [id number] 2-D sagittal, coronal reconstructions obtained. Low dose protocols were performed. One or more of the following dose reduction techniques were used; automated exposure control, adjustment of the mA and/or KV according to patient size, use of iterative reconstruction technique. Findings: Pneumobilia Transhepatic drainage tube No extrahepatic biliary tract dilatation The previous pancreatic head mass is not clearly depicted on the current exam Aorta is not enlarged The entire colon is diffusely abnormal, wall thickening and edema There are dilated small bowel loops in the lower abdomen Urinary bladder intact Atrophic uterus Widespread osseous metastatic disease with pathologic compression L4 with retropulsion of this vertebral body Impression: Transhepatic biliary drainage tube is in satisfactory position, the tip of the tube in small bowel No current extrahepatic biliary tract dilatation Severe nonspecific colitis pattern Small bowel ileus No definite bowel obstruction Widespread osseous metastatic disease including again retropulsion of the L4 vertebral body into the spinal canal
[2025-03-05 13:01] LABS: Basophils % (Auto) 0 % (0-2.5); Eosinophils % (Auto) 0 % (0-10); Hematocrit 31.7 % (36.0-46.0); Hemoglobin 10.4 g/dL (12.0-16.0); Immature Granulocytes % (Auto) 1 % (0-0); Immature Granulocytes Auto 0.09 Thou/mm3 (0.00-0.00); Lymphocytes # (Auto) 1.1 Thou/mm3 (1.0-4.8); Lymphocytes % (Auto) 11 % (10-50); Mean Corpuscular HGB Conc 32.8 g/dl (31.0-37.0); Mean Corpuscular Hemoglobin 30.4 pg (25.0-35.0); Mean Corpuscular Volume 93 fL (80-100); Monocytes # (Auto) 0.1 Thou/mm3 (0.0-0.8); Monocytes % (Auto) 1 % (0-12); Neutrophils # (Auto) 8.9 Thou/mm3 (1.8-7.7); Neutrophils % (Auto) 87 % (37-80); Nucleated Red Blood Cell % 0 /100 WBC (0); Platelet Count 366 Thou/mm3 (140-440); RDW Standard Deviation 57.3 fL (36.4-46.3); Red Blood Count 3.42 Miln/mm3 (4.00-5.20); White Blood Count 10.2 Thou/mm3 (3.6-11.0)
[2025-03-05 13:19] LABS: Alanine Aminotransferase 30 U/L (10-49); Albumin, Serum 3.8 gm/dL (3.4-4.8); Albumin/Globulin Ratio 2.2 (1.2-2.2); Alkaline Phosphatase 276 U/L (46-116); Anion Gap 9 (7-16); BUN/Creatinine Ratio 30 Ratio (12-20); Bilirubin,Total 0.4 mg/dL (0.3-1.2); Blood Urea Nitrogen 15 mg/dL (9-23); Calcium 8.5 mg/dL (8.3-10.6); Calcium (Corrected) 8.7 mg/dL (8.5-10.1); Carbon Dioxide 26.9 mMol/L (20.0-31.0); Chloride 103 mMol/L (98-107); Creatinine (Component) 0.5 mg/dL (0.6-1.3); Estimated Creatinine Clearance 57.4 mL/min (>60); Globulin 1.7 gm/dL (2.3-3.5); Glucose 161 mg/dL (74-106); Lipase 17 U/L (12-53); Osmolality,Calculated 281 (275-295); Potassium 3.9 mMol/L (3.4-5.1); Sodium 139 mMol/L (136-145); Total Protein 5.5 gm/dL (5.7-8.2); eGFR > 60 See Note
[2025-03-05] MEDS: MORPHINE SULF INJ 10 MG/ML VIAL 4 MG IVP (13:19)
[2025-03-05] MEDS: RINGERS LACTATED 1000 ML 1,000 ML 999 ML IV (13:20)
[2025-03-05 15:11] VITALS: BP 136/78; PULSE 80; RESP 16; TEMP 36.6; O2SAT 98
[2025-03-05] MEDS: MORPHINE SULF INJ 10 MG/ML VIAL 5 MG IVP (16:22)
[2025-03-05 16:38] VITALS: BP 128/70; PULSE 99; RESP 16; TEMP 36.6; O2SAT 99
--- NOTE | 2025-03-05 19:18 | PRELIM_ITS ---
CT scan of the abdomen and pelvis with intravenous contrast (axial sections with sagittal and coronal reformats) March 05, 2025 1356 hours Clinical History: Right flank pain, history of pancreatic CA, biliary drain Comparison: No prior study is available for comparison. Findings: Bibasilar streaky atelectasis is present. A small hiatal hernia is present. There is moderate pneumobilia. There is mild wall thickening of the gallbladder. There is percutaneous biliary drainage catheter with its tip in the jejunal bowel loops. There is pancreatic head mass extending to the ampulla causing distal biliary obstruction. The pancreatic duct is prominent. Atrophied pancreatic body and tail. There are few hepatic enhancing lesions, the largest in the left lobe of the liver, measuring 2 cm. There is a 1.2 cm right adrenal nodule, which may represent metastasis. The gallbladder, spleen, kidneys and left adrenals are unremarkable. No evidence of bowel obstruction. A moderate amount of fecal material is present in the colon. The appendix is within normal limits (images [id number] ). The urinary bladder is unremarkable. The uterus and adnexa are unremarkable. There is no free fluid or free air. The aorta and its branches demonstrate atheromatous calcification without evidence of aneurysm. The bones are osteopenic. Degenerative changes are identified in the spine. There are chronic appearing compression deformity of multiple vertebrae predominantly L4 with retropulsion. There are multiple sclerotic metastasis. Impression: 1. No evidence of renal/ureteric calculi or hydronephrosis. 2. Pancreatic head neoplastic mass with hepatic, right adrenal and bone metastasis. Recommend further evaluation. 3. Mild wall thickening of the gallbladder. Recommend further evaluation with sonography, if clinically indicated. 4. Other findings as described above. Report Electronically Signed By: Jose Zarco 03/05/2025 7:17:34 PM [EST]
== END 2025-03-05 16:39 | disposition home or self-care (01) ==
PROVIDERS: Physician Assistant; Emergency Provider Family Medicine; PCP Nurse Practitioner Family
DX: C25.0 Malignant neoplasm of head of pancreas (principal); C79.51 Secondary malignant neoplasm of bone
CPT/HCPCS: 36415; 74177; 80053; 81001; 83690; 85025; 96361; 96374; 96376; 99285; A4649; J2270; J7120; Q9967

== ENCOUNTER → 2025-03-16 | Outpatient (CLI) | payer OTHER, SELFPAY | END | disposition home or self-care (01) | PROVIDERS: PCP Physician Assistant; Referring Provider Physician Assistant; Visit Provider Student in an Organized Health Care Education/Training Program | DX: L89.312 Pressure ulcer of right buttock, stage 2 (principal); I82.409 Acute embolism and thrombosis of unspecified deep veins of unspecified lower extremity; M19.91 Primary osteoarthritis, unspecified site; Z85.07 Personal history of malignant neoplasm of pancreas | CPT/HCPCS: 99214; A9270; G0463 ==

== ENCOUNTER 2025-03-23 15:02 | Outpatient (RCR) | payer OTHER, MEDICAID, SELFPAY ==
[2025-02-28 13:50] LABS: Basophils % (Auto) 1 % (0-2.5); Eosinophils % (Auto) 0 % (0-10); Hematocrit 30.1 % (36.0-46.0); Hemoglobin 9.8 g/dL (12.0-16.0); Immature Granulocytes % (Auto) 11 % (0-0); Lymphocytes # (Auto) 0.8 Thou/mm3 (1.0-4.8); Lymphocytes % (Auto) 14 % (10-50); Mean Corpuscular HGB Conc 32.6 g/dl (31.0-37.0); Mean Corpuscular Hemoglobin 30.9 pg (25.0-35.0); Mean Corpuscular Volume 95 fL (80-100); Monocytes # (Auto) 0.3 Thou/mm3 (0.0-0.8); Monocytes % (Auto) 6 % (0-12); Neutrophils # (Auto) 3.8 Thou/mm3 (1.8-7.7); Neutrophils % (Auto) 69 % (37-80); Nucleated Red Blood Cell % 0 /100 WBC (0); Platelet Count 387 Thou/mm3 (140-440); RDW Standard Deviation 60.5 fL (36.4-46.3); Red Blood Count 3.17 Miln/mm3 (4.00-5.20); White Blood Count 5.5 Thou/mm3 (3.6-11.0)
[2025-02-28 14:09] LABS: Alanine Aminotransferase 27 U/L (10-49); Albumin, Serum 3.8 gm/dL (3.4-4.8); Alkaline Phosphatase 362 U/L (46-116); Anion Gap 15 (7-16); Aspartate Amino Transferase 20 U/L (0-34); BUN/Creatinine Ratio 30 Ratio (12-20); Bilirubin,Total 0.2 mg/dL (0.3-1.2); Blood Urea Nitrogen 15 mg/dL (9-23); Calcium 8.4 mg/dL (8.3-10.6); Calcium (Corrected) 8.6 mg/dL (8.5-10.1); Carbon Dioxide 22.3 mMol/L (20.0-31.0); Chloride 105 mMol/L (98-107); Creatinine (Component) 0.5 mg/dL (0.6-1.3); Globulin 1.9 gm/dL (2.3-3.5); Glucose 248 mg/dL (74-106); Osmolality,Calculated 291 (275-295); Sodium 142 mMol/L (136-145); Total Protein 5.7 gm/dL (5.7-8.2); eGFR > 60 See Note
[2025-03-06 06:42] LABS: CA 19-9 Antigen* 3651 U/mL (<34)
--- NOTE | 2025-03-14 01:10 | CTCFLWUP_ITS ---
Patient: ELIZABETH JUAREZ : 1950 Page 6 of 9 FOLLOW UP NOTE DATE OF SERVICE: 03/08/2025 NAME: ELIZABETH JUAREZ ACCOUNT: [id number] : 1950 AGE: 75 INTERVAL HISTORY: Subjective: Chief Complaint Follow-up for pancreatic cancer treatment, weakness, poor appetite, pain, heartburn History of Present Illness Elizabeth is a patient with pancreatic cancer presenting for follow-up after an ER visit for pain and a recent CT scan. Her pancreatic cancer marker has decreased from 30,950 to 3,500 since starting treatment. Elizabeth reports weakness and decreased appetite. Her weight has dropped from nearly 100 pounds to 88 pounds at her last measurement. She experiences cancer- related pain, for which she has been taking Toradol three times daily. Elizabeth also complains of heartburn, which persists despite taking medication twice daily. She is currently on chemotherapy, which appears to be effective based on the tumor marker reduction, but is causing side effects such as weakness and decreased appetite. Elizabeth recently visited the ER due to pain, where a CT scan was performed. Pain medication was prescribed but not administered during the ER visit. She continues to experience cancer pain, though the severity and specific characteristics are not detailed. Elizabeth is taking multiple medications, including some for heartburn and appetite stimulation (Remeron), but there appear to be overlapping prescriptions that require reconciliation. Medications and Supplements - Toradol - Taken three times a day - Being discontinued -Oxycodone - Replacing Toradol - Protonix - For heartburn - [place]-3s - Remeron - For increasing appetite - [place] - For pain - Oxycodone - For pain Review of Systems General: Positive for weakness, decreased appetite, and weight loss. Gastrointestinal: Positive for heartburn. Objective: Vital Signs - Weight: 88 pounds Laboratory, Imaging, and Diagnostic Test Results - Pancreatic cancer marker: 3,500 (down from 30,950 at treatment start) - CT scan: Performed on Thursday (date not specified) Review of Systems General: Positive for weakness and decreased appetite. HEENT: Positive for vision changes. Gastrointestinal: Positive for abdominal pain and feeling of emptiness in stomach. Musculoskeletal: Positive for foot pain. Neurological: Positive for neuropathy with numbness, tingling, and burning sensation in feet. Objective: Laboratory, Imaging, and Diagnostic Test Results - Date: November 2024 (treatment start) - Tumor marker (CA 19-9): 30,000 - Date: January 2025 (current) - Tumor marker (CA 19-9): 5,000 ONCOLOGY HISTORY:?[facility] On[facility] Hx? DIAGNOSIS: Malignant neoplasm of head of pancreas [ICD10] C25.0 DATE OF DIAGNOSIS: July 2023 STAGE/TNM: Pancreatic adenocarcinoma advanced TREATMENT HISTORY: Care?Plan Start?Date Cycle Day Intent GemAbrax 10/20/2023 1 28 Curative?(primary) 5fu?chemoradiation 07/11/2024 1 7 Definitive modified?FOLFIRINOX?manjit?3?pancreas 12/14/2024 1 14 Palliative HISTORY OF PRESENT ILLNESS: Elizabeth Juarez is a 75-year-old SPA speaking for female with diagnosed pancreatic adenocarcinoma. Ms. Juarez is a poor historian. She is accompanied by her granddaughter who also does not know the history of Ms. Juarez's illness. Early part of June 2023: Ms. Juarez was found to have jaundice. She was admitted to [facility] and subsequently transferred to [facility] in [place]. On scans she was found to have a mass in the pancreas. According to the granddaughter patient had CT-guided biopsy of the pancreatic mass and external biliary drain was placed. Patient has subsequently improved. She stayed at [facility] for about 2 weeks. Discharged on 07 August 2023. I do not have any records from [facility]. According to the granddaughter the pancreatic cancer is localized to the pancreas. 08/24/2023: T. bili 4.8, AST 118, ALT 147, alkaline phosphatase 264, CA 19?9 is 66. 08/31/2023: T. bili 3.3, AST 81, ALT 102, alk phos 297 09/03/2023: PET/CT scan? 10/20/2023 - 12/02/2023: Ms. Juarez received 2 cycles of gemcitabine and Abraxane in the neoadjuvant setting. CA 19?9 trend: 10/19/2023: 59 10/26/2023: 49 11/03/2023: 32 11/17/2023: 39 11/24/2023: 35 12/01/2023: 34. 12/28/2023: PET/CT scan? 01/11/2024: CT scan of the chest without IV contrast done 02/03/2024: CA 19?9 is 107. 02/10/2024: CA 19?9 is 126. 02/11/2024: Ms. Juarez had cycle 3-day 8 of gemcitabine and Abraxane. 04/21/2024: Ms. Juarez had 5 cycles of gemcitabine and Abraxane 05/17/2024: CT scan of the chest abdomen and pelvis with IV contrast 05/23/2024: MRI of the abdomen with and without IV contrast OTHER MEDICAL HISTORY/CONDITIONS: PANCRATIC CA ASTHMA HIGH BLOOD PRESSURE BILAT?TUBAL?LIGATION FAMILY HISTORY: Children:?BREAST??DAUGHTER Cancer History:?UNCLE PROSATE/ UNCLE STOMACH SOCIAL HISTORY: Occupational?History:?RETIRED Education?Level:?Completed something less than 8th grade Marital?Status:? 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 Centrum Silver Women - 8 mg iron-400 mcg-50 mcg 30 tab Daily 2. Compazine - 10 mg 10 mg three times a day prn nausea 3. Eliquis - 5 mg 1 tab Twice a Day 4. Imodium A-D - 2 mg 1 tab as needed 5. K-Tab - 20 mEq 1 tab Daily 6. megestrol - 40 mg 1 tab Daily 7. methimazole - 5 mg Daily 8. pantoprazole - 40 mg Twice a Day 9. Protonix - 20 mg 1 tab Daily 10. traMADol - 50 mg 1 tab three times a day 11. Zenpep - 60,000-189,600- 252,600 unit 1 Capsule As directed 12. Zofran - 8 mg 8 mg three times a day prn nausea?[place] Meds? Medications Last Reconciled by Nkechi Lutz MA on 02/13/2025 ALLERGIES: hydrocodone-acetaminophen; hydrocodone-acetaminophen REVIEW OF SYSTEMS: A complete 14-point review of systems was performed and is negative except as noted in interval history. PHYSICAL EXAMINATION:?CloneBlock PE? VITAL SIGNS: Temperature?98, B/P?131/80, Oxygen?Saturation?99% PAIN: 2 - Mild pain ECOG Performance Status: 2 - Symptomatic; ambulatory; capable of self-care; >50% of waking hrs. not in bed EYE: Conjunctivae is white MOUTH: Oral cavity is dry. CHEST: Clear to auscultation. No wheezes or rales audible. CARDIAC: Rhythm regular, no murmurs or gallops present. ABDOMEN: Soft. No hepatomegaly. No splenomegaly. Ms. Juarez has external biliary drain which seems to be functioning well. EXTREMITIES: No pedal edema or cyanosis. LABORATORY DATA: I have personally reviewed and interpreted each of the patient?s relevant lab tests, abnormal findings are below: Date 02/28/25 03/05/25 ??WHITE?BLOOD?COUNT?(Thou/mm3) 5.5 10.2 ??RED?BLOOD?COUNT?(Miln/mm3) 3.17?L 3.42?L ??HEMOGLOBIN?(gm/dl) 9.8?L 10.4?L ??HEMATOCRIT?(%) 30.1?L 31.7?L ??PLATELET?COUNT?(Thou/mm3) 387 366 ??NEUTROPHILS?%,?AUTO?(%) 69 87?H ??LYMPH?%,?AUTO?(%) 14 11 ??NEUTROPHILS,?AUTO?(Thou/mm3) 3.8 8.9?H ??GLUCOSE,RANDOM?(mg/dL) 248?H 161?H ??BLOOD?UREA?NITROGEN?(mg/dL) 15 15 ??CREATININE?(mg/dL) 0.50?L 0.50?L ??SODIUM?(mmol/L) 142 139 ??POTASSIUM?(mmol/L) 4.0 3.9 ??CHLORIDE?(mmol/L) 105 103 ??CrCl?(CandG)?(ml/min) 59.65 64.10 ??AST/SGOT?(Unit/L) 20 ? ??ALT/SGPT?(Unit/L) 27 30 ??ALKALINE?PHOSPHATASE?(Unit/L) 362?H 276?H ??BILIRUBIN,?TOTAL?(mg/dL) 0.2?L 0.4 ??PROTEIN?TOTAL?(gm/dl) 5.7 5.5?L ??ALBUMIN,?SERUM?(gm/dl) 3.8 3.8 ??GLOBULIN?(gm/dl) 1.9?L 1.7?L ??ALBUMIN/GLOBULIN?RATIO 2.0 2.2 ??CALCIUM,?SERUM?(mg/dL) 8.4 8.5 ??CALCIUM?SERUM?(CORRECTED)?(mg/dL) 8.6 8.7 ASSESSMENT/PLAN:?NessDavina Mensahinder Assessment/Plan? Adenocarcinoma pancreas Assessment and Plan: Elizabeth, a female patient with pancreatic cancer, presents for follow-up of chemotherapy treatment, experiencing weakness, poor appetite, and pain. Pancreatic Cancer Assessment: Patient's pancreatic cancer marker has significantly decreased from 30,950 to 3,500 since starting treatment, indicating a positive response to chemotherapy. However, the patient is experiencing treatment-related side effects, including weakness and poor appetite. Weight loss is noted, with the patient's weight decreasing from nearly 100 pounds to 88 pounds at the last measurement. A cancer-specific CT scan is needed to compare with previous imaging for accurate assessment of disease progression. Plan: - Continue current chemotherapy regimen - Consider dose reduction if necessary based on side effects - Order cancer-specific CT scan for comparison with previous imaging - Patient to schedule CT scan with radiology after receiving insurance letter - Administer IV fluids every other day or daily as needed - Follow-up appointment for hydration scheduled for tomorrow - Discontinue Toradol - Initiate Oxifodol for pain management - Start Protonix for heartburn - Continue omega-3 supplements and Remeron for appetite stimulation - Medication reconciliation to be performed by nursing staff - Patient to bring all current medications to next appointment for review Cancer-related Pain Assessment: Patient reports ongoing cancer-related pain, which was severe enough to warrant an ER visit. Pain management is currently suboptimal, with the patient taking Toradol three times daily. Plan: - Discontinue Toradol - Initiate Oxifodol for pain management - Offer choice between [place] or oxycodone for breakthrough pain Gastroesophageal Reflux Disease (GERD) Assessment: Patient reports persistent heartburn despite current medication regimen of an unspecified medication taken twice daily. Plan: - Initiate Protonix for GERD management - Educate patient on proper administration (take on an empty stomach in the morning) - Advise patient to avoid coffee and tea Malnutrition Assessment: Patient exhibits significant weight loss, poor appetite, and weakness, likely due to both cancer progression and chemotherapy side effects. Current weight is 88 pounds, down from nearly 100 pounds previously. Plan: - Continue Remeron for appetite stimulation - Continue omega-3 supplements - Administer IV fluids every other day or daily as needed - Follow-up appointment for hydration scheduled for tomorrowMedications and Supplements - Eliquis (blood thinner) - 10 mg twice daily for first 20 days - 5 mg twice daily after 20 days - Administered by patient's sister - Chemotherapy - Causing neuropathy, numbness, tingling, and burning sensation in feet - Causing weakness - Affecting vision Chemotherapy-induced Peripheral Neuropathy Assessment: Patient is experiencing neuropathy as a side effect of chemotherapy, manifesting as numbness, tingling, and burning sensation in the feet. This is consistent with chemotherapy-induced peripheral neuropathy, a common adverse effect of certain chemotherapeutic agents. Plan: - Continue to monitor neuropathy symptoms - Educate patient on neuropathy management strategies Venous Thromboembolism Prophylaxis Assessment: Patient is currently on anticoagulation therapy with Eliquis (apixaban) for thromboembolism prophylaxis, which is common in cancer patients due to their increased risk of venous thromboembolism. Plan: - Continue Eliquis (apixaban) 10 mg PO BID for the first 20 days, then 5 mg PO BID thereafter - Ensure patient's sister continues to assist with medication administration Spinal Stenosis Assessment: Patient has a history of severe spinal stenosis, contributing to leg pain. This condition is separate from the cancer-related symptoms but may compound overall discomfort. Plan: - Continue current management for spinal stenosis (specific interventions not discussed) - Monitor for changes in leg pain and functionality ORDERS: Order # Description [id number] CBC with Auto Diff + Comprehensive Metabolic Panel + CA 19-9 [id number] CBC with Auto Diff + Comprehensive Metabolic Panel + CA 19-9 [id number] CBC with Auto Diff + Comprehensive Metabolic Panel + CA 19-9 [id number] CBC with Auto Diff + Comprehensive Metabolic Panel + CA 19-9 [id number] CBC with Auto Diff + Comprehensive Metabolic Panel + CA 19-9 [id number] CBC with Auto Diff + Comprehensive Metabolic Panel + CA 19-9 [id number] CBC with Auto Diff + Comprehensive Metabolic Panel + CA 19-9 RETURN TO CLINIC: BILLING AND COMPLIANCE: I reviewed external records from providers outside my specialty as summarized above. I spent a total of 50 minutes on this patient?s care on the day of their visit excluding time spent related to any billed procedures. This time includes time spent with the patient as well as time spent documenting in the medical record, reviewing patients records and tests, obtaining history, placing orders, communicating with other healthcare professionals, counseling the patient, family or caregiver, and/or care coordination for the diagnoses above. Electronically Signed by: Desmond Odell MD T: 1:07 AM CC: PCP: Neena Bermeo Referring: Neena Bermeo This document was completed utilizing speech recognition software. Grammatical errors, random word insertions, pronoun errors, and incomplete sentences are an occasional consequence of this system due to software limitations, ambient noise, and hardware issues. Any formal questions or concerns about the content, text or information contained within the body of this dictation should be directly addressed to the provider for clarification.
[2025-03-14 09:47] LABS: Basophils % (Auto) 1 % (0-2.5); Eosinophils % (Auto) 1 % (0-10); Hematocrit 28.6 % (36.0-46.0); Hemoglobin 9.5 g/dL (12.0-16.0); Immature Granulocytes % (Auto) 1 % (0-0); Immature Granulocytes Auto 0.03 Thou/mm3 (0.00-0.00); Lymphocytes # (Auto) 1.3 Thou/mm3 (1.0-4.8); Lymphocytes % (Auto) 40 % (10-50); Mean Corpuscular HGB Conc 33.2 g/dl (31.0-37.0); Mean Corpuscular Hemoglobin 29.9 pg (25.0-35.0); Mean Corpuscular Volume 90 fL (80-100); Monocytes # (Auto) 0.7 Thou/mm3 (0.0-0.8); Monocytes % (Auto) 23 % (0-12); Neutrophils # (Auto) 1.1 Thou/mm3 (1.8-7.7); Neutrophils % (Auto) 35 % (37-80); Nucleated Red Blood Cell % 0 /100 WBC (0); Platelet Count 382 Thou/mm3 (140-440); RDW Standard Deviation 55.7 fL (36.4-46.3); Red Blood Count 3.18 Miln/mm3 (4.00-5.20); White Blood Count 3.2 Thou/mm3 (3.6-11.0)
[2025-03-14 10:05] LABS: Alanine Aminotransferase 21 U/L (10-49); Albumin, Serum 3.6 gm/dL (3.4-4.8); Alkaline Phosphatase 219 U/L (46-116); Anion Gap 11 (7-16); Aspartate Amino Transferase 21 U/L (0-34); BUN/Creatinine Ratio 23 Ratio (12-20); Bilirubin,Total 0.4 mg/dL (0.3-1.2); Blood Urea Nitrogen 9 mg/dL (9-23); Calcium 8.8 mg/dL (8.3-10.6); Calcium (Corrected) 9.1 mg/dL (8.5-10.1); Carbon Dioxide 24.7 mMol/L (20.0-31.0); Chloride 104 mMol/L (98-107); Creatinine (Component) 0.4 mg/dL (0.6-1.3); Globulin 1.8 gm/dL (2.3-3.5); Glucose 90 mg/dL (74-106); Osmolality,Calculated 278 (275-295); Potassium 3.4 mMol/L (3.4-5.1); Sodium 140 mMol/L (136-145); Total Protein 5.4 gm/dL (5.7-8.2); eGFR > 60 See Note
[2025-03-15 08:45] LABS: Basophils % (Auto) 1 % (0-2.5); Eosinophils # (Auto) 0.1 Thou/mm3 (0.0-0.5); Eosinophils % (Auto) 1 % (0-10); Hematocrit 28.9 % (36.0-46.0); Hemoglobin 9.5 g/dL (12.0-16.0); Immature Granulocytes % (Auto) 2 % (0-0); Immature Granulocytes Auto 0.15 Thou/mm3 (0.00-0.00); Lymphocytes # (Auto) 1.7 Thou/mm3 (1.0-4.8); Lymphocytes % (Auto) 25 % (10-50); Mean Corpuscular HGB Conc 32.9 g/dl (31.0-37.0); Mean Corpuscular Hemoglobin 29.8 pg (25.0-35.0); Mean Corpuscular Volume 91 fL (80-100); Monocytes # (Auto) 1.3 Thou/mm3 (0.0-0.8); Monocytes % (Auto) 20 % (0-12); Neutrophils # (Auto) 3.4 Thou/mm3 (1.8-7.7); Neutrophils % (Auto) 51 % (37-80); Nucleated Red Blood Cell % 0 /100 WBC (0); Platelet Count 441 Thou/mm3 (140-440); RDW Standard Deviation 56.2 fL (36.4-46.3); Red Blood Count 3.19 Miln/mm3 (4.00-5.20); White Blood Count 6.7 Thou/mm3 (3.6-11.0)
[2025-03-17 06:09] LABS: CA 19-9 Antigen* 1402 U/mL (<34)
[2025-03-20 10:53] LABS: Hematocrit 26.4 % (36.0-46.0); Hemoglobin 8.9 g/dL (12.0-16.0)
== END 2025-03-27 23:59 | disposition home or self-care (01) ==
LOC: SCTC 15:02
PROVIDERS: Internal Medicine Hematology & Oncology; PCP Family Medicine; Referring Provider Family Medicine; Visit Provider Radiology Therapeutic Radiology
DX: Z51.11 Encounter for antineoplastic chemotherapy (principal); C25.0 Malignant neoplasm of head of pancreas; R53.1 Weakness; R63.0 Anorexia; Z68.21 Body mass index [BMI] 21.0-21.9, adult; G89.3 Neoplasm related pain (acute) (chronic); K21.9 Gastro-esophageal reflux disease without esophagitis; G62.0 Drug-induced polyneuropathy; T45.1X5D Adverse effect of antineoplastic and immunosuppressive drugs, subsequent encounter; Z79.01 Long term (current) use of anticoagulants; M48.00 Spinal stenosis, site unspecified
CPT/HCPCS: 36591; 80053; 85014; 85018; 85025; 86301; 96360; 96367; 96368; 96372; 96375; 96413; 96415; 96416; 96417; 99213; A4216; J0461; J0640; J1100; J1453; J1642; J2405; J7040; J7050; J7060; J9190; J9206; J9263; Q5101; A9270; G0463

== ENCOUNTER 2025-04-18 12:19 | Emergency (ER) | payer OTHER, SELFPAY ==
[2025-04-18 12:40] VITALS: BP 131/64; PULSE 119; RESP 18; TEMP 37; O2SAT 99
--- NOTE | 2025-04-18 12:48 | EKG_ITS ---
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
--- NOTE | 2025-04-18 12:53 | PD.EDRECHK ---
ED Recheck Abnl Lab Rx-RME/HPI General Chief Complaint: Recheck/Abnormal Lab/Rx Stated Complaint: sent by CTC for low potassium Time Seen by Provider: 04/18/25 12:47 Arrival date/time: 04/18/25 12:19 Limitations: no limitations RME / HPI RME / HPI narrative: 75-year-old female who was referred here from her cancer center. She is being treated for renal cell carcinoma. She is found to have hypokalemia this morning, her labs are drawn at 9 AM. She states she has had some loose stools over the last 2 to 3 days with no blood. She has nausea but no vomiting. She also endorses a mild dysuria for 2 to 3 days. She has no fevers or chills. Related Data Home Medications ?Medication ?Instructions ?Recorded ?Confirmed lipase 60,000-protease 1 cap PO TIDWM 01/22/25 01/22/25 189,600-amylase 252,600 unit capsule, delay rel (Zenpep) megestrol 40 mg tablet 40 mg PO DAILY 01/22/25 01/22/25 methimazole 5 mg tablet 5 mg PO DAILY 01/22/25 01/22/25 mirtazapine 15 mg tablet 15 mg PO .QHS 01/22/25 01/22/25 kbrkrhaz-uygf-lztj 8 mg-folic 400 1 tab PO QDAY 01/22/25 01/22/25 mcg-K 50 mcg-lutein 300 mcg tablet (Century Women 50 Plus) omeprazole 20 mg capsule,delayed 20 mg PO DAILY 01/22/25 01/22/25 release ondansetron HCl 8 mg tablet 8 mg PO TID PRN nausea and vomiting 01/22/25 01/22/25 potassium chloride 20 mEq 20 meq PO DAILY 01/22/25 01/22/25 tablet,extended release prednisone 10 mg tablet 10 mg PO DAILY 01/22/25 01/22/25 propranolol 20 mg tablet 20 mg PO BID 01/22/25 01/22/25 Previous Rx's ?Medication ?Instructions ?Recorded acetaminophen 500 mg capsule 500 mg PO Q6H PRN pain (scale 08/11/19 score 4-6) #30 caps docusate sodium 100 mg capsule 100 mg PO BID #30 caps 03/05/25 (Colace) morphine 15 mg tablet,extended 15 mg PO .24h #10 tabs 03/05/25 release (MS Contin) morphine 30 mg capsule,extended 30 mg PO Q24H pain #7 caps 03/05/25 release 24 hr multiphase Allergies Allergy/AdvReac Type Severity Reaction Status Date / Time acetaminophen (From [place]) Allergy Severe Abdominal Verified 04/18/25 12:22 Pain hydrocodone (From [place]) Allergy Severe Abdominal Verified 04/18/25 12:22 Pain Review of Systems Review of Systems Systems Reviewed: All systems reviewed, normal except as documented ED Exam General Limitations: Present no limitations General appearance: Present alert and in no apparent distress Head Head exam: Present atraumatic Eye Eye exam: Present normal appearance, PERRL and EOMI ENT ENT exam: Present normal exam, normal oropharynx and mucous membranes moist Neck Neck exam: Present normal inspection, full ROM and trachea midline Chest Chest inspection: Present normal inspection and symmetric chest wall rise Respiratory Respiratory exam: Present normal lung sounds bilaterally Cardiovascular Cardiovascular exam: Present regular rate, normal rhythm and normal heart sounds Abdominal Exam Abdominal exam: Present soft and normal bowel sounds Extremities Exam Extremities exam: Present normal inspection and full ROM Back Exam Back exam: Present normal inspection and full ROM Neurological Exam Neurological exam: Present alert and oriented X3 Psychiatric Psychiatric exam: Present normal affect and normal mood Skin Skin exam: Present warm, dry, intact and normal color Course Quality Measures none Orders Category Date Time Status CT Screening NOW Care 04/18/25 12:54 Active EKG (ED ONLY) *Do not use* NOW Care 04/18/25 12:49 Completed EKG (ED ONLY) *Do not use* NOW Care 04/18/25 17:10 Completed EKG (ED ONLY) *Do not use* NOW Care 04/18/25 17:[address] abdomen pelvis w con Stat Exams 04/18/25 12:54 Completed EKG (ED Only) Stat Exams 04/18/25 12:48 Draft EKG (ED Only) Stat Exams 04/18/25 17:10 Draft EKG (ED Only) Stat Exams 04/18/25 17:10 Ordered CMP [Comprehensive Metabolic Panel] Stat Lab 04/18/25 18:49 Completed Morphine Inj Med 04/18/25 12:54 Discontinued 2 mg IVP X1 ONE Ondansetron Inj [Zofran Inj] Med 04/18/25 12:54 Discontinued 4 mg IVP X1 ONE POTASSIUM CHL 10 mEq IVPB [Kcl Ivpb] 100 ml Med 04/18/25 13:30 Discontinued IV Q1H Potassium Chloride [K-Dur] Med 04/18/25 12:48 Discontinued 40 meq PO X1 ONE Sodium Chloride 0.9% 1000 ml [Ns] 1,000 ml Med 04/18/25 13:24 Discontinued IV 150 mls/hr cefTRIAXone/D5w 1gm IV premix [Rocephin/D5w 1gm IV Med 04/18/25 12:50 Discontinued premix] 1 gm in 50 ml IV X1 Vital Signs Vital signs: Vital Signs Temperature 98.6 F 04/18/25 12:40 Pulse Rate 119 H 04/18/25 12:40 Respiratory Rate 18 04/18/25 12:40 Blood Pressure 131/64 H 04/18/25 12:40 Pulse Oximetry (%) 99 04/18/25 12:40 Oxygen Delivery Method Room Air 04/18/25 12:40 Recheck / Abnormal Lab / Rx MDM Narrative MDM Narrative:: 75-year-old female who was referred here from her cancer center. She is being treated for renal cell carcinoma. She is found to have hypokalemia this morning, her labs are drawn at 9 AM. She states she has had some loose stools over the last 2 to 3 days with no blood. She has nausea but no vomiting. She also endorses a mild dysuria for 2 to 3 days. She has no fevers or chills. Workup reveals UA with 5 RBCs and 37 leukocytes. Patient was given a dose of ceftriaxone here. She was also given IV potassium in addition to oral potassium. Her labs were rechecked and her potassium normalized. She will be discharged with prescription of cephalexin. She agrees to follow-up with oncology and her primary doctor. Return anytime for worsening or emergent changes. Patient data External records reviewed:: None Clinical information provided by:: patient Social determinants that could affect healthcare access:: none Patient has the following chronic illnesses:: Renal cell carcinoma How is presenting disease/condition affected by chronic disease/condition?: uneffected by Evaluation data The following diagnostics were reviewed and interpreted by me:: EKG tracing(s) (Sinus tachycardia [address] changes, flattened T waves are present.) Lab and/or radiology exams considered but not ordered:: n/a Interpretation Summary: UTI Medications / Prescriptions Medications or Prescriptions considered but not ordered:: n/a Medication administrations:: Medication Administration History Discontinued Medications Ceftriaxone Sodium/Dextrose (Rocephin/D5w 1gm Iv Premix) 1 gm in 50 mls @ 100 mls/hr IV X1 ONE Stop: 04/18/25 13:19 Last Infusion: 04/18/25 13:37 Dose: Infused Documented By: Admin: 04/18/25 13:17 Dose: 100 mls/hr Documented By: HOLLIS Potassium Chloride (Kcl Ivpb) 100 mls @ 100 mls/hr IV Q1H CAROL Stop: 04/18/25 17:29 Last Infusion: 04/18/25 18:29 Dose: Infused Documented By: Admin: 04/18/25 17:19 Dose: 100 mls/hr Documented By: Infusion: 04/18/25 17:01 Dose: Infused Documented By: Admin: 04/18/25 16:01 Dose: 100 mls/hr Documented By: Infusion: 04/18/25 15:30 Dose: Infused Documented By: Admin: 04/18/25 14:30 Dose: 100 mls/hr Documented By: Infusion: 04/18/25 14:30 Dose: Infused Documented By: Admin: 04/18/25 13:37 Dose: 100 mls/hr Documented By: HOLLIS Sodium Chloride (Ns) 1,000 mls @ 150 mls/hr IV .Q6H40M ONE Stop: 04/18/25 20:03 Last Infusion: 04/18/25 18:29 Dose: 0 mls/hr Documented By: Admin: 04/18/25 13:37 Dose: 150 mls/hr Documented By: HOLLIS Morphine Sulfate (Morphine Sulf Inj 10 Mg/Ml Vial) 2 mg IVP X1 ONE Stop: 04/18/25 12:55 Last Admin: 04/18/25 13:06 Dose: 2 mg Documented By: HOLLIS Ondansetron HCl (Ondansetron Inj 2 Mg/Ml Inj 2 Ml) 4 mg IVP X1 ONE; Protocol Stop: 04/18/25 12:55 Last Admin: 04/18/25 13:09 Dose: 4 mg Documented By: HOLLIS Potassium Chloride (Potassium Chloride 20 Meq Tabcr) 40 meq PO X1 ONE Stop: 04/18/25 12:49 Last Admin: 07/22/25 13:12 Dose: 40 meq Documented By: DB See above Consultations Consultation(s) initiated? (list below): No Diagnosis Recheck Differential Diagnosis: other (Hypokalemia) Most likely diagnosis given after review of the tests above:: Hypokalemia, UTI Admission Indicated Admission indicated?: not indicated Admission Request Was there a request for admission?: No Disposition Plan Disposition Plan: Discharge Discharge Attestation Discharge Attestation: The patient and all family members were given an opportunity to ask questions and understood the discharge instructions. Discharge instructions specifically effects, indications for sooner follow up or return to the emergency department, and the expected course of current diagnosis. Patient condition: Stable Discharge Plan Plan Patient Disposition: HOME (Self Care) Patient condition on transfer: Stable Prescriptions/Referrals Prescriptions/Med Rec: No Action acetaminophen 500 mg capsule 500 mg PO Q6H PRN (Reason: pain (scale score 4-6)) Qty: 30 0RF morphine 30 mg capsule, ER multiphase 24 hr 30 mg PO Q24H MDD 1 Qty: 7 0RF Rx Instructions: already tolerated morphine while in ER 03/05/25 morphine [MS Contin] 15 mg tablet extended release 15 mg PO .24h MDD 1 Qty: 10 0RF docusate sodium [Colace] 100 mg capsule 100 mg PO BID Qty: 30 0RF megestrol 40 mg tablet 40 mg PO DAILY potassium chloride 20 mEq tablet extended release 20 meq PO DAILY Patient Comments: TAKE 2 TABLETS BY MOUTH TWICE DAILY FOR 2 DAYS THEN 1 ONCE DAILY AFTER Century Women 50 Plus 8 mg iron-400 mcg-50 mcg tablet 1 tab PO QDAY mirtazapine 15 mg tablet 15 mg PO .QHS prednisone 10 mg tablet 10 mg PO DAILY omeprazole 20 mg capsule,delayed release(DR/EC) 20 mg PO DAILY methimazole 5 mg tablet 5 mg PO DAILY Patient Comments: TAKE 1 TABLET BY MOUTH ONCE DAILY ondansetron HCl 8 mg tablet 8 mg PO TID PRN (Reason: nausea and vomiting) Patient Comments: TAKE 1 TABLET BY MOUTH THREE TIMES DAILY NEEDED FOR NAUSEA propranolol 20 mg tablet 20 mg PO BID Zenpep 60,000-189,600- 252,600 unit capsule,delayed release(DR/EC) 1 cap PO TIDWM Referrals: Neena Reilly MD [Primary Care Provider] - In 1 week Problem List Clinical Impression: Hypokalemia, Acute UTI Patient/Caregiver Discharge Instructions Education Materials: Understanding Urinary Tract ..., ED Hypokalemia Additional Instructions: - Maintain your hydration. Use the provided antibiotic as prescribed. Consume potassium rich foods. Return here as needed for any worsening or emergent changes. Print Language: Maori Stand Alone Forms: Lakeisha Award Info., Patient Portal Info Letter
--- NOTE | 2025-04-18 12:54 | XR_ITS ---
Examination: CT abdomen with intravenous contrast CT pelvis with intravenous contrast 2-D coronal reconstructions 2-D sagittal reconstructions Date and time of exam:April 18, 2025 1547 hours INDICATIONS: Left-sided abdominal pain and diarrhea today, COMPARISON: March 05, 2025. CTDI: vol (mGy) 4.53 DLP: (mGycm) 206 Technique: Multiple axial sections of the abdomen and pelvis have been obtained. 64 slice high-resolution scanner used. 3 mm axial sections have been obtained, post intravenous injection 60 cc [id number] 2-D sagittal, coronal reconstructions obtained. Low dose protocols were performed. One or more of the following dose reduction techniques were used; automated exposure control, adjustment of the mA and/or KV according to patient size, use of iterative reconstruction technique. Findings: Transhepatic biliary drainage tube again noted in satisfactory position No significant biliary tract dilatation No focal liver lesions Spleen not enlarged No pancreatic mass noted No interval abdominal or pelvic lymphadenopathy No bowel obstruction or colitis Mild small bowel ileus Normal appendix Atrophic uterus Urinary bladder intact IMPRESSION: Transhepatic biliary drainage tube satisfactory position No significant biliary tract dilatation No interval abdominal or pelvic lymphadenopathy Small bowel ileus versus enteritis pattern, clinical correlation advised
[2025-04-18] MEDS: MORPHINE SULF INJ 10 MG/ML VIAL 2 MG IVP (13:06)
[2025-04-18] MEDS: ONDANSETRON INJ 2 MG/ML INJ 2 ML 4 MG IVP (13:09)
[2025-04-18] MEDS: cefTRIAXone/D5w 1gm IV premix 1 GM/50 ML BAG IV (13:17)
[2025-04-18 13:24] VITALS: BMI 18.3
[2025-04-18] MEDS: SODIUM CHLORIDE 0.9% 1000 ML 1,000 ML 150 ML IV (13:37)
[2025-04-18] MEDS: POTASSIUM CHL 10 mEq IVPB 100 ML 100 MEQ IV ×4 (13:37→17:19)
[2025-04-18 14:48] VITALS: BP 97/53; PULSE 83; RESP 18; TEMP 36.7; O2SAT 99
[2025-04-18 16:24] VITALS: BP 111/62; PULSE 87; RESP 15; TEMP 36.8; O2SAT 98
--- NOTE | 2025-04-18 17:10 | EKG_ITS ---
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
[2025-04-18 18:14] VITALS: BP 96/50; PULSE 101; RESP 17; TEMP 36.9; O2SAT 100
[2025-04-18 19:25] LABS: Alanine Aminotransferase 10 U/L (10-49); Albumin, Serum 3.5 gm/dL (3.4-4.8); Albumin/Globulin Ratio 2.3 (1.2-2.2); Alkaline Phosphatase 160 U/L (46-116); Anion Gap 12 (7-16); Aspartate Amino Transferase 26 U/L (0-34); BUN/Creatinine Ratio 18 Ratio (12-20); Bilirubin,Total < 0.2 mg/dL (0.3-1.2); Blood Urea Nitrogen 7 mg/dL (9-23); Calcium 8.6 mg/dL (8.3-10.6); Calcium (Corrected) 9.0 mg/dL (8.5-10.1); Carbon Dioxide 20.5 mMol/L (20.0-31.0); Chloride 110 mMol/L (98-107); Creatinine (Component) 0.4 mg/dL (0.6-1.3); Estimated Creatinine Clearance 76.7 mL/min (>60); Globulin 1.5 gm/dL (2.3-3.5); Glucose 82 mg/dL (74-106); Osmolality,Calculated 280 (275-295); Potassium 4.6 mMol/L (3.4-5.1); Sodium 142 mMol/L (136-145); Total Protein 5.0 gm/dL (5.7-8.2); eGFR > 60 See Note
[2025-04-18 20:09] VITALS: BP 99/59; PULSE 103; RESP 17; TEMP 36.7; O2SAT 99
[2025-04-18 20:57] VITALS: BP 99/56; PULSE 110; RESP 18; TEMP 36.8; O2SAT 100
== END 2025-04-18 20:58 | disposition home or self-care (01) ==
PROVIDERS: Emergency Provider Physician Assistant Medical; PCP Family Medicine
DX: E87.6 Hypokalemia (principal); N39.0 Urinary tract infection, site not specified; R94.31 Abnormal electrocardiogram [ECG] [EKG]; R00.0 Tachycardia, unspecified
CPT/HCPCS: 36415; 74177; 80053; 93005; 96361; 96365; 96375; 99284; A4649; J0696; J2270; J2405; J3480; J7030; Q9967; A9270

== ENCOUNTER 2025-04-27 10:53 | Outpatient (RCR) | payer OTHER, SELFPAY ==
[2025-04-03 09:57] LABS: Basophils # (Auto) 0.1 Thou/mm3 (0.0-0.2); Basophils % (Auto) 1 % (0-2.5); Eosinophils # (Auto) 0.2 Thou/mm3 (0.0-0.5); Eosinophils % (Auto) 2 % (0-10); Hematocrit 28.9 % (36.0-46.0); Hemoglobin 9.4 g/dL (12.0-16.0); Immature Granulocytes Auto 0.15 Thou/mm3 (0.00-0.00); Lymphocytes # (Auto) 1.9 Thou/mm3 (1.0-4.8); Lymphocytes % (Auto) 22 % (10-50); Mean Corpuscular HGB Conc 32.5 g/dl (31.0-37.0); Mean Corpuscular Hemoglobin 28.7 pg (25.0-35.0); Mean Corpuscular Volume 88 fL (80-100); Monocytes # (Auto) 1.2 Thou/mm3 (0.0-0.8); Monocytes % (Auto) 14 % (0-12); Neutrophils # (Auto) 5.0 Thou/mm3 (1.8-7.7); Neutrophils % (Auto) 59 % (37-80); Nucleated Red Blood Cell # 0.00 Thou/mm3 (0.00-0.00); Nucleated Red Blood Cell % 0 /100 WBC (0); Platelet Count 650 Thou/mm3 (140-440); RDW Standard Deviation 56.8 fL (36.4-46.3); Red Blood Count 3.27 Miln/mm3 (4.00-5.20); White Blood Count 8.4 Thou/mm3 (3.6-11.0)
[2025-04-03 10:20] LABS: Alanine Aminotransferase 14 U/L (10-49); Albumin, Serum 3.6 gm/dL (3.4-4.8); Albumin/Globulin Ratio 1.7 (1.2-2.2); Alkaline Phosphatase 215 U/L (46-116); Anion Gap 10 (7-16); Aspartate Amino Transferase 24 U/L (0-34); BUN/Creatinine Ratio 20 Ratio (12-20); Bilirubin,Total 0.2 mg/dL (0.3-1.2); Blood Urea Nitrogen 8 mg/dL (9-23); Calcium 8.6 mg/dL (8.3-10.6); Calcium (Corrected) 8.9 mg/dL (8.5-10.1); Carbon Dioxide 25.3 mMol/L (20.0-31.0); Chloride 107 mMol/L (98-107); Creatinine (Component) 0.4 mg/dL (0.6-1.3); Globulin 2.1 gm/dL (2.3-3.5); Glucose 86 mg/dL (74-106); Osmolality,Calculated 280 (275-295); Potassium 3.8 mMol/L (3.4-5.1); Sodium 142 mMol/L (136-145); Total Protein 5.7 gm/dL (5.7-8.2); eGFR > 60 See Note
[2025-04-06 06:31] LABS: CA 19-9 Antigen* 594 U/mL (<34)
[2025-04-18 09:43] LABS: Basophils # (Auto) 0.1 Thou/mm3 (0.0-0.2); Basophils % (Auto) 1 % (0-2.5); Eosinophils # (Auto) 0.1 Thou/mm3 (0.0-0.5); Eosinophils % (Auto) 1 % (0-10); Hematocrit 31.1 % (36.0-46.0); Hemoglobin 10.1 g/dL (12.0-16.0); Immature Granulocytes Auto 0.08 Thou/mm3 (0.00-0.00); Lymphocytes # (Auto) 1.3 Thou/mm3 (1.0-4.8); Lymphocytes % (Auto) 28 % (10-50); Mean Corpuscular HGB Conc 32.5 g/dl (31.0-37.0); Mean Corpuscular Hemoglobin 28.5 pg (25.0-35.0); Mean Corpuscular Volume 88 fL (80-100); Monocytes # (Auto) 0.7 Thou/mm3 (0.0-0.8); Monocytes % (Auto) 15 % (0-12); Neutrophils # (Auto) 2.4 Thou/mm3 (1.8-7.7); Neutrophils % (Auto) 53 % (37-80); Nucleated Red Blood Cell # 0.00 Thou/mm3 (0.00-0.00); Nucleated Red Blood Cell % 0 /100 WBC (0); Platelet Count 427 Thou/mm3 (140-440); RDW Standard Deviation 57.1 fL (36.4-46.3); Red Blood Count 3.54 Miln/mm3 (4.00-5.20); White Blood Count 4.5 Thou/mm3 (3.6-11.0)
[2025-04-18 10:27] LABS: Alanine Aminotransferase 14 U/L (10-49); Albumin, Serum 3.5 gm/dL (3.4-4.8); Albumin/Globulin Ratio 1.8 (1.2-2.2); Alkaline Phosphatase 156 U/L (46-116); Anion Gap 12 (7-16); Aspartate Amino Transferase 19 U/L (0-34); BUN/Creatinine Ratio 18 Ratio (12-20); Bilirubin,Total 0.2 mg/dL (0.3-1.2); Blood Urea Nitrogen 7 mg/dL (9-23); Calcium 8.5 mg/dL (8.3-10.6); Calcium (Corrected) 8.9 mg/dL (8.5-10.1); Carbon Dioxide 22.7 mMol/L (20.0-31.0); Chloride 108 mMol/L (98-107); Creatinine (Component) 0.4 mg/dL (0.6-1.3); Globulin 2.0 gm/dL (2.3-3.5); Glucose 84 mg/dL (74-106); Osmolality,Calculated 281 (275-295); Sodium 143 mMol/L (136-145); Total Protein 5.5 gm/dL (5.7-8.2); eGFR > 60 See Note
[2025-04-18 10:40] LABS: Potassium 2.7 mMol/L (3.4-5.1)
[2025-04-18 10:41] LABS: Collection Type, Urine Voided
[2025-04-18 10:47] LABS: Bilirubin,Urine Negative (Negative); Blood,Urine Negative (Negative); Clarity,Urine Turbid (Clear/Hazy); Color,Urine Yellow (Lt Yel-Yel); Glucose, Urine Negative (Negative); Ketones,Urine Negative (Negative); Leukocyte Esterase,Urine Positive (Negative); Nitrite,Urine Negative (Negative); PH,Urine 5.5 (5.0-7.0); Protein,Urine 1+ (Neg - Trace); RBC,Urine 5 /hpf (0-3); Specific Gravity,Urine 1.022 (1.001-1.035); Squamous Epithelial Cell,Urine 1 /hpf (0-5); Urobilinogen,Urine Negative mg/dL (0.0-1.0); WBC,Urine 37 /hpf (0-5)
[2025-04-21 06:29] LABS: CA 19-9 Antigen* 349 U/mL (<34)
--- NOTE | 2025-04-24 05:32 | CTCFLWUP_ITS ---
Patient: ELIZABETH JUAREZ : 1950 Page 6 of 9 FOLLOW UP NOTE DATE OF SERVICE: 04/19/2025 NAME: ELIZABETH JUAREZ ACCOUNT: [id number] : 1950 AGE: 75 INTERVAL HISTORY: Subjective: The patient is a female with pancreatic cancer undergoing aggressive chemotherapy treatment. She presents for follow-up and management of her condition. The patient reports feeling a little bit better than before. She has been experiencing pain in her thighs, particularly when trying to get up or during movement. Her weight has remained stable since the last visit, with no further weight loss noted. The patient was recently hospitalized due to low potassium levels, which were described as very low. She has been taking potassium supplements, but only one pill daily. The patient's CA-99 tumor marker has significantly decreased from previous measurements, now at 594, down from previous levels as high as 30,000. She is currently on her 8th treatment of chemotherapy, with plans to continue for at least 6 months. Despite the aggressive nature of the chemotherapy, the patient appears to be tolerating it well. The treating physician notes that the patient seems to be feeling better with treatment than without, suggesting that the cancer was causing significant discomfort prior to intervention. Adherence to the potassium supplementation regimen has been suboptimal, with the patient only taking one pill daily instead of the prescribed dose. The low potassium levels are attributed to inadequate food intake. No other specific adherence issues are mentioned. Medical History - Pancreatic cancer - Hypokalemia, requiring recent hospital visit Medications and Supplements - Potassium - One pill daily - Recently increased to two pills daily, one in the morning and one in the afternoon, with food - Chemotherapy - 8th treatment completed - Patient tolerating the medicine well - Apixaban (Eliquis) 5 mg twice daily Social History - Diet: Patient reported not eating enough Review of Systems General: Positive for weight loss. Musculoskeletal: Positive for thigh pain with movement and when trying to get up. Objective: Laboratory, Imaging, and Diagnostic Test Results - CA-99: 594 (current) - Previous results: - CA-99: 30,000, 11,000 (dates not specified) - Potassium: 2.something (date not specified, described as very low ) ONCOLOGY HISTORY:?[facility] On[facility] Hx? DIAGNOSIS: Malignant neoplasm of head of pancreas [ICD10] C25.0 DATE OF DIAGNOSIS: July 2023 STAGE/TNM: Pancreatic adenocarcinoma advanced TREATMENT HISTORY: Care?Plan Start?Date Cycle Day Intent GemAbrax 10/20/2023 1 28 Curative?(primary) 5fu?chemoradiation 07/11/2024 1 7 Definitive modified?FOLFIRINOX?manjit?3?pancreas 12/14/2024 1 14 Palliative HISTORY OF PRESENT ILLNESS: Elizabeth Juarez is a 75-year-old [place] speaking for female with diagnosed pancreatic adenocarcinoma. Ms. Juarez is a poor historian. She is accompanied by her granddaughter who also does not know the history of Ms. Juarez's illness. Early part of June 2023: Ms. Juarez was found to have jaundice. She was admitted to [facility] and subsequently transferred to [facility] in [place]. On scans she was found to have a mass in the pancreas. According to the granddaughter patient had CT-guided biopsy of the pancreatic mass and external biliary drain was placed. Patient has subsequently improved. She stayed at [facility] for about 2 weeks. Discharged on 07 August 2023. I do not have any records from [facility]. According to the granddaughter the pancreatic cancer is localized to the pancreas. 08/24/2023: T. bili 4.8, AST 118, ALT 147, alkaline phosphatase 264, CA 19?9 is 66. 08/31/2023: T. bili 3.3, AST 81, ALT 102, alk phos 297 09/03/2023: PET/CT scan? 10/20/2023 - 12/02/2023: Ms. Juarez received 2 cycles of gemcitabine and Abraxane in the neoadjuvant setting. CA 19?9 trend: 10/19/2023: 59 10/26/2023: 49 11/03/2023: 32 11/17/2023: 39 11/24/2023: 35 12/01/2023: 34. 12/28/2023: PET/CT scan? 01/11/2024: CT scan of the chest without IV contrast done 02/03/2024: CA 19?9 is 107. 02/10/2024: CA 19?9 is 126. 02/11/2024: Ms. Juarez had cycle 3-day 8 of gemcitabine and Abraxane. 04/21/2024: Ms. Juarez had 5 cycles of gemcitabine and Abraxane 05/17/2024: CT scan of the chest abdomen and pelvis with IV contrast 05/23/2024: MRI of the abdomen with and without IV contrast OTHER MEDICAL HISTORY/CONDITIONS: PANCRATIC CA ASTHMA HIGH BLOOD PRESSURE BILAT?TUBAL?LIGATION FAMILY HISTORY: Children:?BREAST??DAUGHTER Cancer History:?UNCLE PROSATE/ UNCLE STOMACH SOCIAL HISTORY: Occupational?History:?RETIRED Education?Level:?Completed something less than 8th grade Marital?Status:? 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 Centrum Silver Women - 8 mg iron-400 mcg-50 mcg 30 tab Daily 2. Compazine - 10 mg 10 mg three times a day prn nausea 3. Eliquis - 5 mg 1 tab Twice a Day 4. Emend - 125 mg (1)- 80 mg (2) 1 Pack Daily 5. Imodium A-D - 2 mg 1 tab as needed 6. K-Tab - 20 mEq 1 tab Daily 7. megestrol - 40 mg 1 tab Daily 8. methimazole - 5 mg Daily 9. oxycodone - 5 mg 1 tab 1 tab every 6 hrs as needed 10. pantoprazole - 40 mg Twice a Day 11. traMADol - 50 mg 1 tab three times a day 12. Zenpep - 60,000-189,600- 252,600 unit 1 Capsule As directed 13. Zofran - 8 mg 8 mg three times a day prn nausea?Palabra Meds? Medications Last Reconciled by Neena Clemente MA on 04/19/2025 ALLERGIES: hydrocodone-acetaminophen; hydrocodone-acetaminophen REVIEW OF SYSTEMS: A complete 14-point review of systems was performed and is negative except as noted in interval history. PHYSICAL EXAMINATION:?CloneBlock PE? VITAL SIGNS: Temperature?99.9, B/P?125/73, Oxygen?Saturation?99% PAIN: 8 - Very severe pain EYE: Conjunctivae is white MOUTH: Oral cavity is dry. CHEST: Clear to auscultation. No wheezes or rales audible. CARDIAC: Rhythm regular, no murmurs or gallops present. ABDOMEN: Soft. No hepatomegaly. No splenomegaly. Ms. Juarez has external biliary drain which seems to be functioning well. EXTREMITIES: No pedal edema or cyanosis. LABORATORY DATA: I have personally reviewed and interpreted each of the patient?s relevant lab tests, abnormal findings are below: Date 04/18/25 ??WHITE?BLOOD?COUNT?(Thou/mm3) 4.5 ? ??RED?BLOOD?COUNT?(Miln/mm3) 3.54?L ? ??HEMOGLOBIN?(gm/dl) 10.1?L ? ??HEMATOCRIT?(%) 31.1?L ? ??PLATELET?COUNT?(Thou/mm3) 427 ? ??NEUTROPHILS?%,?AUTO?(%) 53 ? ??LYMPH?%,?AUTO?(%) 28 ? ??NEUTROPHILS,?AUTO?(Thou/mm3) 2.4 ? ??GLUCOSE,RANDOM?(mg/dL) 84 82 ??BLOOD?UREA?NITROGEN?(mg/dL) 7?L 7?L ??CREATININE?(mg/dL) 0.40?L 0.40?L ??SODIUM?(mmol/L) 143 142 ??POTASSIUM?(mmol/L) 2.7?LL 4.6 ??CHLORIDE?(mmol/L) 108?H 110?H ??CrCl?(CandG)?(ml/min) 73.21 73.21 ??AST/SGOT?(Unit/L) 19 26 ??ALT/SGPT?(Unit/L) 14 10 ??ALKALINE?PHOSPHATASE?(Unit/L) 156?H 160?H ??BILIRUBIN,?TOTAL?(mg/dL) 0.2?L <?0.2?L ??PROTEIN?TOTAL?(gm/dl) 5.5?L 5.0?L ??ALBUMIN,?SERUM?(gm/dl) 3.5 3.5 ??GLOBULIN?(gm/dl) 2.0?L 1.5?L ??ALBUMIN/GLOBULIN?RATIO 1.8 2.3?H ??CALCIUM,?SERUM?(mg/dL) 8.5 8.6 ??CALCIUM?SERUM?(CORRECTED)?(mg/dL) 8.9 9.0 ??CA?19-9?(Unit/mL) 349.00?A ? ASSESSMENT/PLAN:?Isabel Odell Assessment/Plan? Adenocarcinoma pancreas Female patient with pancreatic cancer undergoing aggressive chemotherapy, presenting with low potassium levels and thigh pain during movement. Pancreatic Cancer Assessment: Patient is currently undergoing Pancreatic Cancer treatment and third line patient has been on FOLFIRINOX The treatment appears to be effective, as evidenced by a significant reduction in CA-99 tumor marker levels from previous highs of 30,000 and 11,000 to the current level of 594. The patient is tolerating the chemotherapy regimen better than initially anticipated, and there are indications of potential remission. The cancer was causing significant pain prior to treatment initiation, but the patient is now reporting feeling better with treatment than without. Plan: - Continue current chemotherapy regimen - Complete 8th treatment, with plans to continue for at least 6 months (targeting a minimum of 18 treatments) - Order PET-CT scan after 10-12 treatments (approximately in one month) - Refer patient to [facility] for potential pancreatic clinical trials after current treatment course - Follow up after PET-CT scan results are available Hypokalemia Assessment: Patient presented with critically low potassium levels (2 point something), necessitating a brief pause in chemotherapy treatment. The hypokalemia is likely due to inadequate nutritional intake. Plan: - Increase potassium supplementation to twice daily (one in the morning, one in the afternoon) with food - Continue current dose of 20 mg daily; if ineffective, adjust to one tablet in the morning and one at night - Educate patient on the importance of adequate nutrition to maintain potassium levels - Check potassium levels before resuming chemotherapy Thigh Pain Assessment: Patient reports experiencing pain in the thighs, particularly when attempting to stand up or during movement. This symptom may be related to the underlying cancer or a side effect of the chemotherapy. Plan: - Monitor pain levels and functionality - Reassess pain management strategy at next follow-up cancer-related Pain Assessment: Patient reports ongoing cancer-related pain, which was severe enough to warrant an ER visit. Pain management is currently suboptimal, with the patient taking Toradol three times daily. Plan: - Discontinue Toradol - Initiate Oxifodol for pain management - Offer choice between [facility] [place] or oxycodone for breakthrough pain Gastroesophageal Reflux Disease (GERD) Assessment: Patient reports persistent heartburn despite current medication regimen of an unspecified medication taken twice daily. Plan: - Initiate Protonix for GERD management - Educate patient on proper administration (take on an empty stomach in the morning) - Advise patient to avoid coffee and tea Malnutrition Assessment: Patient exhibits significant weight loss, poor appetite, and weakness, likely due to both cancer progression and chemotherapy side effects. Current weight is 88 pounds, down from nearly 100 pounds previously. Plan: - Continue Remeron for appetite stimulation - Continue omega-3 supplements - Administer IV fluids every other day or daily as needed - Follow-up appointment for hydration scheduled for tomorrowMedications and Supplements - Eliquis (blood thinner) - 10 mg twice daily for first 20 days - 5 mg twice daily after 20 days - Administered by patient's sister - Chemotherapy - Causing neuropathy, numbness, tingling, and burning sensation in feet - Causing weakness - Affecting vision Chemotherapy-induced Peripheral Neuropathy Assessment: Patient is experiencing neuropathy as a side effect of chemotherapy, manifesting as numbness, tingling, and burning sensation in the feet. This is consistent with chemotherapy-induced peripheral neuropathy, a common adverse effect of certain chemotherapeutic agents. Plan: - Continue to monitor neuropathy symptoms - Educate patient on neuropathy management strategies Venous Thromboembolism Prophylaxis Assessment: Patient is currently on anticoagulation therapy with Eliquis (apixaban) for thromboembolism prophylaxis, which is common in cancer patients due to their increased risk of venous thromboembolism. Plan: - Continue Eliquis (apixaban) 5 mg PO BID thereafter - Ensure patient's sister continues to assist with medication administration Spinal Stenosis Assessment: Patient has a history of severe spinal stenosis, contributing to leg pain. This condition is separate from the cancer-related symptoms but may compound overall discomfort. Plan: - Continue current management for spinal stenosis (specific interventions not discussed) - Monitor for changes in leg pain and functionality ORDERS: Order # Description [id number] CBC with Auto Diff + Comprehensive Metabolic Panel + CA 19-9 [id number] Comprehensive Metabolic Panel - 12 + CBC with Auto Diff + CA 19-9 [id number] PET/CT of Skull to mid-thigh for Restaging [id number] Follow Up 2 Months RETURN TO CLINIC: I reviewed the diagnosis, prognosis, and recommended treatment/procedure options with the patient (and/or their legal pharmaceutical representative), including the potential benefits, risks, side effects and alternative therapies. We also discussed the option of no treatment and the possibility of clinical trial participation, if applicable. All questions were addressed, and they demonstrated understanding. They provided informed consent to proceed with the proposed plan of care. BILLING AND COMPLIANCE: I reviewed external records from providers outside my specialty as summarized above. I spent a total of 50 minutes on this patient?s care on the day of their visit excluding time spent related to any billed procedures. This time includes time spent with the patient as well as time spent documenting in the medical record, reviewing patients records and tests, obtaining history, placing orders, communicating with other healthcare professionals, counseling the patient, family or caregiver, and/or care coordination for the diagnoses above. Electronically Signed by: Desmond Odell MD T: 5:29 AM CC: PCP: Enedina Bermeo Referring: Enedina Bermeo This document was completed utilizing speech recognition software. Grammatical errors, random word insertions, pronoun errors, and incomplete sentences are an occasional consequence of this system due to software limitations, ambient noise, and hardware issues. Any formal questions or concerns about the content, text or information contained within the body of this dictation should be directly addressed to the provider for clarification.
[2025-04-24 13:49] LABS: Basophils # (Auto) 0.1 Thou/mm3 (0.0-0.2); Basophils % (Auto) 1 % (0-2.5); Eosinophils # (Auto) 0.1 Thou/mm3 (0.0-0.5); Eosinophils % (Auto) 1 % (0-10); Hematocrit 31.7 % (36.0-46.0); Hemoglobin 10.0 g/dL (12.0-16.0); Immature Granulocytes Auto 0.08 Thou/mm3 (0.00-0.00); Lymphocytes # (Auto) 1.3 Thou/mm3 (1.0-4.8); Lymphocytes % (Auto) 18 % (10-50); Mean Corpuscular HGB Conc 31.5 g/dl (31.0-37.0); Mean Corpuscular Hemoglobin 27.9 pg (25.0-35.0); Mean Corpuscular Volume 89 fL (80-100); Monocytes # (Auto) 1.0 Thou/mm3 (0.0-0.8); Monocytes % (Auto) 13 % (0-12); Neutrophils # (Auto) 5.0 Thou/mm3 (1.8-7.7); Neutrophils % (Auto) 67 % (37-80); Nucleated Red Blood Cell # 0.00 Thou/mm3 (0.00-0.00); Nucleated Red Blood Cell % 0 /100 WBC (0); Platelet Count 551 Thou/mm3 (140-440); RDW Standard Deviation 56.4 fL (36.4-46.3); Red Blood Count 3.58 Miln/mm3 (4.00-5.20); White Blood Count 7.5 Thou/mm3 (3.6-11.0)
[2025-04-24 14:20] LABS: Alanine Aminotransferase 18 U/L (10-49); Albumin, Serum 3.4 gm/dL (3.4-4.8); Albumin/Globulin Ratio 1.5 (1.2-2.2); Alkaline Phosphatase 184 U/L (46-116); Anion Gap 13 (7-16); Aspartate Amino Transferase 27 U/L (0-34); BUN/Creatinine Ratio 18 Ratio (12-20); Bilirubin,Total < 0.2 mg/dL (0.3-1.2); Blood Urea Nitrogen 9 mg/dL (9-23); Calcium 8.7 mg/dL (8.3-10.6); Calcium (Corrected) 9.2 mg/dL (8.5-10.1); Carbon Dioxide 22.8 mMol/L (20.0-31.0); Chloride 105 mMol/L (98-107); Creatinine (Component) 0.5 mg/dL (0.6-1.3); Free T4 (Free Thyroxine) 1.35 ng/dL (0.89-1.76); Globulin 2.2 gm/dL (2.3-3.5); Glucose 161 mg/dL (74-106); Osmolality,Calculated 282 (275-295); Potassium 4.0 mMol/L (3.4-5.1); Sodium 141 mMol/L (136-145); Thyroid Stimulating Hormone 1.25 uIU/mL (0.55-4.78); Total Protein 5.6 gm/dL (5.7-8.2); eGFR > 60 See Note
[2025-04-28 06:22] LABS: CA 19-9 Antigen* 514 U/mL (<34)
== END 2025-04-27 23:59 | disposition home or self-care (01) ==
LOC: SCTC 10:53
PROVIDERS: PCP Physician Assistant; Referring Provider Physician Assistant; Visit Provider Internal Medicine Hematology & Oncology
DX: Z51.11 Encounter for antineoplastic chemotherapy (principal); C25.0 Malignant neoplasm of head of pancreas; E87.6 Hypokalemia; M79.652 Pain in left thigh; M79.651 Pain in right thigh; K21.9 Gastro-esophageal reflux disease without esophagitis; G62.0 Drug-induced polyneuropathy; T45.1X5D Adverse effect of antineoplastic and immunosuppressive drugs, subsequent encounter; Z79.01 Long term (current) use of anticoagulants; M48.00 Spinal stenosis, site unspecified
CPT/HCPCS: 36591; 80053; 81001; 84439; 84443; 85025; 86301; 87077; 87086; 87186; 96360; 96367; 96368; 96372; 96375; 96411; 96413; 96415; 96416; 96417; 99212; A4216; J0461; J0640; J1100; J1453; J1642; J2405; J7040; J7050; J7060; J7999; J9190; J9206; J9263; Q5101; A9270; G0463

== ENCOUNTER 2025-04-29 11:02 | Emergency (ER) | payer OTHER, SELFPAY ==
[2025-04-29 11:07] VITALS: BP 134/81; PULSE 118; RESP 17; TEMP 36.8; O2SAT 99; BMI 21.4
--- NOTE | 2025-04-29 11:33 | PD.EDABDPN ---
ED Abdominal Pain RME/HPI General Chief Complaint: Abdominal Pain Stated complaint: STOMACH PAIN- HAS STOMACH CA Time seen by provider: 04/29/25 11:24 Arrival date/time: 04/29/25 11:02 RME / HPI RME / HPI narrative: 75-year-old female patient with significant history of cancer of the pancreatic head, came in for evaluation regarding stomach pain. Patient has been having abdominal pain for the last 24 hours, diffuse in character, severity moderate. Patient denies any diarrhea or constipation. Denies any vomiting denies any nausea denies any fever denies any other complaints. Patient is undergoing chemotherapy, aggressive chemotherapy per oncologist, was seen by oncologist 5 days ago. Denies any other complaints been taking Tylenol with no relief. Related Data Home Medications ?Medication ?Instructions ?Recorded ?Confirmed lipase 60,000-protease 1 cap PO TIDWM 01/22/25 01/22/25 189,600-amylase 252,600 unit capsule, delay rel (Zenpep) megestrol 40 mg tablet 40 mg PO DAILY 01/22/25 01/22/25 methimazole 5 mg tablet 5 mg PO DAILY 01/22/25 01/22/25 mirtazapine 15 mg tablet 15 mg PO .QHS 01/22/25 01/22/25 mqsolqza-keek-boiq 8 mg-folic 400 1 tab PO QDAY 01/22/25 01/22/25 mcg-K 50 mcg-lutein 300 mcg tablet ([facility] 50 Plus) omeprazole 20 mg capsule,delayed 20 mg PO DAILY 01/22/25 01/22/25 release ondansetron HCl 8 mg tablet 8 mg PO TID PRN nausea and vomiting 01/22/25 01/22/25 potassium chloride 20 mEq 20 meq PO DAILY 01/22/25 01/22/25 tablet,extended release prednisone 10 mg tablet 10 mg PO DAILY 01/22/25 01/22/25 propranolol 20 mg tablet 20 mg PO BID 01/22/25 01/22/25 Previous Rx's ?Medication ?Instructions ?Recorded acetaminophen 500 mg capsule 500 mg PO Q6H PRN pain (scale 08/11/19 score 4-6) #30 caps docusate sodium 100 mg capsule 100 mg PO BID #30 caps 03/05/25 (Colace) morphine 15 mg tablet,extended 15 mg PO .24h #10 tabs 03/05/25 release (MS Contin) morphine 30 mg capsule,extended 30 mg PO Q24H pain #7 caps 03/05/25 release 24 hr multiphase cefuroxime axetil 500 mg tablet 500 mg PO BID #14 tabs 04/29/25 metoclopramide HCl 10 mg tablet 10 mg PO Q6H PRN nausea and 04/29/25 (Reglan) vomiting #14 tabs pantoprazole 40 mg tablet,delayed 40 mg PO QDAY #30 tabs 04/29/25 release (Protonix) Allergies Allergy/AdvReac Type Severity Reaction Status Date / Time hydrocodone (From [place]) Allergy Severe Abdominal Verified 04/29/25 11:04 Pain Review of Systems Review of Systems Narrative Review of Systems: Review of system reviewed and within normal limits except mentioned in HPI ED Exam Narrative Physical exam: VITAL SIGNS: Reviewed. GENERAL APPEARANCE: Alert and interactive, follows commands, no acute distress, HEAD AND FACE: Non-traumatic. ENT: PERRL, pink conjunctivitis, eyelid no trauma, Mucous membrane moist. NECK: Supple, nontender, no nuchal rigidity. CHEST: No tenderness, no crepitus, no paradoxical movement, no retractions. LUNGS: Clear, well ventilated, symmetric, no rales, no wheezing, no ronchi, no stridor, good breath sounds bilaterally. HEART: Regular rate, regular rhythm, no murmur, no gallops. ABDOMEN: Soft, positive bowel sounds, nondistended, no guarding, diffuse abdominal tenderness, no rebound, no masses, biliary drain intact and draining RECTAL: Deferred. GENITAL: Deferred. NEUROLOGICAL: Gross motor function intact sensory function intact, Appropriate for age. MUSCULOSKELETAL: low back nontender, full range of motion. EXTREMITIES: Nontender, full range of motion. SKIN: Color pink, dry, no rash, no lacerations, no abrasions, no contusions. LYMPHATICS: Deferred. Course Quality Measures none Orders Category Date Time Status CT Screening NOW Care 04/29/25 11:38 Active EKG (ED ONLY) *Do not use* NOW Care 04/29/25 11:[address] abdomen pelvis w con Stat Exams 04/29/25 11:37 Completed EKG (ED Only) Stat Exams 04/29/25 11:35 Ordered CBC Stat Lab 04/29/25 12:00 Completed Comprehensive Metabolic Panel Stat Lab 04/29/25 12:00 Completed Lipase Stat Lab 04/29/25 12:00 Completed Magnesium Stat Lab 04/29/25 12:00 Completed Partial Thromboplastin Time Stat Lab 04/29/25 12:00 Completed Prothrombin Time with INR Stat Lab 04/29/25 12:00 Completed UA, C/S IF [Urinalysis, C/S if Indicated] Stat Lab 04/29/25 15:03 Completed Magnesium Citrate Liqd [Citrate of Magnesia Liqd] Med 04/29/25 11:37 Discontinued 300 ml PO X1 ONE Morphine Inj Med 04/29/25 11:35 Discontinued 4 mg IVP X1 ONE Ondansetron Inj [Zofran Inj] Med 04/29/25 11:35 Discontinued 4 mg IVP X1 ONE Ondansetron Inj [Zofran Inj] Med 04/29/25 14:38 Discontinued 4 mg IVP X1 ONE Ringers Lactated 1000 ml [Lactated Ringers] 1,000 ml Med 04/29/25 11:35 Discontinued IV 999 mls/hr Ringers Lactated 1000 ml [Lactated Ringers] 1,000 ml Med 04/29/25 16:16 Active IV 999 mls/hr cefTRIAXone/D5w 1gm IV premix [Rocephin/D5w 1gm IV Med 04/29/25 16:15 Active premix] 1 gm in 50 ml IV X1 mg Hyd/Al Hyd/Gregoria Susp [Maalox Susp] Med 04/29/25 14:04 Discontinued 30 ml PO X1 ONE Vital Signs Vital signs: Vital Signs Temperature 98.3 F 04/29/25 11:07 Pulse Rate 118 H 04/29/25 11:07 Respiratory Rate 17 04/29/25 11:07 Blood Pressure 134/81 H 04/29/25 11:07 Pulse Oximetry (%) 99 04/29/25 11:07 Oxygen Delivery Method Room Air 04/29/25 11:07 Abdominal Pain MDM MDM Narrative MDM Narrative:: 75-year-old female patient with significant history of cancer of the pancreatic head, came in for evaluation regarding stomach pain. Patient has been having abdominal pain for the last 24 hours, diffuse in character, severity moderate. Patient denies any diarrhea or constipation. Denies any vomiting denies any nausea denies any fever denies any other complaints. Patient is undergoing chemotherapy, aggressive chemotherapy per oncologist, was seen by oncologist 5 days ago. Denies any other complaints been taking Tylenol with no relief. EKG as interpreted by me shows sinus rhythm, ventricular rate 74 bpm, no ST segment elevation depression noted. Patient's workup is significant for UTI and a leukocytosis of 31,000. Which could be secondary to vomiting and pancreatic cancer. Currently on chemotherapy. Patient was given IV fluids, Maalox, ceftriaxone IV magnesium citrate, morphine and Zofran with significant improvement of symptoms patient is tolerating p.o. fluids prior to discharge. Patient data External records reviewed:: None Clinical information provided by:: patient Social determinants that could affect healthcare access:: none Patient has the following chronic illnesses:: None How is presenting disease/condition affected by chronic disease/condition?: no chronic disease Evaluation data The following diagnostics were reviewed and interpreted by me:: lab results, radiology exam(s) and EKG tracing(s) Lab and/or radiology exams considered but not ordered:: None Interpretation Summary: Medications / Prescriptions Medications or Prescriptions considered but not ordered:: None Medication administrations:: Medication Administration History Ceftriaxone Sodium/Dextrose (Rocephin/D5w 1gm Iv Premix) 1 gm in 50 mls @ 100 mls/hr IV X1 ONE Stop: 04/29/25 16:44 Lactated Ringer's (Lactated Ringers) 1,000 mls @ 999 mls/hr IV .Q1H1M ONE Stop: 04/29/25 17:16 Discontinued Medications Al Hydrox/Mg Hydrox/Simethicone (Mg Hyd/Al Hyd/Gregoria (Maalox Reg) Susp 30 Ml Udc) 30 ml PO X1 ONE Stop: 04/29/25 14:05 Last Admin: 04/29/25 14:08 Dose: 30 ml Documented By: EF Lactated Ringer's (Lactated Ringers) 1,000 mls @ 999 mls/hr IV .Q1H1M ONE Stop: 04/29/25 12:35 Last Infusion: 04/29/25 13:24 Dose: Infused Documented By: Admin: 04/29/25 12:23 Dose: 999 mls/hr Documented By: EF Magnesium Citrate (Magnesium Citrate 300 Ml Btl) 300 ml PO X1 ONE Stop: 04/29/25 11:38 Last Admin: 04/29/25 12:51 Dose: 300 ml Documented By: EF Morphine Sulfate (Morphine Sulf Inj 10 Mg/Ml Vial) 4 mg IVP X1 ONE Stop: 04/29/25 11:36 Last Admin: 04/29/25 12:24 Dose: 4 mg Documented By: EF Ondansetron HCl (Ondansetron Inj 2 Mg/Ml Inj 2 Ml) 4 mg IVP X1 ONE; Protocol Stop: 04/29/25 11:36 Last Admin: 04/29/25 12:23 Dose: 4 mg Documented By: EF Ondansetron HCl (Ondansetron Inj 2 Mg/Ml Inj 2 Ml) 4 mg IVP X1 ONE; Protocol Stop: 04/29/25 14:39 Last Admin: 04/29/25 14:46 Dose: 4 mg Documented By: EF Maalox IV fluids mag citrate morphine Zofran Consultations Consultation(s) initiated? (list below): No Diagnosis Differential diagnosis abdominal pain: abdominal pain, constipation and pancreatitis Most likely diagnosis given after review of the tests above:: Abdominal pain, vomiting, gastritis, UTI Admission Indicated Admission indicated?: not indicated Explain why admission is indicated or not indicated:: Stable Admission Request Was there a request for admission?: No Disposition Plan Disposition Plan: Discharge Discharge Attestation Discharge Attestation: The patient and all family members were given an opportunity to ask questions and understood the discharge instructions. Discharge instructions specifically effects, indications for sooner follow up or return to the emergency department, and the expected course of current diagnosis. Patient condition: Stable Discharge Plan Plan Patient Disposition: HOME (Self Care) Discharge Disposition comment: Stable Prescriptions/Referrals Prescriptions/Med Rec: New cefuroxime axetil 500 mg tablet 500 mg PO BID Qty: 14 0RF metoclopramide HCl [Reglan] 10 mg tablet 10 mg PO Q6H PRN (Reason: nausea and vomiting) Qty: 14 0RF pantoprazole [Protonix] 40 mg tablet,delayed release (DR/EC) 40 mg PO QDAY Qty: 30 0RF No Action acetaminophen 500 mg capsule 500 mg PO Q6H PRN (Reason: pain (scale score 4-6)) Qty: 30 0RF morphine 30 mg capsule, ER multiphase 24 hr 30 mg PO Q24H MDD 1 Qty: 7 0RF Rx Instructions: already tolerated morphine while in ER 03/05/25 morphine [MS Contin] 15 mg tablet extended release 15 mg PO .24h MDD 1 Qty: 10 0RF docusate sodium [Colace] 100 mg capsule 100 mg PO BID Qty: 30 0RF megestrol 40 mg tablet 40 mg PO DAILY potassium chloride 20 mEq tablet extended release 20 meq PO DAILY Patient Comments: TAKE 2 TABLETS BY MOUTH TWICE DAILY FOR 2 DAYS THEN 1 ONCE DAILY AFTER [facility] 50 Plus 8 mg iron-400 mcg-50 mcg tablet 1 tab PO QDAY mirtazapine 15 mg tablet 15 mg PO .QHS prednisone 10 mg tablet 10 mg PO DAILY omeprazole 20 mg capsule,delayed release(DR/EC) 20 mg PO DAILY methimazole 5 mg tablet 5 mg PO DAILY Patient Comments: TAKE 1 TABLET BY MOUTH ONCE DAILY ondansetron HCl 8 mg tablet 8 mg PO TID PRN (Reason: nausea and vomiting) Patient Comments: TAKE 1 TABLET BY MOUTH THREE TIMES DAILY NEEDED FOR NAUSEA propranolol 20 mg tablet 20 mg PO BID Zenpep 60,000-189,600- 252,600 unit capsule,delayed release(DR/EC) 1 cap PO TIDWM Referrals: Neena Reilly MD [Primary Care Provider] - In 1 week Problem List Clinical Impression: Epigastric abdominal pain, Vomiting, History of cancer Patient/Caregiver Discharge Instructions Discharge Activity: activity as tolerated Education Materials: Self-Care for Vomiting and Diarrhea Additional Instructions: Thank you for the opportunity for serving you today. You are stable for discharged . You are advised to: Follow-up with your PCP in 1 to 2 days Return to ED for worsening of symptoms Increase oral fluids Take medication as prescribed Print Language: Sudanese Stand Alone Forms: [facility] Award Info., Patient Portal Info Letter RAFAEL/VERNON Supervising Physician RAFAEL/VERNON Supervising Physician: MD Ronaldo
--- NOTE | 2025-04-29 11:37 | XR_ITS ---
Examination: CT abdomen with intravenous contrast CT pelvis with intravenous contrast 2-D coronal reconstructions 2-D sagittal reconstructions Date and time of exam:April 29, 2025 at 1351 hours Comparison April 18, 2025 INDICATIONS: Diagnosis pancreatic mass 7 years ago with epigastric pain beginning 2 days ago. CTDI: vol (mGy) 7.94 DLP: (mGycm) 289 Technique: Multiple axial sections of the abdomen and pelvis have been obtained. 64 slice high-resolution scanner used. 3 mm axial sections have been obtained, post intravenous injection 60 cc Isovue 370 2-D sagittal, coronal reconstructions obtained. Low dose protocols were performed. One or more of the following dose reduction techniques were used; automated exposure control, adjustment of the mA and/or KV according to patient size, use of iterative reconstruction technique. 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
[2025-04-29 12:23] LABS: Basophils # (Auto) 0.1 Thou/mm3 (0.0-0.2); Basophils % (Auto) 0 % (0-2.5); Eosinophils # (Auto) 0.1 Thou/mm3 (0.0-0.5); Eosinophils % (Auto) 0 % (0-10); Hematocrit 33.2 % (36.0-46.0); Hemoglobin 10.4 g/dL (12.0-16.0); Immature Granulocytes Auto 3.24 Thou/mm3 (0.00-0.00); Lymphocytes # (Auto) 1.0 Thou/mm3 (1.0-4.8); Lymphocytes % (Auto) 3 % (10-50); Mean Corpuscular HGB Conc 31.3 g/dl (31.0-37.0); Mean Corpuscular Hemoglobin 27.7 pg (25.0-35.0); Mean Corpuscular Volume 89 fL (80-100); Monocytes # (Auto) 0.1 Thou/mm3 (0.0-0.8); Monocytes % (Auto) 1 % (0-12); Neutrophils # (Auto) 26.4 Thou/mm3 (1.8-7.7); Neutrophils % (Auto) 85 % (37-80); Nucleated Red Blood Cell # 0.00 Thou/mm3 (0.00-0.00); Nucleated Red Blood Cell % 0 /100 WBC (0); Platelet Count 468 Thou/mm3 (140-440); RDW Standard Deviation 56.0 fL (36.4-46.3); Red Blood Count 3.75 Miln/mm3 (4.00-5.20); White Blood Count 31.0 Thou/mm3 (3.6-11.0)
[2025-04-29] MEDS: RINGERS LACTATED 1000 ML 1,000 ML 999 ML IV ×2 (12:23→16:59)
[2025-04-29] MEDS: ONDANSETRON INJ 2 MG/ML INJ 2 ML 4 MG IVP ×2 (12:23→14:46)
[2025-04-29] MEDS: MORPHINE SULF INJ 10 MG/ML VIAL 4 MG IVP (12:24)
[2025-04-29 12:40] LABS: INR 1.2 (0.9-1.3); Partial Thromboplastin Time 23.5 Seconds (22.0-36.0); Prothrombin Time 12.6 Seconds (9.0-12.2)
[2025-04-29] MEDS: MAGNESIUM CITRATE 300 ML BTL PO (12:51)
[2025-04-29 13:10] LABS: Alanine Aminotransferase 35 U/L (10-49); Albumin, Serum 3.6 gm/dL (3.4-4.8); Albumin/Globulin Ratio 1.9 (1.2-2.2); Alkaline Phosphatase 166 U/L (46-116); Anion Gap 12 (7-16); Aspartate Amino Transferase 32 U/L (0-34); BUN/Creatinine Ratio 18 Ratio (12-20); Bilirubin,Total 0.2 mg/dL (0.3-1.2); Blood Urea Nitrogen 11 mg/dL (9-23); Calcium 8.5 mg/dL (8.3-10.6); Calcium (Corrected) 8.8 mg/dL (8.5-10.1); Carbon Dioxide 24.1 mMol/L (20.0-31.0); Chloride 104 mMol/L (98-107); Creatinine (Component) 0.6 mg/dL (0.6-1.3); Estimated Creatinine Clearance 56.4 mL/min (>60); Globulin 1.9 gm/dL (2.3-3.5); Glucose 103 mg/dL (74-106); Lipase 17 U/L (12-53); Magnesium 1.5 mg/dL (1.6-2.6); Osmolality,Calculated 278 (275-295); Potassium 3.9 mMol/L (3.4-5.1); Sodium 140 mMol/L (136-145); Total Protein 5.5 gm/dL (5.7-8.2); eGFR > 60 See Note
[2025-04-29] MEDS: MG HYD/AL HYD/SIME (Maalox Reg) SUSP 30 ML UDC PO (14:08)
[2025-04-29 15:09] LABS: Collection Type, Urine Clean Catch
[2025-04-29 15:19] LABS: Bilirubin,Urine Negative (Negative); Blood,Urine Negative (Negative); Clarity,Urine Clear (Clear/Hazy); Culture Indicated,Urine Not Indicated; Glucose, Urine Negative (Negative); Ketones,Urine Negative (Negative); Leukocyte Esterase,Urine Positive (Negative); Nitrite,Urine Negative (Negative); PH,Urine 6.5 (5.0-7.0); Protein,Urine Negative (Neg - Trace); RBC,Urine 6 /hpf (0-3); Specific Gravity,Urine 1.033 (1.001-1.035); Squamous Epithelial Cell,Urine < 1 /hpf (0-5); Urobilinogen,Urine Negative mg/dL (0.0-1.0); WBC,Urine 10 /hpf (0-5)
[2025-04-29 15:32] LABS: Color,Urine Lt-Yellow (Lt Yel-Yel)
[2025-04-29 15:37] VITALS: BP 142/81; PULSE 92; RESP 18; TEMP 36.9; O2SAT 97
[2025-04-29] MEDS: cefTRIAXone/D5w 1gm IV premix 1 GM/50 ML BAG IV (16:59)
[2025-04-29 18:03] VITALS: BP 126/54; PULSE 81; RESP 18; TEMP 36.7; O2SAT 100
== END 2025-04-29 18:41 | disposition home or self-care (01) ==
PROVIDERS: Nurse Practitioner Family; Emergency Provider Family Medicine; PCP Family Medicine
DX: R10.13 Epigastric pain (principal); R11.10 Vomiting, unspecified; N39.0 Urinary tract infection, site not specified; C25.0 Malignant neoplasm of head of pancreas
CPT/HCPCS: 36415; 74177; 80053; 81001; 83690; 83735; 85025; 85610; 85730; 93005; 96361; 96365; 96375; 96376; 99283; A4649; J0696; J2270; J2405; J7120; Q9967; A9270

== ENCOUNTER 2025-05-02 10:14 | Outpatient (RCR) | payer OTHER, SELFPAY | END 2025-05-28 23:59 | disposition home or self-care (01) | LOC: SCTC 10:14 | PROVIDERS: PCP Family Medicine; Referring Provider Family Medicine; Visit Provider Internal Medicine Hematology & Oncology | DX: C25.0 Malignant neoplasm of head of pancreas (principal); E87.6 Hypokalemia; K21.9 Gastro-esophageal reflux disease without esophagitis; E46 Unspecified protein-calorie malnutrition; Z68.1 Body mass index [BMI] 19.9 or less, adult; G62.0 Drug-induced polyneuropathy; T45.1X5D Adverse effect of antineoplastic and immunosuppressive drugs, subsequent encounter; Z79.01 Long term (current) use of anticoagulants; M48.00 Spinal stenosis, site unspecified | CPT/HCPCS: 96360; 96372; A4216; J1100; J1453; J1642; J2405; J7040; J7050; Q5101 ==

== ENCOUNTER 2025-05-05 16:10 | Emergency (ER) | payer OTHER, SELFPAY ==
[2025-05-05 16:21] VITALS: BP 120/85; PULSE 132; RESP 18; TEMP 37.1; O2SAT 98
--- NOTE | 2025-05-05 16:53 | PD.EDRME ---
Rapid Medical Screening Exam RME Arrival date/time: 05/05/25 16:10 75-year-old female with a history of pancreatic cancer presents to the emergency room with a chief complaint of 10 out of 10 epigastric pain and bilateral flank pain x 3 days I have greeted and performed a focused initial assessment of this patient. A comprehensive ED assessment and evaluation of the patient, analysis of all test results, and completion of the medical decision making process will be conducted by additional ED providers. Chief Complaint: Abdominal Pain Vital signs: Vital Signs Temperature 98.8 F 05/05/25 16:21 Pulse Rate 132 H 05/05/25 16:21 Respiratory Rate 18 05/05/25 16:21 Blood Pressure 120/85 H 05/05/25 16:21 Pulse Oximetry (%) 98 05/05/25 16:21 Oxygen Delivery Method Room Air 05/05/25 16:21 Vital signs reviewed by provider: Yes
== END 2025-05-05 17:10 | disposition left against medical advice (07) ==
LOC: SERX 17:14
PROVIDERS: Emergency Provider Emergency Medicine
DX: R10.13 Epigastric pain (principal); Z53.29 Procedure and treatment not carried out because of patient's decision for other reasons
CPT/HCPCS: 80053; 81001; 83690; 85025; 87086; 99282

== ENCOUNTER 2025-06-13 11:30 | Emergency (ER) | payer OTHER, SELFPAY ==
[2025-06-13 11:55] VITALS: BP 108/67; PULSE 108; RESP 17; TEMP 37.2; O2SAT 99
--- NOTE | 2025-06-13 12:05 | EDRME_ITS ---
Rapid Medical Screening Exam RME Arrival date/time: 06/13/25 11:30 75-year-old female with a history of pancreatic cancer presents to the emergency room with a chief complaint of 10 out of 10 generalized body aches and pain x 1 week I have greeted and performed a focused initial assessment of this patient. A com prehensive ED assessment and evaluation of the patient, analysis of all test results, and completion of the medical decision making process will be conducted by additional ED providers. Chief Complaint: General Adult/Misc Complain Time Seen by Provider: 06/13/25 11:53 Vital signs: Vital Signs Temperature 98.9 F 06/13/25 11:55 Pulse Rate 108 H 06/13/25 11:55 Respiratory Rate 17 06/13/25 11:55 Blood Pressure 108/67 06/13/25 11:55 Pulse Oximetry (%) 99 06/13/25 11:55 Oxygen Delivery Method Room Air 06/13/25 11:55 Vital signs reviewed by provider: Yes
--- NOTE | 2025-06-13 12:05 | XR_ITS ---
Examination: CT abdomen and pelvis without contrast. Coronal 3-D reconstructions. Sagittal 2-D reconstructions. Date and time of exam:June 13, 2025, 1222 hours, compared to April 29, 2025 INDICATIONS: Generalized abdominal pain and nausea today, history hepatic external drainage catheter, widespread osteoblastic metastatic disease CTDI: vol (mGy): 4.3 DLP: (mGycm): 190 Technique: Axial images of the abdomen have been obtained, 3 mm slice thickness Intravenous contrast material has not been administered. Low dose protocols were performed. One or more of the following dose reduction techniques were used; automated exposure control, adjustment of the mA and/or KV according to patient size, use of iterative reconstruction technique. Findings: 4 mm pulmonary nodule right midlung Pneumobilia External hepatic drainage catheter satisfactory position with no significant extra hepatic biliary tract dilatation No pancreatic mass Aortic calcification No pericecal inflammatory change Severe osteopenia Widespread osteoblastic metastatic disease again noted with severe pathologic compression fractures L3, L4 No bowel obstruction Atrophic uterus No pelvic mass Bladder intact IMPRESSION: Satisfactory position No hepatic drainage catheter, no significant biliary tract dilatation No obstruction No pericecal inflammatory change Widespread osteoblastic metastatic disease again noted with stable pathologic compression fractures L3, L4
[2025-06-13 12:58] LABS: Basophils # (Auto) 0.1 Thou/mm3 (0.0-0.2); Basophils % (Auto) 1 % (0-2.5); Eosinophils # (Auto) 0.3 Thou/mm3 (0.0-0.5); Eosinophils % (Auto) 3 % (0-10); Hematocrit 34.7 % (36.0-46.0); Hemoglobin 10.8 g/dL (12.0-16.0); Immature Granulocytes Auto 0.07 Thou/mm3 (0.00-0.00); Lymphocytes # (Auto) 2.1 Thou/mm3 (1.0-4.8); Lymphocytes % (Auto) 21 % (10-50); Mean Corpuscular HGB Conc 31.1 g/dl (31.0-37.0); Mean Corpuscular Hemoglobin 26.7 pg (25.0-35.0); Mean Corpuscular Volume 86 fL (80-100); Monocytes # (Auto) 0.8 Thou/mm3 (0.0-0.8); Monocytes % (Auto) 8 % (0-12); Neutrophils # (Auto) 6.5 Thou/mm3 (1.8-7.7); Neutrophils % (Auto) 66 % (37-80); Nucleated Red Blood Cell # 0.00 Thou/mm3 (0.00-0.00); Nucleated Red Blood Cell % 0 /100 WBC (0); Platelet Count 393 Thou/mm3 (140-440); RDW Standard Deviation 55.7 fL (36.4-46.3); Red Blood Count 4.05 Miln/mm3 (4.00-5.20); White Blood Count 9.8 Thou/mm3 (3.6-11.0)
[2025-06-13 13:21] LABS: Alanine Aminotransferase 20 U/L (10-49); Albumin, Serum 4.2 gm/dL (3.4-4.8); Albumin/Globulin Ratio 1.1 (1.2-2.2); Alkaline Phosphatase 259 U/L (46-116); Anion Gap 13 (7-16); Aspartate Amino Transferase 53 U/L (0-34); BUN/Creatinine Ratio 10 Ratio (12-20); Bilirubin,Total 0.7 mg/dL (0.3-1.2); Blood Urea Nitrogen 5 mg/dL (9-23); Calcium 10.4 mg/dL (8.3-10.6); Calcium (Corrected) 10.4 mg/dL (8.5-10.1); Carbon Dioxide 22.2 mMol/L (20.0-31.0); Chloride 104 mMol/L (98-107); Creatinine (Component) 0.5 mg/dL (0.6-1.3); Globulin 3.7 gm/dL (2.3-3.5); Glucose 94 mg/dL (74-106); Osmolality,Calculated 274 (275-295); Potassium 5.0 mMol/L (3.4-5.1); Sodium 139 mMol/L (136-145); Total Protein 7.9 gm/dL (5.7-8.2); eGFR > 60 See Note
[2025-06-13] MEDS: GABAPENTIN 100 MG CAPSULE PO (15:43)
[2025-06-13 15:45] VITALS: BMI 17.6
[2025-06-13] MEDS: ONDANSETRON ODT 4 MG TABRAP PO (15:46)
--- NOTE | 2025-06-13 15:51 | PD.EDADULT ---
ED General RME/HPI General Chief complaint: General Adult/Misc Complain Stated complaint: has CA in pancreas, pain to whole body Time Seen by Provider: 06/13/25 11:53 Arrival date/time: 06/13/25 11:30 RME / HPI RME / HPI narrative: 06/13/25 11:30 75-year-old female with a history of pancreatic cancer presents to the emergency room with a chief complaint of 10 out of 10 generalized body aches and pain x 1 week I have greeted and performed a focused initial assessment of this patient. A comprehensive ED assessment and evaluation of the patient, analysis of all test results, and completion of the medical decision making process will be conducted by additional ED providers. DR. YEN MAIN ED EVALUATION 75 year old female with history of metastatic pancreatic cancer with external biliary drain placement, presents to the ED for evaluation of generalized body pain today. Per son, patient was diagnosed with pancreatic cancer in 2022 and has had pain since. However, noted in the last 5 days the pain is everywhere and severe. Reports they have given the patient Tylenol and Codeine which has not provided much relief. Son mentions the patient has a prescription for Morphine but has not been given the medication due to concern of becoming addicted. No fevers, chills, chest pain, cough, shortness of breath, vomiting, or urinary symptoms. Related Data Home Medications ?Medication ?Instructions ?Recorded ?Confirmed lipase 60,000-protease 1 cap PO TIDWM 01/22/25 01/22/25 189,600-amylase 252,600 unit capsule, delay rel (Zenpep) megestrol 40 mg tablet 40 mg PO DAILY 01/22/25 01/22/25 methimazole 5 mg tablet 5 mg PO DAILY 01/22/25 01/22/25 mirtazapine 15 mg tablet 15 mg PO .QHS 01/22/25 01/22/25 yfzpsyba-khtr-vkth 8 mg-folic 400 1 tab PO QDAY 01/22/25 01/22/25 mcg-K 50 mcg-lutein 300 mcg tablet (Century Women 50 Plus) omeprazole 20 mg capsule,delayed 20 mg PO DAILY 01/22/25 01/22/25 release ondansetron HCl 8 mg tablet 8 mg PO TID PRN nausea and vomiting 01/22/25 01/22/25 potassium chloride 20 mEq 20 meq PO DAILY 01/22/25 01/22/25 tablet,extended release prednisone 10 mg tablet 10 mg PO DAILY 01/22/25 01/22/25 propranolol 20 mg tablet 20 mg PO BID 01/22/25 01/22/25 Previous Rx's ?Medication ?Instructions ?Recorded acetaminophen 500 mg capsule 500 mg PO Q6H PRN pain (scale 08/11/19 score 4-6) #30 caps docusate sodium 100 mg capsule 100 mg PO BID #30 caps 03/05/25 (Colace) morphine 15 mg tablet,extended 15 mg PO .24h #10 tabs 03/05/25 release (MS Contin) morphine 30 mg capsule,extended 30 mg PO Q24H pain #7 caps 03/05/25 release 24 hr multiphase cefuroxime axetil 500 mg tablet 500 mg PO BID #14 tabs 04/29/25 metoclopramide HCl 10 mg tablet 10 mg PO Q6H PRN nausea and 04/29/25 (Reglan) vomiting #14 tabs pantoprazole 40 mg tablet,delayed 40 mg PO QDAY #30 tabs 04/29/25 release (Protonix) docusate sodium 100 mg capsule 100 mg PO QHSPRN PRN constipation 06/13/25 (Colace) #30 caps morphine 15 mg tablet,extended 15 mg PO QHSPRN PRN pain #20 tabs 06/13/25 release (MS Contin) oxycodone-acetaminophen 5 mg-325 1 tab PO Q4H PRN pain #20 tabs 06/13/25 mg tablet (Percocet) Allergies Allergy/AdvReac Type Severity Reaction Status Date / Time hydrocodone (From [place]) Allergy Severe Abdominal Verified 06/13/25 11:36 Pain Review of Systems Review of Systems Systems Reviewed: All systems reviewed, normal except as documented Past Medical History Past Medical History CARDIAC: Positive Cardiac Disorders and Hypertension OTHER HISTORY: Positive Chemotherapy and Cancer (pancreas) Family History FAMILY HISTORY: Positive Family Cancer (daughter had breast cancer) Surgical History SURGICAL: Positive Endocrine Surgery Social History SMOKING STATUS: Never smoker ED Exam Narrative Physical exam: GENERAL APPEARANCE: alert and oriented x 4, well-developed, cachectic, fraile, depressed affect HEENT: Normocephalic, atraumatic; pupils equal, round, reactive to light; EOMI; mucous membranes pink, moist; oropharynx clear NECK: Supple LUNGS: CTABL; no wheezes, no rales, no rhonchi HEART: Regular rate, regular rhythm; normal S1, S2; no murmurs ABDOMEN: non distended; normal BS; soft, no tenderness, no guarding, no rebound; no masses, no organomegaly, no hernia BACK: no CVA tenderness EXTREMITIES: atraumatic; no edema NEUROLOGIC: awake; alert and oriented x4; cranial nerves II-XII grossly intact; no focal sensory or motor deficits PSYCHIATRIC: Depressed affect SKIN: warm, dry, normal color; no rashes Course Quality Measures none Orders Category Date Time Status CT abdomen pelvis wo con Stat Exams 06/13/25 12:05 Completed CBC Stat Lab 06/13/25 12:47 Completed CMP [Comprehensive Metabolic Panel] Stat Lab 06/13/25 12:47 Completed Gabapentin Med 06/13/25 15:33 Discontinued 100 mg PO X1 ONE Ondansetron Odt [Zofran Odt] Med 06/13/25 15:33 Discontinued 4 mg PO X1 ONE oxyCODONE/APAP 5/325 [Percocet 5/325] Med 06/13/25 15:33 Discontinued 1 tab PO X1 ONE Vital Signs Vital signs: Vital Signs Temperature 98.9 F 06/13/25 11:55 Pulse Rate 108 H 06/13/25 11:55 Respiratory Rate 17 06/13/25 11:55 Blood Pressure 108/67 06/13/25 11:55 Pulse Oximetry (%) 99 06/13/25 11:55 Oxygen Delivery Method Room Air 06/13/25 11:55 Pulse ox is 99% on room air which is adequate. Discharge Plan Plan Patient Disposition: HOME (Self Care) Prescriptions/Referrals Prescriptions/Med Rec: New oxycodone-acetaminophen [Percocet] 5-325 mg tablet 1 tab PO Q4H MDD 8 PRN (Reason: pain) Qty: 20 0RF morphine [MS Contin] 15 mg tablet extended release 15 mg PO QHSPRN MDD 2 PRN (Reason: pain) Qty: 20 0RF docusate sodium [Colace] 100 mg capsule 100 mg PO QHSPRN PRN (Reason: constipation) Qty: 30 0RF No Action acetaminophen 500 mg capsule 500 mg PO Q6H PRN (Reason: pain (scale score 4-6)) Qty: 30 0RF morphine 30 mg capsule, ER multiphase 24 hr 30 mg PO Q24H MDD 1 Qty: 7 0RF Rx Instructions: already tolerated morphine while in ER 03/05/25 morphine [MS Contin] 15 mg tablet extended release 15 mg PO .24h MDD 1 Qty: 10 0RF docusate sodium [Colace] 100 mg capsule 100 mg PO BID Qty: 30 0RF megestrol 40 mg tablet 40 mg PO DAILY potassium chloride 20 mEq tablet extended release 20 meq PO DAILY Patient Comments: TAKE 2 TABLETS BY MOUTH TWICE DAILY FOR 2 DAYS THEN 1 ONCE DAILY AFTER Century Women 50 Plus 8 mg iron-400 mcg-50 mcg tablet 1 tab PO QDAY mirtazapine 15 mg tablet 15 mg PO .QHS prednisone 10 mg tablet 10 mg PO DAILY omeprazole 20 mg capsule,delayed release(DR/EC) 20 mg PO DAILY methimazole 5 mg tablet 5 mg PO DAILY Patient Comments: TAKE 1 TABLET BY MOUTH ONCE DAILY ondansetron HCl 8 mg tablet 8 mg PO TID PRN (Reason: nausea and vomiting) Patient Comments: TAKE 1 TABLET BY MOUTH THREE TIMES DAILY NEEDED FOR NAUSEA propranolol 20 mg tablet 20 mg PO BID Zenpep 60,000-189,600- 252,600 unit capsule,delayed release(DR/EC) 1 cap PO TIDWM cefuroxime axetil 500 mg tablet 500 mg PO BID Qty: 14 0RF metoclopramide HCl [Reglan] 10 mg tablet 10 mg PO Q6H PRN (Reason: nausea and vomiting) Qty: 14 0RF pantoprazole [Protonix] 40 mg tablet,delayed release (DR/EC) 40 mg PO QDAY Qty: 30 0RF Referrals: Neena Reilly MD [Primary Care Provider, Family Practice] - In 1 week Problem List Clinical Impression: Pancreatic cancer, Malignant neoplasm of pancreas metastatic to bone, Pain Patient/Caregiver Discharge Instructions Education Materials: Understanding Bone Metastasis Additional Instructions: Give MS Contin 15 mg one tablet by mouth at bedtime plus Colace 100 mg one tab at bedtime Print Language: Italian Stand Alone Forms: Lakeisha Award Info., Patient Portal Info Letter MDM Narrative [facility] hospital course: Beatris Perry am scribing for and in the presence of Dr. Yen. Clinical Information Provided by patient and family Medical Records Reviewed [facility] Meds/Rx Considered, not Ordered None Labs/Rad/Tests considered, not Ordered None Chronic Illness/Social Conditions which may negatively complicate care or outcome(s)-explain: Cancer EKG EKG not done Lab Interpretation Labs: interpreted by wi Lab(s) interpretation(s): CBC within normal limits Imaging Radiology reports / interpretation(s): Ordering Physician: Teodoro Morris Date of Service: 06/13/25 Procedure(s): CT abdomen pelvis wo con Accession Number(s): [id number] cc: Teodoro Morris; Samir Brown MD; Neena Prieto MD~ Examination: CT abdomen and pelvis without contrast. Coronal 3-D reconstructions. Sagittal 2-D reconstructions. Date and time of exam:June 13, 2025, 1222 hours, compared to April 29, 2025 INDICATIONS: Generalized abdominal pain and nausea today, history hepatic external drainage catheter, widespread osteoblastic metastatic disease CTDI: vol (mGy): 4.3 DLP: (mGycm): 190 Technique: Axial images of the abdomen have been obtained, 3 mm slice thickness Intravenous contrast material has not been administered. Low dose protocols were performed. One or more of the following dose reduction techniques were used; automated exposure control, adjustment of the mA and/or KV according to patient size, use of iterative reconstruction technique. Findings: 4 mm pulmonary nodule right midlung Pneumobilia External hepatic drainage catheter satisfactory position with no significant extra hepatic biliary tract dilatation No pancreatic mass Aortic calcification No pericecal inflammatory change Severe osteopenia Widespread osteoblastic metastatic disease again noted with severe pathologic compression fractures L3, L4 No bowel obstruction Atrophic uterus No pelvic mass Bladder intact IMPRESSION: Satisfactory position No hepatic drainage catheter, no significant biliary tract dilatation No obstruction No pericecal inflammatory change Widespread osteoblastic metastatic disease again noted with stable pathologic compression fractures L3, L4 Dictated By: Samir Brown MD Signed By: <Electronically signed by Samir Brown MD in OV> 06/13/25 1249 Medication Administration(s) Medication Administration History Discontinued Medications Gabapentin (Gabapentin 100 Mg Capsule) 100 mg PO X1 ONE Stop: 06/13/25 15:34 Last Admin: 06/13/25 15:43 Dose: 100 mg Documented By: GM Ondansetron HCl (Ondansetron Odt 4 Mg Tabrap) 4 mg PO X1 ONE; Protocol Stop: 06/13/25 15:34 Last Admin: 06/13/25 15:46 Dose: 4 mg Documented By: GM Oxycodone/Acetaminophen (Oxycodone/Apap 5/325 Tablet) 1 tab PO X1 ONE Stop: 06/13/25 15:34 Last Admin: 06/13/25 15:44 Dose: 1 tab Documented By: GM See above Diagnosis Most likely dx, and/or detailed dx discussion: Pancreatic cancer Malignant neoplasm of pancreas metastatic to bone Pain Dispositon Disposition: Discharge Home
[2025-06-13 16:03] VITALS: BP 130/67; PULSE 102; RESP 16; TEMP 36.8; O2SAT 99
== END 2025-06-13 15:50 | disposition home or self-care (01) ==
PROVIDERS: Nurse Practitioner Family; Emergency Provider Emergency Medicine; PCP Family Medicine
DX: C25.9 Malignant neoplasm of pancreas, unspecified (principal); C79.51 Secondary malignant neoplasm of bone; M84.58XA Pathological fracture in neoplastic disease, other specified site, initial encounter for fracture; R64 Cachexia; Z68.1 Body mass index [BMI] 19.9 or less, adult
CPT/HCPCS: 36415; 74176; 80053; 81001; 85025; 87086; 99283; Q0162; A9270

== ENCOUNTER 2025-06-26 13:41 | Outpatient (RCR) | payer OTHER, SELFPAY ==
[2025-05-31 10:12] LABS: Alanine Aminotransferase 11 U/L (10-49); Albumin, Serum 3.5 gm/dL (3.4-4.8); Albumin/Globulin Ratio 1.5 (1.2-2.2); Alkaline Phosphatase 165 U/L (46-116); Anion Gap 12 (7-16); Aspartate Amino Transferase 21 U/L (0-34); BUN/Creatinine Ratio 15 Ratio (12-20); Bilirubin,Total 0.3 mg/dL (0.3-1.2); Blood Urea Nitrogen 6 mg/dL (9-23); Calcium 9.2 mg/dL (8.3-10.6); Calcium (Corrected) 9.6 mg/dL (8.5-10.1); Carbon Dioxide 25.4 mMol/L (20.0-31.0); Chloride 107 mMol/L (98-107); Creatinine (Component) 0.4 mg/dL (0.6-1.3); Globulin 2.4 gm/dL (2.3-3.5); Glucose 88 mg/dL (74-106); Osmolality,Calculated 283 (275-295); Potassium 3.2 mMol/L (3.4-5.1); Sodium 144 mMol/L (136-145); Total Protein 5.9 gm/dL (5.7-8.2); eGFR > 60 See Note
[2025-05-31 10:16] LABS: Basophils # (Auto) 0.1 Thou/mm3 (0.0-0.2); Basophils % (Auto) 1 % (0-2.5); Eosinophils # (Auto) 0.2 Thou/mm3 (0.0-0.5); Eosinophils % (Auto) 4 % (0-10); Hematocrit 25.7 % (36.0-46.0); Immature Granulocytes Auto 0.04 Thou/mm3 (0.00-0.00); Lymphocytes # (Auto) 1.5 Thou/mm3 (1.0-4.8); Lymphocytes % (Auto) 23 % (10-50); Mean Corpuscular HGB Conc 30.4 g/dl (31.0-37.0); Mean Corpuscular Hemoglobin 25.8 pg (25.0-35.0); Mean Corpuscular Volume 85 fL (80-100); Monocytes # (Auto) 0.8 Thou/mm3 (0.0-0.8); Monocytes % (Auto) 13 % (0-12); Neutrophils # (Auto) 3.7 Thou/mm3 (1.8-7.7); Neutrophils % (Auto) 58 % (37-80); Nucleated Red Blood Cell # 0.00 Thou/mm3 (0.00-0.00); Nucleated Red Blood Cell % 0 /100 WBC (0); Platelet Count 517 Thou/mm3 (140-440); RDW Standard Deviation 57.0 fL (36.4-46.3); Red Blood Count 3.02 Miln/mm3 (4.00-5.20); White Blood Count 6.3 Thou/mm3 (3.6-11.0)
[2025-05-31 10:31] LABS: Hemoglobin 7.8 g/dL (12.0-16.0)
[2025-06-20 06:55] LABS: CA 19-9 Antigen* 24295 U/mL (<34)
--- NOTE | 2025-06-26 01:13 | CTCFLWUP_ITS ---
Patient: ELIZABETH JUAREZ : 1950 Page 6 of 9 FOLLOW UP NOTE DATE OF SERVICE: 06/20/2025 NAME: ELIZABETH JUAREZ ACCOUNT: [id number] : 1950 AGE: 75 INTERVAL HISTORY: Subjective: The patient is a female with pancreatic cancer undergoing aggressive chemotherapy treatment. She presents for follow-up and management of her condition. Patient is feeling very fatigued and tired. Patient did not receive any chemotherapy as was recently had biliary tract infection. Patient is now feeling better and want to continue chemotherapy medical History - Pancreatic cancer - Hypokalemia, requiring recent hospital visit Medications and Supplements - Potassium - One pill daily - Recently increased to two pills daily, one in the morning and one in the afternoon, with food - Chemotherapy - 8th treatment completed - Patient tolerating the medicine well - Apixaban (Eliquis) 5 mg twice daily Social History - Diet: Patient reported not eating enough Review of Systems General: Positive for weight loss. Musculoskeletal: Positive for thigh pain with movement and when trying to get up. Objective: Laboratory, Imaging, and Diagnostic Test Results - CA-99: 594 (current) - Previous results: - CA-99: 30,000, 11,000 (dates not specified) - Potassium: 2.something (date not specified, described as very low ) ONCOLOGY HISTORY:?[facility] On[facility] Hx? DIAGNOSIS: Malignant neoplasm of head of pancreas [ICD10] C25.0 DATE OF DIAGNOSIS: July 2023 STAGE/TNM: Pancreatic adenocarcinoma advanced TREATMENT HISTORY: Care?Plan Start?Date Cycle Day Intent GemAbrax 10/20/2023 1 28 Curative?(primary) 5fu?chemoradiation 07/11/2024 1 7 Definitive modified?FOLFIRINOX?manjit?3?pancreas 12/14/2024 1 14 Palliative HISTORY OF PRESENT ILLNESS: Elizabeth Juarez is a 75-year-old [place] speaking for female with diagnosed pancreatic adenocarcinoma. Ms. Juarez is a poor historian. She is accompanied by her granddaughter who also does not know the history of Ms. Juarez's illness. Early part of June 2023: Ms. Juarez was found to have jaundice. She was admitted to [facility] and subsequently transferred to [facility] in [place]. On scans she was found to have a mass in the pancreas. According to the granddaughter patient had CT-guided biopsy of the pancreatic mass and external biliary drain was placed. Patient has subsequently improved. She stayed at [facility] for about 2 weeks. Discharged on 07 August 2023. I do not have any records from [facility]. According to the granddaughter the pancreatic cancer is localized to the pancreas. 08/24/2023: T. bili 4.8, AST 118, ALT 147, alkaline phosphatase 264, CA 19?9 is 66. 08/31/2023: T. bili 3.3, AST 81, ALT 102, alk phos 297 09/03/2023: PET/CT scan? 10/20/2023 - 12/02/2023: Ms. Juarez received 2 cycles of gemcitabine and Abraxane in the neoadjuvant setting. CA 19?9 trend: 10/19/2023: 59 10/26/2023: 49 11/03/2023: 32 11/17/2023: 39 11/24/2023: 35 12/01/2023: 34. 12/28/2023: PET/CT scan? 01/11/2024: CT scan of the chest without IV contrast done 02/03/2024: CA 19?9 is 107. 02/10/2024: CA 19?9 is 126. 02/11/2024: Ms. Juarez had cycle 3-day 8 of gemcitabine and Abraxane. 04/21/2024: Ms. Juarez had 5 cycles of gemcitabine and Abraxane 05/17/2024: CT scan of the chest abdomen and pelvis with IV contrast 05/23/2024: MRI of the abdomen with and without IV contrast OTHER MEDICAL HISTORY/CONDITIONS: PANCRATIC CA ASTHMA HIGH BLOOD PRESSURE BILAT?TUBAL?LIGATION FAMILY HISTORY: Children:?BREAST??DAUGHTER Cancer History:?UNCLE PROSATE/ UNCLE STOMACH SOCIAL HISTORY: Occupational?History:?RETIRED Education?Level:?Completed something less than 8th grade Marital?Status:? 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 Centrum Silver Women - 8 mg iron-400 mcg-50 mcg 30 tab Daily 2. Cipro - 500 mg 1 tab Daily 3. Compazine - 10 mg 10 mg three times a day prn nausea 4. Eliquis - 5 mg 1 tab Twice a Day 5. Emend - 125 mg (1)- 80 mg (2) 1 Pack Daily 6. Imodium A-D - 2 mg 1 tab as needed 7. K-Tab - 20 mEq 1 tab Daily 8. megestrol - 40 mg 1 tab Daily 9. methimazole - 5 mg Daily 10. oxycodone - 5 mg 2 tab 2 tabs every 6 hrs as needed 11. pantoprazole - 40 mg Twice a Day 12. traMADol - 50 mg 1 tab three times a day 13. Zenpep - 60,000-189,600- 252,600 unit 1 Capsule As directed 14. Zofran - 8 mg 8 mg three times a day prn nausea?Palabra Meds? Medications Last Reconciled by Neena Stern MD on 06/20/2025 ALLERGIES: hydrocodone-acetaminophen; hydrocodone-acetaminophen REVIEW OF SYSTEMS: A complete 14-point review of systems was performed and is negative except as noted in interval history. PHYSICAL EXAMINATION:?CloneBlock PE? VITAL SIGNS: Temperature?98.8, B/P?116/76, Oxygen?Saturation?99% Weight?87?lbs (Change?since?06/16/25:?0?lbs) PAIN: 0 - No pain EYE: Conjunctivae is white MOUTH: Oral cavity is dry. CHEST: Clear to auscultation. No wheezes or rales audible. CARDIAC: Rhythm regular, no murmurs or gallops present. ABDOMEN: Soft. No hepatomegaly. No splenomegaly. Ms. Juarez has external biliary drain which seems to be functioning well. EXTREMITIES: No pedal edema or cyanosis. LABORATORY DATA: I have personally reviewed and interpreted each of the patient?s relevant lab tests, abnormal findings are below: Date 05/31/25 06/13/25 06/14/25 ??WHITE?BLOOD?COUNT?(Thou/mm3) ? 9.8 ? ??RED?BLOOD?COUNT?(Miln/mm3) ? 4.05 ? ??HEMOGLOBIN?(gm/dl) ? 10.8?L ? ??HEMATOCRIT?(%) ? 34.7?L ? ??PLATELET?COUNT?(Thou/mm3) ? 393 ? ??NEUTROPHILS?%,?AUTO?(%) ? 66 ? ??LYMPH?%,?AUTO?(%) ? 21 ? ??NEUTROPHILS,?AUTO?(Thou/mm3) ? 6.5 ? ??GLUCOSE,RANDOM?(mg/dL) 88 94 ? ??BLOOD?UREA?NITROGEN?(mg/dL) 6?L 5?L ? ??CREATININE?(mg/dL) 0.40?L 0.50?L ? ??SODIUM?(mmol/L) 144 139 ? ??POTASSIUM?(mmol/L) 3.2?L 5.0 ? ??CHLORIDE?(mmol/L) 107 104 ? ??CrCl?(CandG)?(ml/min) 74.05 59.24 ? ??AST/SGOT?(Unit/L) 21 53?H ? ??ALT/SGPT?(Unit/L) 11 20 ? ??ALKALINE?PHOSPHATASE?(Unit/L) 165?H 259?H ? ??BILIRUBIN,?TOTAL?(mg/dL) 0.3 0.7 ? ??PROTEIN?TOTAL?(gm/dl) 5.9 7.9 ? ??ALBUMIN,?SERUM?(gm/dl) 3.5 4.2 ? ??GLOBULIN?(gm/dl) 2.4 3.7?H ? ??ALBUMIN/GLOBULIN?RATIO 1.5 1.1?L ? ??CALCIUM,?SERUM?(mg/dL) 9.2 10.4 ? ??CALCIUM?SERUM?(CORRECTED)?(mg/dL) 9.6 10.4?H ? ??CA?19-9?(Unit/mL) ? ? 24,295.00?A ASSESSMENT/PLAN:?Isabel Odell Assessment/Plan? Adenocarcinoma pancreas Female patient with pancreatic cancer undergoing aggressive chemotherapy, presenting with low potassium levels and thigh pain during movement. Pancreatic Cancer Assessment: Patient is currently undergoing Pancreatic Cancer treatment and third line patient has been on FOLFIRINOX Treatment was found to be effective as patient's tumor markers were decreasing down Patient's now unable to get treatment secondary to her admission in the hospital Tumor markers are now elevated to 24,000 Discussed hospice care Patient want to continue aggressive chemotherapy Will continue FOLFIRINOX Hypokalemia Resolved Continue to monitor potassium level Gastroesophageal Reflux Disease (GERD) Assessment: Patient reports persistent heartburn despite current medication regimen of an unspecified medication taken twice daily. Plan: -Continue Protonix for GERD management - Educate patient on proper administration (take on an empty stomach in the morning) - Advise patient to avoid coffee and tea Malnutrition Assessment: Patient exhibits significant weight loss, poor appetite, and weakness, likely due to both cancer progression and chemotherapy side effects. Current weight is 88 pounds, down from nearly 100 pounds previously. Plan: - Continue Remeron for appetite stimulation - Continue omega-3 supplements - Administer IV fluids every other day or daily as needed - Follow-up appointment for hydration scheduled for tomorrowMedications and Supplements - Eliquis (blood thinner) - 10 mg twice daily for first 20 days - 5 mg twice daily after 20 days - Administered by patient's sister - Chemotherapy - Causing neuropathy, numbness, tingling, and burning sensation in feet - Causing weakness - Affecting vision Chemotherapy-induced Peripheral Neuropathy Assessment: Patient is experiencing neuropathy as a side effect of chemotherapy, manifesting as numbness, tingling, and burning sensation in the feet. This is consistent with chemotherapy-induced peripheral neuropathy, a common adverse effect of certain chemotherapeutic agents. Plan: - Continue to monitor neuropathy symptoms - Educate patient on neuropathy management strategies Venous Thromboembolism Prophylaxis Assessment: Patient is currently on anticoagulation therapy with Eliquis (apixaban) for thromboembolism prophylaxis, which is common in cancer patients due to their increased risk of venous thromboembolism. Plan: - Continue Eliquis (apixaban) 5 mg PO BID thereafter - Ensure patient's sister continues to assist with medication administration Spinal Stenosis Assessment: Patient has a history of severe spinal stenosis, contributing to leg pain. This condition is separate from the cancer-related symptoms but may compound overall discomfort. Plan: - Continue current management for spinal stenosis (specific interventions not discussed) - Monitor for changes in leg pain and functionality ORDERS: Order # Description [id number] CBC with Auto Diff + Comprehensive Metabolic Panel + CA 19-9 [id number] CBC with Auto Diff + Comprehensive Metabolic Panel + CA 19-9 [id number] CBC with Auto Diff + Comprehensive Metabolic Panel + CA 19-9 RETURN TO CLINIC: I reviewed the diagnosis, prognosis, and recommended treatment/procedure options with the patient (and/or their legal employer relations representative), including the potential benefits, risks, side effects and alternative therapies. We also discussed the option of no treatment and the possibility of clinical trial participation, if applicable. All questions were addressed, and they demonstrated understanding. They provided informed consent to proceed with the proposed plan of care. BILLING AND COMPLIANCE: I reviewed external records from providers outside my specialty as summarized above. I spent a total of 50 minutes on this patient?s care on the day of their visit excluding time spent related to any billed procedures. This time includes time spent with the patient as well as time spent documenting in the medical record, reviewing patients records and tests, obtaining history, placing orders, communicating with other healthcare professionals, counseling the patient, family or caregiver, and/or care coordination for the diagnoses above. Electronically Signed by: Desmond Odell MD T: 1:10 AM CC: PCP: Enedina Bermeo Referring: Enedina Bermeo This document was completed utilizing speech recognition software. Grammatical errors, random word insertions, pronoun errors, and incomplete sentences are an occasional consequence of this system due to software limitations, ambient noise, and hardware issues. Any formal questions or concerns about the content, text or information contained within the body of this dictation should be directly addressed to the provider for clarification.
== END 2025-06-27 23:59 | disposition home or self-care (01) ==
LOC: SCTC 13:41
PROVIDERS: PCP Physician Assistant; Referring Provider Physician Assistant; Visit Provider Internal Medicine Hematology & Oncology
DX: Z51.11 Encounter for antineoplastic chemotherapy (principal); C25.0 Malignant neoplasm of head of pancreas; R63.4 Abnormal weight loss; R63.0 Anorexia; Z68.1 Body mass index [BMI] 19.9 or less, adult; R53.1 Weakness; G62.0 Drug-induced polyneuropathy; T45.1X5D Adverse effect of antineoplastic and immunosuppressive drugs, subsequent encounter; Z79.01 Long term (current) use of anticoagulants; M48.00 Spinal stenosis, site unspecified
CPT/HCPCS: 36430; 80053; 85025; 86301; 86850; 86900; 86901; 86923; 96360; 96367; 96368; 96372; 96375; 96413; 96415; 96416; 96417; 99212; A4216; J0461; J0640; J1100; J1453; J1642; J2405; J3490; J7030; J7040; J7050; J7060; J9190; J9206; J9263; P9016; Q5101; A9270; G0463

== ENCOUNTER 2025-06-28 08:45 | Outpatient (RCR) | payer OTHER, SELFPAY ==
[2025-06-28 09:47] LABS: Basophils # (Auto) 0.1 Thou/mm3 (0.0-0.2); Basophils % (Auto) 0 % (0-2.5); Eosinophils # (Auto) 0.1 Thou/mm3 (0.0-0.5); Eosinophils % (Auto) 1 % (0-10); Hematocrit 24.6 % (36.0-46.0); Immature Granulocytes Auto 0.67 Thou/mm3 (0.00-0.00); Lymphocytes # (Auto) 2.0 Thou/mm3 (1.0-4.8); Lymphocytes % (Auto) 15 % (10-50); Mean Corpuscular HGB Conc 31.7 g/dl (31.0-37.0); Mean Corpuscular Hemoglobin 27.6 pg (25.0-35.0); Mean Corpuscular Volume 87 fL (80-100); Monocytes # (Auto) 1.1 Thou/mm3 (0.0-0.8); Monocytes % (Auto) 8 % (0-12); Neutrophils # (Auto) 9.7 Thou/mm3 (1.8-7.7); Neutrophils % (Auto) 72 % (37-80); Nucleated Red Blood Cell # 0.02 Thou/mm3 (0.00-0.00); Nucleated Red Blood Cell % 0 /100 WBC (0); Platelet Count 279 Thou/mm3 (140-440); RDW Standard Deviation 62.8 fL (36.4-46.3); Red Blood Count 2.83 Miln/mm3 (4.00-5.20); White Blood Count 13.6 Thou/mm3 (3.6-11.0)
[2025-06-28 09:51] LABS: Hemoglobin 7.8 g/dL (12.0-16.0)
[2025-06-28 10:13] LABS: Alanine Aminotransferase 14 U/L (10-49); Albumin, Serum 3.1 gm/dL (3.4-4.8); Albumin/Globulin Ratio 1.6 (1.2-2.2); Alkaline Phosphatase 497 U/L (46-116); Anion Gap 12 (7-16); Aspartate Amino Transferase 28 U/L (0-34); BUN/Creatinine Ratio 10 Ratio (12-20); Bilirubin,Total 0.4 mg/dL (0.3-1.2); Blood Urea Nitrogen < 5 mg/dL (9-23); Calcium 8.4 mg/dL (8.3-10.6); Calcium (Corrected) 9.1 mg/dL (8.5-10.1); Carbon Dioxide 20.8 mMol/L (20.0-31.0); Chloride 114 mMol/L (98-107); Creatinine (Component) 0.5 mg/dL (0.6-1.3); Globulin 2.0 gm/dL (2.3-3.5); Glucose 88 mg/dL (74-106); Osmolality,Calculated 288 (275-295); Potassium 3.2 mMol/L (3.4-5.1); Sodium 147 mMol/L (136-145); Total Protein 5.1 gm/dL (5.7-8.2); eGFR > 60 See Note
[2025-07-04 06:27] LABS: CA 19-9 Antigen* 9184 U/mL (<34)
== END 2025-07-28 23:59 | disposition home or self-care (01) ==
LOC: SCTC 08:45
PROVIDERS: PCP Family Medicine; Referring Provider Family Medicine; Visit Provider Internal Medicine Hematology & Oncology
DX: C25.0 Malignant neoplasm of head of pancreas (principal); G62.0 Drug-induced polyneuropathy; T45.1X5D Adverse effect of antineoplastic and immunosuppressive drugs, subsequent encounter; Z79.01 Long term (current) use of anticoagulants; M48.00 Spinal stenosis, site unspecified
CPT/HCPCS: 36430; 80053; 85025; 86301; 86850; 86900; 86901; 86923; A4216; J0640; J1100; J1434; J1642; J2405; J3490; J7040; J7050; J9190; J9206; J9263; P9016